=== PATIENT | female | born 1990 | race Hispanic/Latino ===

== ENCOUNTER 2018-09-06 15:43 | Emergency (ER) | payer OTHER ==
--- OUTSIDE RECORDS SUMMARY | 2018-09-06 15:48 | XMS REPORT | Continuity of Care Document ---
:1990 Author Organization Interface Problems Problem Status Onset Classification Date Comments Source Date Reported INCREASED BP Active 05/09/[address] Center Vaginal 02/27/20 03/01/2018 [facility] discharge during 18 Medical Center R10.11 - RIGHT Active 02/13/20 OPID UPPER QUADRANT 18 [facility] PAIN LOF Active 01/28/[address] Center Other specified 01/16/20 04/16/2018 [facility] Medical related Center conditions, second trimester Abdominal pain, 01/09/20 04/16/[address] 19WK AB PAIN Active 01/09/[address] False labor 12/19/19 03/20/2018 [facility] before 37 18 Medical completed weeks Center of gestation, second trimester Vaginal bleeding 12/12/19 03/20/[address] ABDOMINAL Active 12/12/19 [facility] PAIN/[address] [place] [address] Center Active 12/12/19 Problem 03/15/2018 OPID 18 [facility],[id number] 15WKS W PELVIC Active 12/11/19 [facility] PAIN AND LIGHT [address] [place] [address] VAG BLEEDI [place] VAGINAL DEL Active 11/20/[address] BACK PAIN Active 11/20/[address] Center Discharge 06/14/20 06/17/2017 [facility] Diagnosis: 17 Medical Abdominal pain Center in female History of Resolved 10/26/19 Problem 04/16/2018 [facility] delivery [address] [place] [address] OPID [facility],[id number] Preeclampsia Resolved 10/26/19 Problem 04/16/[address], OPID [facility],[id number] Resolved 10/01/20 Problem 04/16/2018 [facility]ID [facility] Lower abdominal 03/19/2018 [facility] pain, Medical unspecified Center Dorsalgia, 03/19/2018 [facility] Medical [place] 15 weeks 03/19/2018 [facility] gestation of Medical [place] Abdominal pain Active Problem 04/16/2018 [facility] in female Medical Center,[facility],[id number] Hypothyroid Resolved Problem 04/16/2018 [facility],[id number] Seizure Resolved Problem 04/16/2018 [facility],[id number] Vaginal bleeding Active Problem 04/16/2018 [facility],[id number] Right lower 04/16/2018 [facility] quadrant pain Medical Center Unspecified 04/16/2018 [facility] infection of Medical urinary tract in Center , second trimester Vomiting of 04/16/2018 [facility] , Medical unspecified Center Diseases of the 04/16/2018 [facility] nervous system Medical complicating Center , second trimester Epilepsy, 04/16/2018 [facility], not Medical intractable, Center without status epilepticus Endocrine, 04/16/2018 [facility] nutritional and Medical metabolic Center diseases complicating , second trimester Hypothyroidism, 04/16/2018 [facility] Hypokalemia 04/16/2018 [facility] 19 weeks 04/16/2018 [facility] gestation of Medical [facility] Group B Active Problem 04/16/2018 [facility] Pre-eclampsia Active Problem 04/16/2018 [facility] Premature labor Active Problem 04/16/2018 [facility] 20 weeks 03/20/2018 [facility] gestation of Medical Center Active [facility] RELATED Medical CONDITIONS, Center UNSP, UNSP Medications Medication Details Route Status Patient Ordering Order Source Instructions Provider Date cephalexin 500 500 mg=1 cap, Active [place] mg oral capsule PO, [id number], # 2018 Medical 28 cap, 0 Center Refill(s), Pharmacy: [facility] [id number] Pyridium 200 mg, 2 tab, Inactive [place] Route: PO, Drug 2018 Medical form: TAB, ONCE, Center Dosing Weight 68.182, kg, Priority: STAT, Start date: 03/24/18 20:01:00 CDT, Stop date: 03/24/18 20:01:00 CDTNotes: Give with meals. (Same as: Pyridium) Keflex 500 mg, 1 cap, No Longer [facility] Route: PO, Drug Active 2017 Medical form: CAP, Center [id number], Dosing Weight 68.182, kg, Start date: 03/24/18 14:00:00 CDT, Duration: 30 day, Stop date: 04/23/18 2:00:00 CDTNotes: Take on empty stomach. (Same As: Keflex) Topamax 250 mg, 5 tab, No Longer [facility] Route: PO, Drug Active 2017 Medical form: TAB, BID, Center Dosing Weight 68.182, kg, Start date: 03/24/18 13:00:00 CDT, Duration: 30 day, Stop date: 04/23/18 10:00:00 CDTNotes: (Same As: Topamax) "Do Not Crush" Tylenol 650 mg, 2 tab, No Longer [facility] Route: PO, Drug Active 2017 Medical form: TAB, Q6H, Center Dosing Weight 68.182, kg, PRN Pain Score 1-3, Start date: 03/24/18 9:51:00 CDT, Duration: 30 day, Stop date: 04/23/18 9:50:00 CDTNotes: Do not exceed 4 gm/day. (Same as: Tylenol) multivitamin, 1 tab, Route: No Longer [facility] PO, Drug Form: Active 2018 Medical TAB, Dosing Center Weight 68.182, kg, Daily, Start date: 03/24/18 9:00:00 CDT, Duration: 30 day, Stop date: 04/22/18 9:00:00 CDT Topamax 250 mg, Route: Inactive [place] PO, Daily, 2018 Medical Dosing Weight Center 68.182, kg, Start date: 03/24/18 9:00:00 CDT, Duration: 30 day, Stop date: 04/22/18 9:00:00 CDT Thyroxine 125 microgram, 1 No Longer [facility] tab, Route: PO, Active 2018 Medical Drug form: TAB, Center Daily, Dosing Weight 68.182, kg, Start date: 03/24/18 9:00:00 CDT, Duration: 30 day, Stop date: 04/22/18 9:00:00 CDTNotes: Take 1 hour before or 2 hours after meal; Enteral feeds may interefere with the absorption of this medication. (Same as:Levothroid) Folic Acid 4 mg, 4 tab, No Longer [place] Route: PO, Drug Active 2018 Medical form: TAB, Center Daily, Dosing Weight 68.182, kg, Start date: 03/24/18 9:00:00 CDT, Stop date: 04/22/18 9:00:00 CDTNotes: (Same as: Folvite) Rocephin 1 gm, Route: No Longer [place] IVPB, Drug form: Active 2017 Medical PDR/INJ, Center [id number], Dosing Weight 68.182, kg, Start date: 03/23/18 23:00:00 CDT, Duration: 10 day, Stop date: 04/01/18 23:00:00 CDT, ABX Indication: Urinary Tract InfectionNotes: (Same As: Rocephin). Use with 100 mL NS and infuse over 30 min MEDICATION WASTE Product Size: 1000 mg Product Wasted: ___ mg Ondansetron 4 MG 4 mg=1 tab, PO, No Longer [place] Disintegrating BID, PRN Nausea Active 2017 Medical Tablet [Zofran] and Vomiting, Center Dissolve tab under tongue, # 10 tab, 0 Refill(s) Tylenol 325 mg, 1 tab, Inactive [place] Route: PO, Drug 2017 Medical form: TAB, ONCE, Center Dosing Weight 64.091, kg, Start date: 01/08/18 20:36:00 CDT, Stop date: 01/08/18 20:36:00 CDTNotes: Do not exceed 4 gm/day. (Same as: Tylenol) Zofran 4 mg, 2 mL, Inactive [place] Route: IVP, Drug 2017 Medical form: INJ, ONCE, Center Dosing Weight 64.091, kg, Priority: STAT, Start date: 01/08/18 20:36:00 CDT, Stop date: 01/08/18 20:36:00 CDTNotes: (Same as: Zofran) MEDICATION WASTE Product Size: 4 mg Product Wasted: 0 mg Zofran ODT 4 mg, 1 tab, Inactive [facility] Route: PO, Drug 2017 Medical form: TABDIS, Center ONCE, Dosing Weight 64.091, kg, Priority: STAT, Start date: 01/08/18 20:18:00 CDT, Stop date: 01/08/18 20:18:00 CDTNotes: (Same as: Zofran ODT) Tylenol 650 mg, 2 tab, Inactive [facility] Route: PO, Drug 2017 Medical form: TAB, ONCE, Center Dosing Weight 64.091, kg, Priority: STAT, Start date: 01/08/18 18:58:00 CDT, Stop date: 01/08/18 18:58:00 CDTNotes: Do not exceed 4 gm/day. (Same as: Tylenol) Rocephin 1 gm, Route: Inactive [facility] IVPB, ONCE, 2018 Medical Dosing Weight Center 64.091, kg, Priority: STAT, Start date: 01/08/18 17:51:00 CDT, Stop date: 01/08/18 17:51:00 CDT, ABX Indication: Urinary Tract InfectionNotes: (Same As: Rocephin). Use with 100 mL NS and infuse over 30 min MEDICATION WASTE Product Size: 1000 mg Product Wasted: 0 mg Vitamin D2 PO, 0 Refill(s) Active [address] 1 oral 0 Refill(s) Active [facility] capsule 2017 [facility] Folic Acid Daily, 0 Active [facility] Refill(s) [address] [place] [address] Thyroxine Daily, 0 Active [facility] Refill(s) [address] [place] [address] Topamax PO, BID, 0 Active [facility] Refill(s) [address] [place] [address] Ketorolac 15 mg, 0.5 mL, Inactive [facility] Route: IVP, Drug 2016 Medical form: INJ, ONCE, Center Dosing Weight 56.818, kg, Priority: STAT, Start date: 06/14/17 17:40:00 CDT, Stop date: 06/14/17 17:40:00 CDTNotes: (Same as:Toradol) IV bolus must be given >15 seconds. Give IM administration slowly and deeply into the muscle. Not for use > 4 days MEDICATION WASTE Product Size: 30 mg Product Wasted: 15 mg Zofran 4 mg, 2 mL, Inactive 06/14[facility] Route: IVP, Drug 2016 Medical form: INJ, ONCE, Center Dosing Weight 56.818, kg, Priority: STAT, Start date: 06/14/17 16:04:00 CDT, Stop date: 06/14/17 16:04:00 CDTNotes: (Same as: Zofran) MEDICATION WASTE Product Size: 4 mg Product Wasted: ___ mg Sodium Chloride 1,000 mL, 1000 Inactive 06/14[facility] 0.9% (Bolus) IV ml/hr, Infuse 2016 Medical Over: 1 hr, Center Route: IV, 1,000, Drug form: INJ, ONCE, Priority: STAT, Dosing Weight 56.818 kg, Start date: 06/14/17 16:04:00 CDT, Duration: 1 doses or times, Stop date: 06/14/17 16:04:00 CDT Allergies, Adverse Reactions, Alerts Substance Category Reaction Severity Reaction Status Date Comments Source type Reported sulfa drugs Assertion Drug Active [facility] ciprofloxacin Assertion Drug Active [facility] gentamicin Assertion Drug Active [facility] amoxicillin Assertion Drug Active [facility] penicillin Assertion Drug Active [facility] Levaquin Assertion Drug Active [facility] Bactrim Assertion Drug Active [facility] Immunizations Immunization Date Given Site Status Last Updated Comments Source Results Order Name Results Value Reference Date Interpretation Comments Source Range IMMUNOLOGY Rubella IgG 138.5 >=10.0 03/24 [facility] [iU]/mL IU/mL /2017 [facility] BLOOD BANK Antibody Positive 1 03/24 Result Comment: 03/24/2018 01:10 THELMA [facility] RESULTS Scrn /2018 "Significant Findings of positive screen called to Chiara Dumont at 03/24/2018 01:06 by TUTU. Read Back OK" Medical (5/29/18 11:28 PM) Center BLOOD BANK ABO/Rh A NEG 03/24 [place] RESULTS /2017 [facility] BLOOD BANK Path AB Blood Bank 03/24 [facility] RESULTS [facility] 31 yo Female at 30 weeks gestation who presented recently for complicate d UTI. Per EMR, she recieved rhogam last at 03/12/18.Im munohemato logic testing demonstrat es the presence of an anti-D in this patients serum. This antibody is directed against the D antigen of the "Rh" blood group system and is typically IgG in nature. Although usually considered clinically significan t, the presence of this antibody most likely represents passive immunizati on due to Rh Immune Globulin administra tion (by history given on 03/12/18).S hould RBC transfusio n be required, Rh-negativ e crossmatch -compatibl e units will be issued. No difficulty in obtaining compatible blood is expected.T he patients electronic medical record has been reviewed for relevant informatio n.I have reviewed the test results and concur with the resident's , Dr. Chavez&ap os;, interpreta tion.CPT: [id number] BLOOD BANK AB Int Rhig 03/24 [facility] RESULTS Anti-D /2017 [facility] HEMATOLOGY Hct 34.5 % 36.0 - 03/24 [place] 48.0 [facility] HEMATOLOGY MCV 90.9 fL 80.0 - 03/24 [place] 98.0 [facility] HEMATOLOGY WBC 10.6 K/CMM 3.7 - 10.4 03/24 [facility] HEMATOLOGY RBC 3.80 M/CMM 4.20 - 03/24 [place] 5.40 /2017 [facility] HEMATOLOGY Hgb 11.6 g/dL 12.0 - 03/24 [place] 16.0 [facility] HEMATOLOGY MCH 30.4 pg 27.0 - 03/24 [place] 31.0 [facility] HEMATOLOGY MCHC 33.5 g/dL 32.0 - 03/24 [place] 36.0 [facility] HEMATOLOGY RDW 14.6 % 11.5 - 03/24 [place] 14.5 [facility] HEMATOLOGY Platelet 183 K/CMM 133 - 450 03/24 [place] /2017 [facility] HEMATOLOGY MPV 10.6 fL 7.4 - 10.4 03/24 [facility]2017 [facility] HEMATOLOGY Eosinophils 2.9 % 0.0 - 4.0 03/[address] HEMATOLOGY Monocytes 9.2 % 2.0 - 12.0 03/[address] HEMATOLOGY Segs-Bands # 6.7 K/CMM 1.5 - 8.1 03/24 [facility]2017 [facility] HEMATOLOGY Basophils 0.2 % 0.0 - 1.0 03/24 [facility]2017 [facility] HEMATOLOGY Eosinophils 0.3 K/CMM 0.0 - 0.5 03/24 [facility]2017 [facility] HEMATOLOGY Monocytes # 1.0 K/CMM 0.0 - 0.8 03/[address] HEMATOLOGY Lymphocytes 2.5 K/CMM 1.0 - 5.5 03/[address] HEMATOLOGY Lymphocytes 24.0 % 20.0 - 03/24 [facility] 40.0 [facility] HEMATOLOGY Segs 63.7 % 45.0 - 03/24 [facility] 75.0 [facility] IMMUNOLOGY Hep Bs Ag Negative Negative 03/24 [facility] (03/23/18 11:28 PM) IMMUNOLOGY HIV. Negative Negative 03/24 [facility]* [place] (03/23/18 11:28 PM) IMMUNOLOGY Treponemal Non-Reactive Non 03/24 [facility]* [place] (03/23/18 11:28 PM) Retroperit Retroperiton Clinical Indication: - HYDRONEPHROSIS; 03/12 - [facility] Complete - [place] Complete US Comparison: Right upper quadrant ultrasound 02/12/2018 US Read by: Hiren Peña MD Dictated Date/time: 03/13/18 05:43 TECHNIQUE: Electronically Signed by: Hiren Peña MD 03/13/18 05:44 FINAL REPORT Multiple longitudinal and transverse real time sonographic images of the kidneys and urinary bladder are obtained. FINDINGS: KIDNEY: The right kidney measures 10.0 cm. The left kidney measures 10.6 cm. Both kidneys demonstrate normal echotexture. No solid renal masses. No echogenic intrarenal foci to suggest calculi. Mild hydronephrosis of the right kidney. No perinephric fluid collections. BLADDER: Scanning through the pelvis reveals the bladder to be partially distended with anechoic urine. Bilateral ureteral jets are noted. OTHER: The visualized aorta is normal in caliber. The visualized IVC is patent. Common iliac arteries are not well-seen secondary to bowel gas. IMPRESSION: Mild right hydronephrosis. Bilateral ureteral jets are visualized. SL: [id number] Abdomen Abdomen RUQ Patient Name: SHIVAM OBRIEN 02/12 - OPID RUQ US US /2017 - [facility] : 1990; Age: 27 years y/o Female MR: [id number] Read by: Earl Perry MD Dictated Date/time: 02/12/18 13:53 Electronically Signed by: Earl Prery MD 02/12/18 13:54 FINAL REPORT Study: Abdomen RUQ US 02/12/2018 11:10 AM CDT Ordering Physician: Danette Meehan Clinical Indication: - R10.11 Right upper quadrant pain. Comparison: None TECHNIQUE: Grayscale and limited color sonographic evaluation of the right upper quadrant abdomen was performed with standard technique. FINDINGS: LIVER: The visualized liver shows normal contour, size, and morphology with normal parenchymal echo texture. BILE DUCTS: The common bile duct measures about 2.1 mm. GALLBLADDER: Nonvisualization of the gallbladder likely post cholecystectomy. PANCREAS: The visualized pancreas appears unremarkable. KIDNEY: The right kidney measures 9.5 cm x 4.2 cm x 4.5 cm. Known gravid uterus with reported gestation at 24 weeks. Mild right hydronephrosis is present. IMPRESSION: 1. Postoperative cholecystectomy. SL: [id number] CHEM PANEL Bili Direct 0.1 mg/dL 0.0 - 0.3 01/[address] CHEM PANEL ALT 10 unit/L 0 - 65 01/[address] CHEM PANEL AST 14 unit/L 0 - 37 01/[address] CHEM PANEL A/G Ratio 0.7 0.7 - 1.6 01/[address] CHEM PANEL Globulin 3.4 g/dL 2.7 - 4.2 01/[address] CHEM PANEL Alk Phos 54 unit/L 39 - 136 01/[address] CHEM PANEL Bili Total 0.1 mg/dL 0.2 - 1.3 01/09 [facility]2018 [facility] CHEM PANEL Total 5.9 g/dL 6.4 - 8.4 01/09 [facility] Protein [facility] CHEM PANEL Albumin Lvl 2.5 g/dL 3.5 - 5.0 01/09 [facility]2017 [facility] CHEM PANEL Bili 0.0 mg/dL 0.0 - 1.0 01/09 [facility] CHEM PANEL Lipase Lvl 160 unit/L 73 - 393 01/09 [facility]2017 [facility] CHEM PANEL Amylase Lvl 50 unit/L 25 - 115 01/[address] IMMUNOLOGY [facility] HIV 4th Negative Negative 01/08 [facility] *NA* Center (01/08/18 4:52 PM) ELECTROLYT AGAP 12.2 meq/L 10.0 - 01/08 [facility] 20.0 [facility] ELECTROLYT eGFR 133 01/08 Result Comment: The eGFR is calculated using the CKD-EPI formula. In most young, healthy individuals the eGFR will be >90 mL/ min/1.73m2. The eGFR declines with age. An eGFR of 60-89 may be normal in [facility] mL/min/1.7 some populations, particularly the elderly, for whom the CKD-EPI formula has not been extensively validated. Use of the eGFR is not recommended in the following populations: [address] Individuals with unstable creatinine concentrations, including patients and those with serious co-morbid conditions. Patients with extremes in muscle mass or diet. The data above are obtained from the National Kidney Disease Education Program (NKDEP) which additionally recommends that when the eGFR is used in patients with extremes of body mass index for purposes of drug dosing, the eGFR should be multiplied by the estimated BMI. ELECTROLYT Calcium Lvl 8.5 mg/dL 8.5 - 10.5 01/08 [facility] ELECTROLYT BUN 11 mg/dL 7 - 22 01/08 [facility] ELECTROLYT Glucose Lvl 75 mg/dL 70 - 99 01/08 [facility]2017 [facility] ELECTROLYT CO2 19 meq/L 24 - 32 01/[address] ELECTROLYT Potassium 3.2 meq/L 3.5 - 5.1 01/08 [facility] Lvl [facility] ELECTROLYT Chloride Lvl 112 meq/L 95 - 109 01/08 [facility] ES [facility] ELECTROLYT Creatinine 0.52 mg/dL 0.50 - 01/08 [facility] ES Lvl 1.40 [facility] ELECTROLYT Sodium Lvl 140 meq/L 135 - 145 01/08 [facility] ES [facility] [place] [id number] 01/08 [facility] OGY mIU/mL /2017 [facility] HEMATOLOGY Lymphocytes 2.4 K/CMM 1.0 - 5.5 01/08 [facility] # /2017 [facility] HEMATOLOGY Segs-Bands # 6.0 K/CMM 1.5 - 8.1 01/08 [facility] HEMATOLOGY Monocytes # 0.7 K/CMM 0.0 - 0.8 01/08 [facility] HEMATOLOGY Eosinophils 0.3 K/CMM 0.0 - 0.5 01/08 [facility] /2017 [facility] HEMATOLOGY Eosinophils 2.8 % 0.0 - 4.0 01/08 [facility] HEMATOLOGY Monocytes 7.6 % 2.0 - 12.0 01/08 [facility] HEMATOLOGY Lymphocytes 25.5 % 20.0 - 01/08 [place] 40.0 [facility] HEMATOLOGY Basophils 0.3 % 0.0 - 1.0 01/08 [facility] HEMATOLOGY Segs 63.8 % 45.0 - 01/08 [place] 75.0 [facility] HEMATOLOGY MCH 29.3 pg 27.0 - 01/08 [place] 31.0 [facility] HEMATOLOGY MCHC 33.3 g/dL 32.0 - 01/08 [place] 36.0 [facility] HEMATOLOGY MCV 87.9 fL 80.0 - 01/08 [place] 98.0 [facility] HEMATOLOGY RBC 3.65 M/CMM 4.20 - 16 [place] 5.40 2018 [facility] HEMATOLOGY Hct 32.0 % 36.0 - 01/08 [place] 48.0 2018 [facility] HEMATOLOGY Hgb 10.7 g/dL 12.0 - 01/08 [place] 16.0 2018 [facility] HEMATOLOGY WBC 9.5 K/CMM 3.7 - 10.4 01/08 [facility] /2017 [facility] HEMATOLOGY MPV 9.6 fL 7.4 - 10.4 01/08 [facility] HEMATOLOGY Platelet 217 K/CMM 133 - 450 01/08 [facility] HEMATOLOGY RDW 15.1 % 11.5 - 01/08 [facility] 14.5 [facility] URINE AND UA RBC 0-2 /HPF 0 - 2 01/08 [facility]2017 [facility] URINE AND UA WBC 3-5 /HPF None Seen 01/08 [facility] [place] /HPF [facility] URINE AND UA Bacteria Moderate None Seen 01/08 [facility] [place] /HPF /HPF /2017 [facility] URINE AND UA Sq Epi Occasional Few /LPF 01/08 [facility] STOOL /LPF /2017 [facility] URINE AND UA Nitrite Negative Negative 01/08 [facility] [place] [facility] (01/08/18 4:26 PM) [place] URINE AND UA Blood Negative Negative 01/08 [facility] [place] [facility] (01/08/18 4:26 PM) [place] URINE AND UA 0.2 EU/dL 0.1 - 1.0 01/08 [facility] [place] Urobilinogen /2017 [facility] URINE AND UA Leuk Est Small Negative 01/08 [facility] [place] [facility] *ABN* [place] (01/08/18 4:26 PM) URINE AND UA Ketones Negative Negative 01/08 [facility] [place] [facility] *NA* [place] (01/08/18 4:26 PM) URINE AND UA Glucose Negative Negative 01/08 [facility] [place] [facility] (01/08/18 4:26 PM) [place] URINE AND UA Bili Negative Negative 01/08 [facility] [place] [facility] *NA* [place] (01/08/18 4:26 PM) URINE AND UA Spec Grav 1.010 <=1.030 01/[address] URINE AND UA Turbidity Slight Cloudy Clear 01/08 [facility] [place] [facility] (01/08/18 4:26 PM) [place] URINE AND UA Protein Negative Negative 01/08 [facility] [place] [facility] (01/08/18 4:26 PM) [place] URINE AND UA pH 7.5 5.0 - 8.0 01/[address] URINE AND UA Color Yellow Yellow 01/08 [facility] [place] [facility] *NA* [place] (01/08/18 4:26 PM) URINE AND UA Sq Epi Few /LPF Few /LPF 12/12 [facility] [place] [address] [place] [address] URINE AND Micro? Performed 12/12 [facility] [place] [facility] (12/11/17 7:10 PM) [place] URINE AND UA Mucus Moderate None Seen 12/12 [facility] [place] /LPF /LPF [facility] URINE AND UA Bacteria Moderate None Seen 12/12 [facility] [place] /HPF /HPF [facility] URINE AND UA RBC 3-5 /HPF 0 - 2 12/12 [facility] [place] [facility] URINE AND UA WBC 6-10 /HPF None Seen 12/12 [facility] [place] /HPF /2017 [facility] URINE AND UA pH 6.0 5.0 - 8.0 12/12 [facility] [place] [facility] URINE AND UA Spec Grav 1.015 <=1.030 12/12 [facility] [place] [facility] URINE AND UA Turbidity Clear Clear 12/12 [facility] [place] [facility] (12/11/17 7:10 PM) [place] URINE AND UA Protein Negative Negative 12/12 [facility] (12/11/17 7:10 PM) [place] URINE AND UA Glucose Negative Negative 12/12 [facility] (12/11/17 7:10 PM) [place] URINE AND UA Bili Negative Negative 12/12 [facility] *NA* Center (12/11/17 7:10 PM) URINE AND UA Ketones Negative Negative 12/12 [facility] *NA* [place] (12/11/17 7:10 PM) URINE AND UA Blood Trace Negative 12/12 [facility] *ABN* [place] (12/11/17 7:10 PM) URINE AND UA Nitrite Negative Negative 12/12 [facility] (12/11/17 7:10 PM) [place] URINE AND UA 0.2 EU/dL 0.1 - 1.0 12/12 [facility] [place] Urobilinogen /2017 [facility] URINE AND UA Leuk Est Trace Negative 12/12 [facility] *ABN* [place] (12/11/17 7:10 PM) URINE AND UA Color Yellow Yellow 12/12 [facility] *NA* Center (12/11/17 7:10 PM) URINE CHEM U Preg Positive Negative 12/12 [facility] *ABN* Center (12/11/17 7:10 PM) ELECTROLYT AGAP 14.2 meq/L 10.0 - 06/14 [facility] ES 20. [facility] ELECTROLYT eGFR 81 06/14 Result Comment: The eGFR is calculated using the CKD-EPI formula. In most young, healthy individuals the eGFR will be >90 mL/ min/1.73m2. The eGFR declines with age. An eGFR of 60-89 may be normal in [facility] mL/min/1. some populations, particularly the elderly, for whom the CKD-EPI formula has not been extensively validated. Use of the eGFR is not recommended in the following populations: Medical [address] [place] [address] Individuals with unstable creatinine concentrations, including patients and those with serious co-morbid conditions. Patients with extremes in muscle mass or diet. The data above are obtained from the National Kidney Disease Education Program (NKDEP) which additionally recommends that when the eGFR is used in patients with extremes of body mass index for purposes of drug dosing, the eGFR should be multiplied by the estimated BMI. ELECTROLYT Glucose Lvl 76 mg/dL 70 - 99 06/14 [facility] ELECTROLYT BUN 12 mg/dL 7 - 22 06/14 [facility] ELECTROLYT CO2 21 meq/L 24 - 32 06/14 [facility] ELECTROLYT Chloride Lvl 110 meq/L 95 - 109 06/[address] ELECTROLYT Creatinine 0.98 mg/dL 0.50 - 06/14 [facility] Lvl 1.40 [facility] ELECTROLYT Potassium 3.2 meq/L 3.5 - 5.1 06/14 [facility] ELECTROLYT Sodium Lvl 142 meq/L 135 - 145 06/[address] ELECTROLYT Calcium Lvl 8.8 mg/dL 8.5 - 10.5 06/14 [facility] HEMATOLOGY Basophils # 0.1 K/CMM 0.0 - 0.2 06/[address] HEMATOLOGY Eosinophils 0.3 K/CMM 0.0 - 0.5 06/14 [facility] HEMATOLOGY Monocytes # 0.7 K/CMM 0.0 - 0.8 06/[address] HEMATOLOGY Lymphocytes 2.1 K/CMM 1.0 - 5.5 06/14 [facility]2016 [facility] HEMATOLOGY Segs-Bands # 4.2 K/CMM 1.5 - 8.1 06/[address] HEMATOLOGY Basophils 0.7 % 0.0 - 1.0 06/14 [facility] HEMATOLOGY Eosinophils 4.3 % 0.0 - 4.0 06/14 [facility] HEMATOLOGY Monocytes 9.4 % 2.0 - 12.0 06/14 [facility] HEMATOLOGY Lymphocytes 28.6 % 20.0 - 06/14 [place] 40.0 [facility] HEMATOLOGY Segs 57.0 % 45.0 - 06/14 [place] 75.0 [facility] HEMATOLOGY MPV 9.7 fL 7.4 - 10.4 06/14 [facility] HEMATOLOGY Platelet 194 K/CMM 133 - 450 06/14 [facility] HEMATOLOGY RDW 16.0 % 11.5 - 06/14 [place] 14.5 [facility] HEMATOLOGY MCHC 32.6 g/dL 32.0 - 06/14 [place] 36.0 [facility] HEMATOLOGY MCH 28.3 pg 27.0 - 06/14 [place] 31.0 [facility] HEMATOLOGY MCV 86.9 fL 80.0 - 06/14 [place] 98.0 [facility] HEMATOLOGY Hct 38.8 % 36.0 - 06/14 [place] 48.0 [facility] HEMATOLOGY Hgb 12.6 g/dL 12.0 - 06/14 [place] 16.0 [facility] HEMATOLOGY RBC 4.46 M/CMM 4.20 - 06/14 [place] 5.40 /2016 [facility] HEMATOLOGY WBC 7.4 K/CMM 3.7 - 10.4 06/[address] [place] [address] URINE AND Micro? Performed 06/14 [facility] (06/14/17 3:55 PM) [place] URINE AND UA Sq Epi Occasional Few /LPF 06/14 [facility] STOOL /LPF [facility] URINE AND UA Mucus Few /LPF None Seen 06/14 [facility] STOOL /LPF [facility] URINE AND UA RBC None Seen 0 - 2 06/14 [facility] (06/14/17 3:55 PM) [place] URINE AND UA Bacteria Occasional None Seen 06/14 [facility] STOOL /HPF /HPF [facility] URINE AND UA WBC 3-5 /HPF None Seen 06/14 [facility] STOOL /HPF [facility] URINE AND UA Nitrite Negative Negative 06/14 [facility] (06/14/17 3:55 PM) [place] URINE AND UA Blood Negative Negative 06/14 [facility] (06/14/17 3:55 PM) Center URINE AND UA 0.2 EU/dL 0.1 - 1.0 06/14 [facility] [place] Urobilinogen /2016 [facility] URINE AND UA Leuk Est Small Negative 06/14 [facility] Medical *ABN* Center (06/14/17 3:55 PM) URINE AND UA Ketones Negative Negative 06/14 [facility] Medical *NA* Center (06/14/17 3:55 PM) URINE AND UA Bili Negative Negative 06/14 [facility] *NA* Center (06/14/17 3:55 PM) URINE AND UA pH 6.5 5.0 - 8.0 06/14 [facility] URINE AND UA Protein Negative Negative 06/14 [facility] (06/14/17 3:55 PM) [place] URINE AND UA Spec Grav 1.020 <=1.030 06/14 [facility] URINE AND UA Glucose Negative Negative 06/14 [facility] (06/14/17 3:55 PM) [place] URINE AND UA Color Yellow Yellow 06/14 [facility] *NA* [place] (06/14/17 3:55 PM) URINE AND UA Turbidity Slight Cloudy Clear 06/14 [facility] (06/14/17 3:55 PM) [place] URINE CHEM U Preg Negative Negative 06/14 [facility] (06/14/17 3:55 PM) Center Vital Signs Vital Sign Value Date Comments Source Respitory Rate 18 03/25/2018 [facility] Heart Rate 93 03/25/2018 [facility] Systolic (mm Hg) 102 03/25/2018 [facility] Diastolic (mm Hg) 67 03/25/2018 [facility] Temperature Oral (F) 97.3 F 03/25/2018 [facility] Temperature Oral (F) 97.6 F 03/25/2018 [facility] Systolic (mm Hg) 103 03/25/2018 [facility] Diastolic (mm Hg) 66 03/25/2018 [facility] Respitory Rate 18 03/25/2018 [facility] Heart Rate 92 03/25/2018 [facility] Systolic (mm Hg) 112 03/25/2018 [facility] Diastolic (mm Hg) 75 03/25/2018 [facility] Respitory Rate 18 03/25/2018 [facility] Heart Rate 73 03/25/2018 [facility] Temperature Oral (F) 98.3 F 03/25/2018 [facility] Height 160.02 cm 03/24/2018 [facility] Weight 68.182 03/24/2018 [facility] BMI Calculated 26.63 03/24/2018 [facility] Temperature Oral (F) 98.2 F 02/26/2018 [facility] Respitory Rate 17 02/26/2018 [facility] Heart Rate 67 02/26/2018 [facility] Systolic (mm Hg) 107 02/26/2018 [facility] Diastolic (mm Hg) 65 02/26/2018 [facility] BMI Calculated 26.09 02/26/2018 [facility] Weight 66.818 02/26/2018 [facility] Height 160.02 cm 02/26/2018 [facility] Temperature Oral (F) 98.2 F 01/09/2018 [facility] Systolic (mm Hg) 105 01/09/2018 [facility] Diastolic (mm Hg) 71 01/09/2018 [facility] Respitory Rate 17 01/09/2018 [facility] Heart Rate 68 01/09/2018 [facility] Respitory Rate 18 01/09/2018 [facility] Temperature Oral (F) 98.3 F 01/09/2018 [facility] Heart Rate 68 01/09/2018 [facility] Systolic (mm Hg) 96 01/09/2018 [facility] Diastolic (mm Hg) 59 01/09/2018 [facility] Systolic (mm Hg) 108 01/08/2018 [facility] Diastolic (mm Hg) 71 01/08/2018 [facility] Respitory Rate 16 01/08/2018 [facility] Heart Rate 80 01/08/2018 [facility] Temperature Oral (F) 98.2 F 01/08/2018 [facility] Weight 64.091 01/08/2018 [facility] BMI Calculated 25.03 01/08/2018 [facility] Height 160.02 cm 01/08/2018 [facility] Weight 61.364 12/12/2017 [facility] BMI Calculated 23.96 12/12/2017 [facility] Height 160.02 cm 12/12/2017 [facility] Temperature Oral (F) 98.9 F 12/12/2017 [facility] Respitory Rate 16 12/12/2017 [facility] Heart Rate 70 12/12/2017 [facility] Systolic (mm Hg) 115 12/12/2017 [facility] Diastolic (mm Hg) 76 12/12/2017 [facility] Weight 61.364 12/12/2017 [facility] BMI Calculated 23.96 12/12/2017 [facility] Temperature Oral (F) 99.1 F 12/12/2017 [facility] Height 160.02 cm 12/12/2017 [facility] Heart Rate 78 12/12/2017 [facility] Systolic (mm Hg) 106 12/12/2017 [facility] Diastolic (mm Hg) 72 12/12/2017 [facility] Respitory Rate 18 12/12/2017 [facility] Weight 61.364 12/12/2017 [facility] Height 160.02 cm 12/12/2017 [facility] BMI Calculated 23.96 12/12/2017 [facility] Heart Rate 80 12/12/2017 [facility] Respitory Rate 18 12/12/2017 [facility] Systolic (mm Hg) 112 12/12/2017 [facility] Diastolic (mm Hg) 76 12/12/2017 [facility] Temperature Oral (F) 99.1 F 12/12/2017 [facility] Respitory Rate 18 06/15/2017 [facility] Heart Rate 63 06/15/2017 [facility] Temperature Oral (F) 98.8 F 06/15/2017 [facility] Systolic (mm Hg) 107 06/15/2017 [facility] Diastolic (mm Hg) 72 06/15/2017 [facility] Height 160.02 cm 06/14/2017 [facility] Temperature Oral (F) 98.3 F 06/14/2017 [facility] Respitory Rate 18 06/14/2017 [facility] Heart Rate 94 06/14/2017 [facility] Systolic (mm Hg) 100 06/14/2017 [facility] Diastolic (mm Hg) 72 06/14/2017 [facility] BMI Calculated 22.19 06/14/2017 [facility] Weight 56.818 06/14/2017 [facility] Encounters Location Location Encounter Encounter Reason Attending ADM DC Status Source Details Type Number For Provider Date Date [facility] [id number] Darin 06/14 06/15 Veronica Zazueta 0 [place] [facility] [id number] Lyndon 12/12 12/12 [facility] [place] 1 [place] /2017 [facility] Emergency [id number] Daisy 12/12 12/12 [facility] [place] 2 [place] [facility] [id number] Ira 01/08 01/09 [facility] [place] [address] [facility] Outpt Diag [id number] Danette 02/12 02/13 [facility] [id number] Katelynn 02/26 02/26 [facility] [address] [place] [facility] Outpt Diag [id number] Kleber 03/12 03/13 [id number] Outpatient Services 3 Audie .[id number] Imaging [id number]. Greater 127 [facility] Observation [id number] Tim 03/24 03/24 [facility] [place] 6 [facility] Procedures Procedure Code Date Perfomer Comments Source section [id number] 10/26/2015 [facility] section [id number] 10/26/2015 [facility] section [id number] 10/26/2015 [id number] Cholecystectomy [id number] 10/26/2013 [facility] Cholecystectomy [id number] 10/26/2013 [facility] Cholecystectomy [id number] 10/26/2013 [id number] Appendectomy [id number] 10/26/2007 [facility] Appendectomy [id number] 10/26/2007 [facility] Appendectomy [id number] 10/26/2007 [id number]
--- OUTSIDE RECORDS SUMMARY | 2018-09-06 15:49 | XMS REPORT | Summary of Care ---
:[address] [facility] Address [address] [place] [address]- Encounter HQ Milo(FIN) [id number] Date(s): 12/12/17 - 12/12/[address] Professional Services provided by [facility] [place] [address]- Encounter Diagnosis Vaginal bleeding (Discharge Diagnosis) - 12/12/17 False labor before 37 completed weeks of gestation, second trimester (Final) - Endocrine, nutritional and metabolic diseases complicating , second trimester (Final) - Hypothyroidism, unspecified (Final) - Diseases of the nervous system complicating , second trimester (Final) - Epilepsy, unspecified, not intractable, without status epilepticus (Final) - 20 weeks gestation of (Final) - Discharge Disposition: Home or Self Care Attending Physician: Daisy White MD Vital Signs Most recent to oldest [Reference Range]: 1 2 Height 160.02 cm 160.02 cm (12/12/17 10:38 AM) (12/12/17 9:41 AM) Temperature Oral [96.4-99.1 DegF] 98.9 DegF 99.1 DegF (12/12/17 10:38 AM) (12/12/17 9:41 AM) Blood Pressure [90-140/60-90 mmHg] 115/76 mmHg 106/72 mmHg (12/12/17 10:38 AM) (12/12/17 9:41 AM) Respiratory Rate [14-20 BRMIN] 16 BRMIN 18 BRMIN (12/12/17 10:38 AM) (12/12/17 9:41 AM) Peripheral Pulse Rate [60-100 bpm] 70 bpm 78 bpm (12/12/17 10:38 AM) (12/12/17 9:41 AM) Weight 61.364 kg 61.364 kg (12/12/17 10:38 AM) (12/12/17 9:41 AM) Body Mass Index 23.96 m2 23.96 m2 (12/12/17 10:38 AM) (12/12/17 9:41 AM) Problem List Condition Effective Dates Status Health Status Informant Abdominal pain in female(Confirmed) Active History of 2016 Resolved delivery(Confirmed) Hypothyroid(Confirmed) Resolved Preeclampsia(Confirmed) 2016 Resolved (Confirmed) 12/12/17 Active Seizure(Confirmed) Resolved Vaginal bleeding(Confirmed) Active Allergies, Adverse Reactions, Alerts Substance Reaction Severity Status sulfa drugs Active ciprofloxacin Active gentamicin Active amoxicillin Active penicillin Active Levaquin Active Bactrim Active Medications folic acid Daily, 0 Refill(s) Start Date: 12/12/17 Status: Orderedlevothyroxine Daily, 0 Refill(s) Start Date: 12/12/17 Status: OrderedPrenatal 1 oral capsule 0 Refill(s) Start Date: 12/12/17 Status: OrderedTopamax PO, BID, 0 Refill(s) Start Date: 12/12/17 Status: OrderedVitamin D2 PO, 0 Refill(s) Start Date: 12/12/17 Status: Ordered Results No data available for this section Immunizations No data available for this section Procedures Procedure Date Related Diagnosis Body Site Status section 2015 Completed Cholecystectomy 2013 Completed Appendectomy 2007 Completed Social History Social History Type Response Smoking Status Former smoker; Exposure to Tobacco Smoke None; Cigarette Smoking Last 365 Days No; Reg Smoking Cessation Counseling No entered on: 02/26/18 Assessment and Plan No data available for this section
--- OUTSIDE RECORDS SUMMARY | 2018-09-06 15:49 | XMS REPORT | Summary of Care ---
:1990 Author Organization [facility] Address [address] [place] [address]- Encounter HQ Milo(FIN) [id number] Date(s): 12/11/17 - 12/11/[address] Professional Services provided by [facility] [place] [address]- Encounter Diagnosis Other specified related conditions, second trimester (Final) - 12/18/17 Lower abdominal pain, unspecified (Final) - Dorsalgia, unspecified (Final) - 15 weeks gestation of (Final) - Discharge Disposition: Left Without Being Seen Attending Physician: Lyndon Zaragoza MD Vital Signs Most recent to oldest [Reference Range]: 1 Height 160.02 cm (12/11/17 6:53 PM) Temperature Oral [96.4-99.1 DegF] 99.1 DegF (12/11/17 6:53 PM) Blood Pressure [90-140/60-90 mmHg] 112/76 mmHg (12/11/17 6:53 PM) Respiratory Rate [14-20 BRMIN] 18 BRMIN (12/11/17 6:53 PM) Peripheral Pulse Rate [60-100 bpm] 80 bpm (12/11/17 6:53 PM) Weight 61.364 kg (12/11/17 6:53 PM) Body Mass Index 23.96 m2 (12/11/17 6:53 PM) Problem List Condition Effective Dates Status Health Status Informant Abdominal pain in female(Confirmed) Active History of 2016 Resolved delivery(Confirmed) Hypothyroid(Confirmed) Resolved Preeclampsia(Confirmed) 2015 Resolved (Confirmed) 12/12/17 Active Seizure(Confirmed) Resolved Vaginal bleeding(Confirmed) Active Allergies, Adverse Reactions, Alerts Substance Reaction Severity Status sulfa drugs Active ciprofloxacin Active gentamicin Active amoxicillin Active penicillin Active Levaquin Active Bactrim Active Medications No data available for this section Results URINE CHEM Most recent to oldest [Reference Range]: 1 U Preg [Negative] Positive *ABN* (12/11/17 7:10 PM) URINE AND STOOL Most recent to oldest [Reference Range]: 1 UA Turbidity [Clear] Clear (12/11/17 7:10 PM) UA Color [Yellow] Yellow *NA* (12/11/17 7:10 PM) UA pH [5.0-8.0] 6.0 (12/11/17 7:10 PM) UA Spec Grav [<=1.030] 1.015 (12/11/17 7:10 PM) UA Glucose [Negative] Negative (12/11/17 7:10 PM) UA Blood [Negative] Trace *ABN* (12/11/17 7:10 PM) UA Ketones [Negative] Negative *NA* (12/11/17 7:10 PM) UA Protein [Negative] Negative (12/11/17 7:10 PM) UA Urobilinogen [0.1-1.0 EU/dL] 0.2 EU/dL (12/11/17 7:10 PM) UA Bili [Negative] Negative *NA* (12/11/17 7:10 PM) UA Leuk Est [Negative] Trace *ABN* (12/11/17 7:10 PM) UA Nitrite [Negative] Negative (12/11/17 7:10 PM) UA WBC [None Seen /HPF] 6-10 /HPF *ABN* (12/11/17 7:10 PM) UA RBC [0-2 /HPF] 3-5 /HPF *ABN* (12/11/17 7:10 PM) UA Bacteria [None Seen /HPF] Moderate /HPF (12/11/17 7:10 PM) UA Sq Epi [Few /LPF] Few /LPF (12/11/17 7:10 PM) UA Mucus [None Seen /LPF] Moderate /LPF *ABN* (12/11/17 7:10 PM) Micro? Performed (12/11/17 7:10 PM) Immunizations No data available for this section [...]
--- OUTSIDE RECORDS SUMMARY | 2018-09-06 15:49 | XMS REPORT | Summary of Care ---
:1990 Author Organization [facility] Address [address] [place] [address]- Encounter HQ Betsy_johanne(FIN) [id number] Date(s): 06/14/17 - 06/14/[address] Professional Services provided by The [facility] [place] [address]- Discharge Diagnosis: Abdominal pain in female Discharge Disposition: Home or Self Care Attending Physician: Darin Aaron MD Vital Signs Most recent to oldest [Reference Range]: 1 2 Height 160.02 cm (06/14/17 3:03 PM) Temperature Oral [96.4-99.1 DegF] 98.8 DegF 98.3 DegF (06/14/17 7:47 PM) (06/14/17 3:03 PM) Blood Pressure [90-140/60-90 mmHg] 107/72 mmHg 100/72 mmHg (06/14/17 7:47 PM) (06/14/17 3:03 PM) Respiratory Rate [14-20 BRMIN] 18 BRMIN 18 BRMIN (06/14/17 7:47 PM) (06/14/17 3:03 PM) Peripheral Pulse Rate [60-100 bpm] 63 bpm 94 bpm (06/14/17 7:47 PM) (06/14/17 3:03 PM) Weight 56.818 kg (06/14/17 3:03 PM) Body Mass Index 22.19 m2 (06/14/17 3:03 PM) Problem List Condition Effective Dates Status Health Status Informant Abdominal pain in female(Confirmed) Active Hypothyroid(Confirmed) Resolved Seizure(Confirmed) Resolved Allergies, Adverse Reactions, Alerts Substance Reaction Severity Status Bactrim Active ciprofloxacin Active gentamicin Active Levaquin Active penicillin Active sulfa drugs Active Medications ketOROLAC 15 mg, 0.5 mL, Route: IVP, Drug form: INJ, ONCE, Dosing Weight 56.818, kg, Priority: STAT, Start date: 06/14/17 17:40:00 CDT, Stop date: 06/14/17 17:40:00 CDT Notes: (Same as:Toradol) IV bolus must be given >15 seconds. Give IM administration slowly and deeply into the muscle.Not for use > 4 days MEDICATION WASTE Product Size: 30 mgProduct Wasted: 15 mg Start Date: 06/14/17 Stop Date: 06/14/17 Status: CompletedSodium Chloride 0.9% (Bolus) IV 1,000 mL, 1000 ml/hr, Infuse Over: 1 hr, Route: IV, 1,000, Drug form: INJ, ONCE , Priority: STAT, Dosing Weight 56.818 kg, Start date: 06/14/17 16:04:00 CDT, Duration: 1 doses or times, Stop date: 06/14/17 16:04:00 CDT Start Date: 06/14/17 Stop Date: 06/14/17 Status: CompletedZofran 4 mg, 2 mL, Route: IVP, Drug form: INJ, ONCE, Dosing Weight 56.818, kg, Priority : STAT, Start date: 06/14/17 16:04:00 CDT, Stop date: 06/14/17 16:04:00 CDT Notes: (Same as: Zofran) MEDICATION WASTE Product Size: 4 mgProduct Wasted: ___ mg Start Date: 06/14/17 Stop Date: 06/14/17 Status: Completed Results ELECTROLYTES Most recent to oldest [Reference Range]: 1 Sodium Lvl [135-145 mEq/L] 142 mEq/L (06/14/17 4:32 PM) Potassium Lvl [3.5-5.1 mEq/L] 3.2 mEq/L *LOW* (06/14/17 4:32 PM) Chloride Lvl [95-109 mEq/L] 110 mEq/L *HI* (06/14/17 4:32 PM) CO2 [24-32 mEq/L] 21 mEq/L *LOW* (06/14/17 4:32 PM) AGAP [10.0-20.0 mEq/L] 14.2 mEq/L (06/14/17 4:32 PM) CHEM PANEL Most recent to oldest [Reference Range]: 1 Creatinine Lvl [0.50-1.40 mg/dL] 0.98 mg/dL (06/14/17 4:32 PM) eGFR 81 mL/min/1.73m2 1 *NA* (06/14/17 4:32 PM) BUN [7-22 mg/dL] 12 mg/dL (06/14/17 4:32 PM) Glucose Lvl [70-99 mg/dL] 76 mg/dL (06/14/17 4:32 PM) Calcium Lvl [8.5-10.5 mg/dL] 8.8 mg/dL (06/14/17 4:32 PM) 1Result Comment: The eGFR is calculated using the CKD-EPI formula. In most young , healthy individualsthe eGFR will be >90 mL/min/1.73m2. The eGFR declines with age. An eGFR of 60-89 may be normal in some populations, particularly the elderly, for whom the CKD-EPI formula has not been extensively validated. Use of the eGFR is not recommended in the following populations: Individuals with unstable creatinine concentrations, including patients and those with serious co-morbid conditions. Patients with extremes in muscle mass or diet. The data above are obtained from the National Kidney Disease Education Program ( NKDEP) which additionally recommends that when the eGFR is used in patients with extremes of body mass index for purposesof drug dosing, the eGFR should be multiplied by the estimated BMI.URINE CHEM Most recent to oldest [Reference Range]: 1 U Preg [Negative] Negative (06/14/17 3:55 PM) URINE AND STOOL Most recent to oldest [Reference Range]: 1 UA Turbidity [Clear] Slight Cloudy (06/14/17 3:55 PM) UA Color [Yellow] Yellow *NA* (06/14/17 3:55 PM) UA pH [5.0-8.0] 6.5 (06/14/17 3:55 PM) UA Spec Grav [<=1.030] 1.020 (06/14/17 3:55 PM) UA Glucose [Negative] Negative (06/14/17 3:55 PM) UA Blood [Negative] Negative (06/14/17 3:55 PM) UA Ketones [Negative] Negative *NA* (06/14/17 3:55 PM) UA Protein [Negative] Negative (06/14/17 3:55 PM) UA Urobilinogen [0.1-1.0 EU/dL] 0.2 EU/dL (06/14/17 3:55 PM) UA Bili [Negative] Negative *NA* (06/14/17 3:55 PM) UA Leuk Est [Negative] Small *ABN* (06/14/17 3:55 PM) UA Nitrite [Negative] Negative (06/14/17 3:55 PM) UA WBC [None Seen /HPF] 3-5 /HPF (06/14/17 3:55 PM) UA RBC [0-2] None Seen (06/14/17 3:55 PM) UA Bacteria [None Seen /HPF] Occasional /HPF (06/14/17 3:55 PM) UA Sq Epi [Few /LPF] Occasional /LPF (06/14/17 3:55 PM) UA Mucus [None Seen /LPF] Few /LPF (06/14/17 3:55 PM) Micro? Performed (06/14/17 3:55 PM) HEMATOLOGY Most recent to oldest [Reference Range]: 1 WBC [3.7-10.4 K/CMM] 7.4 K/CMM (06/14/17 4:32 PM) RBC [4.20-5.40 M/CMM] 4.46 M/CMM (06/14/17 4:32 PM) Hgb [12.0-16.0 g/dL] 12.6 g/dL (06/14/17 4:32 PM) Hct [36.0-48.0 %] 38.8 % (06/14/17 4:32 PM) MCV [80.0-98.0 fL] 86.9 fL (06/14/17 4:32 PM) MCH [27.0-31.0 pg] 28.3 pg (06/14/17 4:32 PM) MCHC [32.0-36.0 g/dL] 32.6 g/dL (06/14/17 4:32 PM) RDW [11.5-14.5 %] 16.0 % *HI* (06/14/17 4:32 PM) Platelet [133-450 K/CMM] 194 K/CMM (06/14/17 4:32 PM) MPV [7.4-10.4 fL] 9.7 fL (06/14/17 4:32 PM) Segs [45.0-75.0 %] 57.0 % (06/14/17 4:32 PM) Lymphocytes [20.0-40.0 %] 28.6 % (06/14/17 4:32 PM) Monocytes [2.0-12.0 %] 9.4 % (06/14/17 4:32 PM) Eosinophils [0.0-4.0 %] 4.3 % *HI* (06/14/17 4:32 PM) Basophils [0.0-1.0 %] 0.7 % (06/14/17 4:32 PM) Segs-Bands # [1.5-8.1 K/CMM] 4.2 K/CMM (06/14/17 4:32 PM) Lymphocytes # [1.0-5.5 K/CMM] 2.1 K/CMM (06/14/17 4:32 PM) Monocytes # [0.0-0.8 K/CMM] 0.7 K/CMM (06/14/17 4:32 PM) Eosinophils # [0.0-0.5 K/CMM] 0.3 K/CMM (06/14/17 4:32 PM) Basophils # [0.0-0.2 K/CMM] 0.1 K/CMM (06/14/17 4:32 PM) Immunizations No data available for this section Procedures No data available for this section Social History Social History Type Response Smoking Status Former smoker; Type: Cigarettes; Exposure to Tobacco Smoke None ; Cigarette Smoking Last 365 Days No; Reg Smoking Cessation Counseling No Assessment and Plan No data available for this section
--- OUTSIDE RECORDS SUMMARY | 2018-09-06 15:49 | XMS REPORT | Summary of Care ---
:1990 Author Organization [facility] Outpatient Imaging [address] [address]- Encounter HQ Milo(DANICA) [id number] Date(s): 03/12/18 - 03/12/18 [facility] [address] [address]- [place] Discharge Disposition: Home or Self Care Attending Physician: Kleber Bronson MD Vital Signs No data available for this section Problem List Condition Effective Dates Status Health Status Informant Abdominal pain in female(Confirmed) Active History of 2016 Resolved delivery(Confirmed) Hypothyroid(Confirmed) Resolved Preeclampsia(Confirmed) 2016 Resolved (Confirmed) 12/12/17 Active Seizure(Confirmed) Resolved Vaginal bleeding(Confirmed) Active Allergies, Adverse Reactions, Alerts Substance Reaction Severity Status sulfa drugs Active ciprofloxacin Active gentamicin Active amoxicillin Active penicillin Active Levaquin Active Bactrim Active Medications No data available for this section Results No data available for this section [...]
--- OUTSIDE RECORDS SUMMARY | 2018-09-06 15:49 | XMS REPORT | Summary of Care ---
:1990 Author Organization [facility] Address [address] [place] [address]- Encounter HQ Betsy_johanne(DANICA) [id number] Date(s): 03/23/18 - 03/24/[address] Professional Services provided by The [facility] [place] [address]- Discharge Disposition: Home or Self Care Attending Physician: Tim Gonzales MD Admitting Physician: Tim Gonzales MD Vital Signs Most recent to oldest 1 2 3 [Reference Range]: Height 160.02 cm (03/23/18 10:45 PM) Temperature Oral [96.4-99.1 97.3 DegF 97.6 DegF 98.3 DegF DegF] (03/25/18 6:00 AM) (03/25/18 1:20 AM) (03/24/18 9:43 PM) Blood Pressure [90-140/60-90 102/67 mmHg 103/66 mmHg 112/75 mmHg mmHg] (03/25/18 6:00 AM) (03/25/18 1:20 AM) (03/24/18 9:43 PM) Respiratory Rate [14-20 BRMIN] 18 BRMIN 18 BRMIN 18 BRMIN (03/25/18 6:00 AM) (03/25/18 1:20 AM) (03/24/18 9:43 PM) Peripheral Pulse Rate [60-100 93 bpm 92 bpm 73 bpm bpm] (03/25/18 6:00 AM) (03/25/18 1:20 AM) (03/24/18 9:43 PM) Weight 68.182 kg (03/23/18 10:45 PM) Body Mass Index 26.63 m2 (03/23/18 10:45 PM) Problem List Condition Effective Dates Status Health Status Informant Abdominal pain in Active female(Confirmed) Group B streptococcus(Confirmed) Active History of 2016 Resolved delivery(Confirmed) Hypothyroid(Confirmed) Resolved Pre-eclampsia(Confirmed) Active Preeclampsia(Confirmed) 2016 Resolved (Confirmed) 10/01/15 - 04/14/16 Resolved (Confirmed) 12/12/17 Active Premature labor(Confirmed) Active Seizure(Confirmed) Resolved Vaginal bleeding(Confirmed) Active Allergies, Adverse Reactions, Alerts Substance Reaction Severity Status sulfa drugs Active ciprofloxacin Active gentamicin Active amoxicillin Active penicillin Active Levaquin Active Bactrim Active Medications cephalexin 500 mg oral capsule 500 mg=1 cap, PO, [id number], # 28 cap, 0 Refill(s), Pharmacy: [facility] [id number] Start Date: 03/25/18 Stop Date: 04/01/18 Status: Orderedfolic acid 4 mg, 4 tab, Route: PO, Drug form: TAB, Daily, Dosing Weight 68.182, kg, Start date: 03/24/18 9:00:00 CDT, Stop date: 04/22/18 9:00:00 CDT Notes: (Same as: Folvite) Start Date: 03/24/18 Stop Date: 03/25/18 Status: DiscontinuedKeflex 500 mg, 1 cap, Route: PO, Drug form: CAP, [id number], Dosing Weight 68.182, kg, Start date: 03/24/18 14:00:00 CDT, Duration: 30 day, Stop date: 04/23/18 2:00: 00 CDT Notes: Take on empty stomach. (Same As: Keflex) Start Date: 03/24/18 Stop Date: 03/25/18 Status: Discontinuedlevothyroxine 125 microgram, 1 tab, Route: PO, Drug form: TAB, Daily, Dosing Weight 68.182, kg , Start date: 03/24/18 9:00:00 CDT, Duration: 30 day, Stop date: 04/22/18 9:00: 00 CDT Notes: Take 1 hour before or 2 hours after meal; Enteral feeds may interefere with the absorption ofthis medication. (Same as:Levothroid) Start Date: 03/24/18 Stop Date: 03/25/18 Status: Discontinuedmultivitamin, 1 tab, Route: PO, Drug Form: TAB, Dosing Weight 68.182, kg, Daily, Start date: 03/24/18 9:00:00 CDT,Duration: 30 day, Stop date: 04/22/18 9:00:00 CDT Start Date: 03/24/18 Stop Date: 03/25/18 Status: DiscontinuedPyridium 200 mg, 2 tab, Route: PO, Drug form: TAB, ONCE, Dosing Weight 68.182, kg, Priority: STAT, Start date: 03/24/18 20:01:00 CDT, Stop date: 03/24/18 20:01:00 CDT Notes: Give with meals.(Same as: Pyridium) Start Date: 03/24/18 Stop Date: 03/24/18 Status: CompletedRocephin 1 gm, Route: IVPB, Drug form: PDR/INJ, [id number], Dosing Weight 68.182, kg, Start date: 03/23/18 23:00:00 CDT, Duration: 10 day, Stop date: 04/01/18 23:00:00 CDT , ABX Indication: Urinary Tract Infection Notes: (Same As: Rocephin).Use with 100 mL NS and infuse over 30 min MEDICATION WASTE Product Size: 1000 mgProduct Wasted: ___ mg Start Date: 03/23/18 Stop Date: 03/24/18 Status: DiscontinuedTopamax 250 mg, 5 tab, Route: PO, Drug form: TAB, BID, Dosing Weight 68.182, kg, Start date: 03/24/18 13:00:00 CDT, Duration: 30 day, Stop date: 04/23/18 10:00:00 CDT Notes: (Same As: Topamax)"Do Not Crush" Start Date: 03/24/18 Stop Date: 03/25/18 Status: DiscontinuedTopamax 250 mg, Route: PO, Daily, Dosing Weight 68.182, kg, Start date: 03/24/18 9:00: 00 CDT, Duration: 30 day, Stop date: 04/22/18 9:00:00 CDT Start Date: 03/24/18 Stop Date: 03/24/18 Status: DiscontinuedTylenol 650 mg, 2 tab, Route: PO, Drug form: TAB, Q6H, Dosing Weight 68.182, kg, PRN Pain Score 1-3, Start date: 03/24/18 9:51:00 CDT, Duration: 30 day, Stop date: 04/23/18 9:50:00 CDT Notes: Do not exceed 4 gm/day. (Same as: Tylenol) Start Date: 03/24/18 Stop Date: 03/25/18 Status: Discontinued Results BLOOD BANK RESULTS Most recent to oldest [Reference 1 Range]: ABO/Rh A NEG *Unknown* (03/23/18 11:28 PM) Antibody Scrn Positive 1 (03/23/18 11:28 PM) AB Int Rhig Anti-D *Unknown* (03/23/18 11:28 PM) Path AB Blood Bank Physician Service This patient is a 31 yo Female at 30 weeks gestation who presented recently for complicated UTI. Per EMR, she recieved rhogam last at 03/12/18. Immunohematologic testing demonstrates the presence of an anti-D in this patient s serum. This antibody is directed against the D antigen of the "Rh" blood group system and is typically IgG in nature. Although usually considered clinically significant, the presence of this antibody most likely represents passive immunization due to Rh Immune Globulin administration (by history given on 03/12/18). Should RBC transfusion be required, Rh-negative crossmatch-compatible units will be issued. No difficulty in obtaining compatible blood is expected. The patient s electronic medical record has been reviewed for relevant information. I have reviewed the test results and concur with the resident's, Dr. Chavez' , interpretation. CPT: 31514-OX *NA* (03/23/18 11:28 PM) 1Result Comment: 03/24/2018 01:10 THELMA "Significant Findings of positive screen called to Chiara Dumont at 03/24/2018 01: 06 by TUTU. Read Back OK"IMMUNOLOGY Most recent to oldest [Reference Range]: 1 Treponemal Ab [Non-Reactive] Non-Reactive *NA* (03/23/18 11:28 PM) HIV. [Negative] Negative *NA* (03/23/18 11:28 PM) Rubella IgG [>=10.0 IU/mL] 138.5 IU/mL (03/23/18 11:48 PM) Hep Bs Ag [Negative] Negative *NA* (03/23/18 11:28 PM) HEMATOLOGY Most recent to oldest [Reference Range]: 1 WBC [3.7-10.4 K/CMM] 10.6 K/CMM *HI* (03/23/18 11:28 PM) RBC [4.20-5.40 M/CMM] 3.80 M/CMM *LOW* (03/23/18 11:28 PM) Hgb [12.0-16.0 g/dL] 11.6 g/dL *LOW* (03/23/18 11:28 PM) Hct [36.0-48.0 %] 34.5 % *LOW* (03/23/18 11:28 PM) MCV [80.0-98.0 fL] 90.9 fL (03/23/18 11:28 PM) MCH [27.0-31.0 pg] 30.4 pg (03/23/18 11:28 PM) MCHC [32.0-36.0 g/dL] 33.5 g/dL (03/23/18 11:28 PM) RDW [11.5-14.5 %] 14.6 % *HI* (03/23/18 11:28 PM) MPV [7.4-10.4 fL] 10.6 fL *HI* (03/23/18 11:28 PM) Platelet [133-450 K/CMM] 183 K/CMM (03/23/18 11:28 PM) Segs [45.0-75.0 %] 63.7 % (03/23/18 11:28 PM) Lymphocytes [20.0-40.0 %] 24.0 % (03/23/18 11:28 PM) Monocytes [2.0-12.0 %] 9.2 % (03/23/18 11:28 PM) Eosinophils [0.0-4.0 %] 2.9 % (03/23/18 11:28 PM) Basophils [0.0-1.0 %] 0.2 % (03/23/18 11:28 PM) Segs-Bands # [1.5-8.1 K/CMM] 6.7 K/CMM (03/23/18 11:28 PM) Lymphocytes # [1.0-5.5 K/CMM] 2.5 K/CMM (03/23/18 11:28 PM) Monocytes # [0.0-0.8 K/CMM] 1.0 K/CMM *HI* (03/23/18 11:28 PM) Eosinophils # [0.0-0.5 K/CMM] 0.3 K/CMM (03/23/18 11:28 PM) Immunizations No data available for this section Procedures Procedure Date Related Diagnosis Body Site Status section 2015 Completed Cholecystectomy 2013 Completed Appendectomy 2007 Completed Social History Social History Type Response Smoking Status Never smoker; Type: Cigarettes; Exposure to Tobacco Smoke None ; Cigarette Smoking Last 365 Days No; Reg Smoking Cessation Counseling No entered on: 03/23/18 Assessment and Plan Extracted from: Title: Clinical Document Author: Carole Miner MD Date: 03/24/18 R3 Strip Review Note RN called for strip review. Reviewed 2112h: FHT: 125s bpm, +accelerations, - decelerations, mod variability, reactive strip [place]: quiet. Ok to come off monitor. RN notified. Carole Miner MD PGY3 Extracted from: Title: Clinical Document Author: Ashtyn Sibley MD Date: 03/23/18 [facility]etric[facility] Gyne[facility] Department of Obstetrics History and Physical LMP: 07/25/17 EDC: 06/02/18 EGA: 29w6d CC: sent from clinic for UTI HPI: 27yo at 29w6d redated by 12wk CAMDEN villanueva, with h/o CS x1, who presents as direct admission for finding of GBS in her UCX and now reporting dysuria and lower back pain. Patient reports + FM. Patient denies painful contractions, LOF, VB, discharge, pruritus. PNC: Dr. Gonzales since 6 wks, last appointment on 03/23, next appointment on . 1. Dated as above. 2. Hospitalizations: none 3. PNL: A-/Ab (neg), RI, HBsAG neg, RPRNR, 1THIV neg, GC/CT neg, 1h GTT 100 , H /H 11.8/35.7, plt 195, GBS UCX+10-50K GBS, AFP neg, FTS neg 4. US: 10/12/17 MFM sono - CRL 5.6mm, 11w2d<1%ile 03/12/18 MFM sono - 28w2d, Breech, anterior right placenta, 3VC, MVP 6.7cm, 1121g, 21%, anatomy wnl 5. Female infant 6. Bottle feeding / desires epidural / accepts blood transfusion / BCM: unsure 7. Overweight affecting , with BMI of 26 8. H/o PreE: Baseline labs: 02/24/18: ALT 15 / AST 13; UPCR 11/23/17 0.18 OBHx: 2016: Classical C/S 11/27 Pre-E at 28wks, F, 2lbs, TWC GynHx: 12/ Regular ; Denies h/o of stds ; Denies h/o of abnormal paps, last pap smear wnl PMHx: Seizures, Hypothyroidism Meds: Levo 125mcg,Topiramate 250qd, FA 4mg qd, PNV Allergies: Amoxicillin, PCN, Cipro, Bactrim, Levaquin PSHx: Cholestectomy, appendectomy, section Social Hx: Denies tococcao, alcohol, or illicit drug use. Lives with parents, denies domestic abuse, feels safe at home. FOB involved. Family Hx: Ovarian ca/Breast ca on maternal and paternal sides Physical Exam Vitals Tmp(F) Pulse BP RR SpO2 FIO2 03/23 22:52 98 77 103/66 18 --- --- 24 Hr Tmax: 98F (36.67c) at 03/23 22:52 Vital Signs are the last 5 in the past 48 hours. Gen:NAD, A&Ox3 Back: no spinal TTP, no paraspinal muscle TTP, no CVAT. 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 Negative A/P: 27yo at 29w6d redated by 12wk CRL rich, with h/o CS x1, who presents as direct admission for complicated UTI. 1. Complicated UTI - GBS - patient allergic to PCN with rash but not urticaria in childhood. decision to give rocephin 1g q24h as clinda sensitive but erythromycin resistant. No CVAT. AFVSS. WBC 10.6 - Plan for Vanc in labor. 2. Hypothyroidsim - continue levothyroxine 125mcg qd in house; TSH 6.66, fT4 1.04. Endo managing 3. Prior Classical CS (28wk for PreE) - for RCS. to schedule on 05/27/18at 37wk 4. sIUP: reactive Strip -- US: cephalic, post placenta, 1588g by Ruma. 5. Female 6. Bottle feeding / desires epidural / accepts blood transfusion / BCM: unsure 7. Overweight affecting , with BMI of 26 8. H/o PreE w/ SF: Baseline labs: 02/24/18: ALT 15 / AST 13; UPCR 11/23/17 0.18; continue ASA 81mg qd 9. RH neg s/p rhogam at 28wk, 12/11, 03/12 10. Seizure disorder ([place]) - continue topiramate 250mg qd, folic acid 4mg qd, followed by Dr. Dominguez. Last sz age 19y 11. Migraines - headaches 3-5x/wk, previously controlled on topiramate, s/p neuro consult (Dr. Nevin Aguilar) 12. Depression - started on Zoloft 50mg po qd, but patient not taking. Denies SI/HI. Patient discussed with Dr. Mcclain. Carole Miner M.D. | #[id number] Resident Physician | PGY3 Department of Obstetrics, Gynecology & Reproductive Sciences [facility] Attending Addendum I discussed the patient with the resident and reviewed the patient's chart. I agree with the plan of care as stated by the resident above. Ashtyn Sibley MD #[id number] [facility] DIVERSIONAL THERAPIST Pager: [phone]
--- OUTSIDE RECORDS SUMMARY | 2018-09-06 15:49 | XMS REPORT | Summary of Care ---
:[address] [facility] Address [address] [place] [address]- Encounter HQ Milo(FIN) [phone] Date(s): 01/08/18 - 01/08/[address] Professional Services provided by [facility] [place] [address]- Encounter Diagnosis Abdominal pain, lower (Discharge Diagnosis) - 01/08/18 Other specified related conditions, second trimester (Final) - 01/14/18 Right lower quadrant pain (Final) - Unspecified infection of urinary tract in , second trimester (Final) - Vomiting of , unspecified (Final) - Diseases of the nervous system complicating , second trimester (Final) - Epilepsy, unspecified, not intractable, without status epilepticus (Final) - Endocrine, nutritional and metabolic diseases complicating , second trimester (Final) - Hypothyroidism, unspecified (Final) - Hypokalemia (Final) - 19 weeks gestation of (Final) - Discharge Disposition: Home or Self Care Attending Physician: Ira Mallory MD Vital Signs Most recent to oldest 1 2 3 [Reference Range]: Height 160.02 cm (01/08/18 3:04 PM) Temperature Oral [96.4-99.1 98.2 DegF 98.3 DegF 98.2 DegF DegF] (01/08/18 11:30 PM) (01/08/18 8:52 PM) (01/08/18 5:19 PM) Blood Pressure [90-140/60-90 105/71 mmHg 96/59 mmHg 108/71 mmHg mmHg] (01/08/18 11:30 PM) (01/08/18 8:52 PM) (01/08/18 5:19 PM) Respiratory Rate [14-20 BRMIN] 17 BRMIN 18 BRMIN 16 BRMIN (01/08/18 11:30 PM) (01/08/18 8:52 PM) (01/08/18 5:19 PM) Peripheral Pulse Rate [60-100 68 bpm 68 bpm 80 bpm bpm] (01/08/18 11:30 PM) (01/08/18 8:52 PM) (01/08/18 5:19 PM) Weight 64.091 kg (01/08/18 3:04 PM) Body Mass Index 25.03 m2 (01/08/18 3:04 PM) Problem List Condition Effective Dates Status Health Status Informant Abdominal pain in Active female(Confirmed) Group B streptococcus(Confirmed) Active History of 2015 Resolved delivery(Confirmed) Hypothyroid(Confirmed) Resolved Pre-eclampsia(Confirmed) Active Preeclampsia(Confirmed) 2015 Resolved (Confirmed) 10/01/15 - 04/14/16 Resolved (Confirmed) 12/12/17 Active Premature labor(Confirmed) Active Seizure(Confirmed) Resolved Vaginal bleeding(Confirmed) Active Allergies, Adverse Reactions, Alerts Substance Reaction Severity Status sulfa drugs Active ciprofloxacin Active gentamicin Active amoxicillin Active penicillin Active Levaquin Active Bactrim Active Medications Rocephin 1 gm, Route: IVPB, ONCE, Dosing Weight 64.091, kg, Priority: STAT, Start date: 01/08/18 17:51:00 CDT, Stop date: 01/08/18 17:51:00 CDT, ABX Indication: Urinary Tract Infection Notes: (Same As: Rocephin).Use with 100 mL NS and infuse over 30 min MEDICATION WASTE Product Size: 1000 mgProduct Wasted: 0 mg Start Date: 01/08/18 Stop Date: 01/08/18 Status: CompletedTylenol 650 mg, 2 tab, Route: PO, Drug form: TAB, ONCE, Dosing Weight 64.091, kg, Priority: STAT, Start date: 01/08/18 18:58:00 CDT, Stop date: 01/08/18 18:58:00 CDT Notes: Do not exceed 4 gm/day. (Same as: Tylenol) Start Date: 01/08/18 Stop Date: 01/08/18 Status: CompletedTylenol 325 mg, 1 tab, Route: PO, Drug form: TAB, ONCE, Dosing Weight 64.091, kg, Start date: 01/08/18 20:36:00 CDT, Stop date: 01/08/18 20:36:00 CDT Notes: Do not exceed 4 gm/day. (Same as: Tylenol) Start Date: 01/08/18 Stop Date: 01/08/18 Status: CompletedZofran 4 mg, 2 mL, Route: IVP, Drug form: INJ, ONCE, Dosing Weight 64.091, kg, Priority : STAT, Start date: 01/08/18 20:36:00 CDT, Stop date: 01/08/18 20:36:00 CDT Notes: (Same as: Zofran) MEDICATION WASTE Product Size: 4 mgProduct Wasted: 0 mg Start Date: 01/08/18 Stop Date: 01/08/18 Status: CompletedZofran ODT 4 mg, 1 tab, Route: PO, Drug form: TABDIS, ONCE, Dosing Weight 64.091, kg, Priority: STAT, Start date: 01/08/18 20:18:00 CDT, Stop date: 01/08/18 20:18:00 CDT Notes: (Same as: Zofran ODT) Start Date: 01/08/18 Stop Date: 01/08/18 Status: DiscontinuedZofran ODT 4 mg oral tablet, disintegrating 4 mg=1 tab, PO, BID, PRN Nausea and Vomiting, Dissolve tab under tongue, # 10 tab, 0 Refill(s) Start Date: 01/08/18 Stop Date: 03/25/18 Status: Discontinued Results ELECTROLYTES Most recent to oldest [Reference Range]: 1 Sodium Lvl [135-145 mEq/L] 140 mEq/L (01/08/18 4:51 PM) Potassium Lvl [3.5-5.1 mEq/L] 3.2 mEq/L *LOW* (01/08/18 4:51 PM) Chloride Lvl [95-109 mEq/L] 112 mEq/L *HI* (01/08/18 4:51 PM) CO2 [24-32 mEq/L] 19 mEq/L *LOW* (01/08/18 4:51 PM) AGAP [10.0-20.0 mEq/L] 12.2 mEq/L (01/08/18 4:51 PM) CHEM PANEL Most recent to oldest [Reference Range]: 1 Creatinine Lvl [0.50-1.40 mg/dL] 0.52 mg/dL (01/08/18 4:51 PM) eGFR 133 mL/min/1.73m2 1 *NA* (01/08/18 4:51 PM) BUN [7-22 mg/dL] 11 mg/dL (01/08/18 4:51 PM) Glucose Lvl [70-99 mg/dL] 75 mg/dL (01/08/18 4:51 PM) Total Protein [6.4-8.4 g/dL] 5.9 g/dL *LOW* (01/08/18 8:01 PM) Albumin Lvl [3.5-5.0 g/dL] 2.5 g/dL *LOW* (01/08/18 8:01 PM) Globulin [2.7-4.2 g/dL] 3.4 g/dL (01/08/18 8:01 PM) A/G Ratio [0.7-1.6] 0.7 (01/08/18 8:01 PM) Calcium Lvl [8.5-10.5 mg/dL] 8.5 mg/dL (01/08/18 4:51 PM) ALT [0-65 unit/L] 10 unit/L (01/08/18 8:01 PM) AST [0-37 unit/L] 14 unit/L (01/08/18 8:01 PM) Alk Phos [39-136 unit/L] 54 unit/L (01/08/18 8:01 PM) Bili Total [0.2-1.3 mg/dL] 0.1 mg/dL *LOW* (01/08/18 8:01 PM) Bili Direct [0.0-0.3 mg/dL] 0.1 mg/dL (01/08/18 8:01 PM) Bili Indirect [0.0-1.0 mg/dL] 0.0 mg/dL (01/08/18 8:01 PM) Amylase Lvl [25-115 unit/L] 50 unit/L (01/08/18 8:01 PM) Lipase Lvl [73-393 unit/L] 160 unit/L (01/08/18 8:01 PM) 1Result Comment: The eGFR is calculated using the CKD-EPI formula. In most young , healthy individualsthe eGFR will be >90 mL/min/1.73m2. The eGFR declines with age. An eGFR of 60-89 may be normal insome populations, particularly the elderly, for whom the [...] eGFR should be multiplied by the estimated BMI.ENDOCRINOLOGY Most recent to oldest [Reference Range]: 1 [place] [address] mIU/mL *NA* (01/08/18 4:51 PM) URINE AND STOOL Most recent to oldest [Reference Range]: 1 UA Turbidity [Clear] Slight Cloudy (01/08/18 4:26 PM) UA Color [Yellow] Yellow *NA* (01/08/18 4:26 PM) UA pH [5.0-8.0] 7.5 (01/08/18 4:26 PM) UA Spec Grav [<=1.030] 1.010 (01/08/18 4:26 PM) UA Glucose [Negative] Negative (01/08/18 4:26 PM) UA Blood [Negative] Negative (01/08/18 4:26 PM) UA Ketones [Negative] Negative *NA* (01/08/18 4:26 PM) UA Protein [Negative] Negative (01/08/18 4:26 PM) UA Urobilinogen [0.1-1.0 EU/dL] 0.2 EU/dL (01/08/18 4:26 PM) UA Bili [Negative] Negative *NA* (01/08/18 4:26 PM) UA Leuk Est [Negative] Small *ABN* (01/08/18 4:26 PM) UA Nitrite [Negative] Negative (01/08/18 4:26 PM) UA WBC [None Seen /HPF] 3-5 /HPF (01/08/18 4:26 PM) UA RBC [0-2 /HPF] 0-2 /HPF (01/08/18 4:26 PM) UA Bacteria [None Seen /HPF] Moderate /HPF (01/08/18 4:26 PM) UA Sq Epi [Few /LPF] Occasional /LPF (01/08/18 4:26 PM) IMMUNOLOGY Most recent to oldest [Reference Range]: 1 CDC HIV 4th GEN [Negative] Negative *NA* (01/08/18 4:52 PM) HEMATOLOGY Most recent to oldest [Reference Range]: 1 WBC [3.7-10.4 K/CMM] 9.5 K/CMM (01/08/18 4:51 PM) RBC [4.20-5.40 M/CMM] 3.65 M/CMM *LOW* (01/08/18 4:51 PM) Hgb [12.0-16.0 g/dL] 10.7 g/dL *LOW* (01/08/18 4:51 PM) Hct [36.0-48.0 %] 32.0 % *LOW* (01/08/18 4:51 PM) MCV [80.0-98.0 fL] 87.9 fL (01/08/18 4:51 PM) MCH [27.0-31.0 pg] 29.3 pg (01/08/18 4:51 PM) MCHC [32.0-36.0 g/dL] 33.3 g/dL (01/08/18 4:51 PM) RDW [11.5-14.5 %] 15.1 % *HI* (01/08/18 4:51 PM) MPV [7.4-10.4 fL] 9.6 fL (01/08/18 4:51 PM) Platelet [133-450 K/CMM] 217 K/CMM (01/08/18 4:51 PM) Segs [45.0-75.0 %] 63.8 % (01/08/18 4:51 PM) Lymphocytes [20.0-40.0 %] 25.5 % (01/08/18 4:51 PM) Monocytes [2.0-12.0 %] 7.6 % (01/08/18 4:51 PM) Eosinophils [0.0-4.0 %] 2.8 % (01/08/18 4:51 PM) Basophils [0.0-1.0 %] 0.3 % (01/08/18 4:51 PM) Segs-Bands # [1.5-8.1 K/CMM] 6.0 K/CMM (01/08/18 4:51 PM) Lymphocytes # [1.0-5.5 K/CMM] 2.4 K/CMM (01/08/18 4:51 PM) Monocytes # [0.0-0.8 K/CMM] 0.7 K/CMM (01/08/18 4:51 PM) Eosinophils # [0.0-0.5 K/CMM] 0.3 K/CMM (01/08/18 4:51 PM) Immunizations No data available for this [...] Plan Extracted from: Title: Clinical Document Author: Giovanni Myers MD Date: 01/08/18 Gynecology Consult H&P Consult: N/V, RLQ pain CC: RLQ pain HPI: 27yo w/ prior C/S x 1, hypokalemia, hypothyroidism, seziure do, h/ o Pre-E and UTI this who presented to the ED w/ RLQ pain and N/V for the last 4 days. The pt was having a MFM son o today and threw up x 1 and having significant pain with placement of the probe. She was sent in by Dr. Gonzales for evaluation of her abdominal pain. Pt w / a history of choleystectomy and appendectomy. The pt reports that for the last 4 days she has had constant RLQ pain, 10/10, burning, tingling radiating from hip bone to groin. She has tylenol for the pain but it does not work. Nothing makes it bet ter. In addition she has been having occassional N/V. Mostly after meals throwing up the contents of her food. She last vomited >5hrs ago and has vomited 4 times today. She denies any fever, chills, h/o kidney stones, sick contacts, vaginal discharge, dysuria or increased frequency. Review of Systems: Constitutional Symptoms: No fever, weight loss, weight gain, fatigue, malaise Eyes: No diplopia, blurred vision, redness, discharge, loss of vision Ears, Nose, Mouth, Throat: No dysphagia, odynophagia, otalgia, deafness, rhinorrhea Cardiovascular: No chest pain, SOB, AMOR, orthopnea, PND, poor exercise tolerance, palpitations Respiratory: No cough, hemoptysis Gastrointestinal: N/V, BPR, dark stool, constipation, + abdominal pain Genitourinary: No dysuria, frequency, urgency, nocturia, incontinence Musculoskeletal: No arthralgia, myalgia, stiffness Integumentary (skin and/or breast): No rash, hives, breast pain, mass, nipple dc Neurological: No weakness, headache, seizure, dizziness, tingling, numbness Psychiatric: No anxiety, depression, insomnia Endocrine: No polyuria, polydipsia, fatigue, weight loss, weight gain, cold or heat intolerance, palpitations Hematologic/Lymphatic: No bleeding, bruising, edema, lumps (axilla groin neck) Allergic/Immunologic: No rash, allergies, fever, chills OBHx: 2016: Classical C/S 2/2 Pre-E at 28wks, F, 2lbs, TWC GynHx: 12/ Regular No h/o of stds No h/o of abnormal paps, last pap smear wnl PMHx: Seizures, Hypothyroidism, Hypokalemia Meds: Levo 125mcg,Topiramate 250qd, FA 4mg qd Allergies: Amoxicillin, PCN, Cipro, Bactrim, Levaquin PSHx: Cholestectomy, appendectomy, section Social Hx: Denies tococcao, alcohol, or illicit drug use. Family Hx: Ovarian ca/Breast ca Vitals: Vitals and Temp: Vitals Tmp(F) Pulse BP RR SpO2 FIO2 01/08 20:52 98.3 68 96/59 18 99 --- 01/08 17:19 98.2 80 108/71 16 100 --- 01/08 15:04 99.2 81 110/75 18 100 --- 24 Hr Tmax: 99.2F (37.33c) at 01/08 15:04 Vital Signs are the last 5 in the past 48 hours. Physical Exam: - General: NAD - Heart: RRR - Lungs: CTAB - Abdomen: Normoactive bowel sounds, minimal tenderness to palpation in RLQ, no rebound or guarding. - Pelvic: NEFG, no lesions on vagina, cervix. Normal physiologic discharge. SVE c/th/hi - Extremities: No cyanosis, clubbing, edema. Labs: AGAP: 12.2 mEq/L (01/08/18 17:56:56) Chloride Lvl: 112 mEq/L High (01/08/18 17:56:56) CO2: 19 mEq/L Low (01/08/18 17:56:56) Potassium Lvl: 3.2 mEq/L Low (01/08/18 17:56:56) Sodium Lvl: 140 mEq/L (01/08/18 17:56:56) A/G Ratio: 0.7 (01/08/18 20:22:54) Albumin Lvl: 2.5 g/dL Low (01/08/18 20:22:54) Alk Phos: 54 unit/L (01/08/18 20:22:54) ALT: 10 unit/L (01/08/18 20:22:54) AST: 14 unit/L (01/08/18 20:22:54) Bili Total: 0.1 mg/dL Low (01/08/18 20:22:54) BUN: 11 mg/dL (01/08/18 17:56:56) Calcium Lvl: 8.5 mg/dL (01/08/18 17:56:56) Creatinine Lvl: 0.52 mg/dL (01/08/18 17:56:56) eGFR: 133 mL/min/1.73m2 (01/08/18 17:56:58) Globulin: 3.4 g/dL (01/08/18 20:22:54) Glucose Lvl: 75 mg/dL (01/08/18 17:56:56) Total Protein: 5.9 g/dL Low (01/08/18 20:22:54)Hct: 32 % Low (01/08/18:: ) Hgb: 10.7 g/dL Low (01/08/18::) MCH: 29.3 pg (01/08/18::) MCHC: 33.3 g/dL (01/08/18::) MCV: 87.9 fL (01/08/18::) MPV: 9.6 fL (01/08/18::) Platelet: 217 K/CMM (01/08/18::) RBC: 3.65 M/CMM Low (01/08/18::) RDW: 15.1 % High (01/08/18::) WBC: 9.5 K/CMM (01/08/18::)Amylase Lvl: 50 unit/L (01/08/18 20:22:53) Assessment/Plan: 27yo w/ prior C/S x 1, hypokalemia, hypothyroidism, seziure do, h/o Pre-E and UTI this who presented to the ED w/ RLQ pain /N/V with suspected abdominal pain and N/V of . 1. Abdominal pain of / Round ligament pain - AFVSS - Minimal tenderness on exam, spec exam negative. SVE c/th/hi - s/p negative GC/CT cultures in . - Documented sono in clinic today revealing normal right ovary - CBC, CMP, amylase, lipase wnl. UA with no blood - Pain improved w/ po tylenol in ED - Do not suspect pyleonephritis, UTI, Nephrolithiasis, ovarian torsion, pancreatitis, gastiris. Suspect normal pain in 2. N/V of - Passed PO challenge, s/p zofran 4mg x 1 3. H/o UTI this : - urine culture pending from clinic - UA in ED + mod bacteria, small leuks. s/p Rocephin x 1 in ED - asymptomatic 4. IUP - +FHTs on BSUS Recommendations: 1. Discharge home. Pt to f/u with OB next week on 01/15 2. Pt can take Tylenol 1000mg qhrs for pain at home. Heating pads, increase water intake 3. Please send home for script for Zofra 4mg OTD tablets #30, no refills 4. Pt with chronic hypokalemia, rec increasing K+ in diet vs OTC supplements 5. Please return to ER if temp >100.4, severe abdominal pain or N/V, or bleeding > 2pads per hour. Thank you for allowing [facility] to participate in the care of this patient. If any questions please page gynecology at [phone]. Patient seen and discussed with Dr. Mcclain, R4 Jazzmine Stout MD. PGY2 Attending Addendum I have read entire DANIEL consultation. I have discussed case with resident team. Agree with assessment and plan as described.
--- OUTSIDE RECORDS SUMMARY | 2018-09-06 15:49 | XMS REPORT | Summary of Care ---
:1990 Author Organization [facility] [address] [address]- Encounter HQ Grantntr_johanne(FIN) [id number] Date(s): 02/12/18 - 02/12/18 [facility] [address] [phone] Discharge Disposition: Home or Self Care Attending Physician: Danette Meehan DENTAL SPECIALIST Vital Signs No data available for this section Problem List Condition Effective Dates Status Health Status Informant Abdominal pain in female(Confirmed) Active History of 2015 Resolved delivery(Confirmed) Hypothyroid(Confirmed) Resolved Preeclampsia(Confirmed) 2016 Resolved [...] Reg Smoking Cessation Counseling No entered on: 01/08/18 Assessment and Plan No data available for this section
--- OUTSIDE RECORDS SUMMARY | 2018-09-06 15:49 | XMS REPORT | Summary of Care ---
:[address] [facility] Address [address] [place] [address]- Encounter HQ Milo(FIN) [id number] Date(s): 02/26/18 - 02/26/[address] Professional Services provided by [facility] [place] [address]- Encounter Diagnosis Vaginal discharge during (Discharge Diagnosis) - 02/26/18 Discharge Disposition: Home or Self Care Attending Physician: Katelynn Maurer MD Vital Signs Most recent to oldest [Reference Range]: 1 Height 160.02 cm (02/26/18 9:05 AM) Temperature Oral [96.4-99.1 DegF] 98.2 DegF (02/26/18 9:05 AM) Blood Pressure [90-140/60-90 mmHg] 107/65 mmHg (02/26/18 9:05 AM) Respiratory Rate [14-20 BRMIN] 17 BRMIN (02/26/18 9:05 AM) Peripheral Pulse Rate [60-100 bpm] 67 bpm (02/26/18 9:05 AM) Weight 66.818 kg (02/26/18 9:05 AM) Body Mass Index 26.09 m2 (02/26/18 9:05 AM) Problem List Condition Effective Dates Status [...]
[2018-09-06 16:40] LABS: Absolute Lymphocytes (CBC) 2.3 K/uL (0.7-4.9); Absolute Monocytes 0.5 K/uL (0.1-1.3); Absolute Neutrophil 4.1 K/uL (1.8-8.0); Basophils % 0.5 % (0-1.3); Eosinophils % 11.7 % (0-4.4); Hematocrit 38.7 % (36.0-45.0); Lymphocytes % 29.5 % (15.3-44.8); MCH 28.4 pg (27.0-35.0); MCV 85.6 fL (80-100); MPV 9.9 fL (7.6-11.3); Monocytes % 6.2 % (3.3-12.3); RBC Red Blood Cell Count 4.52 M/uL (3.86-4.86)
[2018-09-06 16:51] LABS: Urine Blood NEGATIVE (NEG); Urine Glucose NEGATIVE (NEG); Urine Protein NEGATIVE (NEG); Urine Specific Gravity 1.015 (1.005-1.030); Urine pH 6.5 (5.0-7.0)
[2018-09-06 16:52] LABS: Potassium 3.4 mmol/L (3.5-5.1)
[2018-09-06 16:59] LABS: Urine RBC NONE SEEN /HPF (NONE SEEN)
[2018-09-06 17:00] LABS: Urine Bacteria <20 /HPF (<20); Urine Culture Reflex Order NOT NEEDED
--- NOTE | 2018-09-06 17:24 | EDPHYS ---
Physician Documentation [facility] Name: Elizabeth Pascal Age: 27 yrs Sex: Female : 1990 Arrival Date: 09/06/2018 Time: 15:45 Bed 24 Private MD: None, None ED Physician Fadi Pride HPI: 09/06 17:03 This 27 yrs old Female presents to ER via Ambulatory with complaints of kb Abdominal Pain, Weakness, Nausea/Vomiting. 17:03 The patient has not experienced similar symptoms in the past. The patient has been kb recently seen by a physician: the patient's primary care provider, Dr. Fan 4 day(s) ago, with similar presenting complaints, and apparently given a diagnosis of UTI, was given a prescription for antibiotics. 17:03 The patient presents with flank pain, bilaterally, urinary symptoms, dysuria. Onset: kb The symptoms/episode began/occurred 2 month(s) ago. Modifying factors: The symptoms are alleviated by nothing, the symptoms are aggravated by urinating. Associated signs and symptoms: Pertinent positives: dysuria, lower abd pain, flank pain, fatigue. Severity of symptoms: At their worst the symptoms were moderate, in the emergency department the symptoms are unchanged. PHOTOGRAPHER MOTION PICTURE: 16:06 LMP 08/20/2018 aj1 Historical: - Allergies: 16:06 Amoxicillin; aj1 16:06 Bactrim; aj1 16:06 Cipro; aj1 16:06 Gentamicin; aj1 16:06 Levofloxacin; aj1 16:06 PENICILLINS; aj1 16:06 Sulfa (Sulfonamide Antibiotics); aj1 - Home Meds: 16:06 levothyroxine 88 mcg tab [Active]; Topamax 250 MG Oral tab 1 cap 2 times per day aj1 [Active]; - PMHx: 16:06 Hypothyroidism; Seizures; urethral stricture; aj1 - PSHx: 16:06 ; Cholecystectomy; Appendectomy; aj1 - Immunization history:: Flu vaccine is up to date. - Social history:: Smoking status: Patient/guardian denies using tobacco. - Ebola Screening: : Patient denies travel to an Ebola-affected area in the 21 days before illness onset. ROS: 17:00 ENT: Negative for injury, pain, and discharge, Neck: Negative for injury, pain, and kb swelling, Cardiovascular: Negative for chest pain, palpitations, and edema, Respiratory: Negative for shortness of breath, cough, wheezing, and pleuritic chest pain, MS/Extremity: Negative for injury and deformity, Skin: Negative for injury, rash, and discoloration, Neuro: Negative for headache, weakness, numbness, tingling, and seizure. 17:00 Constitutional: Positive for body aches, fatigue, malaise, Negative for chills, fever, poor PO intake, weight loss. 17:00 Abdomen/GI: Positive for abdominal pain, Negative for nausea, vomiting, and diarrhea, constipation, abdominal cramps, abdominal distension, anorexia. 17:00 : Positive for burning with urination. Exam: 17:00 Constitutional: This is a well developed, well nourished patient who is awake, alert, kb and in no acute distress. Head/Face: Normocephalic, atraumatic. ENT: Nares patent. No nasal discharge, no septal abnormalities noted. Tympanic membranes are normal and external auditory canals are clear. Oropharynx with no redness, swelling, or masses, exudates, or evidence of obstruction, uvula midline. Mucous membranes moist. Neck: Trachea midline, no thyromegaly or masses palpated, and no cervical lymphadenopathy. Supple, full range of motion without nuchal rigidity, or vertebral point tenderness. No Meningismus. Chest/axilla: Normal chest wall appearance and motion. Nontender with no deformity. No lesions are appreciated. Cardiovascular: Regular rate and rhythm with a normal S1 and S2. No gallops, murmurs, or rubs. Normal PMI, no JVD. No pulse deficits. Respiratory: Lungs have equal breath sounds bilaterally, clear to auscultation and percussion. No rales, rhonchi or wheezes noted. No increased work of breathing, no retractions or nasal flaring. Skin: Warm, dry with normal turgor. Normal color with no rashes, no lesions, and no evidence of cellulitis. MS/ Extremity: Pulses equal, no cyanosis. Neurovascular intact. Full, normal range of motion. Neuro: Awake and alert, GCS 15, oriented to person, place, time, and situation. Cranial nerves II-XII grossly intact. Motor strength 5/5 in all extremities. Sensory grossly intact. Cerebellar exam normal. Normal gait. 17:00 Abdomen/GI: Inspection: abdomen appears normal, Bowel sounds: normal, in all quadrants, Palpation: soft, in all quadrants, mild abdominal tenderness, in the suprapubic area. 17:00 Back: CVA tenderness, that is mild, is noted bilaterally. Vital Signs: 16:06 BP 106 / 85; Pulse 65; Resp 16; Temp 98.7; Pulse Ox 100% on R/A; Weight 58.97 kg (R); aj1 Height 5 ft. 3 in. (160.02 cm) (R); Pain 9/10; 17:24 BP 97 / 58; Pulse 68; Resp 16; Pulse Ox 100% on R/A; aj1 17:47 BP 109 / 73; Pulse 62; Resp 18; Pulse Ox 99% on R/A; aj1 16:06 Body Mass Index 23.03 (58.97 kg, 160.02 cm) aj1 MDM: 16:02 Patient medically screened. kb 17:02 Data reviewed: vital signs, nurses notes. Data interpreted: Pulse oximetry: on room air kb is 100 %. Interpretation: normal. Counseling: I had a detailed discussion with the patient and/or guardian regarding: the historical points, exam findings, and any diagnostic results supporting the discharge/admit diagnosis, lab results, the need for outpatient follow up, a family practitioner, to return to the emergency department if symptoms worsen or persist or if there are any questions or concerns that arise at home. 11 16:09 Order name: Basic Metabolic Panel; Complete Time: 16:55 kb 09/06 16:09 Order name: CBC with Diff; Complete Time: 16:47 kb 09/06 16:15 Order name: [place] Screen Profile; Complete Time: 16:55 kb 09/06 16:38 Order name: Urine Microscopic Only; Complete Time: 17:05 kb 09/06 16:39 Order name: Urine Dipstick--Ancillary (enter results); Complete Time: 16:55 bd 09/06 16:39 Order name: Urine --Ancillary (enter results); Complete Time: 16:55 bd 09/06 16:09 Order name: IV Saline Lock; Complete Time: 16:33 kb 09/06 16:09 Order name: Labs collected and sent; Complete Time: 16:33 kb 09/06 16:09 Order name: Urine Dipstick-Ancillary (obtain specimen); Complete Time: 16:41 kb Administered Medications: No medications were administered Disposition: 18:56 Co-signature as Attending Physician, Fadi Pride MD available for consultation at ps1 all times. . Disposition: 09/06/18 17:23 Discharged to Home. Impression: Infectious mononucleosis. - Condition is Stable. - Discharge Instructions: Infectious Mononucleosis, [id number]. - Medication Reconciliation Form, Thank You Letter, Antibiotic Education, Prescription Opioid Use form. - Follow up: Emergency Department; When: As needed; Reason: Worsening of condition. Follow up: Private Physician; When: 2 - 3 days; Reason: Recheck today's complaints, Continuance of care, Re-evaluation by your physician. Signatures: Dispatcher [employer] EDElizabeth Sánchez, ELENA-C MUTUEL DEPARTMENT MANAGER-Nikole Santana RN RN aj1 Fadi Pride MD MD ps1 Corrections: (The following items were deleted from the chart) 17:48 17:23 09/06/2018 17:23 Discharged to Home. Impression: Infectious mononucleosis. aj1 Condition is Stable. Discharge Instructions: Infectious Mononucleosis, [id number]. Forms are Medication Reconciliation Form, Thank You Letter, Antibiotic Education, Prescription Opioid Use. Follow up: Emergency Department; When: As needed; Reason: Worsening of condition. Follow up: Private Physician; When: 2 - 3 days; Reason: Recheck today's complaints, Continuance of care, Re-evaluation by your physician. kb
--- NOTE | 2018-09-06 17:24 | ER ---
Nurse's Notes [facility] Name: Elizabeth Pascal Age: 27 yrs Sex: Female : 1990 Arrival Date: 09/06/2018 Time: 15:45 Bed 24 Private MD: None, None Diagnosis: Infectious mononucleosis Presentation: 09/06 16:01 Presenting complaint: Patient states: She has had a UTI for the past 2 months. She was aj1 seen at 2 urgent care clinics and prescribed antibiotics (Macrobid both times) with no relief. She saw Dr. Fan on Thursday and prescribed cefuroxime. States she has had no relief. Reports lower abdominal pain, back pain, vomiting, and fever with TMax of 101. Reports dysuria and urinary frequency. Transition of care: patient was not received from another setting of care. Onset of symptoms was June 2018. Risk Assessment: Do you want to hurt yourself or someone else? Patient reports no desire to harm self or others. Initial Sepsis Screen: Does the patient meet any 2 criteria? No. Patient's initial sepsis screen is negative. Does the patient have a suspected source of infection? Yes: Dysuria/Frequency/Urgency/UTI. Care prior to arrival: None. 16:01 Method Of Arrival: Ambulatory aj1 16:01 Acuity: DEBRA 3 aj1 Triage Assessment: 16:06 General: Appears in no apparent distress. uncomfortable, Behavior is calm, cooperative, aj1 appropriate for age. Pain: Complains of pain in low back area, right lower quadrant and left lower quadrant Pain does not radiate. Pain currently is 9 out of 10 on a pain scale. Quality of pain is described as stabbing, Pain began 2 months ago. GI: Reports lower abdominal pain. 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 - Social history:: Smoking status: Patient/guardian denies using tobacco. - Ebola Screening: : Patient denies travel to an Ebola-affected area in the 21 days before illness onset. Screenin:10 Abuse screen: Denies threats or abuse. Denies injuries from another. aj1 16:10 Nutritional screening: No deficits noted. Tuberculosis screening: No symptoms or risk aj1 factors identified. 17:48 Fall Risk None identified. aj1 Assessment: 16:10 General: Appears in no apparent distress. uncomfortable, Behavior is calm, cooperative, aj1 appropriate for age, Reports fever for > 3 days. Pain: Complains of pain in left lower quadrant and right lower quadrant and low back area Pain does not radiate. Pain currently is 9 out of 10 on a pain scale. Quality of pain is described as stabbing, Pain began 2 months ago Is continuous, Alleviated by nothing. Aggravated by nothing. Neuro: Level of Consciousness is awake, alert, obeys commands. Cardiovascular: Patient's skin is warm and dry. Respiratory: Airway is patent Respiratory effort is even, unlabored, Respiratory pattern is regular, symmetrical. GI: Abdomen is non-distended, Bowel sounds present X 4 quads. Abd is soft X 4 quads Reports lower abdominal pain, nausea, vomiting. : Reports burning with urination, urinary frequency. EENT: No signs and/or symptoms were reported regarding the EENT system. Derm: No signs and/or symptoms reported regarding the dermatologic system. Skin is pink, warm \T\ dry. normal. Musculoskeletal: No signs and/or symptoms reported regarding the musculoskeletal system. Circulation, motion, and sensation intact. 17:23 Reassessment: Patient appears in no apparent distress at this time. No changes from aj1 previously documented assessment. Patient and/or family updated on plan of care and expected duration. Pain level reassessed. Patient is alert, oriented x 3, equal unlabored respirations, skin warm/dry/pink. Chiara Ta NP at bedside explaining discharge diagnosis and instructions. Vital Signs: 16:06 BP 106 / 85; Pulse 65; Resp 16; Temp 98.7; Pulse Ox 100% on R/A; Weight 58.97 kg (R); aj1 Height 5 ft. 3 in. (160.02 cm) (R); Pain 9/10; 17:24 BP 97 / 58; Pulse 68; Resp 16; Pulse Ox 100% on R/A; aj1 17:47 BP 109 / 73; Pulse 62; Resp 18; Pulse Ox 99% on R/A; aj1 16:06 Body Mass Index 23.03 (58.97 kg, 160.02 cm) aj1 ED Course: 15:45 Patient arrived in ED. sb2 15:46 None, None is Private Physician. sb2 16:00 Nikole Bravo, RN is Primary Nurse. aj1 16:02 Elizabeth Ta F[facility]-C [facility]. kb 16:02 Fadi Pride MD is Attending Physician. kb 16:04 Triage completed. aj1 16:06 Arm band placed on Patient placed in an exam room. aj1 16:10 Patient has correct armband on for positive identification. Bed in low position. Call aj1 light in reach. Side rails up X 1. 16:10 No provider procedures requiring assistance completed. aj1 16:33 Inserted saline lock: 20 gauge in right antecubital area, using aseptic technique. aj1 Blood collected. 16:35 Initial lab(s) drawn, by ED staff, sent to lab. Urine collected: clean catch specimen, jp3 clear, katie colored, Amount Voided: 60mL. 16:41 Urine Microscopic Only Sent. jp3 16:41 [place] Screen Profile Sent. jp3 16:41 Urine Dipstick--Ancillary (enter results) Sent. jp3 16:41 Urine --Ancillary (enter results) Sent. jp3 16:42 Basic Metabolic Panel Sent. jp3 16:42 CBC with Diff Sent. jp3 17:47 IV discontinued, intact, bleeding controlled, No redness/swelling at site. Pressure aj1 dressing applied. Administered Medications: No medications were administered Outcome: 17:23 Discharge ordered by . kb 17:48 Discharged to home ambulatory. aj1 17:48 Condition: good 17:48 Discharge instructions given to patient, Instructed on discharge instructions, follow up and referral plans. Demonstrated understanding of instructions, follow-up care. 17:48 Patient left the ED. aj1 Signatures: Elizabeth Ta FNP-C FNP-Nikole Santana, RN RN aj1 Jenni Coleman sb2 Eran Mead jp3 Corrections: (The following items were deleted from the chart) 16:13 16:10 : No signs and/or symptoms were reported regarding the genitourinary system. [id number]
[2018-09-06 17:56] VITALS: TEMP 98.7
[2018-09-06 17:58] VITALS: BP 109/73; O2SAT 99
== END 2018-09-06 17:48 | disposition home or self-care (01) ==
LOC: ER 15:43
DX: B27.90 Infectious mononucleosis, unspecified without complication (principal); E03.9 Hypothyroidism, unspecified; Z79.899 Other long term (current) drug therapy
CPT/HCPCS: 36415; 80048; 81003; 81015; 81025; 85025; 86308; 99283

== ENCOUNTER 2018-09-21 13:11 | Observation (INO) | payer OTHER ==
--- OUTSIDE RECORDS SUMMARY | 2018-09-21 14:33 | XMS REPORT | Clinical Summary ---
:1990 Author Organization [facility] Address [address] [place] [address] Care Team Providers Name Role Phone Primitivo Fan MD Primary Care Provider Allergies Active Allergy Reactions Severity Noted Date Comments Amoxicillin Hives 07/29/2016 Ciprofloxacin Hives 09/03/2016 Levofloxacin Hives 09/03/2016 Penicillin G Hives 09/03/2016 Sulfa (Sulfonamide Antibiotics) 07/29/2016 Medications Medication Sig Dispensed Refills Start Date End Date Status folic acid Take 2 tablets 180 tablet 3 11/05/2017 Active (FOLVITE) 1 MG (2 mg total) by 9 tabletIndications: mouth daily. Epilepsy with altered consciousness without intractable epilepsy (HCC) levothyroxine TK 1 T PO QAM 3 10/25/2017 Active (SYNTHROID, ON AN EMPTY LEVOXYL) 125 mcg STOMACH tablet cholecalciferol, Take 1,000 0 Active vitamin D3, Units by mouth (VITAMIN D3) 1,000 daily. unit tablet PNV NO.95/FERROUS Take 1 tablet 0 Active FUM/FOLIC AC by mouth daily. ( ORAL) topiramate Take 1 tablet 60 tablet 3 07/23/2018 Active (TOPAMAX) 50 MG (50 mg total) tablet by mouth 2 (two) times a day. For additional refills, please call office for an appointment. topiramate TAKE 1 TABLET 180 tablet 1 07/30/2018 Active (TOPAMAX) 200 MG BY MOUTH TWICE tablet DAILY folic acid Take 2 tablets 60 tablet 11 09/30/2016 (FOLVITE) 1 MG (2 mg total) by 7 tablet mouth daily. topiramate Take 1 tablet 180 tablet 3 04/14/2017 Discontinued (TOPAMAX) 50 MG (50 mg total) 8 tablet by mouth 2 (two) times a day. topiramate Take 1 tablet 180 tablet 3 04/14/2017 Discontinued (TOPAMAX) 200 MG (200 mg total) 8 tablet by mouth 2 (two) times a day. levothyroxine Take 88 mcg by 0 Discontinued (SYNTHROID, mouth every 8 LEVOXYL) 88 mcg morning. tablet multivitamin Take 1 tablet 0 Discontinued (THERAGRAN) tablet by mouth daily. 8 vortioxetine 10 mg Take 10 mg by 0 Discontinued tablet mouth daily. 8 acetaminophen-codei Take 1 tablet 60 tablet 1 12/10/2017 ne (TYLENOL WITH by mouth every 8 CODEINE #3) 300-30 6 (six) hours mg per tablet as needed for moderate pain for up to 3 days. topiramate Take 1 tablet 180 tablet 0 03/30/2018 Discontinued (TOPAMAX) 50 MG (50 mg total) 8 tablet by mouth 2 (two) times a day. For additional refills, please call office for an appointment. topiramate TAKE 1 TABLET 180 tablet 0 04/23/2018 Discontinued (TOPAMAX) 200 MG BY MOUTH TWICE 8 tablet DAILY topiramate Take 1 tablet 180 tablet 0 04/23/2018 Discontinued (TOPAMAX) 200 MG (200 mg total) 8 tablet by mouth 2 (two) times a day. topiramate Take 1 tablet 60 tablet 3 07/23/2018 Discontinued (TOPAMAX) 200 MG (200 mg total) 8 tablet by mouth 2 (two) times a day. 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 07/29/2016 Encounters Date Type Specialty Care Team Description 07/29/2018 Refill Neurology Hiren Dominguez MD 07/23/2018 Refill Neurology Asiya Sandhu RN 04/23/2018 Refill Neurology Asiya Sandhu RN 04/23/2018 Documentation Neurology Asiya Sandhu RN 04/07/2018 Refill Neurology Hiren Dominguez MD 04/02/2018 Hospital Encounter Radiology Nevin Aguilar MD Intractable migraine without aura and with status migrainosus 03/30/2018 Refill Neurology Hiren Dominguez MD 02/10/2018 Telephone Neurology Ashley Beckwith RN 12/10/2017 Office Visit Neurology Nevin Aguilar MD Intractable migraine without aura and with status migrainosus (Primary Dx) 11/20/2017 Office Visit Neurology Hiren Dominguez MD Convulsions, unspecified convulsion type (Primary Dx) 11/05/2017 Telephone Neurology Maritza Holley RN Epilepsy with altered consciousness without intractable epilepsy (Primary Dx) after 09/20/2017 Family History Medical History Relation Name Comments Hypertension Father Seizures Father No Known Problems Mother Relation Name Status Comments Father Alive Mother Alive Social History Tobacco Use Types Packs/Day Years Used Date Never Smoker Smokeless Tobacco: Never Used Alcohol Use Drinks/Week oz/Week Comments Yes occasional Sex Assigned at Date Recorded Not on file Job Start Date Occupation Industry Not on file Not on file Not on file Travel History Travel Start Travel End No recent travel history available. Last Filed Vital Signs Vital Sign Reading Time Taken Blood Pressure 116/75 12/10/2017 12:58 PM HYPNOTHERAPIST Pulse 87 12/10/2017 12:58 PM HYPNOTHERAPIST Temperature - - Respiratory Rate - - Oxygen Saturation - - Inhaled Oxygen Concentration - - Weight 61.4 kg (135 lb 4.8 oz) 12/10/2017 12:58 PM HYPNOTHERAPIST Height 160 cm (5' 3") 12/10/2017 12:58 PM HYPNOTHERAPIST Body Mass Index 23.97 12/10/2017 12:58 PM HYPNOTHERAPIST Plan of Treatment Date Type Specialty Care Team Description 09/29/2018 Office Visit Neurology Hiren Dominguez MD [id number] [place] [address] Health Maintenance Due Date Last Done Comments MMR VACCINES (1 of 1 - Standard 1993 series) VARICELLA VACCINES (1 of 2 - 2-dose 2005 adolescent series) CERVICAL CANCER SCREENING 2013 INFLUENZA VACCINE 05/26/2018 HEPATITIS B VACCINES Aged Out No longer eligible based on patient's age to complete this topic IPV VACCINES Aged Out No longer eligible based on patient's age to complete this topic MENINGOCOCCAL VACCINE Aged Out No longer eligible based on patient's age to complete this topic Procedures Procedure Name Priority Date/Time Associated Diagnosis Comments MRI BRAIN WO Routine 04/02/2018 9:59 Intractable migraine Results for this CONTRAST AM CDT without aura and with procedure are in status migrainosus the results section. TOPIRAMATE LEVEL Routine 12/04/2017 1:00 Convulsions, Results for this PM HYPNOTHERAPIST unspecified convulsion procedure are in type the results section. TOPIRAMATE LEVEL Routine 11/06/2017 9:09 Epilepsy with altered Results for this AM HYPNOTHERAPIST consciousness without procedure are in intractable epilepsy the results section. after 09/20/2017 Results MRI Brain Wo Contrast (04/02/2018 9:59 AM CDT) Narrative Performed At EXAMINATION: MRI BRAIN WO CONTRAST [facility] CLINICAL HISTORY: G43.011 Migraine without auraintractablewith status migrainosus, 14wks with daily headache COMPARISON:MRI brain from April 22, 2012. TECHNIQUE: Multiplanar and multisequence MRI imaging of the brain was obtained without contrast. FINDINGS: There is no evidence of acute infarct, intracranial hemorrhage or mass, hydrocephalus or midline shift. There is no evidence of dural venous sinus thrombosis. The sella is slightly enlarged and partially empty. There is a stable. The cerebellar tonsils extend down to the level of the foramen magnum. The orbits, sinuses and mastoid air cells do not show significant abnormality. IMPRESSION: No acute findings in the brain. Slightly enlarged partially empty sella which is stable. [id number] Procedure Note Hm Interface, Radiology Results Incoming - 04/02/2018 10:04 AM CDT EXAMINATION: MRI BRAIN WO CONTRAST CLINICAL HISTORY: G43.011 Migraine without aura intractable with status migrainosus, 14wks with daily headache COMPARISON: MRI brain from April 22, 2012. TECHNIQUE: Multiplanar and multisequence MRI imaging of the brain was obtained without contrast. FINDINGS: There is no evidence of acute infarct, intracranial hemorrhage or mass, hydrocephalus or midline shift. There is no evidence of dural venous sinus thrombosis. The sella is slightly enlarged and partially empty. There is a stable. The cerebellar tonsils extend down to the level of the foramen magnum. The orbits, sinuses and mastoid air cells do not show significant abnormality. IMPRESSION: No acute findings in the brain. Slightly enlarged partially empty sella which is stable. [id number] Performing Organization Address City/State/Zipcode Phone Number [place] [address] [place] [address] Topiramate level (12/04/2017 1:00 PM HYPNOTHERAPIST)Only the most recent of2 resultswithin the time period is included. Topiramate 10.1Comment: 2.0 - 25.0 ug/mL [facility] Detection Limit=1.0 Specimen Blood Narrative Performed At Performed at: - [facility] [address], [id number] Environmental Services Supervisor: Giorgio May MD, Phone:[phone] Performing Organization Address City/State/Zipcode Phone Number [facility] after 09/20/2017 Insurance Payer Benefit Plan / Group Subscriber ID Type Phone Address CIGNA CIGNA OPEN ACCESS/NETWORK xxxxxxxxxxx HMO MEDICAID MEDICAID xxxxxxxxx Medicaid ([place]) [place] [address] Advance Directives Patient has advance care planning documents on file. For more information, please contact:[place] [address]
--- OUTSIDE RECORDS SUMMARY | 2018-09-21 14:34 | XMS REPORT | Continuity of Care Document ---
:1990 Author Organization Interface Problems Problem Status Onset Classification Date Comments Source Date Reported INCREASED BP Active 05/09/[address] Center Vaginal 02/27/20 03/01/2018 [facility] discharge during 18 Medical Center R10.11 - RIGHT Active 02/13/20 OPID UPPER QUADRANT 18 [facility] PAIN LOF Active 01/28/[address] Center Other specified 01/16/20 04/16/2018 [facility] Medical related Center conditions, second trimester Abdominal pain, 01/09/20 04/16/[address] 19WK AB PAIN Active 01/09/[address] False labor 12/19/19 03/20/2018 [facility] before 37 18 Medical completed weeks Center of gestation, second trimester Vaginal bleeding 12/12/19 03/20/[address] ABDOMINAL Active 12/12/19 [facility] PAIN/[address] [place] [address] Center Active 12/12/19 Problem 03/15/2018 OPID 18 [facility],[id number] 15WKS W PELVIC Active 12/11/19 [facility] PAIN AND LIGHT [address] [place] [address] VAG BLEEDI [place] VAGINAL DEL Active 11/20/[address] BACK PAIN Active 11/20/[address] Center Discharge 06/14/20 06/17/2017 [facility] Diagnosis: 17 Medical Abdominal pain Center in female History of Resolved 10/26/19 Problem 04/16/2018 [facility] delivery [address] [place] [address] OPID [facility],[id number] Preeclampsia Resolved 10/26/19 Problem 04/16/[address], OPID [facility],[id number] Resolved 10/01/20 Problem 04/16/2018 [facility] Lower abdominal 03/19/2018 [facility] pain, Medical unspecified Center Dorsalgia, 03/19/2018 [facility] unspecified Medical Center 15 weeks 03/19/2018 [facility] gestation of Medical [place] Abdominal pain Active Problem 04/16/2018 [facility] in female Medical Center,[facility],[id number] Hypothyroid Resolved Problem 04/16/2018 [facility],[id number] Seizure Resolved Problem 04/16/2018 [facility],[id number] Vaginal bleeding Active Problem 04/16/2018 [facility],[id number] Endocrine, 04/16/2018 [facility] nutritional and Medical metabolic Center diseases complicating , second trimester Hypothyroidism, 04/16/2018 [facility] [place] Diseases of the 04/16/2018 [facility] nervous system Medical complicating Center , second trimester Epilepsy, 04/16/2018 [facility], not Medical intractable, Center without status epilepticus 20 weeks 03/20/2018 [facility] gestation of Medical [place] Group B Active Problem 04/16/2018 [facility] streptococcus [facility] Pre-eclampsia Active Problem 04/16/2018 [facility] Premature labor Active Problem 04/16/2018 [facility] Right lower 04/16/2018 [facility] quadrant pain Medical Center Unspecified 04/16/2018 [facility] infection of Medical urinary tract in Center , second trimester Vomiting of 04/16/2018 [facility] , Medical unspecified [place] Hypokalemia 04/16/2018 [facility] 19 weeks 04/16/2018 [facility] gestation of Medical Center Active [facility] RELATED Medical CONDITIONS, [place] UNSP, UNSP Medications Medication Details Route Status Patient Ordering Order Source Instructions Provider Date cephalexin 500 500 mg=1 cap, Active [place] mg oral capsule PO, [id number], # 2018 Medical 28 cap, 0 Center Refill(s), Pharmacy: [facility] [id number] Pyridium 200 mg, 2 tab, Inactive [place] Route: PO, Drug 2018 Medical form: TAB, ONCE, Center Dosing Weight 68.182, kg, Priority: STAT, Start date: 03/24/18 20:01:00 CDT, Stop date: 03/24/18 20:01:00 CDTNotes: Give with meals. (Same as: Pyridium) Keflex 500 mg, 1 cap, No Longer [facility] Route: PO, Drug Active 2017 Medical form: CAP, Center [id number], Dosing Weight 68.182, kg, Start date: 03/24/18 14:00:00 CDT, Duration: 30 day, Stop date: 04/23/18 2:00:00 CDTNotes: Take on empty stomach. (Same As: Keflex) Topamax 250 mg, 5 tab, No Longer [facility] Route: PO, Drug Active 2017 Medical form: TAB, BID, Center Dosing Weight 68.182, kg, Start date: 03/24/18 13:00:00 CDT, Duration: 30 day, Stop date: 04/23/18 10:00:00 CDTNotes: (Same As: Topamax) "Do Not Crush" Tylenol 650 mg, 2 tab, No Longer [facility] Route: PO, Drug Active 2017 Medical form: TAB, Q6H, Center Dosing Weight 68.182, kg, PRN Pain Score 1-3, Start date: 03/24/18 9:51:00 CDT, Duration: 30 day, Stop date: 04/23/18 9:50:00 CDTNotes: Do not exceed 4 gm/day. (Same as: Tylenol) multivitamin, 1 tab, Route: No Longer [facility] PO, Drug Form: Active 2018 Medical TAB, Dosing Center Weight 68.182, kg, Daily, Start date: 03/24/18 9:00:00 CDT, Duration: 30 day, Stop date: 04/22/18 9:00:00 CDT Topamax 250 mg, Route: Inactive [place] PO, Daily, 2018 Medical Dosing Weight Center 68.182, kg, Start date: 03/24/18 9:00:00 CDT, Duration: 30 day, Stop date: 04/22/18 9:00:00 CDT Thyroxine 125 microgram, 1 No Longer [facility] tab, Route: PO, Active 2018 Medical Drug form: TAB, Center Daily, Dosing Weight 68.182, kg, Start date: 03/24/18 9:00:00 CDT, Duration: 30 day, Stop date: 04/22/18 9:00:00 CDTNotes: Take 1 hour before or 2 hours after meal; Enteral feeds may interefere with the absorption of this medication. (Same as:Levothroid) Folic Acid 4 mg, 4 tab, No Longer [place] Route: PO, Drug Active 2018 Medical form: TAB, Center Daily, Dosing Weight 68.182, kg, Start date: 03/24/18 9:00:00 CDT, Stop date: 04/22/18 9:00:00 CDTNotes: (Same as: Folvite) Rocephin 1 gm, Route: No Longer [place] IVPB, Drug form: Active 2017 Medical PDR/INJ, Center [id number], Dosing Weight 68.182, kg, Start date: 03/23/18 23:00:00 CDT, Duration: 10 day, Stop date: 04/01/18 23:00:00 CDT, ABX Indication: Urinary Tract InfectionNotes: (Same As: Rocephin). Use with 100 mL NS and infuse over 30 min MEDICATION WASTE Product Size: 1000 mg Product Wasted: ___ mg Ondansetron 4 MG 4 mg=1 tab, PO, No Longer [place] Disintegrating BID, PRN Nausea Active 2017 Medical Tablet [Zofran] and Vomiting, Center Dissolve tab under tongue, # 10 tab, 0 Refill(s) Tylenol 325 mg, 1 tab, Inactive [place] Route: PO, Drug 2017 Medical form: TAB, ONCE, Center Dosing Weight 64.091, kg, Start date: 01/08/18 20:36:00 CDT, Stop date: 01/08/18 20:36:00 CDTNotes: Do not exceed 4 gm/day. (Same as: Tylenol) Zofran 4 mg, 2 mL, Inactive [place] Route: IVP, Drug 2017 Medical form: INJ, ONCE, Center Dosing Weight 64.091, kg, Priority: STAT, Start date: 01/08/18 20:36:00 CDT, Stop date: 01/08/18 20:36:00 CDTNotes: (Same as: Zofran) MEDICATION WASTE Product Size: 4 mg Product Wasted: 0 mg Zofran ODT 4 mg, 1 tab, Inactive [facility] Route: PO, Drug 2017 Medical form: TABDIS, Center ONCE, Dosing Weight 64.091, kg, Priority: STAT, Start date: 01/08/18 20:18:00 CDT, Stop date: 01/08/18 20:18:00 CDTNotes: (Same as: Zofran ODT) Tylenol 650 mg, 2 tab, Inactive [facility] Route: PO, Drug 2017 Medical form: TAB, ONCE, Center Dosing Weight 64.091, kg, Priority: STAT, Start date: 01/08/18 18:58:00 CDT, Stop date: 01/08/18 18:58:00 CDTNotes: Do not exceed 4 gm/day. (Same as: Tylenol) Rocephin 1 gm, Route: Inactive [facility] IVPB, ONCE, 2018 Medical Dosing Weight Center 64.091, kg, Priority: STAT, Start date: 01/08/18 17:51:00 CDT, Stop date: 01/08/18 17:51:00 CDT, ABX Indication: Urinary Tract InfectionNotes: (Same As: Rocephin). Use with 100 mL NS and infuse over 30 min MEDICATION WASTE Product Size: 1000 mg Product Wasted: 0 mg Vitamin D2 PO, 0 Refill(s) Active [address] 1 oral 0 Refill(s) Active [facility] capsule 2017 [facility] Folic Acid Daily, 0 Active [facility] Refill(s) [address] [place] [address] Thyroxine Daily, 0 Active [facility] Refill(s) [address] [place] [address] Topamax PO, BID, 0 Active [facility] Refill(s) [address] [place] [address] Ketorolac 15 mg, 0.5 mL, Inactive [facility] Route: IVP, Drug 2016 Medical form: INJ, [...] mg Zofran 4 mg, 2 mL, Inactive 06/14[facility] Route: IVP, Drug 2016 Medical form: INJ, ONCE, Center Dosing Weight 56.818, kg, Priority: STAT, Start date: 06/14/17 16:04:00 CDT, Stop date: 06/14/17 16:04:00 CDTNotes: (Same as: Zofran) MEDICATION WASTE Product Size: 4 mg Product Wasted: ___ mg Sodium Chloride 1,000 mL, 1000 Inactive 06/14[facility] 0.9% (Bolus) IV ml/hr, Infuse 2016 Medical Over: 1 hr, Center Route: IV, 1,000, Drug form: INJ, ONCE, Priority: STAT, Dosing Weight 56.818 kg, Start date: 06/14/17 16:04:00 CDT, Duration: 1 doses or times, Stop date: 06/14/17 16:04:00 CDT Allergies, Adverse Reactions, Alerts Substance Category Reaction Severity Reaction Status Date Comments Source type Reported sulfa drugs Assertion Drug Active [facility] ciprofloxacin Assertion Drug Active [facility] gentamicin Assertion Drug Active [facility] amoxicillin Assertion Drug Active [facility] penicillin Assertion Drug Active [facility] Levaquin Assertion Drug Active [facility] Bactrim Assertion Drug Active [facility] Immunizations Immunization Date Given Site Status Last Updated Comments Source Results Order Name Results Value Reference Date Interpretation Comments Source Range IMMUNOLOGY Rubella IgG 138.5 >=10.0 03/24 [facility] [iU]/mL IU/mL /2017 [facility] BLOOD BANK Antibody Positive 1 03/24 Result Comment: 03/24/2018 01:10 THELMA [facility] RESULTS Scrn /2018 "Significant Findings of positive screen called to Chiara Dumont at 03/24/2018 01:06 by TUTU. Read Back OK" Medical (5/29/18 11:28 PM) Center BLOOD BANK ABO/Rh A NEG 03/24 [place] RESULTS /2017 [facility] BLOOD BANK Path AB Blood Bank 03/24 [facility] RESULTS [facility] s [facility] is a 31 yo [...] resident's , Dr. Chavez&ap os;, interpreta tion.CPT: [id number] BLOOD BANK AB Int Rhig 03/24 [facility] RESULTS Anti-D /2017 [facility] HEMATOLOGY Hct 34.5 % 36.0 - 03/24 [place] 48.0 [facility] HEMATOLOGY MCV 90.9 fL 80.0 - 03/24 [place] 98.0 [facility] HEMATOLOGY WBC 10.6 K/CMM 3.7 - 10.4 03/24 [facility] HEMATOLOGY RBC 3.80 M/CMM 4.20 - 03/24 [place] 5.40 /2017 [facility] HEMATOLOGY Hgb 11.6 g/dL 12.0 - 03/24 [place] 16.0 [facility] HEMATOLOGY MCH 30.4 pg 27.0 - 03/24 [place] 31.0 [facility] HEMATOLOGY MCHC 33.5 g/dL 32.0 - 03/24 [place] 36.0 [facility] HEMATOLOGY RDW 14.6 % 11.5 - 03/24 [place] 14.5 [facility] HEMATOLOGY Platelet 183 K/CMM 133 - 450 03/24 [place] /2017 [facility] HEMATOLOGY MPV 10.6 fL 7.4 - 10.4 03/24 [facility]2017 [facility] HEMATOLOGY Eosinophils 2.9 % 0.0 - 4.0 03/[address] HEMATOLOGY Monocytes 9.2 % 2.0 - 12.0 03/[address] HEMATOLOGY Segs-Bands # 6.7 K/CMM 1.5 - 8.1 03/24 [facility]2017 [facility] HEMATOLOGY Basophils 0.2 % 0.0 - 1.0 03/24 [facility]2017 [facility] HEMATOLOGY Eosinophils 0.3 K/CMM 0.0 - 0.5 03/24 [facility]2017 [facility] HEMATOLOGY Monocytes # 1.0 K/CMM 0.0 - 0.8 03/[address] HEMATOLOGY Lymphocytes 2.5 K/CMM 1.0 - 5.5 03/[address] HEMATOLOGY Lymphocytes 24.0 % 20.0 - 03/24 [facility] 40.0 [facility] HEMATOLOGY Segs 63.7 % 45.0 - 03/24 [facility] 75.0 [facility] IMMUNOLOGY Hep Bs Ag Negative Negative 03/24 [facility] [place] (03/23/18 11:28 PM) IMMUNOLOGY HIV. Negative Negative 03/24 [facility]* [place] (03/23/18 11:28 PM) IMMUNOLOGY Treponemal Non-Reactive Non 03/24 [facility]* [place] (03/23/18 11:28 PM) Retroperit Retroperiton Clinical Indication: - HYDRONEPHROSIS; 03/12 - [facility] Complete - [place] Complete US Comparison: Right upper quadrant ultrasound [...] hydronephrosis. Bilateral ureteral jets are visualized. SL: [id number] Abdomen Abdomen RUQ Patient Name: SHIVAM OBRIEN 02/12 - OPID RUQ US US /2017 - [facility] : 1990; Age: 27 years y/o Female MR: [id number] Read by: Earl Perry MD Dictated Date/time: 02/12/18 13:53 Electronically Signed by: Ealr Perry MD 02/12/18 13:54 FINAL REPORT Study: Abdomen [...] is present. IMPRESSION: 1. Postoperative cholecystectomy. SL: [id number] CHEM PANEL Bili Direct 0.1 mg/dL 0.0 - 0.3 01/[address] CHEM PANEL ALT 10 unit/L 0 - 65 01/[address] CHEM PANEL AST 14 unit/L 0 - 37 01/[address] CHEM PANEL A/G Ratio 0.7 0.7 - 1.6 01/[address] CHEM PANEL Globulin 3.4 g/dL 2.7 - 4.2 01/[address] CHEM PANEL Alk Phos 54 unit/L 39 - 136 01/[address] CHEM PANEL Bili Total 0.1 mg/dL 0.2 - 1.3 01/09 [facility]2018 [facility] CHEM PANEL Total 5.9 g/dL 6.4 - 8.4 01/09 [facility] Protein [facility] CHEM PANEL Albumin Lvl 2.5 g/dL 3.5 - 5.0 01/09 [facility]2017 [facility] CHEM PANEL Bili 0.0 mg/dL 0.0 - 1.0 01/09 [facility] CHEM PANEL Lipase Lvl 160 unit/L 73 - 393 01/09 [facility]2017 [facility] CHEM PANEL Amylase Lvl 50 unit/L 25 - 115 01/[address] IMMUNOLOGY [facility] HIV 4th Negative Negative 01/08 [facility] *NA* Center (01/08/18 4:52 PM) ELECTROLYT AGAP 12.2 meq/L 10.0 - 01/08 [facility] 20.0 [facility] ELECTROLYT eGFR 133 01/08 Result Comment: The eGFR is calculated using the CKD-EPI formula. In most young, healthy individuals the eGFR will be >90 mL/ min/1.73m2. The eGFR declines with age. An eGFR of 60-89 may be normal in [facility] mL/min/1.7 some populations, particularly the elderly, for whom the CKD-EPI formula has not been extensively validated. Use of the eGFR is not recommended in the following populations: [address] Individuals with unstable creatinine concentrations, including [...] Lvl 8.5 mg/dL 8.5 - 10.5 01/08 [facility] ELECTROLYT BUN 11 mg/dL 7 - 22 01/08 [facility] ELECTROLYT Glucose Lvl 75 mg/dL 70 - 99 01/08 [facility]2017 [facility] ELECTROLYT CO2 19 meq/L 24 - 32 01/[address] ELECTROLYT Potassium 3.2 meq/L 3.5 - 5.1 01/08 [facility] Lvl [facility] ELECTROLYT Chloride Lvl 112 meq/L 95 - 109 01/08 [facility] ES [facility] ELECTROLYT Creatinine 0.52 mg/dL 0.50 - 01/08 [facility] ES Lvl 1.40 [facility] ELECTROLYT Sodium Lvl 140 meq/L 135 - 145 01/08 [facility] ES [facility] [place] [id number] 01/08 [facility] OGY mIU/mL /2017 [facility] HEMATOLOGY Lymphocytes 2.4 K/CMM 1.0 - 5.5 01/08 [facility] # /2017 [facility] HEMATOLOGY Segs-Bands # 6.0 K/CMM 1.5 - 8.1 01/08 [facility] HEMATOLOGY Monocytes # 0.7 K/CMM 0.0 - 0.8 01/08 [facility] HEMATOLOGY Eosinophils 0.3 K/CMM 0.0 - 0.5 01/08 [facility] /2017 [facility] HEMATOLOGY Eosinophils 2.8 % 0.0 - 4.0 01/08 [facility] HEMATOLOGY Monocytes 7.6 % 2.0 - 12.0 01/08 [facility] HEMATOLOGY Lymphocytes 25.5 % 20.0 - 01/08 [place] 40.0 [facility] HEMATOLOGY Basophils 0.3 % 0.0 - 1.0 01/08 [facility] HEMATOLOGY Segs 63.8 % 45.0 - 01/08 [place] 75.0 [facility] HEMATOLOGY MCH 29.3 pg 27.0 - 01/08 [place] 31.0 [facility] HEMATOLOGY MCHC 33.3 g/dL 32.0 - 01/08 [place] 36.0 [facility] HEMATOLOGY MCV 87.9 fL 80.0 - 01/08 [place] 98.0 [facility] HEMATOLOGY RBC 3.65 M/CMM 4.20 - 16 [place] 5.40 2018 [facility] HEMATOLOGY Hct 32.0 % 36.0 - 01/08 [place] 48.0 2018 [facility] HEMATOLOGY Hgb 10.7 g/dL 12.0 - 01/08 [place] 16.0 2018 [facility] HEMATOLOGY WBC 9.5 K/CMM 3.7 - 10.4 01/08 [facility] /2017 [facility] HEMATOLOGY MPV 9.6 fL 7.4 - 10.4 01/08 [facility] HEMATOLOGY Platelet 217 K/CMM 133 - 450 01/08 [facility] HEMATOLOGY RDW 15.1 % 11.5 - 01/08 [facility] 14.5 [facility] URINE AND UA RBC 0-2 /HPF 0 - 2 01/08 [facility]2017 [facility] URINE AND UA WBC 3-5 /HPF None Seen 01/08 [facility] /HPF [facility] URINE AND UA Bacteria Moderate None Seen 01/08 [facility] /HPF /HPF /2017 [facility] URINE AND UA Sq Epi Occasional Few /LPF 01/08 [facility] STOOL /LPF /2017 [facility] URINE AND UA Nitrite Negative Negative 01/08 [facility] (01/08/18 4:26 PM) [place] URINE AND UA Blood Negative Negative 01/08 [facility] (01/08/18 4:26 PM) [place] URINE AND UA 0.2 EU/dL 0.1 - 1.0 01/08 [facility] Urobilinogen /2017 [facility] URINE AND UA Leuk Est Small Negative 01/08 [facility] *ABN* [place] (01/08/18 4:26 PM) URINE AND UA Ketones Negative Negative 01/08 [facility] Medical *NA* [place] (01/08/18 4:26 PM) URINE AND UA Glucose Negative Negative 01/08 [facility] (01/08/18 4:26 PM) [place] URINE AND UA Bili Negative Negative 01/08 [facility] *NA* [place] (01/08/18 4:26 PM) URINE AND UA Spec Grav 1.010 <=1.030 01/[address] URINE AND UA Turbidity Slight Cloudy Clear 01/08 [facility] (01/08/18 4:26 PM) [place] URINE AND UA Protein Negative Negative 01/08 [facility] (01/08/18 4:26 PM) [place] URINE AND UA pH 7.5 5.0 - 8.0 01/[address] URINE AND UA Color Yellow Yellow 01/08 [facility] Medical *NA* [place] (01/08/18 4:26 PM) URINE AND UA Sq Epi Few /LPF Few /LPF 12/12 [facility] [address] [place] [address] URINE AND Micro? Performed 12/12 [facility] (12/11/17 7:10 PM) [place] URINE AND UA Mucus Moderate None Seen 12/12 [facility] /LPF /LPF [facility] URINE AND UA Bacteria Moderate None Seen 12/12 [facility] /HPF /HPF [facility] URINE AND UA RBC 3-5 /HPF 0 - 2 12/12 [facility] URINE AND UA WBC 6-10 /HPF None Seen 12/12 [facility] /HPF /2017 [facility] URINE AND UA pH 6.0 5.0 - 8.0 12/12 [facility] URINE AND UA Spec Grav 1.015 <=1.030 12/12 [facility] URINE AND UA Turbidity Clear Clear 12/12 [facility] (12/11/17 7:10 PM) [place] URINE AND UA Protein Negative Negative 12/12 [facility] (12/11/17 7:10 PM) [place] URINE AND UA Glucose Negative Negative 12/12 [facility] (12/11/17 7:10 PM) [place] URINE AND UA Bili Negative Negative 12/12 [facility] *NA* Center (12/11/17 7:10 PM) URINE AND UA Ketones Negative Negative 12/12 [facility] *NA* [place] (12/11/17 7:10 PM) URINE AND UA Blood Trace Negative 12/12 [facility] *ABN* [place] (12/11/17 7:10 PM) URINE AND UA Nitrite Negative Negative 12/12 [facility] (12/11/17 7:10 PM) [place] URINE AND UA 0.2 EU/dL 0.1 - 1.0 12/12 [facility] Urobilinogen /2017 [facility] URINE AND UA Leuk Est Trace Negative 12/12 [facility] *ABN* [place] (12/11/17 7:10 PM) URINE AND UA Color Yellow Yellow 12/12 [facility] *NA* Center (12/11/17 7:10 PM) URINE CHEM U Preg Positive Negative 12/12 [facility] *ABN* Center (12/11/17 7:10 PM) ELECTROLYT AGAP 14.2 meq/L 10.0 - 06/14 [facility] ES 20. [facility] ELECTROLYT eGFR 81 06/14 Result Comment: The eGFR is calculated using the CKD-EPI formula. In most young, healthy individuals the eGFR will be >90 mL/ min/1.73m2. The eGFR declines with age. An eGFR of 60-89 may be normal in [facility] mL/min/1. some populations, particularly the elderly, for whom the CKD-EPI formula has not been extensively validated. Use of the eGFR is not recommended in the following populations: Medical [address] [place] [address] Individuals with unstable creatinine concentrations, including patients [...] Lvl 76 mg/dL 70 - 99 06/14 [facility] ELECTROLYT BUN 12 mg/dL 7 - 22 06/14 [facility]2016 [facility] ELECTROLYT CO2 21 meq/L 24 - 32 06/14 [facility] ELECTROLYT Chloride Lvl 110 meq/L 95 - 109 06/[address] ELECTROLYT Creatinine 0.98 mg/dL 0.50 - 06/14 [facility] Lvl 1.40 [facility] ELECTROLYT Potassium 3.2 meq/L 3.5 - 5.1 06/14 [facility] ELECTROLYT Sodium Lvl 142 meq/L 135 - 145 06/[address] ELECTROLYT Calcium Lvl 8.8 mg/dL 8.5 - 10.5 06/14 [facility]2016 [facility] HEMATOLOGY Basophils # 0.1 K/CMM 0.0 - 0.2 06/[address] HEMATOLOGY Eosinophils 0.3 K/CMM 0.0 - 0.5 06/14 [facility] HEMATOLOGY Monocytes # 0.7 K/CMM 0.0 - 0.8 06/[address] HEMATOLOGY Lymphocytes 2.1 K/CMM 1.0 - 5.5 06/14 [facility]2016 [facility] HEMATOLOGY Segs-Bands # 4.2 K/CMM 1.5 - 8.1 06/[address] HEMATOLOGY Basophils 0.7 % 0.0 - 1.0 06/14 [facility] HEMATOLOGY Eosinophils 4.3 % 0.0 - 4.0 06/14 [facility] HEMATOLOGY Monocytes 9.4 % 2.0 - 12.0 06/14 [facility] HEMATOLOGY Lymphocytes 28.6 % 20.0 - 06/14 [place] 40.0 [facility] HEMATOLOGY Segs 57.0 % 45.0 - 06/14 [place] 75.0 [facility] HEMATOLOGY MPV 9.7 fL 7.4 - 10.4 06/14 [facility] HEMATOLOGY Platelet 194 K/CMM 133 - 450 06/14 [facility] HEMATOLOGY RDW 16.0 % 11.5 - 06/14 [place] 14.5 [facility] HEMATOLOGY MCHC 32.6 g/dL 32.0 - 06/14 [place] 36.0 [facility] HEMATOLOGY MCH 28.3 pg 27.0 - 06/14 [place] 31.0 [facility] HEMATOLOGY MCV 86.9 fL 80.0 - 06/14 [place] 98.0 [facility] HEMATOLOGY Hct 38.8 % 36.0 - 06/14 [place] 48.0 [facility] HEMATOLOGY Hgb 12.6 g/dL 12.0 - 06/14 [place] 16.0 [facility] HEMATOLOGY RBC 4.46 M/CMM 4.20 - 06/14 [place] 5.40 /2016 [facility] HEMATOLOGY WBC 7.4 K/CMM 3.7 - 10.4 06/[address] [place] [address] URINE AND Micro? Performed 06/14 [facility] (06/14/17 3:55 PM) [place] URINE AND UA Sq Epi Occasional Few /LPF 06/14 [facility] STOOL /LPF [facility] URINE AND UA Mucus Few /LPF None Seen 06/14 [facility] STOOL /LPF [facility] URINE AND UA RBC None Seen 0 - 2 06/14 [facility] (06/14/17 3:55 PM) [place] URINE AND UA Bacteria Occasional None Seen 06/14 [facility] STOOL /HPF /HPF [facility] URINE AND UA WBC 3-5 /HPF None Seen 06/14 [facility] STOOL /HPF [facility] URINE AND UA Nitrite Negative Negative 06/14 [facility] (06/14/17 3:55 PM) [place] URINE AND UA Blood Negative Negative 06/14 [facility] (06/14/17 3:55 PM) Center URINE AND UA 0.2 EU/dL 0.1 - 1.0 06/14 [facility] Urobilinogen /2016 [facility] URINE AND UA Leuk Est Small Negative 06/14 [facility] *ABN* [facility] (06/14/17 3:55 PM) URINE AND UA Ketones Negative Negative 06/14 [facility] *NA* [facility] (06/14/17 3:55 PM) URINE AND UA Bili Negative Negative 06/14 [facility] *NA* Center (06/14/17 3:55 PM) URINE AND UA pH 6.5 5.0 - 8.0 06/14 [facility] URINE AND UA Protein Negative Negative 06/14 [facility] (06/14/17 3:55 PM) [place] URINE AND UA Spec Grav 1.020 <=1.030 06/14 [facility] URINE AND UA Glucose Negative Negative 06/14 [facility] (06/14/17 3:55 PM) [place] URINE AND UA Color Yellow Yellow 06/14 [facility] *NA* [place] (06/14/17 3:55 PM) URINE AND UA Turbidity Slight Cloudy Clear 06/14 [facility] (06/14/17 3:55 PM) [place] URINE CHEM U Preg Negative Negative 06/14 [facility] (06/14/17 3:55 PM) Center Vital Signs Vital Sign Value Date Comments Source Respitory Rate 18 03/25/2018 [facility] Heart Rate 93 03/25/2018 [facility] Systolic (mm Hg) 102 03/25/2018 [facility] Diastolic (mm Hg) 67 03/25/2018 [facility] Temperature Oral (F) 97.3 F 03/25/2018 [facility] Temperature Oral (F) 97.6 F 03/25/2018 [facility] Systolic (mm Hg) 103 03/25/2018 [facility] Diastolic (mm Hg) 66 03/25/2018 [facility] Respitory Rate 18 03/25/2018 [facility] Heart Rate 92 03/25/2018 [facility] [place] [facility] Systolic (mm Hg) 112 03/25/2018 [facility] Diastolic (mm Hg) 75 03/25/2018 [facility] Respitory Rate 18 03/25/2018 [facility] Heart Rate 73 03/25/2018 [facility] Temperature Oral (F) 98.3 F 03/25/2018 [facility] Height 160.02 cm 03/24/2018 [facility] Weight 68.182 03/24/2018 [facility] BMI Calculated 26.63 03/24/2018 [facility] Temperature Oral (F) 98.2 F 02/26/2018 [facility] Respitory Rate 17 02/26/2018 [facility] Heart Rate 67 02/26/2018 [facility] Systolic (mm Hg) 107 02/26/2018 [facility] Diastolic (mm Hg) 65 02/26/2018 [facility] BMI Calculated 26.09 02/26/2018 [facility] Weight 66.818 02/26/2018 [facility] Height 160.02 cm 02/26/2018 [facility] Temperature Oral (F) 98.2 F 01/09/2018 [facility] Systolic (mm Hg) 105 01/09/2018 [facility] Diastolic (mm Hg) 71 01/09/2018 [facility] Respitory Rate 17 01/09/2018 [facility] Heart Rate 68 01/09/2018 [facility] Respitory Rate 18 01/09/2018 [facility] Temperature Oral (F) 98.3 F 01/09/2018 [facility] Heart Rate 68 01/09/2018 [facility] Systolic (mm Hg) 96 01/09/2018 [facility] Diastolic (mm Hg) 59 01/09/2018 [facility] Systolic (mm Hg) 108 01/08/2018 [facility] Diastolic (mm Hg) 71 01/08/2018 [facility] Respitory Rate 16 01/08/2018 [facility] Heart Rate 80 01/08/2018 [facility] Temperature Oral (F) 98.2 F 01/08/2018 [facility] Weight 64.091 01/08/2018 [facility] BMI Calculated 25.03 01/08/2018 [facility] Height 160.02 cm 01/08/2018 [facility] Weight 61.364 12/12/2017 [facility] BMI Calculated 23.96 12/12/2017 [facility] Height 160.02 cm 12/12/2017 [facility] Temperature Oral (F) 98.9 F 12/12/2017 [facility] Respitory Rate 16 12/12/2017 [facility] Heart Rate 70 12/12/2017 [facility] Systolic (mm Hg) 115 12/12/2017 [facility] Diastolic (mm Hg) 76 12/12/2017 [facility] Weight 61.364 12/12/2017 [facility] BMI Calculated 23.96 12/12/2017 [facility] Temperature Oral (F) 99.1 F 12/12/2017 [facility] Height 160.02 cm 12/12/2017 [facility] Heart Rate 78 12/12/2017 [facility] Systolic (mm Hg) 106 12/12/2017 [facility] Diastolic (mm Hg) 72 12/12/2017 [facility] Respitory Rate 18 12/12/2017 [facility] Weight 61.364 12/12/2017 [facility] Height 160.02 cm 12/12/2017 [facility] BMI Calculated 23.96 12/12/2017 [facility] Heart Rate 80 12/12/2017 [facility] Respitory Rate 18 12/12/2017 [facility] Systolic (mm Hg) 112 12/12/2017 [facility] Diastolic (mm Hg) 76 12/12/2017 [facility] Temperature Oral (F) 99.1 F 12/12/2017 [facility] Respitory Rate 18 06/15/2017 [facility] Heart Rate 63 06/15/2017 [facility] Temperature Oral (F) 98.8 F 06/15/2017 [facility] Systolic (mm Hg) 107 06/15/2017 [facility] Diastolic (mm Hg) 72 06/15/2017 [facility] Height 160.02 cm 06/14/2017 [facility] Temperature Oral (F) 98.3 F 06/14/2017 [facility] Respitory Rate 18 06/14/2017 [facility] Heart Rate 94 06/14/2017 [facility] Systolic (mm Hg) 100 06/14/2017 [facility] Diastolic (mm Hg) 72 06/14/2017 [facility] BMI Calculated 22.19 06/14/2017 [facility] Weight 56.818 06/14/2017 [facility] Encounters Location Location Encounter Encounter Reason Attending ADM DC Status Source Details Type Number For Provider Date Date Visit [facility] [id number] Darin 06/14 06/15 Veronica Zazueta 0 [facility] [id number] Lyndon 12/12 12/12 [facility] [place] 1 [place] /2017 [facility] Emergency [id number] Daiys 12/12 12/12 [facility] [place] 2 [facility] [id number] Ira 01/08 01/09 [facility] [place] 3 [facility] Outpt Diag [id number] Danette 02/12 02/13 [facility] [id number] Katelynn 02/26 02/26 [facility] [place] 4 [place] [facility] Outpt Diag [id number] Kleber 03/12 03/13 [id number] Outpatient Services 3 Audie .[id number] Imaging [id number]. Greater 127 [facility] Observation [id number] Tim 03/24 03/24 [facility] [place] 6 [facility] Procedures Procedure Code Date Perfomer Comments Source section [id number] 10/26/2015 [facility] section [id number] 10[facility]26/[facility] section [id number] 10/26/2015 [id number] Cholecystectomy [id number] 10/26/2013 [facility] Cholecystectomy [id number] 10/26/2013 [facility] Cholecystectomy [id number] 10/26/2013 [id number] Appendectomy [id number] 10/26/2007 [facility] Appendectomy [id number] 10/26/2007 [facility] Appendectomy [id number] 10/26/2007 [id number]
--- OUTSIDE RECORDS SUMMARY | 2018-09-21 14:35 | XMS REPORT | Summary of Care ---
:1990 Author Name Nicole Anguiano [place]oid[place] Address [place] [facility] Unavailable , Care Team Providers Name Role Phone KEATON N.P., DORIS Unavailable Unavailable GARETT N.P., NANI Unavailable Unavailable CRYSTAL Persaud, MOON Unavailable Unavailable MICHEL PAVON, ARELIS Guadarrama Unavailable Unavailable MICHEL Persaud, ARELIS Unavailable Unavailable CRYSTAL PAVON [place], [place] [facility] Unavailable Unavailable Unavailable Unavailable Unavailable Functional Status Name Dates Details Functional status health issues are not documented Status: Name Dates Details Cognitive status health issues are not documented Status: Problems Name Dates Details Urethritis (597.80, N34.2) Status: Active Fatigue (780.79, R53.83) Status: Active Dysuria (788.1, R30.0) Status: Active Urinary tract infection (599.0, N39.0) Status: Active Menorrhagia (626.2, N92.0) Status: Active Vaginitis (616.10, N76.0) Status: Active Pelvic pain in female (625.9, R10.2) Status: Active Screening for STD (sexually transmitted disease) (V74.5, Z11.3) Status: Active Onychomycosis of toenail (110.1, B35.1) Status: Active Acute URI (465.9, J06.9) Status: Active Acute UTI (599.0, N39.0) Status: Active Need for HPV vaccination (V04.89, Z23) Status: Active Lower abdominal pain (789.09, R10.30) Status: Active Lower back pain (724.2, M54.5) Status: Active Encounter for routine gynecological examination with Papanicolaou smear of cervix (V72.31, Z01.419) Status: Active Constipation (564.00, K59.00) Status: Active Supervision of normal (V22.1, Z34.90) Status: Active Uterine scar from previous delivery, antepartum (654.23, O34.219) Status: Active Antepartum hemorrhage of early (640.93, O20.9) Status: Active Chronic RUQ pain (789.01, R10.11) Status: Active Female incontinence (625.6, R32) Status: Active Urinary symptom or sign (788.99, R39.9) Status: Active Urinary incontinence (788.30, R32) Status: Active Blood type, Rh negative (V49.89, Z67.91) Status: Active Hydronephrosis, right (591, N13.30) Status: Active Seizure disorder in (649.40, O99.350) Status: Active High-risk (V23.9, O09.90) Status: Active History of severe pre-eclampsia (V13.29, Z87.59) Status: Active History of classical section (V45.89, Z98.891) Status: Active Headache (784.0, R51) Status: Active Seizures (780.39, R56.9) Status: Active S/P section (V45.89, Z98.891) Status: Active Hypothyroidism (244.9, E03.9) Status: Active Encounter for assessment (V24.2, Z39.2) Status: Active Medications Name Dates Details Topamax 200 MG Oral Tablet TAKE 1 TABLET TWICE DAILY. Refills: 0 GARETT N.P., NANI Start : 20-Aug-2016 Active 60 Tablet Bottle Topamax 50 MG Oral Tablet TAKE 1 TABLET BY MOUTH TWICE DAILY Refills: 0 GARETT N.P., NANI Start : 20-Aug-2016 Active Levoxyl 125 MCG Oral Tablet Refills: 0 MOON ROJAS M.D. Start : 01-Jul-2017 Active Folic Acid 1 MG Oral Tablet TAKE 3 TABLETS DAILY Quantity: 270 Refills: 3 MOON ROJAS M.D. Start : 12-Oct-2017 Active 28-0.8 MG Oral Tablet Refills: 0 Start : 20-Nov-2017 Active Sertraline HCl - 50 MG Oral Tablet TAKE 1 TABLET DAILY Quantity: 30 Refills: 2 SHARP N.P., DORIS Start : 12-Mar-2018 Active Keflex 500 MG Oral Capsule Refills: 0 Start : 26-Mar-2018 Active Macrobid 100 MG Oral Capsule Refills: 0 Start : 07-May-2018 Active Mchtcvlemw-EYGS-Akwnndql 50-300-40 MG Oral Capsule TAKE 1 CAPSULE Every 8 hours PRN headache Quantity: 21 Refills: 0 SHARP N.P., DORIS Start : 31-May-2018 Active Cefpodoxime Proxetil 200 MG Oral Tablet TAKE 1 TABLET TWICE DAILY Quantity: 10 Refills: 0 SHARP N.P., DORIS Start : 10-Jun-2018 Active Allergies and Adverse Reactions Name Dates Details Amoxicillin TABS (Allergy) Status: Active Bactrim TABS (Allergy) Status: Active Cipro (Allergy) Status: Active Levaquin (Allergy) Status: Active Penicillins (Allergy) Status: Active Sulfa Drugs (Allergy) Status: Active Past Medical History Name Dates Details History of Epilepsy (345.90, G40.909) Status: Resolved History of hypothyroidism (V12.29, Z86.39) Status: Resolved History of Lower abdominal pain (789.09, R10.30) Status: Resolved Procedures Procedure Dates Details History of Appendectomy Completed History of section Completed History of Cholecystectomy Completed Immunization Name Dates Details HPV (Gardasil) on: 20-Aug-2016 Lot #: [id number] Tdap (Adacel) #1 on: 12-Mar-2018 Lot #: [id number] Family History Name Dates Details Family history of hypertension (V17.49, Z82.49) Comments: Family History Status: Active Family history of diabetes mellitus (V18.0, Z83.3) Comments: Family History Status: Active FHx: ovarian cancer (V16.41, Z80.41) Comments: Family History Status: Active Family history of thyroid disease (V18.19, Z83.49) Comments: Family History Status: Active Family history of malignant neoplasm of breast (V16.3, Z80.3) Comments: Family History Status: Active Family history of malignant neoplasm of ovary (V16.41, Z80.41) Comments: Family History Status: Active Name Dates Details Family history of seizure disorder (V17.2, Z82.0) Status: Active Social History Name Dates Details - Status: Name Dates Details Never smoker Vital Signs Date Test Result Details [id number] BP Systolic 100 mm[Hg] Status: BP Diastolic 69 mm[Hg] Status: Height 64 in Status: Weight 143 lb Status: Body Mass Index Calculated 24.55 kg/m2 Status: Body Surface Area Calculated 1.7 m2 Status: Temperature 98.4 f Status: Heart Rate 60 /min Status: O2 SAT 99 % Status: Results Date Description Value Details [id number] [[facility]] URINALYSIS, COMPLETE UA Turbidity Marked (Abnormal) Range: Clear UA Spec Grav 1.024 Range: <=1.030 UA pH 5.0 Range: 5.0-8.0 UA Protein Negative mg/dl Range: Negative UA Glucose Negative mg/dl Range: Negative UA Ketones Negative mg/dl Range: Negative UA Bili Negative Range: Negative UA Blood Small (Abnormal) Range: Negative UA Nitrite Negative Range: Negative UA Leuk Est Large (Abnormal) Range: Negative UA RBC 3 {/HPF} (Above high threshold) Range: 0-2 UA WBC 35 {/HPF} (Above high threshold) Range: 0-5 UA Bacteria Occasional {/HPF} Range: None Seen UA Mucus Many {/LPF} (Abnormal) Range: None Seen UA Sq Epi Many {/LPF} (Abnormal) Range: Few Urine Calcium Oxalate Crystal Occasional {/HPF} Range: None Seen UA Color Yellow UROBILINOGEN <=1.0 mg/dl Range: 0.1-1.0 [id number] [[facility]] CULTURE, URINE, ROUTINE Comments: Source: Urine, Clean CatchBody Site: FINAL REPORT <10,000 CFU/mL Enterococcus Species Plan of Care Name Dates Details Planned Observations Planned Goals not documented Planned Encounters Appointment; DORIS PUGH NP On: 30-Jul-2018 14:30 Instructions Name Dates Details Instructions not documented Encounters Appointment; NANI BAJWA NP On: 20-Aug-2016 11:20 Encounter Diagnosis: Problem not documented Appointment; MOON ROJAS M.D. On: 26-Jun-2017 8:30 Encounter Diagnosis: Problem not documented Appointment; CANCER, UTPB On: 10-Aug-2017 9:00 Encounter Diagnosis: Problem not documented Appointment; RYAN DOLL On: 12-Oct-2017 14:15 Encounter Diagnosis: Problem not documented Appointment; MOON ROJAS M.D. On: 12-Oct-2017 14:45 Encounter Diagnosis: Problem not documented Appointment; RYAN DOLL On: 23-Oct-2017 11:15 Encounter Diagnosis: Problem not documented Appointment; MOON ROJAS M.D. On: 23-Oct-2017 11:30 Encounter Diagnosis: Problem not documented Appointment; JAYLYN DOLL On: 20-Nov-2017 9:00 Encounter Diagnosis: Problem not documented Appointment; АЛЕКСАНДР DOLL2 On: 20-Nov-2017 9:30 Encounter Diagnosis: Problem not documented Appointment; GRACIE JAY M.D. On: 20-Nov-2017 10:00 Encounter Diagnosis: Problem not documented Appointment; DORIS PUGH NP On: 18-Dec-2017 8:30 Encounter Diagnosis: Problem not documented Appointment; АЛЕКСАНДР DOLL2 On: 18-Dec-2017 9:45 Encounter Diagnosis: Problem not documented Appointment; АЛЕКАСНДР DOLL1 On: 08-Jan-2018 9:00 Encounter Diagnosis: Problem not documented Appointment; GRACIE JAY M.D. On: 08-Jan-2018 11:00 Encounter Diagnosis: Problem not documented Appointment; АЛЕКСАНДР DOLL2 On: 15-Jan-2018 9:45 Encounter Diagnosis: Problem not documented Appointment; DORIS PUGH NP On: 15-Jan-2018 10:30 Encounter Diagnosis: Problem not documented Appointment; DORIS PUGH NP On: 12-Feb-2018 8:30 Encounter Diagnosis: Problem not documented Appointment; АЛЕКСАНДР DOLL2 On: 12-Mar-2018 10:00 Encounter Diagnosis: Problem not documented Appointment; DORIS PUGH NP On: 12-Mar-2018 10:30 Encounter Diagnosis: Problem not documented Appointment; GRACIE JAY M.D. On: 12-Mar-2018 10:30 Encounter Diagnosis: Problem not documented Appointment; DORIS PUGH NP On: 19-Mar-2018 9:00 Encounter Diagnosis: Problem not documented Appointment; RAZIA CASTILLO M.D. On: 26-Mar-2018 8:00 Encounter Diagnosis: Problem not documented Appointment; TAYLOR DOLL On: 26-Mar-2018 10:00 Encounter Diagnosis: Problem not documented Appointment; АЛЕКСАНДР DOLL1 On: 09-Apr-2018 8:00 Encounter Diagnosis: Problem not documented Appointment; GRACIE JAY M.D. On: 09-Apr-2018 8:30 Encounter Diagnosis: Problem not documented Appointment; LYNSEY DOLL On: 15-Apr-2018 8:30 Encounter Diagnosis: Problem not documented Appointment; АЛЕКСАНДР DOLL1 On: 16-Apr-2018 8:30 Encounter Diagnosis: Problem not documented Appointment; АЛЕКСАНДР DOLL1 On: 23-Apr-2018 10:30 Encounter Diagnosis: Problem not documented Appointment; GRACIE JAY M.D. On: 23-Apr-2018 11:00 Encounter Diagnosis: Problem not documented Appointment; MALUPrema ABBEYGrazyna On: 30-Apr-2018 8:30 Encounter Diagnosis: Problem not documented Appointment; STELLAPremaUSABBEYGrazyna On: 07-May-2018 8:00 Encounter Diagnosis: Problem not documented Appointment; GRACIE JAY M.D. On: 07-May-2018 8:30 Encounter Diagnosis: Problem not documented Appointment; DORIS PUGH NP On: 25-May-2018 9:00 Encounter Diagnosis: Problem not documented Appointment; DORIS PUGH NP On: 31-May-2018 14:00 Encounter Diagnosis: Problem not documented Appointment; DORIS PUGH NP On: 29-Jun-2018 13:00 Encounter Diagnosis: Problem not documented Appointment; DORIS PUGH NP On: 09-Jul-2018 11:30 Encounter Diagnosis: Problem not documented Appointment; MOON ROJAS M.D. On: 09-Jul-2018 13:15 Encounter Diagnosis: Problem not documented
[2018-09-21 15:00] VITALS: BMI 24.4
[2018-09-21] MEDS ORDERED: ONDANSETRON 4 MG (ODT) TAB PO PRN (16:00)
[2018-09-21] MEDS ORDERED: POLYETHYL GLY 3350 17 GM/DOSE PO PRN (16:00)
[2018-09-21] MEDS ORDERED: INFLUENZA VACCINE (for 3y+) 0.5 ML DOSE IMVAC ONE (16:00)
[2018-09-21] MEDS ORDERED: LOPERAMIDE HCL 2 MG CAPSULE PO PRN (16:00)
[2018-09-21] MEDS ORDERED: ONDANSETRON 4 MG/2 ML VIAL IV PRN (16:00)
[2018-09-21] MEDS ORDERED: ACETAMINOPHEN 325 MG TABLET PO PRN (16:00)
[2018-09-21] MEDS ORDERED: NACHLORIDE 0.45% 1,000 ML IV SCH (16:00)
[2018-09-21] MEDS ORDERED: DIPHENHYDRAMINE 25 MG TAB/CAP PO PRN (16:00)
[2018-09-21] MEDS: PNEUMOCOCCAL VACCINE 0.5 ML IMVAC ONE ×2 (16:00→20:59)
[2018-09-21] MEDS: HYDROMORPHONE HCL 1 MG/ML INJ IV PRN ×2 (16:17→20:51)
[2018-09-21] MEDS: ENOXAPARIN 40 MG/0.4 ML SQ SCH (16:18)
[2018-09-21 17:03] LABS: Absolute Lymphocytes (CBC) 2.2 K/uL (0.7-4.9); Absolute Monocytes 0.4 K/uL (0.1-1.3); Absolute Neutrophil 4.2 K/uL (1.8-8.0); Basophils % 0.4 % (0-1.3); Eosinophils % 11.1 % (0-4.4); Hematocrit 40.4 % (36.0-45.0); Lymphocytes % 29.2 % (15.3-44.8); MCH 28.3 pg (27.0-35.0); MCV 86.2 fL (80-100); MPV 9.7 fL (7.6-11.3); Monocytes % 4.9 % (3.3-12.3); RBC Red Blood Cell Count 4.69 M/uL (3.86-4.86)
[2018-09-21 17:08] LABS: Urine Appearance CLEAR; Urine Bilirubin NEGATIVE (NEG); Urine Blood NEGATIVE (NEG); Urine Color YELLOW; Urine Glucose NEGATIVE (NEG); Urine Protein NEGATIVE (NEG); Urine Urobilinogen 0.2 mg/dL (0.2-1.0)
[2018-09-21 17:11] LABS: Protime INR 1.03
[2018-09-21 17:33] LABS: Urine Microscopic Reflex NO UMIC
[2018-09-21 17:41] LABS: ALT/SGPT 36 U/L (12-78); AST/SGOT 23 U/L (15-37); Albumin 3.8 g/dL (3.4-5.0); Alkaline Phosphatase 80 U/L (45-117); BUN Blood Urea Nitrogen 14 mg/dL (7-18); Bicarbonate 19 mmol/L (21-32); Bilirubin Direct 0.1 mg/dL (0-0.2); Bilirubin Total 0.3 mg/dL (0.2-1.0); Glucose Level 83 mg/dL (74-106); Magnesium 2.4 mg/dL (1.8-2.4); Phosphorus 3.3 mg/dL (2.5-4.9); Potassium 3.6 mmol/L (3.5-5.1); Protein, Total 7.2 g/dL (6.4-8.2); Sodium Level 143 mmol/L (136-145)
[2018-09-21] MEDS: CEFTRIAXONE/SWI 1gm 1 GM/10 ML SYR IVP SCH (20:51)
[2018-09-22 06:11] LABS: Absolute Lymphocytes (CBC) 2.5 K/uL (0.7-4.9); Absolute Monocytes 0.6 K/uL (0.1-1.3); Basophils % 0.5 % (0-1.3); Eosinophils % 14.4 % (0-4.4); Hematocrit 36.7 % (36.0-45.0); Lymphocytes % 34.7 % (15.3-44.8); MCH 28.7 pg (27.0-35.0); MCV 85.8 fL (80-100); MPV 10.3 fL (7.6-11.3); Monocytes % 7.9 % (3.3-12.3); RBC Red Blood Cell Count 4.28 M/uL (3.86-4.86)
[2018-09-22 06:24] LABS: Magnesium 2.1 mg/dL (1.8-2.4); Potassium 3.5 mmol/L (3.5-5.1)
[2018-09-22] MEDS ORDERED: POTASSIUM 25 MEQ EFFERV TAB PO ONE (07:00)
--- NOTE | 2018-09-22 07:16 | EKG ---
Test Date: 2018-09-21 Test Time: 17:44:35 [place] Seater: CASSANDRA MEASUREMENT RESULTS: Intervals: Rate: 53 IN: 112 QRSD: 78 QT: 448 QTc: 420 [place]: P: 17 IN: 112 QRS: 63 T: 76 INTERPRETIVE STATEMENTS: Sinus bradycardia RSR' or QR pattern in V1 suggests right ventricular conduction delay Nonspecific ST and T wave abnormality Abnormal ECG Compared to ECG 03/10/2016 19:03:50 Sinus rhythm no longer present Short IN interval no longer present Electronically Signed On 09-22-18 07:15:35 [employer]PERVIS[employer] by Janak Collier
[2018-09-22] MEDS: CEFTRIAXONE/SWI 1gm 1 GM/10 ML SYR IVP SCH (09:16)
[2018-09-22] MEDS: ENOXAPARIN 40 MG/0.4 ML SQ SCH (09:16)
--- NOTE | 2018-09-22 09:42 | RAD REPORT ---
EXAM DESCRIPTION: RAD - Chest Pa And Lat (2 Views) - 09/21/2018 9:40 pm CLINICAL HISTORY: Shortness of breath, pyelonephritis COMPARISON: February 2016 TECHNIQUE: PA and lateral views of the chest were obtained. FINDINGS: The lungs are clear. Heart size is normal and central vasculature is within normal limit s. No pleural effusion or pneumothorax seen. No acute bone finding. Scoliotic curvature is present that may be positional. No scoliosis seen on the comparison. No aortic abnormality. IMPRESSION: No acute cardiopulmonary process.
--- NOTE | 2018-09-22 09:50 | RAD REPORT ---
EXAM DESCRIPTION: CT - Abdomen Pelvis W/Wo Contrast - 09/21/2018 9:41 pm CLINICAL HISTORY: Chronic abdominal pain, recurrent infections No written report could be provided at the time of the study. Final report was delayed due to technic al malfunction of the network. Limited history was available at the time of the final report. COMPARISON: CT imaging October 2016 TECHNIQUE: Biphasic, helical CT imaging of the abdomen and pelvis was performed following 100 ml non -ionic IV contrast. No oral contrast administered. Precontrast imaging was performed. All CT scans are performed using dose optimization technique as appropriate and may include automated exposure control or mA/KV adjustment according to patient size. FINDINGS: No suspicious findings in the lung bases. The liver, spleen, and pancreas show no suspicious findings. No biliary tree dilatation. Gallbladder is not well visualized and may be absent or contracted and obscured by stool filled colon at the gall bladder fossa. Precontrast imaging shows no obstructing or nonobstructing renal calculi. There is no hydronephrosis. Enhancement pattern of each kidney is normal and symmetric. No pyelonephritis or focal renal parench ymal finding. No perinephric stranding. Urinary bladder was fully contracted limiting assessment. No bladder calculi seen. No suspicious uterine or ovarian finding. No dilated bowel loops or bowel wall thickening. Moderate stool volume is present throughout the colo n. No acute colon process seen. Appendectomy clips are seen. No free air, free fluid or inflammatory stranding. Stranding in the subcu fat of the lower pelvis is probably from prior . No mass or bulky lymphadenopathy. Patient has a wide neck umbilical hernia. This has increased in size from 2 017 but no acute component seen. No adrenal abnormality. No suspicious bony findings. IMPRESSION: No pyelonephritis or other acute finding. Patient has a wide neck umbilical hernia with no acute component. This has enlarged from 2017. As detailed above, no acute or active abnormalities seen.
[2018-09-22 10:08] VITALS: O2SAT 98
[2018-09-22 11:14] VITALS: BP 101/56; TEMP 97.3
--- NOTE | 2018-09-22 21:24 | P.DS ---
Admission Date: 09/21/18 Discharge Date: 09/22/18 Disposition: ROUTINE DISCHARGE Discharge Condition: [facility] Hospital Course: SHIVAM HAS THIS CHRONIC COMPLAINT OF HAVING UTI SYMPTOMS, R FLANK PAIN AND R LOWER ABDOMEN PAIN. SHE HAS TYPICAL UTI SYMPTOMS BUT UA IS NEGATIVE AND ALSO CT SCAN OF ABDOMEN, STONE PROTOCOL AND WITH CONRTRAST ALL ARE NEGATIVE. I AM NOT SURE IF SHE IS SEVERELY DEPRRESSED AND HAS SOMATIC SYMPTOMS. I HAVE ASKER HER TO SEE HER BODY JOINER TO RULE OUT ENDOMETRIOSIS. LAST THING TO CHECK IS MRI OF SPINE. SHE WILL COME TO OFFICE IN A WEEK OR SO. Vital Signs/Physical Exam: Temp Pulse Resp BP Pulse Ox 97.3 F 65 16 101/56 L 98 09/22/18 08:00 09/22/18 08:00 09/22/18 08:00 09/22/18 08:00 09/22/18 08:00 Laboratory Data at Discharge: WBC 7.1 K/uL (4.3-10.9) 09/22/18 05:19 Hgb 12.3 g/dL (12.0-15.0) 09/22/18 05:19 Hct 36.7 % (36.0-45.0) 09/22/18 05:19 Plt Count 250 K/uL (152-406) 09/22/18 05:19 PT 12.1 SECONDS (9.5-12.5) 09/21/18 16:40 INR 1.03 09/21/18 16:40 APTT 38.1 SECONDS (24.3-36.9) H 09/21/18 16:40 Sodium 140 mmol/L (136-145) 09/22/18 05:19 Potassium 3.5 mmol/L (3.5-5.1) 09/22/18 05:19 BUN 17 mg/dL (7-18) 09/22/18 05:19 Creatinine 0.80 mg/dL (0.55-1.3) 09/22/18 05:19 Glucose 72 mg/dL (74-106) L 09/22/18 05:19 Phosphorus 3.3 mg/dL (2.5-4.9) 09/21/18 16:40 Magnesium 2.1 mg/dL (1.8-2.4) 09/22/18 05:19 Total Bilirubin 0.3 mg/dL (0.2-1.0) 09/21/18 16:40 AST 23 U/L (15-37) 09/21/18 16:40 ALT 36 U/L (12-78) 09/21/18 16:40 Alkaline Phosphatase 80 U/L (45-117) 09/21/18 16:40 Home Medications: Buspirone HCl [Buspar] 10 mg PO BID PRN 09/21/18 Levothyroxine [Synthroid*] 1 tab PO BID 6AM 6PM 09/21/18 Topiramate [Topamax] 200 mg PO BID 09/21/18 Followup: Primitivo Fan MD [Primary Care Provider] - 10/04/18 (Call for appointment.)
== END 2018-09-22 10:03 | disposition home or self-care (01) ==
LOC: 2ND 13:59
PROVIDERS: ADMIT Internal Medicine; ATTEND Internal Medicine
DX: R10.31 Right lower quadrant pain (principal); R30.0 Dysuria; E03.9 Hypothyroidism, unspecified; Z23 Encounter for immunization; Z88.0 Allergy status to penicillin; Z88.2 Allergy status to sulfonamides
CPT/HCPCS: 36415; 71046; 74178; 80048; 80076; 81003; 82306; 82607; 83735; 84100; 84443; 84703; 85025; 85610; 85730; 87040; 90670; 93005; G0009; G0378; J0696; J1170; J1650; J2405

== ENCOUNTER 2020-04-09 16:37 | Observation (INO) | payer OTHER, SELFPAY ==
--- NOTE | 2020-04-09 18:04 | EDPHYS ---
Physician Documentation [facility] Name: Elizabeth Pascal Age: 29 yrs Sex: Female : 1990 Arrival Date: 04/09/2020 Time: 16:48 Bed 14 Private MD: ED Physician Idris Avelar HPI: 04/09 17:57 This 29 yrs old Female presents to ER via Ambulatory with complaints of rn overdose, vision problem, chest pain. 17:57 The patient presents to the emergency department after a known overdose. Associated rn signs and symptoms: Pertinent positives: visual disturbance, chest pain, abd pain, Pertinent negatives:. Severity of symptoms: At their worst the symptoms were mild in the emergency department the symptoms are unchanged. The patient has not experienced similar symptoms in the past. The patient has not recently seen a physician. Reports took an entire syringe of ivermectin, PO, at 0200 today, has felt malaise, chest pain, abd pain, black spots in vision, not improving, took to self-treat intestinal parasites that she has been dealing with for months. . Historical: - Allergies: 17:14 Amoxicillin; ph 17:14 Bactrim; ph 17:14 Cipro; ph 17:14 Gentamicin; ph 17:14 Levofloxacin; ph 17:14 PENICILLINS; ph 17:14 Sulfa (Sulfonamide Antibiotics); ph - Home Meds: 17:14 levothyroxine 88 mcg tab [Active]; Topamax 250 MG Oral tab 1 cap 2 times per day ph [Active]; - PMHx: 17:14 Hypothyroidism; Seizures; urethral stricture; ph - PSHx: 17:14 ; Cholecystectomy; Appendectomy; ph - Immunization history:: Adult Immunizations unknown. - Social history:: Smoking status: Patient reports the use of cigarette tobacco products, smokes one-half pack cigarettes per day. - Family history:: not pertinent. - Hospitalizations: : No recent hospitalization is reported. ROS: 17:57 Constitutional: Negative for fever, chills, and weight loss, Eyes: Negative for injury, rn pain, redness, and discharge, Cardiovascular: Negative for edema Respiratory: Negative for shortness of breath, cough, wheezing, and pleuritic chest pain, Abdomen/GI: Negative for vomiting, diarrhea, and constipation, MS/Extremity: Negative for injury and deformity, Skin: Negative for injury, rash, and discoloration, Neuro: Negative for headache, numbness, tingling, and seizure. Exam: 17:57 Constitutional: This is a well developed, well nourished patient who is awake, alert, rn and in no acute distress. Calm, legs crossed, flat affect. Head/Face: Normocephalic, atraumatic. Eyes: Pupils equal round and reactive to light, extra-ocular motions intact. Lids and lashes normal. Conjunctiva and sclera are non-icteric and not injected. Cornea within normal limits. Periorbital areas with no swelling, redness, or edema. Cardiovascular: Regular rate and rhythm. No pulse deficits. Respiratory: No increased work of breathing, no retractions or nasal flaring. Abdomen/GI: soft, non-tender Skin: Warm, dry MS/ Extremity: Pulses equal, no cyanosis. Neurovascular intact. Full, normal range of motion. Equal circumference. Neuro: Awake and alert, GCS 15, oriented to person, place, time, and situation. Cranial nerves II-XII grossly intact. Motor strength 5/5 in all extremities. Sensory grossly intact. Cerebellar exam normal. 18:37 ECG was reviewed by the Attending Physician. rn Vital Signs: 17:02 BP 125 / 86; Pulse 103; Resp 18; Temp 98.1; Pulse Ox 100% on R/A; Weight 60.78 kg; ph Height 5 ft. 2 in. (157.48 cm); 17:45 BP 119 / 87; Pulse 73; Resp 18; Pulse Ox 100% ; ah 18:30 BP 110 / 59; Pulse 72; Resp 15; Pulse Ox 100% ; ah 19:16 BP 113 / 73; Pulse 75; Resp 18; Pulse Ox 94% ; ah 19:30 BP 109 / 76; Pulse 66; Resp 20; Pulse Ox 94% ; ah 17:02 Body Mass Index 24.51 (60.78 kg, 157.48 cm) ph MDM: 16:55 Patient medically screened. rn 17:57 Differential diagnosis: toxicity of ivermectin. Data reviewed: vital signs, nurses rn notes, and as a result, I will admit patient. Counseling: I had a detailed discussion with the patient and/or guardian regarding: the historical points, exam findings, and any diagnostic results supporting the discharge/admit diagnosis, the need for further work-up and treatment in the hospital. Response to treatment: There is no appreciated change of the patient's symptoms at this time, and as a result, I will admit patient. Admission orders: after a detailed discussion of the patient's condition and case, the admit orders are written by me. 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 . 04/09 17:42 Order name: CBC with Diff; Complete Time: 18:49 rn 04/09 17:42 Order name: Basic Metabolic Panel; Complete Time: 18:49 rn 04/09 17:42 Order name: CK; Complete Time: 18:49 rn 04/09 17:42 Order name: Magnesium; Complete Time: 18:49 rn 04/09 17:21 Order name: EKG; Complete Time: 17:22 rn 04/09 17:21 Order name: EKG - Nurse/Tech; Complete Time: 18:17 rn 04/09 17:42 Order name: IV Start; Complete Time: 18:28 rn EC:37 Rate is 73 beats/min. Rhythm is regular. QRS [place] is Normal. LA interval is normal. QRS rn interval is normal. QT interval is normal. No Q waves. T waves are Normal. No ST changes noted. Clinical impression: NSR w/ Non-specific ST/T Changes. Interpreted by me. Reviewed by me. Administered Medications: 18:30 Drug: Motrin 800 mg Route: PO; 19:54 Follow up: Response: No adverse reaction 18:31 Drug: NS 0.9% 1000 ml Route: IV; Rate: 1000 ml; Site: right antecubital; 19:54 Follow up: Response: No adverse reaction; IV Status: Completed infusion Disposition: 04/09/20 18:04 Hospitalization ordered by Chava Chandra for Observation. Preliminary diagnosis is Ivermectin toxicity. - Bed requested for Telemetry/MedSurg (observation). - Status is Observation. ah - Condition is Stable. - Problem is new. - Symptoms are unchanged. Signatures: Dispatcher [employer] EDIdris Jefferson MD MD rn Hall, Patricia, RN RN Ashtyn Lawson Amy RN NO Corrections: (The following items were deleted from the chart) 18:51 18:04 Hospitalization Ordered by Chava Chandra MD for Observation. Preliminary diagnosis eb is Ivermectin toxicity. Bed requested for Telemetry/MedSurg (observation). Status is Observation. Condition is Stable. Problem is new. Symptoms are unchanged. rn 20:20 18:51 04/09/2020 18:04 Hospitalization Ordered by Chava Chandra MD for Observation. ah Preliminary diagnosis is Ivermectin toxicity. Bed requested for Telemetry/MedSurg (observation). Status is Observation. Condition is Stable. Problem is new. Symptoms are unchanged. eb
--- NOTE | 2020-04-09 18:04 | ER ---
Nurse's Notes [facility] Name: Elizabeth Pascal Age: 29 yrs Sex: Female : 1990 Arrival Date: 04/09/2020 Time: 16:48 Bed 14 Private MD: Diagnosis: Ivermectin toxicity Presentation: 04/09 17:02 Chief complaint: Patient states: " I took Ivermectin for parasites that I have been ph dealing with for a year, it is meant for horses and I took a full dose at 0230 this morning before I went to sleep, when I woke up everything was black, now I have black spots in my vision and everything outside looks brown." Pt also reports having 1 episode of chest pain and 1 episode of abdominal pain prior to arrival, denies N/V. Coronavirus screen: Patient denies a cough. Patient denies shortness of breath or difficulty breathing. Patient denies measured and/or subjective temperature greater than 100.4F prior to today's visit. Patient denies travel on a cruise ship or to a country the [facility] currently lists as an affected area. Patient denies contact with known and/or suspected case of COVID-19. Ebola Screen: No symptoms or risks identified at this time. Initial Sepsis Screen: Does the patient meet any 2 criteria? No. Patient's initial sepsis screen is negative. Does the patient have a suspected source of infection? No. Patient's initial sepsis screen is negative. Risk Assessment: Do you want to hurt yourself or someone else? Patient reports no desire to harm self or others. Onset of symptoms was April 09, 2020. 17:02 Method Of Arrival: Ambulatory ph 17:02 Acuity: Unassigned ph 17:02 Acuity: DEBRA 3 ph Historical: - Allergies: 17:14 Amoxicillin; ph 17:14 Bactrim; ph 17:14 Cipro; ph 17:14 Gentamicin; ph 17:14 Levofloxacin; ph 17:14 PENICILLINS; ph 17:14 Sulfa (Sulfonamide Antibiotics); ph - Home Meds: 17:14 levothyroxine 88 mcg tab [Active]; Topamax 250 MG Oral tab 1 cap 2 times per day ph [Active]; - PMHx: 17:14 Hypothyroidism; Seizures; urethral stricture; ph - PSHx: 17:14 ; Cholecystectomy; Appendectomy; ph - Immunization history:: Adult Immunizations unknown. - Social history:: Smoking status: Patient reports the use of cigarette tobacco products, smokes one-half pack cigarettes per day. - Family history:: not pertinent. - Hospitalizations: : No recent hospitalization is reported. Screenin:14 Abuse screen: Denies threats or abuse. Nutritional screening: No deficits noted. ah Tuberculosis screening: No symptoms or risk factors identified. Fall Risk None identified. Assessment: 17:45 General: Appears in no apparent distress. Behavior is cooperative, appropriate for age. ah Pain: Complains of pain in headache behind left eye. Pain: Pain currently is 5 out of 10 on a pain scale. Neuro: Level of Consciousness is awake, alert, Oriented to person, place, time, situation. Cardiovascular: Heart tones S1 S2 present Capillary refill < 3 seconds Patient's skin is warm and dry. Rhythm is sinus rhythm. Respiratory: Airway is patent Respiratory effort is even, unlabored, Respiratory pattern is regular, symmetrical. GI: No signs and/or symptoms were reported involving the gastrointestinal system. EENT: Eyes pt states that every thing has a brown tint to it and there are black dots in her field of vision. Derm: Skin is intact, is healthy with good turgor. 18:45 Reassessment: Patient and/or family updated on plan of care and expected duration. Pain ah level reassessed. Patient is alert, oriented x 3, equal unlabored respirations, skin warm/dry/pink. mom at bedside, awaiting results. Vital Signs: 17:02 BP 125 / 86; Pulse 103; Resp 18; Temp 98.1; Pulse Ox 100% on R/A; Weight 60.78 kg; ph Height 5 ft. 2 in. (157.48 cm); 17:45 BP 119 / 87; Pulse 73; Resp 18; Pulse Ox 100% ; ah 18:30 BP 110 / 59; Pulse 72; Resp 15; Pulse Ox 100% ; ah 19:16 BP 113 / 73; Pulse 75; Resp 18; Pulse Ox 94% ; ah 19:30 BP 109 / 76; Pulse 66; Resp 20; Pulse Ox 94% ; ah 17:02 Body Mass Index 24.51 (60.78 kg, 157.48 cm) ED Course: 16:48 Patient arrived in ED. bp1 16:55 Idris Avelar MD is Attending Physician. rn 17:06 Triage completed. ph 17:13 Kari Collier, RN is Primary Nurse. 17:14 Patient has correct armband on for positive identification. Bed in low position. Call light in reach. 18:03 Chava Chandra MD is Hospitalizing Provider. rn 18:10 EKG done, by ED staff, reviewed by Idris Avelar MD. jp3 18:25 Initial lab(s) drawn, by nc, sent to lab. Inserted saline lock: 20 gauge in right 3 antecubital area, using aseptic technique. Blood collected. Patient maintains SpO2 saturation greater than 95% on room air. 18:27 Warm blanket given. Verbal reassurance given. telemetry monitor on. Pulse ox on. NIBP on. jp3 19:53 Patient notified of wait time. 19:53 No provider procedures requiring assistance completed. Patient admitted, IV remains in place. Administered Medications: 18:30 Drug: Motrin 800 mg Route: PO; 19:54 Follow up: Response: No adverse reaction 18:31 Drug: NS 0.9% 1000 ml Route: IV; Rate: 1000 ml; Site: right antecubital; 19:54 Follow up: Response: No adverse reaction; IV Status: Completed infusion Outcome: 18:04 Decision to Hospitalize by Provider. rn 19:52 Admitted to [facility], via wheelchair, room 214, with chart, Report called to NO Carvalho 19:52 Condition: stable 19:52 Instructed on the need for admit. 20:20 Patient left the ED. Signatures: Idris Avelar MD MD rn Hall, Patricia, RN RN Eran Mead 3 Kari Collier, RN RN [facility]
[2020-04-09] MEDS ORDERED: NA CHLORIDE 0.9% 1,000 ML ONE (18:22)
[2020-04-09 18:32] LABS: Absolute Lymphocytes (CBC) 2.9 K/uL (0.7-4.9); Basophils % 0.6 % (0-1.3); Hematocrit 42.8 % (36.0-45.0); Lymphocytes % 38.9 % (15.3-44.8); MPV 10.3 fL (7.6-11.3); RBC Red Blood Cell Count 4.85 M/uL (3.86-4.86)
[2020-04-09 18:48] LABS: Magnesium 2.3 mg/dL (1.8-2.4); Potassium 3.8 mmol/L (3.5-5.1)
[2020-04-09] MEDS ORDERED: IBUPROFEN 400 MG TAB ONE (18:58)
--- OUTSIDE RECORDS SUMMARY | 2020-04-09 19:52 | XMS REPORT | Continuity of Care Document ---
:1990 Author Organization [employer] Care Team Providers Name Role Phone [employer] [facility] Unavailable Un available Problems Problem Status Onset Classification Date Comments Sourc e Date Reported Urinary tract Active 10/02/20 12/13/2019 [facility] infection, site 16 [facility] of not specified Medici ne Postprocedural Active 10/02/20 12/13/2019 [facility] or female urethral 16 [facility] of stricture Medicine History of Active 10/02/20 12/13/2019 [facility] recurrent UTIs 16 [facility] Gastroenteritis Active 12/13/2019 [facility] Chronic UTI Active 12/13/2019 [facility] Drug allergy Active 12/13/2019 [facility] Medications Medication Details Route Status Patient Ordering Order Source Instructions Provider Date lamotrigine 25 mg = 1 tab, Active 12/02/ [facility] (LAMICTAL) 25 MG PO, BID, # 60 2019 [facility] tablet tab, 3 of Refill(s), Medicine Pharmacy: [id number] Topiramate ER 200 200 mg, PO, BID, No 12/02 / [facility] MG CS24 0 Refill(s) Longer 2019 [place] Active of Medicine topiramate 200 mg. No 12/02/ [facility] (TOPAMAX) 50 MG Longer 2019 [place] tablet Active of Medicine sodium Take 650 mg by ORAL Active 11/17/ [facility] bicarbonate 650 mouth. 2019 [place] MG tablet of Medicine Tsolspajsv-YISI-A butalbital-aceta Active 05/31 / [facility] affeine 50-300-40 minophen-caffein 2017 [facility] MG CAPS e 50 mg-300 of mg-40 mg capsule Medicin e folic acid TAKE 2 TABLETS(2 Active 10/12/ [facility] or (FOLVITE) 1 MG MG) BY MOUTH 2016 [facility] tablet DAILY of Medicine topiramate Take 50 mg by ORAL Active 12/18/ [facility] (TOPAMAX) 50 MG mouth. Once in 2011 [facility] tablet am and one in of the pm Medicine topiramate Take 200 mg by ORAL Active [place] (TOPAMAX) 200 MG mouth two times College tablet daily. of Medicine Cholecalciferol Take by mouth. ORAL Active [place] (VITAMIN D3) 50 [facility] MCG (1999 [place]) of CAPS Medicine levothyroxine Take 112 mcg by ORAL Active [facility] (SYNTHROID) 100 mouth once. 1 Co l[facility] MCG tablet tab once in the of morning Medicine acetaminophen Take 650 mg by ORAL Active [place] [facility] (TYLENOL) 325 mg mouth every 4 [facility] tablet hours as needed of for Pain. Medicine ondansetron ondansetron 4 mg Active [place] [facility] (ZOFRAN-ODT) 4 mg disintegrating [place] disintegrating tablet of tablet Medicine Allergies, Adverse Reactions, Alerts Substance Category Reaction Severity Reaction Status Date Comments S ource type Reported Levofloxacin Hallucinati High, Propensity Active [facility] ons, Hives, High, to adverse 6 [facility] Rash, Other High, reactions of (See High to drug Medicine Comments) Amoxicillin Hives Propensity Active [facility] to adverse 6 [facility] reactions of to drug Medicine Levaquin Hives Propensity Active [facility] to adverse 6 [facility] reactions of to drug Medicine Sulfasalazin Hives Propensity Active [facility] e to adverse 6 [facility] reactions of to drug Medicine Sulfamethoxa Anaphylaxis High, Propensity Active [facility] zole-Trimeth , Other High to adverse 7 College oprim (See reactions of Comments) to drug Medici ne Sulfamethoxa Anaphylaxis High Propensity Active [facility] zole to adverse 7 [facility] W/Trimethopr reactions o f im to drug Medicine Trimethoprim Propensity Active [facility] to adverse 8 [facility] reactions of to drug Medicine Immunizations Immunization Date Given Site Status Last Comments Source Updated Influenza Quad-PF 05/26/2019 completed [facility] Tdap 03/12/2018 completed [facility] Influenza Quad-PF 06/09/2017 completed [facility] HPV 08/20/2016 completed [facility] Results No Data Provided for This Section Pathology Reports No Data Provided for This Section Diagnostic Reports No Data Provided for This Section Consultation Notes No Data Provided for This Section Discharge Summaries No Data Provided for This Section History and Physicals No Data Provided for This Section Vital Signs Vital Sign Value Date Comments Source Systolic (mm Hg) 128 12/13/2019 [facility] of [facility] Diastolic (mm Hg) 88 12/13/2019 [facility] Col lege [facility] Heart Rate 61 12/13/2019 [facility] Respitory Rate 16 12/13/2019 [facility] 160 cm 12/13/2019 [facility] Weight 60.782 12/13/2019 [facility] Encounters Location Location Encounter Encounter Reason Attending ADM CO Stat us Source Details Type Number For Provider Date Date Visit [facility] Office [id number] Pankaj Nicole MD 12/13 12/13 [facility] of Visit /2019 [facility] of Allergy Medicine Procedures No Data Provided for This Section Assessment and Plan No Data Provided for This Section Plan of Care Plan of Care Date Source TETANUS SHOT (ADULT) 03/12/2028 [facility] Upcoming EncountersDateTypeSpecialtyCare TeamDescription [facility] 02/10/2020 Medicine Office Visit Allergy Pankaj Nicole MD[address] [phone] (Fax) Health MaintenanceDue DateLast DoneComments HIV SCREENING 2010 CERVICAL CANCER SCREENING 3 YEAR FOLLOW UP 2013 TETANUS SHOT (ADULT) 03/12/2028 03/12/2018 FLU VACCINE > 6 MONTHS Completed 05/26/2019, 06/09/2017 documented as of this encounter CERVICAL CANCER SCREENING 3 YEAR FOLLOW UP 2013 [facility] HIV SCREENING 2010 [facility] Social History Social History Date Source Tobacco UseTypesPacks/DayYears UsedDate 11/11/2019 [facility] Every Day Smoker Medicine Cigarettes Started: 11/11/2011 Smokeless Tobacco: Never Used Comments: half a pack a day Alcohol UseDrinks/Weekoz/WeekComments No Sex Assigned at BirthDate Recorded Not on file Job Start DateOccupationIndustry Not on file Not on file Not on file Travel HistoryTravel StartTravel End No recent travel history available. documented as of this encounter Family History No Data Provided for This Section Advance Directives No Data Provided for This Section Functional Status No Data Provided for This Section
[2020-04-09] MEDS ORDERED: ACETAMINOPHEN 500 MG TAB PO PRN (20:03)
[2020-04-09] MEDS ORDERED: ONDANSETRON 4 MG/2 ML VIAL IV PRN (20:03)
[2020-04-09 21:03] VITALS: BMI 24.5
[2020-04-09] MEDS: NA CHLORIDE 0.9% 1,000 ML IV SCH (21:09)
--- NOTE | 2020-04-10 02:32 | HP ---
Date of Admission: 04/09/2020 Chief Complaint: Visual disturbance. History Of Present Illness: Patient is a 29-year-old female with past medical history of hypothyroidism, seizures, urethral stricture, comes into the hospital after known overdose of ivermectin. Patient apparently took an equine ivermectin dose at around 2:30 this morning, which was meant for a 1200 pounds horse, apparently taken 10 times the dose for her weight, and due to the tape worm, she has been experiencing malaise, scotoma in her vision. 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 She said that her family members have also picked up these parasites from her and they have taken herbal treatments including wormwood and other herbal medications. Her daughters have taken medications given by the casino duty manager and have improved, but she has not. She also reports 10-pound weight loss. The patient's symptoms are constant, moderate, progressively worsening. She also reported some GI upset and therefore decided to come into the ER. She does report some confusion such as leaving the car running and getting out. In the ER, patient's workup is still pending. Vital signs were stable. EKG did show some intraventricular conduction delay. The patient was then referred for admission. Poison Control was contacted. They recommended following for at least 8 hours to watch for hypotension, arrhythmias. When the patient was seen in the ER, she was awake, alert, oriented x3, not in any acute distress, complaining of some visual disturbances. Past Medical History: Hypothyroidism, seizures, urethral strictures. Surgical History: , cholecystectomy, appendectomy. Allergies: TO AMOXICILLIN, BACTRIM, CIPRO, GENTAMICIN, LEVAQUIN, PENICILLIN, SULFA. Medications: Levothyroxine, Topamax. Social History: Patient does smoke half pack of cigarettes per day. Denies any illicit drug use or alcohol use. Has 2 daughters. Review of Systems: 11-point system reviewed, negative except as per HPI. Family History: Denies any premature coronary artery disease in the family. Physical Examination: Vital Signs: Blood pressure 125/86, pulse 103, respirations 18, temperature 98.1, O2 100% on room air. General: Awake, alert, oriented x3. No acute distress. CV: S1, S2. Regular rate and rhythm. Peripheral pulses present. Respiratory: Moving air well bilaterally. No wheezing or stridor. No use of accessory muscles. HEENT: Normocephalic, atraumatic. PERRLA. EOMI. Conjunctivae are anicteric. Neck: Supple. No JVD. Trachea midline. Gastrointestinal: Abdomen is soft, nontender, nondistended. Positive bowel sounds. Extremities: No clubbing, cyanosis, or edema. No calf tenderness. Neuro: Cranial nerves 3 through 12 are intact grossly. No focal neurological deficits. Speech is normal. Strength is symmetric, bilateral upper and lower extremities. Visual cottrell, the patient does report some scotomas and has difficulty differentiating number of fingers held up at a 6 feet distance in both eyes. Laboratory Data: Pending. Assessment And Plan: A 29-year-old female with: 1. Adverse drug reaction to ivermectin, this is equine dosage and formula taken for apparent intestinal parasites. The patient experiencing visual disturbances. Does have abnormal EKG. Poison Control was contacted by the ED. Recommended to be observed for 8 hours for cardiac arrhythmia, hypotension. No known antidote medication is lipophilic. 2. Visual disturbance. Patient reports scotoma likely related to above. Consider MRI if not improving. 3. Abnormal EKG. Consult Cardiology. monitor for arrythmia. 4. Hypothyroidism. Continue Synthroid. 5. Apparent intestinal parasites. Recommended to follow up with Infectious Disease. will check stool studies including ova and parasites. 6. History of seizure disorder. Continue Topamax. We will place on seizure precautions. Plan: Admit patient to Med-Surg, placed as observation. ADDENDUM: labs reviewed and preg test is neg SA/MODL Voice ID: [id number] MTDD
[2020-04-10 04:13] LABS: Absolute Lymphocytes (CBC) 3.3 K/uL (0.7-4.9); Basophils % 0.8 % (0-1.3); Hematocrit 36.8 % (36.0-45.0); Lymphocytes % 43.3 % (15.3-44.8); MPV 10.6 fL (7.6-11.3); RBC Red Blood Cell Count 4.15 M/uL (3.86-4.86)
[2020-04-10 04:31] LABS: ALT/SGPT 14 U/L (12-78); AST/SGOT 12 U/L (15-37); Alkaline Phosphatase 37 U/L (45-117); BUN Blood Urea Nitrogen 13 mg/dL (7-18); Bicarbonate 18 mmol/L (21-32); Bilirubin Total 0.3 mg/dL (0.2-1.0); Glucose Level 86 mg/dL (74-106); Potassium 3.5 mmol/L (3.5-5.1); Protein, Total 5.2 g/dL (6.4-8.2); Sodium Level 145 mmol/L (136-145)
[2020-04-10] MEDS: NA CHLORIDE 0.9% 1,000 ML IV SCH (04:41)
[2020-04-10 04:48] LABS: CKMB Creatine Kinase MB < 1.0 ng/mL (0.3-3.6); Creatine Phosphokinase 50 U/L (26-192); Troponin I < 0.02 ng/mL (0.0-0.045)
[2020-04-10] MEDS: D5 0.45 NS 1,000 ML IV SCH ×2 (05:53→16:00)
[2020-04-10] MEDS ORDERED: LEVOTHYROXINE SOD 0.088 MG TAB PO SCH (08:00)
[2020-04-10 09:00] LABS: Thyroid Stimulating Hormone 4.56 uIU/mL (0.360-3.740)
[2020-04-10] MEDS ORDERED: TOPIRAMATE 100 MG TAB PO SCH (09:00)
[2020-04-10] MEDS ORDERED: ENOXAPARIN 40 MG/0.4 ML SQ SCH (09:00)
--- NOTE | 2020-04-10 09:48 | P.DS ---
Admission Date: 04/09/20 Discharge Date: 04/10/20 Primary Care Provider: none; Seen by Endocrinology/Neurology Disposition: ROUTINE DISCHARGE Discharge Condition: GOOD Reason for Admission: visual disturbance Consultations: Poison Control Center Procedures: Medical problem list: Adverse drug reaction to ivermectin, accidental over use, with related visual disturbance Abnormal EKG secondary to above Hypothyroidism History of pinworms History of seizure disorder Brief History of Present Illness: 29-year-old female with history of hypothyroidism, seizures. She apparently came to the hospital due to visual disturbance. She apparently took equine doses of either make them around 230 in the morning. Dosage was taken for a 1200 lb. horse. This was 10 times the normal dosage for pinworms. Patient reported experiencing malaise and scotoma this with her vision. Her symptoms did not improve. She came to the ER for further evaluation. Hospital Course: Patient presented with visual disturbance-scotomas and malaise. This was after the patient took ivermectin for pinworms. She apparently took 10 times the normal dosage. The patient was admitted for further evaluation. Poison control was contacted. The patient was to be monitored for hypotension and arrhythmias. During the course of her stay patient did well. Poison control was recontacted. CBC, BMP unremarkable. No further workup or intervention required. Patient reports mild improvement in her vision. Poison control suspects her vision will return to normal over the next 24 to 48 hr. At discharge will recommend to continue heart healthy diet. Recommend follow up with PCP to establish care and follow up this hospitalization. Will provide information on poison control center in the event this is further required at home. Patient was counseled on overuse of medication. Patient understands t his. Recommendations for the patient follow up with GI or PCP to further address her pinworms. Patient with hypothyroidism. At discharge she will continue with her current medication. Recommend follow up with Endocrinology to further address. Patient with history of seizure disorder. At discharge she will continue with her current medication. Recommend follow up with neurology to further address. Vital Signs/Physical Exam: Temp Pulse Resp BP Pulse Ox 96.9 F 63 16 99/61 99 04/10/20 08:00 04/10/20 08:00 04/10/20 08:00 04/10/20 08:00 04/10/20 08:00 General: Alert, In no apparent distress, Oriented x3, Cooperative HEENT: Atraumatic Neck: Supple Respiratory: Clear to auscultation bilaterally, Normal air movement Cardiovascular: Normal pulses, Regular rate/rhythm Gastrointestinal: Normal bowel sounds, Soft and benign, Non-distended Neurological: Normal speech, Normal strength at 5/5 x4 extr, Normal tone, Normal affect Laboratory Data at Discharge: WBC 7.6 K/uL (4.3-10.9) 04/10/20 03:30 Hgb 11.9 g/dL (12.0-15.0) L 04/10/20 03:30 Hct 36.8 % (36.0-45.0) 04/10/20 03:30 Plt Count 180 K/uL (152-406) D 04/10/20 03:30 Sodium 145 mmol/L (136-145) 04/10/20 03:30 Potassium 3.5 mmol/L (3.5-5.1) 04/10/20 03:30 BUN 13 mg/dL (7-18) 04/10/20 03:30 Creatinine 0.68 mg/dL (0.55-1.3) 04/10/20 03:30 Glucose 86 mg/dL (74-106) 04/10/20 03:30 Magnesium 2.3 mg/dL (1.8-2.4) 04/09/20 18:20 Total Bilirubin 0.3 mg/dL (0.2-1.0) 04/10/20 03:30 AST 12 U/L (15-37) L 04/10/20 03:30 ALT 14 U/L (12-78) 04/10/20 03:30 Alkaline Phosphatase 37 U/L (45-117) L 04/10/20 03:30 Troponin I < 0.02 ng/mL (0.0-0.045) 04/10/20 03:30 Home Medications: Levothyroxine [Synthroid*] 112 mcg PO BID 6AM 6PM 09/21/18 Topiramate [Topamax*] 250 mg PO BID 09/21/18 Patient Discharge Instructions: 1. Recommend follow up with PCP in 1 week to follow up this hospitalization. 2. Patient presented with visual disturbance- scotomas and malaise. This was after the patient took ivermectin for pinworms. She apparently took 10 times the normal dosage. The patient was admitted for further evaluation. Poison control was contacted. The patient was to be monitored for hypotension and arrhythmias. During the course of her stay patient did well. Poison control was recontacted. CBC, BMP unremarkable. No further workup or intervention required. Patient reports mild improvement in her vision. Poison control suspects her vision will return to normal over the next 24 to 48 hr. At discharge will recommend to continue heart healthy diet. Recommend follow up with PCP to establish care and follow up this hospitalization. Will provide information on poison control center in the event this is further required at home. Patient was counseled on overuse of medic ation. Patient understands this. Recommendations for the patient follow up with GI or PCP to further address her pinworms. 3. Patient with hypothyroidism. At discharge she will continue with her current medication. Recommend follow up with Endocrinology to further address. 4. Patient with history of seizure disorder. At discharge she will continue with her current medication. Recommend follow up with neurology to further address. Diet: AHA Activity: Ad angus Time spent managing pt's care (in minutes): 55
[2020-04-10 12:37] VITALS: O2SAT 97
--- NOTE | 2020-04-10 15:34 | RAD REPORT ---
EXAM DESCRIPTION: US - UPPER EXTREMITY VENOUS UNILATE - 04/10/2020 3:28 pm CLINICAL HISTORY: pain Arm pain and swelling. COMPARISON: No comparisons FINDINGS: Right upper extremity venous system was interrogated with Doppler technique. Normal flow, compressibility and augmentation was noted. There is no DVT present. IMPRESSION: No evidence of right upper extremity deep venous thrombosis.
[2020-04-10 17:14] VITALS: BP 108/52; TEMP 97.1
--- NOTE | 2020-04-10 17:23 | CON ---
Date of Consultation: 04/10/2020 The patient admitted to Dr. Chandra. Reason For Consultation: Abnormal EKG. History Of Present Illness: Ms. Pascal is a 29-year-old woman with what sounded like eclampsia and cardiomyopathy during the . She does have a history of seizure disorders, hypoth yroidism. She came in with what sounds like a drug reaction, possible overdose; abnormal EKG, prolon ged QT, nonspecific changes; chest pain; right arm swelling. Denied PND, orthopnea, pedal edema, pal pitation, or syncope. Allergies: INCLUDE AMOXICILLIN, BACTRIM, CIPRO, GENTAMICIN, AND LEVAQUIN. Review of Systems: Negative. Social History: Negative. Family History: Negative. Medications: At home include Synthroid and Topamax. Physical Examination: Vital Signs: Stable, afebrile. HEENT: Negative. Neck: Supple with no bruit. Chest: Clear. Cardiac: Revealed a regular rhythm and rate. No murmurs, gallops, or rubs. Abdomen: Benign. Extremities: Revealed no clubbing, cyanosis, or edema in the lower extremity. Her right arm was swo llen all the way from her hand to her right shoulder. She had an IV in that arm. It was not red, it was not hot. Diagnostic Data: As stated earlier. Impression And Plan: Atypical chest pain in a patient with history of eclampsia, cardiomyopathy, pos sible congestive heart failure, has right upper extremity swelling. I think she needs to have an ech ocardiogram and a right upper extremity venous Doppler. We will see what those show prior to making final decisions. CLAUDIA/MISSY Voice ID: [id number] Report ID: [id number]
--- NOTE | 2020-04-11 06:29 | EKG ---
Test Date: 2020-04-09 Test Time: 18:13:56 Outside Plant Technician: JEAN MEASUREMENT RESULTS: Intervals: Rate: 73 PA: 114 QRSD: 76 QT: 416 QTc: 458 Dupo: P: 48 PA: 114 QRS: 82 T: 74 INTERPRETIVE STATEMENTS: Normal sinus rhythm RSR' or QR pattern in V1 suggests right ventricular conduction delay Borderline ECG Compared to ECG 09/21/2018 17:44:35 Sinus bradycardia no longer present ST (T wave) deviation no longer present Electronically Signed On 04-11-20 06:24:49 CDT by Didier Jimenez
[2020-04-11] MEDS ORDERED: LEVOTHYROXINE SOD 0.112 MG TAB PO SCH (06:30)
--- NOTE | 2020-04-11 08:10 | ECHO ---
HEIGHT: 5 ft 2 in WEIGHT: 133 lb 14.4 oz DATE OF STUDY: 04/10/[address]: Alexandra Oliva MD 2-DIMENSIONAL: YES M.MODE: YES DOPPLER: YES COLOR FLOW: YES TDS: NO PORTABLE: NO DEFINITY: NO BUBBLE STUDY: NO DIAGNOSIS: CHEST PAIN CARDIAC HISTORY: CATHERIZATION: NO SURGERY: NO PROSTHETIC VALVE: NO PACEMAKER: NO MEASUREMENTS (cm) DIASTOLIC (NORMALS) SYSTOLIC (NORMALS) IVSd 0.7 (0.6-1.2) LA Diam 2.5 (1.9-4.0) LVEF 58% LVIDd 4.0 (3.5-5.7) LVIDs 2.8 (2.0-3.5) %FS 30% LVPWd 0.7 (0.6-1.2) Ao Diam 2.4 (2.0-3.7) 2 DIMENSIONAL ASSESSMENT: RIGHT ATRIUM: NORMAL LEFT ATRIUM: NORMAL RIGHT VENTRICLE: NORMAL LEFT VENTRICLE: NORMAL TRICUSPID VALVE: NORMAL MITRAL VALVE: NORMAL PULMONIC VALVE: NORMAL AORTIC VALVE: NORMAL PERICARDIAL EFFUSION: NONE AORTIC ROOT: NORMAL LEFT VENTRICULAR WALL MOTION: NORMAL DOPPLER/COLOR FLOW: NORMAL COMMENTS: NORMAL 2D ECHOCARDIOGRAM WITH DOPPLER. NO WALL MOTION ABNORMALITY. NO EFFUSION. TECHNOLOGIST: Amita GONZALEZ
== END 2020-04-10 17:29 | disposition home or self-care (01) ==
LOC: ER 16:37 → UNDOADMOB 17:57 → ERHOLD 17:57 → 2ND 20:00
PROVIDERS: ADMIT Family Medicine; ATTEND Family Medicine
DX: H53.453 Other localized visual field defect, bilateral (principal); T37.4X5A Adverse effect of anthelminthics, initial encounter; R94.31 Abnormal electrocardiogram [ECG] [EKG]; X58.XXXA Exposure to other specified factors, initial encounter; R07.89 Other chest pain; B80 Enterobiasis; E03.9 Hypothyroidism, unspecified; G40.909 Epilepsy, unspecified, not intractable, without status epilepticus; F17.210 Nicotine dependence, cigarettes, uncomplicated; Z79.899 Other long term (current) drug therapy; Z11.59 Encounter for screening for other viral diseases
CPT/HCPCS: 36415; 80048; 80053; 82550; 82553; 83735; 84439; 84443; 84484; 84703; 85025; 93005; 93306; 93971; 94760; 96360; 99285; G0378; J1650; J7030; J7799; U0002

== ENCOUNTER 2020-09-25 23:15 | Emergency (ER) | payer SELFPAY ==
--- OUTSIDE RECORDS SUMMARY | 2020-09-25 23:19 | XMS REPORT | Continuity of Care Document ---
:1990 Author Organization [employer] Care Team Providers Name Role Phone [employer] Unavailable Un available Problems Problem Status Onset Classification Date Comments Sourc e Date Reported Fatigue Active 12/30/2013 [facility] Pain During Active 12/30/2013 [facility] (Dysuria) Urethritis Active 12/30/2013 [facility] Urinary Tract Active 12/30/2013 [facility] Hypothyroidism Active 12/30/2013 [facility] Medications Medication Details Route Status Patient Ordering Order Source Instructions Provider Date Levothyroxine ; Start Active [facility] Sodium 88 MCG Date: [facility] Oral Tablet 12/07/2012 ; End Date: (Active) Uribel 118 MG ; Start Active [facility] Oral Capsule Date: [facility] 12/18/2011 ; End Date: (Active) Topamax 50 MG ; Start Active [facility] Oral Tablet Date: [facility] 12/18/2011 (Active) Levothyroxine ; Start Active [facility] Sodium 75 MCG Date: [facility] Oral Tablet 12/18/2011 (Active) Allergies, Adverse Reactions, Alerts Substance Category Reaction Severity Reaction Status Date Comments S ource type Reported Sulfa Drugs drug drug Active [facility] allergy allergy [facility] Amoxicillin drug drug Active [facility] TABS allergy allergy [facility] Immunizations No Data Provided for This Section Results No Data Provided for This Section Pathology Reports No Data Provided for This Section Diagnostic Reports No Data Provided for This Section Consultation Notes No Data Provided for This Section Discharge Summaries No Data Provided for This Section History and Physicals No Data Provided for This Section Vital Signs No Data Provided for This Section Encounters Location Location Encounter Encounter Reason Attending ADM [place] Stat Source Details Type Number For Provider Date Date Visit AUDIT [id number] 12/01 [facility] AUDIT [id number] 12/07 [facility]ician [facility] AUDIT [id number] 12/11 Physician [facility] AUDIT [id number] 12[place]30 [place] [facility], [id number] 01/10 12/30 [place] Provider: /2013 GAURAV Katz , Status: Pen, Time: 3:15 PM Outpatient [id number] [facility] 12/02 Active [facility] [place] [facility] [id number] Maximiliano 12/23 Active [facility] [place] [facility] [id number] Maximiliano 12/26 Active [facility] [id number] Maximiliano 02/27 Active [facility]2020 [place] Procedures No Data Provided for This Section Assessment and Plan No Data Provided for This Section Plan of Care Plan of Care Date Source Blood Pressure 12/18/2011 12/30/2013 [facility] Routine Blood Pressure 12/18/2011 12/11/2012 [facility] Routine Blood Pressure 12/18/2011 12/08/2012 [facility] Routine Blood Pressure 12/18/2011 12/01/2012 [facility] Routine Social History Social History Date Source Never A Smoker 12/30/2013 [facility] (Active) Family History No Data Provided for This Section Advance Directives Order Name Results Value Date Source Advance Directives Advance Directives No Advance 12/30/2013 [facility] Directives available. Advance Directives Advance Directives No Advance 12/11/2012 [facility] Directives available. Advance Directives Advance Directives No Advance 12/08/2012 [facility] Directives available. Advance Directives Advance Directives No Advance 12/01/2012 [facility] Directives available. Functional Status No Data Provided for This Section
--- OUTSIDE RECORDS SUMMARY | 2020-09-25 23:19 | XMS REPORT | Clinical Summary ---
:[address] [facility] Address [address] [place] [address] Care Team Providers Name Role Phone Unavailable Primary Care Provider Unavailable Allergies Active Allergy Reactions Severity Noted Date Comments Amoxicillin Hives 2019 Sulfamethoxazole-Trimethoprim Anaphylaxis High 2019 Gentamicin Anaphylaxis High 2019 Levofloxacin Hives High 2019 Sulfa (Sulfonamide Antibiotics) Anaphylaxis High 0 Medications Medication Sig Dispensed Refills Start Date End Date Status folic acid (FOLVITE) Take 1 mg by 0 Active 1 MG tablet mouth daily. topiramate (TOPAMAX) Take 250 mg by 0 Active 200 MG tablet mouth 2 (two) times daily. levothyroxine Take 112 mcg by 0 Active (SYNTHROID, mouth Every LEVOTHROID) 112 MCG morning on an tablet empty stomach. cefpodoxime (VANTIN) Take 200 mg by 0 Active 200 MG tablet mouth 2 (two) times daily. cholestyramine Take 1 packet by 60 each 0 11/14/2019 021 Active (QUESTRAN) 4 gram mouth 2 (two) PwPk packet times daily with breakfast and dinner. ondansetron Take 1 tablet (4 20 tablet 0 11/14/2019 11/21/2019 (ZOFRAN-ODT) 4 MG mg total) by disintegrating tablet mouth every 8 (eight) hours as needed for Nausea for up to 7 days. Active Problems Problem Noted Date Adrenal insufficiency 12/27/2019 Encounters Date Type Specialty Care Team Description 12/28/2019 Infusion Oncology Shona Hogue Adrenal in sufficiency MD Cristin ([facility]) (Primary Dx) 2019 - Emergency Emergency Medicine Christiano Quintero Acute rig ht flank pain (Primary Dx); 11/14/2019 MD Jermain Acute diarrhea; Low bicarbonate ; High serum chlo ride 2019 Travel after 09/25/2019 Social History Tobacco Use Types Packs/Day Years Used Date Current Every Day Smoker Alcohol Use Drinks/Week oz/Week Comments No Alcohol Habits Answer Date Recorded How often do you have a drink containing alcohol? Never 2019 How many drinks containing alcohol do you have on a typical Not asked day when you are drinking? How often do you have six or more drinks on one occasion? No t asked Sex Assigned at Date Recorded Not on file Last Filed Vital Signs Vital Sign Reading Time Taken Comments Blood Pressure 99/58 12/28/2019 8:48 AM [facility] Pulse 63 12/28/2019 8:48 AM [facility] Temperature 35.8 C (96.5 F) 12/28/2019 8:48 AM [facility] Respiratory Rate 19 12/28/2019 8:48 AM [facility] Oxygen Saturation 100% 12/28/2019 8:48 AM [facility] Inhaled Oxygen Concentration - - Weight 59.2 kg (130 lb 9.6 oz) 12/28/2019 8:48 AM [facility] Height 160 cm (5' 3") 2019 7:46 PM [facility] Body Mass Index 23.13 2019 7:46 PM [facility] Plan of Treatment Health Maintenance Due Date Last Done Comments PNEUMOCOCCAL VACCINE 0-64 YRS (1 of 1 - PPSV23) 1998 LIPID PANEL 2012 CERVICAL CANCER SCREENING PAP ONLY (Age 21-65) 2013 INFLUENZA VACCINE (#1) 2020 Procedures Procedure Name Priority Date/Time Associated Diagnosis Comme nts CORTISOL Routine 12/28/2019 10:47 Adrenal insufficiency Re sults for this AM [facility] (HCC) procedure are i n the results section. CORTISOL Routine 12/28/2019 10:15 Adrenal insufficiency Re sults for this AM [facility] (HCC) procedure are i n the results section. CORTISOL Routine 12/28/2019 9:43 Adrenal insufficiency Re sults for this AM [facility] (HCC) procedure are i n the results section. ACTH Routine 12/28/2019 9:43 Adrenal insufficiency Re sults for this AM [facility] (HCC) procedure are i n the results section. BLOOD GAS, ARTERIAL STAT 11/14/2019 1:00 Resu lts for this AM [facility] procedure are i n the results section. CT ABDOMEN/PELVIS STAT 2019 11:54 Result s for this WITH & WITHOUT IV PM [facility] procedure are in CONTRAST the results section. BASIC METABOLIC PANEL STAT 2019 11:27 Re sults for this (7) PM [facility] procedure are i n the results section. D-DIMER STAT 2019 9:33 Results for this PM [facility] procedure are i n the results section. CBC W/PLT COUNT & STAT 2019 8:17 Result s for this AUTO DIFFERENTIAL PM [facility] procedure are in the results section. MAGNESIUM STAT 2019 8:17 Results for this PM [facility] procedure are i n the results section. PHOSPHORUS STAT 2019 8:17 Results for this PM [facility] procedure are i n the results section. LIPASE STAT 2019 8:17 Results for this PM [facility] procedure are i n the results section. COMPREHENSIVE STAT 2019 8:17 Results fo r this METABOLIC PANEL PM [facility] procedure ar e in the results section. CBC W/PLT COUNT & STAT 2019 8:17 Result s for this AUTO DIFFERENTIAL PM [facility] procedure are in the results section. SCREEN, STAT 2019 8:09 Result s for this URINE PM [facility] procedure are i n the results section. URINALYSIS W/ REFLEX STAT 2019 8:09 Res ults for this URINE CULTURE PM [facility] procedure are in the results section. after 09/25/2019 Results Cortisol (12/28/2019 10:47 AM [facility])Only the most recent of3 resultswithin the time period is included. Pathologist Sig nature Cortisol, Total 22.6 (H) 3.7 - 19.4 ug/dL [facility] Specimen Blood Narrative Performed At Slasher ID - NTP [facility] Performing Organization Address City/State/Zipcode Phone Number [facility] MEDICAL [address] [place] [address] CENTER ACTH (12/28/2019 9:43 AM [facility]) Pathologist Sig nature ACTH 8 6 - 50 pg/mL [facility] Comment: INCORPORATED Reference range applies only to the specimens collecte d between 7am-10am. Specimen Blood Narrative Performed At Performing Lab [facility] [place] [address] [place] [address] Andrea Young MD, PhD, ESTEFANÍA Performing Organization Address City/State/Zipcode Phone Number [facility] [place] [address] [address] [facility] Blood gas, arterial (11/14/2019 1:00 AM [facility]) Pathologist Sig nature pH, Arterial 7.43 7.35 - 7.45 [facility] pCO2, Arterial 25 (L) 35 - 45 mmHg [facility] pO2, Arterial 107 (H) 80 - 90 mmHg [facility] O2 Sat, Arterial 98.1 (H) 96.0 - 97.0 % [facility] HCO3, Arterial 16 (L) 21 - 29 mmol/L [facility] Base Excess, Arterial -6.7 (L) -2.0 - 3.0 [facility] mmol/L [facility] Patient Temperature 37.0 C [facility] FIO2 21.0 % [facility] Specimen Blood, Arterial Performing Organization Address City/State/Zipcode Phone Number [facility] [address] [place] [address] [place] [address] abdomen/pelvis with/without IV contrast (renal stone protocol) (2019 11:54 PM [facility]) Specimen Narrative Performed At FINAL REPORT [employer] [facility] CT, ABDOMEN \\T\\ PELVIS, WITHOUT \\T\\ WITH IV CONTRAST INDICATION: ABDOMINAL PAIN right flank pain COMPARISON: None TECHNIQUE: Abdomen and pelvis CT With and without IV contrast Coronal and sagittal reformatted images obtained. DOSE REDUCTION: Dose modulation, iterati ve reconstruction, and/or weight-based adjustment of the mA/kV was utilized to reduce the radiation dose to as low as reasonably a chievable. FINDINGS: Lower thorax: Visible airspaces clear. N o pleural effusion. Heart is normal in size. No pericardial effusion. Liver: No acute hepatic abnormality. Gallbladder and biliary tree: Postsurgic al changes of a cholecystectomy. No intra or extrahepati c ductal dilatation. Pancreas: No acute findings. Spleen: No acute findings Adrenal Glands: No acute findings. Kidneys and ureters: No hydronephrosis o r nephrolithiasis. No hydroureter. No contour deforming renal lesions. Bladder and reproductive organs: Bladder is unremarkable. The uterus is age-appropriate. No suspicious adnexa l masses. Stomach and Duodenum: No significant fin dings. Small and large intestine: Normal calibe rs. Appendix: Surgically absent. Major vascular structures: Normal aortic caliber. Peritoneum and retroperitoneum: No free air, fluid or adenopathy. Skeleton: No acute bony abnormality. Additional findings: Fat-containing umbi lical hernia. IMPRESSION: No acute abnormality in the abdomen or p miguel a. Signed: Hosea Perez MD Report Verified Date/Time: 11/14/2019 00:31:04 Procedure Note Interface, External Ris In - 11/14/2019 12:33 AM [facility] FINAL REPORT CT, ABDOMEN \\T\\ PELVIS, WITHOUT \\T\\ WITH IV CONTRAST INDICATION: ABDOMINAL PAIN right flank pain COMPARISON: None TECHNIQUE: Abdomen and pelvis CT With and without IV contrast Coronal and sagittal reformatted images obtained. DOSE REDUCTION: Dose modulation, iterati ve reconstruction, and/or weight-based adjustment of the mA/kV was utilized to reduce the radiation dose to as low as reasonably a chievable. FINDINGS: Lower thorax: Visible airspaces clear. N o pleural effusion. Heart is normal in size. No pericardial effusion. Liver: No acute hepatic abnormality. Gallbladder and biliary tree: Postsurgic al changes of a cholecystectomy. No intra or extrahepati c ductal dilatation. Pancreas: No acute findings. Spleen: No acute findings Adrenal Glands: No acute findings. Kidneys and ureters: No hydronephrosis o r nephrolithiasis. No hydroureter. No contour deforming renal lesions. Bladder and reproductive organs: Bladder is unremarkable. The uterus is age-appropriate. No suspicious adnexa l masses. Stomach and Duodenum: No significant fin dings. Small and large intestine: Normal calibe rs. Appendix: Surgically absent. Major vascular structures: Normal aortic caliber. Peritoneum and retroperitoneum: No free air, fluid or adenopathy. Skeleton: No acute bony abnormality. Additional findings: Fat-containing umbi lical hernia. IMPRESSION: No acute abnormality in the abdomen or p miguel a. Signed: Hosea Perez MD Report Verified Date/Time: 11/14/2019 0 0:31:04 Performing Organization Address City/[facility]/Zipcode Phone Number [facility] Basic metabolic panel (Na, K+, Cl, CO2, Glu, Ca, BUN, Cr) (2019 11:27 PM [facility]) Sodium 137 136 - 145 [facility] meq/L [facility] Potassium 3.6 3.5 - 5.1 [facility] meq/L [facility] Chloride 115 (H) 98 - 107 meq/L [facility] CO2 16 (L) 22 - 29 meq/L [facility] BUN 11 7 - 21 mg/dL [facility] Creatinine 0.80 0.57 - 1.25 [facility] mg/dL [facility] Glucose 75 70 - 105 mg/dL [facility] Calcium 8.3 (L) 8.4 - 10.2 [facility] mg/dL [facility] EGFR Comment: INSUFFICIENT [facility] CLINICAL DATA TO [facility] CALCULATE ESTIMATED CENTER GFR. Specimen Blood Narrative Performed At Slasher ID - PIAYA L [facility] Performing Organization Address [facility]/[place] [address] CENTER D-dimer, quantitative (2019 9:33 PM [facility]) Pathologist Sig nature D-Dimer, Quant 0.38 <0.50 MG/L FEU [facility] Specimen Blood Narrative Performed At Intended Use: The D-Dimer Assay can be used [facility] to aid in the diagnosis of Deep Vein Thrombosis (DVT) and Pulmonary Embolism Disease (PED). In patients with low pre-test probability, various studies concerning STA Liatest D-dimer test have reported that with a cutoff value of 0.50 MG/L FEU, the Negative Predictive Value (NPV) regarding the exclusion of thrombosis is within 95-100% range. Performing Organization Address City/State/Zipcode Phone Number [facility] [address] [place] [address] CENTER CBC with platelet count + automated diff (2019 8:17 PM [facility]) Pathologist Sig nature WBC 8.5 3.5 - 10.5 [facility] K/L [facility] RBC 4.66 3.93 - 5.22 [facility] M/L [facility] Hemoglobin 13.7 11.2 - 15.7 [facility]/DL [facility] Hematocrit 43.4 34.1 - 44.9 % [facility] MCV 93.1 79.4 - 94.8 fL [facility] MCH 29.4 25.6 - 32.2 pg [facility] MCHC 31.6 (L) 32.2 - 35.5 [facility] RDW 14.5 (H) 11.7 - 14.4 % [facility] Platelets 261 150 - 450 K/CU [facility] MPV 11.1 9.4 - 12.3 fL [facility] nRBC 0 0 - 0 /100 WBC [facility] % Neutros 49 % [facility] % Lymphs 38 % [facility] % Monos 6 % [facility] % Eos 7 % [facility] % Baso 1 % [facility] # Neutros 4.11 1.56 - 6.13 [facility] # Lymphs 3.21 1.18 - 3.74 [facility] # Monos 0.49 (H) 0.24 - 0.36 [facility] K/L [facility] # Eos 0.55 (H) 0.04 - 0.36 [facility]/L [facility] # Baso 0.07 0.01 - 0.08 [facility] K/L [facility] Immature 0 0 - 1 % [facility] Granulocytes-Relative [facility] Specimen Blood Performing Organization Address City/[facility] Hospital[facility] Phone Number [address] [address] CENTER Phosphorus (2019 8:17 PM [facility]) Pathologist Sig nature Phosphorus 3.8Comment: 2.3 - 4.7 mg/dL [facility] Specimen slightly [facility] hemolyzed [place] Specimen Blood Narrative Performed At Slasher ID - [facility] Performing Organization Address [facility] Hospital[facility] Phone Number [address] [address] CENTER Magnesium (2019 8:17 PM [facility]) Pathologist Sig nature Magnesium 2.1Comment: Specimen 1.6 - 2.6 mg/dL [facility] slightly hemolyzed [facility] Specimen Blood Narrative Performed At Slasher ID - [facility] Performing Organization Address City/[facility] Phone Number [address] [address] CENTER Lipase (2019 8:17 PM [facility]) Pathologist Sig nature Lipase 41 8 - 78 U/L [facility] Specimen Blood Narrative Performed At Slasher ID - [facility] Performing Organization Address [facility] Phone Number [address] [address] CENTER Comprehensive metabolic panel (2019 8:17 PM [facility]) Protein, Total 7.5Comment: Specimen 6.0 - 8.3 [facility] slightly hemolyzed gm/dL [facility] Albumin 4.6Comment: Specimen 3.5 - 5.0 [facility] slightly hemolyzed g/dL [facility] Alkaline 56 40 - 150 U/L [facility] Phosphatase [facility] Total Bilirubin 0.2Comment: Specimen 0.2 - 1.2 [facility] slightly hemolyzed mg/dL [facility] Sodium 137 136 - 145 [facility] meq/L [facility] Potassium 3.5Comment: Specimen 3.5 - 5.1 [facility] slightly hemolyzed meq/L [facility] Chloride 112 (H) 98 - 107 [facility] meq/L [facility] CO2 17 (L) 22 - 29 [facility] meq/L [facility] BUN 12 7 - 21 mg/dL [facility] Creatinine 0.88Comment: 0.57 - 1.25 [facility] Specimen slightly mg/dL [facility] Glucose 90 70 - 105 [facility] mg/dL [facility] Calcium 8.9 8.4 - 10.2 [facility] mg/dL [facility] AST 17Comment: Specimen 5 - 34 U/L [facility] slightly hemolyzed [facility] ALT 12Comment: Specimen 6 - 55 U/L [facility] slightly hemolyzed [facility] EGFR Comment: [facility] INSUFFICIENT [facility] CLINICAL DATA TO MEDICAL CENTER CALCULATE ESTIMATED GFR. Specimen Blood Narrative Performed At Slasher ID - NANCY [facility] Performing Organization Address City/State/Zipcode Phone Number [facility] [address] [place] [address] CENTER Urinalysis w/Microscopic + Reflex to Culture (2019 8:09 PM [facility]) Color, UA Light Yellow [facility] Clarity, UA Clear [facility] Specific [place], 1.004 1.001 - 1.035 [facility] pH, UA 6.5 5.0 - 8.0 [facility] Protein, UA Negative Negative [facility] Glucose, UA Negative Negative [facility] Ketones, UA Negative Negative [facility] Bilirubin, UA Negative Negative [facility] Blood, UA Negative Negative [facility] Nitrite, UA Negative Negative [facility] Leukocytes, UA Negative Negative [facility] Urobilinogen, UA 0.2 0.2 - 1.0 mg/dL [facility] RBC, UA 0 /HPF [facility] WBC, UA 1 /HPF [facility] Squam Epithel, UA 2 /HPF [facility] Specimen Source [facility] Specimen Urine - Urine (substance) Narrative Performed At Slasher ID - [auto] [facility] Slasher ID - tech Performing Organization Address City/[facility]/Zipcode Phone Number [facility] [address] [place] [address] [place] Screen, urine (2019 8:09 PM [facility]) Pathologist Sig nature Preg Test, Ur Negative [facility] Specimen Urine Performing Organization Address City/[facility]/Zipcode Phone Number [place] [phone] [place] [address] [place] after 09/25/2019 Insurance Payer Benefit Plan / Subscriber ID Effective Dates Phone Addre ss Type Group [employer] - MGD [employer]ET[employer] HMO POS [id number] 2019-Present HMO/POS CARE QPOS
--- OUTSIDE RECORDS SUMMARY | 2020-09-25 23:19 | XMS REPORT | Clinical Summary ---
:1990 Author Organization [facility] Address [address] [place] [address] Care Team Providers Name Role Phone Primitivo Fan MD Primary Care Provider Allergies Active Allergy Reactions Severity Noted Date Comments Amoxicillin Hives 07/29/2016 Ciprofloxacin Hives, Rash Low 09/03/2016 Gentamicin Anaphylaxis High 06/04/2017 Levofloxacin Hives 09/03/2016 Penicillin G Hives 09/03/2016 Penicillins Hives, Rash Low 10/02/2016 Sulfa (Sulfonamide Antibiotics) Hives, Rash Medium 2 Sulfamethoxazole-Trimethoprim Anaphylaxis High 06/04/2017 Sulfasalazine Hives 10/02/2016 Trimethoprim 12/11/2017 Medications Medication Sig Dispensed Refills Start Date End Date Status levothyroxine TK 1 T PO 3 10/25/2017 Activ e (SYNTHROID, QAM ON AN LEVOXYL) 88 mcg EMPTY tablet STOMACH folic acid TAKE 2 60 tablet 0 05/09/2019 Active (FOLVITE) 1 MG TABLETS BY tablet MOUTH EVERY DAY topiramate TAKE 1 60 tablet 0 05/09/2019 Active (TOPAMAX) 50 MG TABLET BY tablet MOUTH TWICE DAILY topiramate Take 1 226 tablet 0 10/03/2019 Active (TOPAMAX) 200 MG tablet (200 tablet mg total) by mouth 2 (two) times a day. Take with 50 mg tablet topiramate Take 1 226 tablet 0 10/03/2019 Active (TOPAMAX) 50 MG tablet (50 tablet mg total) by mouth 2 (two) times a day. Take with 200 mg tablet folic acid TAKE 2 60 tablet 0 12/06/2019 Active (FOLVITE) 1 MG TABLETS(2 tablet MG) BY MOUTH DAILY topiramate 1 tab PO BID 180 tablet 1 03/10/2019 Disc ontinued (TOPAMAX) 200 MG 9 (Re order) tablet topiramate 1 tab PO qAM 90 tablet 3 03/10/2019 Disco ntinued (TOPAMAX) 50 MG and 2 tabs 9 (Re order) tablet qHS folic acid TAKE 2 60 tablet 0 11/03/2019 Disconti nued (FOLVITE) 1 MG TABLETS(2 0 tablet MG) BY MOUTH DAILY perampanel Take 1 tab 180 tablet 5 11/30/2019 d (FYCOMPA) 2 mg at night for 0 tablet tablet 2 weeks, then 2 tabs at night for 2 weeks, then 3 tabs at night for rest of therapy. 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 07/29/2016 Encounters Date Type Specialty Care Team Description 04/19/2020 Travel 04/18/2020 Telephone Urology Selena Poe MD 01/25/2020 Telephone Urology Ceci Nieto LVN 12/19/2019 Office Visit Urology Selena Poe MD COLIN (stres s urinary incontinence, female) (Primary Dx); Urinary frequen cy; Urge urinary in continence; Flank pain 12/04/2019 Refill Neurology Kiel Herrera MD 11/30/2019 Orders Only Neurology Sylvia Vallejo RN 11/22/2019 Orders Only Neurology Sylvia Vallejo RN Genera lized-onset seizures (HCC) (Primary Dx) 11/14/2019 Orders Only Urology Bela Ozuna MD 10/03/2019 Refill Neurology Sylvia Vallejo RN after 09/25/2019 Surgical History Surgery Date Site/Laterality Comments SECTION APPENDECTOMY Medical History Medical History Date Comments Endocrine disorder Seizures (HCC) Migraine Preeclampsia Family History Medical History Relation Name Comments Hypertension Father Seizures Father No Known Problems Mother Relation Name Status Comments Father Alive Mother Alive Social History Tobacco Use Types Packs/Day Years Used Date Never Smoker Smokeless Tobacco: Never Used Alcohol Use Drinks/Week oz/Week Comments Yes occasional Sex Assigned at Date Recorded Not on file Last Filed Vital Signs Not on file Plan of Treatment Health Maintenance Due Date Last Done Comments CERVICAL CANCER SCREENING 2013 INFLUENZA VACCINE 05/26/2020 Procedures Procedure Name Priority Date/Time Associated Comments Diagnosis MICROSCOPIC Routine 12/19/2019 2:47 Results for this EXAMINATION PM [employer] procedure are i n the results section. URINALYSIS, AUTOMATED Routine 12/19/2019 2:47 COLIN (stress uri nary Results for this WITH MICROSCOPY PM [employer] incontinence, procedure a re in female) the results section. URINE CULTURE Routine 12/19/2019 2:47 COLIN (stress urinary Res ults for this PM [employer] incontinence, procedure are in female) the results section. POC URINALYSIS Routine 12/19/2019 2:45 COLIN (stress urinary Re sults for this DIPSTICK PM [employer] incontinence, procedure are in female) the results section. COMPREHENSIVE Routine 11/22/2019 4:43 Generalized-onset Resul ts for this METABOLIC PANEL PM [employer] seizures (HCC) procedure are in the results section. TOPIRAMATE LEVEL Routine 11/22/2019 4:43 Generalized-onset Re sults for this PM [employer] seizures (HCC) procedure are in the results section. OBTAIN MEDICAL RECORDS Routine 11/14/2019 after 09/25/2019 Results Microscopic Examination (12/19/2019 2:47 PM [employer]) Pathologist Sig nature WBC, UA 0-5 0 - 5 /hpf [facility] RBC, UA None seen 0 - 2 /hpf [facility] Epithelial cells (non 0-10 0 - 10 /hpf [facility] renal) Bacteria, UA None seen None seen/Few [facility] Specimen Narrative Performed At Performed at: 01 - [facility] [address] [place] [id number] Office Director: Shashi Palumbo MD, Phone: [phone] Performing Organization Address City/State/ZIP Code Phon e Number [facility] Urinalysis, automated with microscopy (12/19/2019 2:47 PM [employer]) Specific gravity, 1.007 1.005 - 1.030 [facility] urine pH, urine 8.0 (H) 5.0 - 7.5 [facility] Color, UA Yellow Yellow [facility] Appearance Clear Clear [facility] WBC esterase, urine 1+ (A) Negative [facility] Protein, UA Negative Negative/Trace [facility] Glucose, urine Negative Negative [facility] Ketones, UA Negative Negative [facility] Occult blood, urine Negative Negative [facility] Bilirubin, UA Negative Negative [facility] Urobilinogen, UA 0.2 0.2 - 1.0 mg/dL [facility] Nitrite, UA Negative Negative [facility] Microscopic See below:Comment: [facility] examination Microscopic was indicated and was performed. Specimen Urine Narrative Performed At Performed at: [facility] [id number] Office Director: Shashi Palumbo MD, Phone: [phone] Performing Organization Address [facility] e Number [facility] Urine culture (12/19/2019 2:47 PM [employer]) Pathologist Sig nature Urine culture Mixed urogenital misael [facility] 10,000-25,000 colony forming units per mL Specimen Urine - Urine, clean catch Narrative Performed At Performed at: [facility] [id number] Office Director: Shashi Palumbo MD, Phone: [phone] Performing Organization Address [facility] e Number [facility] POC urinalysis dipstick (12/19/2019 2:45 PM [employer]) Pathologist Sig nature Color urine, POC Yellow Clarity urine, POC Clear Glucose urine, POC Negative Negative Bilirubin urine, POC Negative Negative Ketones urine, POC Negative Negative Specific gravity urine, 1.020 1.005 - 1.030 [facility] Blood urine, POC Negative Negative pH urine, POC 8.0 5.0, 5.5, 6.0, 6.5, 7.0, 7.5, 8.0, 8.5 Protein urine, POC Negative Negative Urobilinogen urine, POC <2.0 <2.0 Nitrite urine, POC Negative Negative Leukocyte esterase Trace (A) Negative urine, POC Specimen Urine Topiramate level (11/22/2019 4:43 PM [employer]) Topiramate 9.7 mcg/mL [facility] Comment: BETTINA PARKER Therapeutic Range Dose(mg) Peak(mcg/mL) Trough(mcg/mL) 100 6.5-9.2 4.5-6.6 200 12.0-16.0 8.0-12.0 400 20.0-30.0 14.0-20.0 This test was developed and its analytical performance characteristics have been determined by [facility]. It has not been cleared or approved by [facility] FDA. This assay has been validated pursuant to the CLI A regulations and is used for clinical purposes. Specimen Blood Narrative Performed At FASTING:NO [facility] FASTING: NO Resulting Agency Comment Performing Organization Information: Site ID: [facility] Name: [facility] Address: [address] [place] [address] Director: Alex Smith M.D., Ph. D Performing Organization Address City/State/ZIP Code Phon e Number [facility] [id number] [place] [id number] [place] Comprehensive metabolic panel (11/22/2019 4:43 PM [employer]) [facility] Glucose 86 65 - 139 [facility] Comment: mg/dL [place] Non-fasting reference interval BUN 18 7 - 25 mg/dL [facility] [place] Creatinine 1.15 (H) 0.50 - 1.10 [facility] mg/dL [place] EGFR Non-Afr. 65 > OR = 60 [facility] [place] mL/min/1.73m2 [place] EGFR 76 > OR = 60 [facility] [place] mL/min/1.73m2 [place] BUN/creatinine 16 6 - 22 (calc) [facility] ratio [place] Sodium 140 135 - 146 [facility] mmol/L [place] Potassium 3.8 3.5 - 5.3 [facility] mmol/L [place] Chloride 111 (H) 98 - 110 [facility] mmol/L [place] CO2 23 20 - 32 [facility] mmol/L [place] Calcium 8.9 8.6 - 10.2 [facility] mg/dL [place] Protein 6.6 6.1 - 8.1 [facility] g/dL [place] Albumin, S 4.4 3.6 - 5.1 [facility] g/dL [place] Globulin, total 2.2 1.9 - 3.7 [facility] g/dL (calc) [place] Albumin/globulin 2.0 1.0 - 2.5 [facility] ratio (calc) [place] Total bilirubin 0.2 0.2 - 1.2 [facility] mg/dL [place] Alkaline 47 33 - 115 U/L [facility] phosphatase [place] AST 14 10 - 30 U/L [facility] [place] ALT 9 6 - 29 U/L [facility] [place] Specimen Blood Narrative Performed At FASTING:NO [facility] FASTING: NO Resulting Agency Comment Performing Organization Information: Site ID: [id number] Name: [facility] Address: [address] [place] [address] Director: Ruddy Jolly Performing Organization Address City/State/ZIP Code Phon e Number [facility] JOSE LUIS [place] [address] [place] [address] Obtain medical records (11/14/2019) Narrative Performed At This result has an attachment that is no t available. 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
--- OUTSIDE RECORDS SUMMARY | 2020-09-25 23:23 | XMS REPORT | Continuity of Care Document ---
:1990 Author Organization [facility] t Address [address] [place] [address] Care Team Providers Name Role Phone Mita PAVON Primary Care Physician Deepika PAVON Attending Clinician Gerson BOURGEOIS Attending Clinician Unavailable Cristin Hogue MD Attending Clinician CRISTIN HOGUE Attending Clinician Unavailable Bonnie PAVON Attending Clinician Gorge Herrera MD Attending Clinician Yoni SRAABIA, A Attending Clinician Unavailable Ash Quintero MD Attending Clinician Laith PAVON Attending Clinician ASH QUINTERO Attending Clinician Unavailable CRYSTAL Attending Clinician Unavailable SHARP Attending Clinician Unavailable MISTY Attending Clinician Unavailable MATERNAL Attending Clinician Unavailable BELLAIRE Attending Clinician Unavailable BELLAIRE Attending Clinician Unavailable CASTILLO Attending Clinician Unavailable BELLAIRE Attending Clinician Unavailable BELLAIRE Attending Clinician Unavailable CANCER Attending Clinician Unavailable GARETT Attending Clinician Unavailable BELLAIRE Attending Clinician Unavailable Payers Payer Name Policy Type Policy Effective Date Expiration Date Sour ce Number AETNAAETNA PPO [id number] 2019 [place] OPEN 00:00:00 Taoism [id number] 2019-Presen tPPO AETNA - MGD [id number] [address] [facility] - CAREAETNA HMO 00:00:[address] POS [id number] /1/2019-PresentH MO/POS Problems Condition Condition Condition Status Onset Resolution Last Treating Co mments Source Name Details Category Date Date Treatment Clinician Date Adrenal Adrenal Disease Active [facility] insufficie 3-03 [facility] kes - ncy ncy 00:00: Medical 00 Center 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 without without status status epilepticu epilepticu s s Seizure Seizure Disease Active 2015-10 Elise disorder disorder 0-04 Method i 00:00: st 00 Seizure Seizure Disease Active 2015-10 [place] 0-04 Methodi 00:00: st 00 Epilepsy Epilepsy Disease Active 2015-10 [place] Characteri Characteri 0-04 Me thodi zed by zed by 00:00: st 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 History of History of Problem Resolve Univers Epilepsy Epilepsy HL7.CCDAR2 d [facility] y [facility] [place] [facility] History of History of Problem Resolve Univers hypothyroi hypothyroi HL7.CCDAR2 d ity of dism dism [place] [facility] Lower Lower Problem Active Univers abdominal abdominal HL7.CCDAR2 ity of pain pain [place] [facility] Urethritis Urethritis Problem Active U nivers HL7.CCDAR2 [facility] [place] [facility] Fatigue Fatigue Problem Active Univers HL7.CCDAR2 [facility] [place] [facility] Dysuria Dysuria Problem Active Univers HL7.CCDAR2 [facility] [place] [facility] Urinary Urinary Problem Active Univers tract tract HL7.CCDAR2 [place] [facility] Menorrhagi Menorrhagi Problem Active U nivers a a HL7.CCDAR2 [facility] of [place] [facility] [place] Vaginitis Vaginitis Problem Active Uni vers HL7.CCDAR2 [facility] [place] [facility] Pelvic Pelvic Problem Active Univers pain in pain in HL7.CCDAR2 ity of female female [place] [facility] 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 toenail [place] [facility] Acute URI Acute URI Problem Active Uni vers HL7.CCDAR2 [facility] [place] [facility] Headache Headache Problem Active Unive rs HL7.CCDAR2 [facility] [place] [facility] Acute UTI Acute UTI Problem Active Uni vers HL7.CCDAR2 [facility] [place] [facility] Need for Need for Problem Active Unive rs HPV HPV HL7.CCDAR2 it[place] Lower back Lower back Problem Active U nivers pain pain HL7.CCDAR2 ity of [place] [facility] Encounter Encounter Problem Active Uni vers for for HL7.CCDAR2 ity of routine routine [place] [facility] gynecolog[facility] Ph y[facility] [place] ans examinatio examinatio n with n with Papanicola Papanicola ou smear ou smear of cervix of cervix Constipati Constipati Problem Active U nivers on on HL7.CCDAR2 ity of [place] [facility] Hypothyroi Hypothyroi Problem Active U nivers dism dism HL7.CCDAR2 [facility] of [place] [facility] Supervisio Supervisio Problem Active U nivers n of n of HL7.CCDAR2 ity of normal normal [place] [facility] ans Uterine Uterine Problem Active Univers scar from scar from HL7.CCDAR2 ity of previous previous [place] [facility] delivery, delivery, ans antepartum antepartum Blood Blood Problem Active Univers type, Rh type, Rh HL7.CCDAR2 it y of negative negative [place] [facility] History of History of Problem Active U nivers severe severe HL7.CCDAR2 ity of pre-eclamp pre-eclamp [place] [facility] Antepartum Antepartum Problem Active U nivers hemorrhage hemorrhage HL7.CCDAR2 ity of of early of early [place] [facility] ici ans High-risk High-risk Problem Active Uni vers HL7.CCDAR2 [facility] [place] [facility] S/P S/P Problem Active Univers HL7.CCDAR2 it y of section section [place] [facility] Urinary Urinary Problem Active Univers incontinen incontinen HL7.CCDAR2 ity of ce ce [place] [facility] Chronic Chronic Problem Active Univers RUQ pain RUQ pain HL7.CCDAR2 it [facility] [place] [facility] Female Female Problem Active Univers incontinen incontinen HL7.CCDAR2 ity of ce ce [place] [facility] Urinary Urinary Problem Active Univers symptom or symptom or HL7.CCDAR2 ity of sign sign [place] [facility] Hydronephr Hydronephr Problem Active U nivers osis, osis, HL7.CCDAR2 ity of right right [place] [facility] Encounter Encounter Problem Active Uni vers for for HL7.CCDAR2 [place] assessment assessment Ph ysici ans Fatigue Problem Active 2013-12-30 Bent[place] shyanne 15:01:23 l Fatigue [place] Active 4 [facility] Pain Problem Active 2013-12-30 Memor ia During 15:01:23 l Urination Pain [place] (Dysuria) During Urination (Dysuria) Active 4 [facility] Urethritis Problem Active 2013-12-30 M emoria 15:01:23 l [place] Urethritis Active 12/30/2013 [facility] Urinary Problem Active 2013-12-30 Bentley shyanne Tract 15:01:23 l Infection Urinary Herm chi[place] Infection Active 4 [facility] Hypothyroi Problem Active 2013-12-30 M emoria dism 15:01:23 l [place] Hypothyroi dism Active 4 [facility] Allergies, Adverse Reactions, Alerts Allergy Allergy Status Severity Reaction(s) Onset Inactive Treating Comm ents Source Name Type Date Date Clinician Amoxicil Drug Active Hives 2019-[address] [facility] [address] [facility] Allergy 11[facility]13 [facility] Center Sulfamet Drug Active Anaphylaxis 2019-[address] hoxazole Allergy 11-13 [facility] - -Trimeth 00:00: Medical oprim 00 Center Gentamic Drug Active Anaphylaxis 2019-[address] in Allergy 11-13 [facility] - [facility] Medical 00 Center Levoflox Drug Active Hives 2019-[address] [facility] acin Allergy 11-13 [facility] - 00:[facility]: Medical 00 Center Sulfa Drug Active Anaphylaxis 2019-0 [facility] t (Sulfona Allergy 11-13 [facility] - mide 00:00: Medical Antibiot 00 Center ics) Penicill DA Active MO 2018-0 [facility] ins 2-16 Clear 00:00: Drew 00 [facility] Sulfa DA Active MO 2018-0 [facility] (Sulfona 2-16 Clear mide 00:00: Drew Antibiot 00 [facility] sulfamet DA Active SV 0 [facility] hoxazole 2-16 Clear 00:00: Drew 00 [facility] trimetho DA Active SV 0 [facility] prim 2-16 Clear 00:00: Drew 00 [facility] amoxicil DA Active MO 2018-0 [facility] cally 2-16 Clear 00:00: Drew 00 [facility] gentamic DA Active SV 2017-0 [facility] in 2-16 Clear 00:00: Drew 00 [facility] levoflox DA Active [place] 0 [facility] acin 2-16 Clear 00:00: Drew 00 [facility] ciproflo DA Active MO 2017-0 [facility] xacin 2-16 [facility] 00:[facility]: Hospita 00 [facility] Trimetho Propensi Active [place] prim ty to 2-16 Methodi adverse 00:00: st reaction 00 s to drug Gentamic Propensi Active Anaphylaxis 2017-0 [place] in ty to 8-10 Methodi adverse 00:00: st reaction 00 s to drug Sulfamet Propensi Active Anaphylaxis 2017-0 [place] hoxazole ty to 8-10 Methodi -Trimeth adverse 00:00: st oprim reaction 00 s to drug Penicill Propensi Active Hives, Rash 2015-10 [place] ins ty to 08 Methodi adverse 00:00: st reaction 00 s to drug Sulfasal Propensi Active Hives 2015-10 [place] azine ty to 08 Methodi adverse 00:00: st reaction 00 s to drug Ciproflo Propensi Active Hives, Rash 2015-10 [place] xacin ty to 11-03 Methodi adverse 00:00: st reaction 00 s to drug Levoflox Propensi Active Hives 2015-10 [place] acin ty to 11-03 Methodi adverse 00:00: st reaction 00 s to drug Penicill Propensi Active Hives 2015-10 [place] in G ty to 11-03 Methodi adverse 00:00: st reaction 00 s to drug Amoxicil Propensi Active Hives 2015-10 [place] cally ty to 0-04 Methodi adverse 00:00: st reaction 00 s to drug Sulfa Propensi Active Hives, Rash 2011- Marcus montano (Sulfona ty to 1 Methodi mide adverse 00:00: st Antibiot reaction 00 ics) s to drug Cipro drug Active Univers allergy [facility]y of [place] [facility] Levaquin drug Active Univers allergy [facility]y of [place] [facility] Penicill drug Active Univers ins allergy ity of [place] [facility] Sulfa drug Active Univers Drugs allergy ity of [place] [facility] Sulfa Sulfa Active [facility]oria Drugs Drugs l [place] Amoxicil Amoxicil Active Memori a cally TABS cally TABS l [place] Family History Family Member Diagnosis Comments Start Date Stop Date Source Unknown Family Family history of Family History [facility] of Member hypertension [place] [facility] Unknown Family Family history of Family History [facility] of Member diabetes mellitus [place] [facility] Unknown Family Family history of Family History [facility] of Member malignant neoplasm [place] [facility] ovary Unknown Family Family history of Family History [facility] of Member thyroid disease [place] [facility] Unknown Family Family history of Family History University of Member malignant neoplasm [place] [facility] of breast Father Family history of Univers ity of seizure disorder [place] [facility] Natural father Hypertension [place] Taoism Natural father Seizures [place] Taoism Natural mother No Known Problems Marcus montano Taoism Social History Social Habit Start Date Stop Date Quantity Comments Source History [facility] St[facility] Medical Cent[facility] r Drinks History [facility] - Alcohol Binge Medical Netta ter Sex Assigned At [facility] Tobacco use and 2019-12-19 2019-12-19 Never used [place] exposure 00:00:00 00:00:00 Taoism Alcohol intake 2019 2019 Current [facility] Charlette es - 00:00:00 00:00:00 non-drinker of Medical Ce nter alcohol (finding) History SDOH [address] [facility] - Alcohol Frequency 00:00:00 00:00:00 [facility] Alcohol Comment 2016-07-29 2016-07-29 occasional [place] 00:00:00 00:00:00 Taoism Social History 2013-12-30 2013-12-30 [facility] 15:01:23 15:01:23 Smoking Status Start Date Stop Date Source Never smoker Arik cohen Current every day smoker 2019 00:00:00 [facility] Medications Ordered Filled Start Stop Current Ordering Indication Dosage Frequency Signature Comments Components Source Medication Medication Date Date Medication? Clinician (SIG) Name Name folic acid Yes TAKE 2 [place] (FOLVITE) 1 2-11 TABLETS(2 Met hodi MG tablet 00:00: MG) BY st 00 MOUTH DAILY perampanel 2019- No Take 1 tab Arik (FYCOMPA) 2 2-05 08-05 at night Met hodi mg tablet 00:00: 23:[address] tablet 00 :00 weeks, then 2 tabs at night for 2 weeks, then 3 tabs at night for rest of therapy. cholestyram No 1{packe Take [address] [facility] ine 11-14 t} packet by [facility] - (QUESTRAN) 00:00: 23:59 mouth 2 Med ical 4 gram PwPk 00 :00 (two) Center packet times daily with breakfast and dinner. ondansetron 2019- No 4mg Take [address] (ZOFRAN-ODT 11-14 tablet (4 [facility] kes - ) 4 MG 00:00: 23:59 mg total) Medic al disintegrat 00 :00 by mouth Cent er ing tablet every 8 (eight) hours as needed for Nausea for up to 7 days. folic acid Yes 1mg QD Take [address] (FOLVITE) 1 1-19 by mouth Luke s - MG tablet 19:56: daily. Medica l 02 Center topiramate 2019-0 Yes 250mg Q.5D Take [address] (TOPAMAX) 1-19 mg by [facility] - 200 MG 19:56: mouth 2 Medical tablet 02 (two) Center times daily. levothyroxi 2019-0 Yes 112ug Take [address] ne 1-[address] [facility] - (SYNTHROID, 19:56: mouth Medic al LEVOTHROID) 02 Every Center 112 MCG morning on tablet an empty stomach. cefpodoxime 2019-0 Yes 200mg Q.5D Take [address] (VANTIN) 1-19 mg by [facility] - 200 MG 19:56: mouth 2 Medical tablet 02 (two) Center times daily. folic acid 0 2020- No TAKE 2 [place] (FOLVITE) 1 1-09 02-11 TABLETS(2 Me thodi MG tablet 00:00: 00:00 MG) BY st 00 :00 MOUTH DAILY topiramate 2018-10 Yes 200mg Q.5D Take 1 [place] (TOPAMAX) 2-09 tablet Methodi 200 MG 00:00: ([address] tablet 00 total) by mouth 2 (two) times a day. Take with 50 mg tablet topiramate 2018-10 Yes 50mg Q.5D Take 1 [place] (TOPAMAX) 2-09 tablet (50 Meth esme 50 MG 00:00: mg total) st tablet 00 by mouth 2 (two) times a day. Take with 200 mg tablet folic acid Yes TAKE 2 [place] (FOLVITE) 1 7-15 TABLETS BY Me thodi MG tablet 00:00: MOUTH st 00 EVERY DAY topiramate Yes TAKE 1 [place] (TOPAMAX) 7-15 TABLET BY Metho di 50 MG 00:00: MOUTH st tablet 00 TWICE DAILY topiramate 20190 2019- No 1 tab PO [place] (TOPAMAX) 03-10 12 BID Methodi 200 MG 00:00: 00:00 st tablet 00 :00 topiramate 0 2019- No 1 tab PO [place] (TOPAMAX) 03-10 12 qAM and 2 Meth esme 50 MG 00:00: 00:[address] tablet 00 :00 Cefpodoxime Cefpodoxime Yes DORIS 1 Q0.5D TAKE 1 Univers Proxetil Proxetil 16 [place] N.P. TABLET ity of 200 MG Oral 200 MG Oral 00:00: TWICE [place] Tablet Tablet 00 DAILY Physici ans Butalbital- Butalbital- Yes DORIS 1 Q8H TAKE 1 Univers APAP-Caffei APAP-Caffei 806 [facility] N.P. CAPSULE ity of ne ne 00:00: Every 8 [place] 50-300-40 50-300-40 00 hours PRN Physici MG Oral MG Oral headache ans Capsule Capsule Macrobid Macrobid Yes Unive rs 100 MG Oral 100 MG Oral 7-13 i ty of Capsule Capsule 00:00: [place] 00 Physici ans Keflex 500 Keflex 500 Yes U nivers MG Oral MG Oral 6-01 ity of Capsule Capsule 00:00: [place] [facility] Sertraline Sertraline Yes DORIS 1 QD TAKE 1 Univers HCl - 50 MG HCl - 50 MG 5-18 SHARP N.P. TABLET ity of Oral Tablet Oral Tablet 00:00: DAILY Physici ans Yes Unive rs 28-0.8 MG 28-0.8 MG 1-26 ity o f Oral Tablet Oral Tablet 00:00: [place] 00 Physici ans levothyroxi 2016-10 Yes TK 1 T PO [place] ne 2-31 QAM ON AN Methodi (SYNTHROID, 00:00: EMPTY st LEVOXYL) 88 00 STOMACH mcg tablet Folic Acid Folic Acid 2016-10 Yes MOON QD TAKE 3 Univers 1 MG Oral 1 MG Oral 2-18 CRYSTAL TABLETS ity of Tablet Tablet 00:00: M.D. DAILY Physici ans Levoxyl 125 Levoxyl 125 Yes MOON Univers MCG Oral MCG Oral 9-06 CRYSTAL ity o f Tablet Tablet 00:00: M.D. [place] [facility] Topamax 200 Topamax 200 2015-10 Yes NANI Q0.5D TAKE 1 Univers MG Oral MG Oral 0-26 GARETT N.P. TABLET i ty of Tablet Tablet 00:00: TWICE [place] 00 DAILY. Physici ans Topamax 50 Topamax 50 2015-10 Yes NANI TAKE 1 Univers MG Oral MG Oral 0-26 GARETT N.P. TABLET BY ity of Tablet Tablet 00:00: MOUTH [place] 00 TWICE Physici DAILY ans Levothyroxi Yes ; Start Mem oria ne Sodium 2-12 Date: l 88 MCG Oral 06:00: 12/07/2012 [place] Tablet 00 ; End Date: (Active) Uribel 118 Yes ; Start Bentley shyanne MG Oral 2- Date: l Capsule 06:00: 12/18/2011 Herm chioma 00 ; End Date: (Active) Topamax 50 2011- Yes ; Start Bentley shyanne MG Oral 2- Date: l Tablet 06:00: 12/18/2011 M[place] nn 00 (Active) Levothyroxi Yes ; Start Mem oria ne Sodium 12-18 Date: l 75 MCG Oral 06:00: 12/18/2011 [place] Tablet 00 (Active) Immunizations Ordered Filled Immunization Date Status Comments Sourc e Immunization Name Name Tdap (Adacel) 2018-03-12 Completed University 00:00:00 [place] [facility] HPV (Gardasil) 2016-08-20 Completed University 15:00:00 [place] [facility] Vital Signs Vital Name Observation Time Observation Value Comments Source Systolic blood 2019-12-28 99 mm[Hg] [facility] - pressure 08[facility]48[facility]00 [facility] Center Diastolic blood 2019-12-28 58 mm[Hg] [facility] - pressure 08:48:00 [facility] Center Heart rate 2019-12-28 63 /min [facility] - 08[facility]48:00 [facility] Body temperature 2019-12-[address] [facility] - 08:48:00 [facility] Center Respiratory rate 2019-12-28 19 /min [facility] - 08:48:00 [facility] Center Body weight 2019-12-[address] [facility] - 08:48:00 [facility] Center BMI 2019-12-28 23.13 kg/m2 [facility] - 08:48:00 [facility] Center Oxygen saturation 2019-12-28 100 /min [facility] - in Arterial blood 08:48:00 Medical nter by Pulse oximetry Body height [address] [facility] - 19:46:00 [facility] Center BP Systolic 2018-06-29 100 mm[Hg] [facility] 13:14:00 [place] [facility] BP Diastolic 2018-06-29 69 mm[Hg] [facility] 13:14:00 [place] [facility] Height 2018-06-29 64 [in_us] University 13:14:00 [place] [facility] Weight 2018-06-29 143 [lb_av] University of 13:14:00 [place] [facility] Body Mass Index 2018-06-29 24.55 kg/m2 University o f Calculated 13:14:00 [place] [facility] Temperature 2018-06-29 98.4 [degF] [facility] 13:14:00 [place] [facility] Heart Rate 2018-06-29 60 /min [facility] 13:14:00 [place] [facility] O2 SAT 2018-06-29 99 % [facility] 13:14:00 [place] [facility] BP Systolic 2018-05-31 104 mm[Hg] University of 14:43:00 [place] [facility] BP Diastolic 2018-05-31 74 mm[Hg] University of 14:43:00 [place] [facility] Height 2018-05-31 64 [in_us] University of 14:43:00 [place] [facility] Weight 2018-05-31 146 [lb_av] University of 14:43:00 [place] [facility] Body Mass Index 2018-05-31 25.06 kg/m2 University o f Calculated 14:43:00 [place] [facility] s Temperature 2018-05-31 100.1 [degF] University of 14:43:00 [place] [facility] Heart Rate 2018-05-31 66 /min University of 14:43:00 [place] [facility] O2 SAT 2018-05-31 98 % University of 14:43:00 [place] [facility] BP Systolic 2018-05-25 101 mm[Hg] University of 09:37:00 [place] [facility] BP Diastolic 2018-05-25 76 mm[Hg] University of 09:37:00 [place] [facility] Height 2018-05-25 64 [in_us] University of 09:37:00 [place] [facility] Weight 2018-05-25 146 [lb_av] University of 09:37:00 [place] [facility] Body Mass Index 2018-05-25 25.06 kg/m2 University o f Calculated 09:37:00 [place] [facility] Temperature 2018-05-25 98 [degF] University of 09:37:00 [place] [facility] Heart Rate 2018-05-25 69 /min University of 09:37:00 [place] [facility] O2 SAT 2018-05-25 98 % University of 09:37:00 [place] [facility] BP Systolic 2018-05-07 125 mm[Hg] University of 08:30:00 [place] [facility] BP Diastolic 2018-05-07 84 mm[Hg] University of 08:30:00 [place] [facility] BP Systolic 2018-05-07 139 mm[Hg] University of 08:18:00 [place] [facility] BP Diastolic 2018-05-07 95 mm[Hg] University of 08:18:00 [place] [facility] Height 2018-05-07 64 [in_us] University of 08:18:00 [place] [facility] Weight 2018-05-07 173 [lb_av] University of 08:18:00 [place] [facility] Body Mass Index 2018-05-07 29.7 kg/m2 University o f Calculated 08:18:00 [place] [facility] Temperature 2018-05-07 98.8 [degF] University of 08:18:00 [place] [facility] Heart Rate 2018-05-07 71 /min University of 08:18:00 [place] [facility] O2 SAT 2018-05-07 97 % University of 08:18:00 [place] [facility] BP Systolic 2018-04-23 118 mm[Hg] University of 10:30:00 [place] [facility] BP Diastolic 2018-04-23 83 mm[Hg] University of 10:30:00 [place] [facility] Height 2018-04-23 64 [in_us] University of 10:30:00 [place] [facility] Weight 2018-04-23 166 [lb_av] University of 10:30:00 [place] [facility] Body Mass Index 2018-04-23 28.49 kg/m2 University o f Calculated 10:30:00 [place] [facility] s Temperature 2018-04-23 97.1 [degF] University of 10:30:00 [place] [facility] Heart Rate 2018-04-23 76 /min [facility] of 10:30:00 [place] [facility] O2 SAT 2018-04-23 98 % University of 10:30:00 [place] [facility] BP Systolic 2018-04-09 110 mm[Hg] University of 08:30:00 [place] [facility] BP Diastolic 2018-04-09 75 mm[Hg] University of 08:30:00 [place] [facility] Height 2018-04-09 64 [in_us] University of 08:30:00 [place] [facility] Weight 2018-04-09 159 [lb_av] University of 08:30:00 [place] [facility] Body Mass Index 2018-04-09 27.29 kg/m2 University o f Calculated 08:30:00 [place] [facility] Temperature 2018-04-09 98.2 [degF] University of 08:30:00 [place] [facility] Heart Rate 2018-04-09 76 /min University of 08:30:00 [place] [facility] O2 SAT 2018-04-09 98 % University of 08:30:00 [place] [facility] BP Systolic 2018-03-26 103 mm[Hg] Location: [facility] of 08:30:00 Position: [place] [facility] Sitting BP Diastolic 2018-03-26 73 mm[Hg] Location: [facility] of 08:30:00 Position: [place] [facility] Sitting Height 2018-03-26 64 [in_us] University of 08:30:00 [place] [facility] Weight 2018-03-26 152.25 [lb_av] University of 08:30:00 [place] [facility] Body Mass Index 2018-03-26 26.13 kg/m2 University o f Calculated 08:30:00 [place] [facility] Temperature 2018-03-26 97.9 [degF] Method: Oral University of 08:30:00 [place] [facility] Heart Rate 2018-03-26 67 /min University of 08:30:00 [place] [facility] BP Systolic 2018-03-19 107 mm[Hg] University of 09:06:00 [place] [facility] BP Diastolic 2018-03-19 75 mm[Hg] University 09:06:00 [place] [facility] Height 2018-03-19 64 [in_us] University of 09:06:00 [place] [facility] Weight 2018-03-19 150 [lb_av] University of 09:06:00 [place] [facility] Body Mass Index 2018-03-19 25.75 kg/m2 University o f Calculated 09:06:00 [place] [facility] Temperature 2018-03-19 98.6 [degF] [facility] 09:06:00 [place] [facility] Heart Rate 2018-03-19 80 /min [facility] 09:06:00 [place] [facility] O2 SAT 2018-03-19 98 % University of 09:06:00 [place] [facility] BP Systolic 2018-03-12 104 mm[Hg] University of 09:35:00 [place] [facility] BP Diastolic 2018-03-12 70 mm[Hg] University of 09:35:00 [place] [facility] Height 2018-03-12 64 [in_us] University of 09:35:00 [place] [facility] Weight 2018-03-12 149 [lb_av] University of 09:35:00 [place] [facility] Body Mass Index 2018-03-12 25.58 kg/m2 University o f Calculated 09:35:00 [place] [facility] Temperature 2018-03-12 98.4 [degF] University :35:00 [place] [facility] Heart Rate 2018-03-12 84 /min [facility] 09:35:00 [place] [facility] O2 SAT 2018-03-12 98 % University of 09:35:00 [place] [facility] BP Systolic 2018-02-12 114 mm[Hg] [facility] 08:50:00 [place] [facility] BP Diastolic 2018-02-12 80 mm[Hg] [facility] 08:50:00 [place] [facility] Height 2018-02-12 64 [in_us] University of 08:50:00 [place] [facility] Weight 2018-02-12 146 [lb_av] University of 08:50:00 [place] [facility] Body Mass Index 2018-02-12 25.06 kg/m2 University o f Calculated 08:50:00 [place] [facility] Temperature 2018-02-12 98.1 [degF] University of 08:50:00 [place] [facility] Heart Rate 2018-02-12 74 /min University of 08:50:00 [place] [facility] BP Systolic 2018-01-15 114 mm[Hg] University of 10:14:00 [place] [facility] BP Diastolic 2018-01-15 74 mm[Hg] University of 10:14:00 [place] [facility] Height 2018-01-15 64 [in_us] University of 10:14:00 [place] [facility] Weight 2018-01-15 140.375 [lb_av] University o 10:14:00 [place] [facility] Body Mass Index 2018-01-15 24.1 kg/m2 University o f Calculated 10:14:00 [place] [facility] Temperature 2018-01-15 98.4 [degF] University of 10:14:00 [place] [facility] Heart Rate 2018-01-15 87 /min University of 10:14:00 [place] [facility] O2 SAT 2018-01-15 98 % University of 10:14:00 [place] [facility] Height 2018-01-08 64 [in_us] University of 10:13:00 [place] [facility] Weight 2018-01-08 141 [lb_av] University of 10:13:00 [place] [facility] Body Mass Index 2018-01-08 24.2 kg/m2 University o f Calculated 10:13:00 [place] [facility] Temperature 2018-01-08 98.8 [degF] University of 10:13:00 [place] [facility] Heart Rate 2018-01-08 96 /min University of 10:13:00 [place] [facility] O2 SAT 2018-01-08 98 % University of 10:13:00 [place] [facility] BP Systolic 2017-12-18 118 mm[Hg] [facility] 08:28:00 [place] [facility] BP Diastolic 2017-12-18 76 mm[Hg] [facility] 08:28:00 [place] [facility] Height 2017-12-18 64 [in_us] [facility] 08:28:00 [place] [facility] Weight 2017-12-18 137 [lb_av] [facility] 08:28:00 [place] [facility] Body Mass Index 2017-12-18 23.52 kg/m2 University o f Calculated 08:28:00 [place] [facility] Temperature 2017-12-18 98.8 [degF] [facility] 08:28:00 [place] [facility] Heart Rate 2017-12-18 82 /min [facility] 08:28:00 [place] [facility] O2 SAT 2017-12-18 98 % [facility] 08:28:00 [place] [facility] BP Systolic 2017-11-20 110 mm[Hg] [facility] 08:53:00 [place] [facility] BP Diastolic 2017-11-20 76 mm[Hg] [facility] 08:53:00 [place] [facility] Height 2017-11-20 64 [in_us] [facility] 08:53:00 [place] [facility] Weight 2017-11-20 132 [lb_av] [facility] of 08:53:00 [place] [facility] Body Mass Index 2017-11-20 22.66 kg/m2 University o f Calculated 08:53:00 [place] [facility] Temperature 2017-11-20 99.1 [degF] [facility] of 08:53:00 [place] [facility] Heart Rate 2017-11-20 75 /min University of 08:53:00 [place] [facility] O2 SAT 2017-11-20 99 % [facility] 08:53:00 [place] [facility] BP Systolic 2017-10-23 118 mm[Hg] [facility] of 12:53:00 [place] [facility] BP Diastolic 2017-10-23 77 mm[Hg] [facility] 12:53:00 [place] [facility] Weight 2017-10-23 128 [lb_av] [facility] 12:53:00 [place] [facility] BP Systolic 2017-10-12 115 mm[Hg] [facility] 14:17:00 [place] [facility] BP Diastolic 2017-10-12 81 mm[Hg] [facility] 14:17:00 [place] [facility] Weight 2017-10-12 129 [lb_av] [facility] 14:17:00 [place] [facility] Height 2017-10-12 64 [in_us] [facility] of 14:17:00 [place] [facility] Body Mass Index 2017-10-12 22.14 kg/m2 University o f Calculated 14:17:00 [place] [facility] Temperature 2017-10-12 98.9 [degF] [facility] 14:17:00 [place] [facility] Heart Rate 2017-10-12 66 /min [facility] 14:17:00 [place] [facility] Procedures Procedure Date / Time Performing Clinician Source Performed CORTISOL 2019-12-28 10:47:00 [facility] CORTISOL 2019-12-28 10:15[facility]-12[facility]28 09:[facility]-12[facility]28 [facility] 2019-12-19 14:47:00 Shannan Poe odmoira URINALYSIS, AUTOMATED WITH 2019-12-19 14:47:00 Shannan Poe MICROSCOPY MICROSCOPIC EXAMINATION 2019-12-19 14:47:00 Shannan Poe POC URINALYSIS DIPSTICK 2019-12-19 14:45:00 Shannan Poe TOPIRAMATE LEVEL 2019-11-22 16:43:00 Hiren Dominguez hodist COMPREHENSIVE METABOLIC 2019-11-22 16:43:00 Hiren Dominguez PANEL BLOOD GAS, ARTERIAL 2019-11-14 01:00:00 Christiano Quintero [facility] OBTAIN MEDICAL RECORDS 2019-11-14 00:00:[address] ABDOMEN/PELVIS WITH & 2019 23:54:[address] [facility] WITHOUT IV CONTRAST Medical Cent er BASIC METABOLIC PANEL (7) 2019 23:27:00 Christiano Quintero [facility] D-DIMER 2019 21:33:00 Christiano Quintero [facility] COMPREHENSIVE METABOLIC 2019 20:17:[address] [facility] LIPASE 2019 20:17:00 Christiano Quintero [facility] PHOSPHORUS 2019 20:17:00 Christiano Quintero [facility] MAGNESIUM 2019 20:17:00 Christiano Quintero [facility] CBC W/PLT COUNT & AUTO 2019 20:17:00 Christiano Quintero [facility] URINALYSIS W/ REFLEX URINE 2019 20:09:00 Christiano Quintero [facility] SCREEN, URINE 2019 20:09:00 Christiano Quintero [facility] [QLH] CULTURE, URINE, 2018-06-29 00:00:00 [facility] [QLH] URINALYSIS, COMPLETE 2018-06-29 00:00[facility] [QL] CULTURE, URINE, 2018-05-31 00:00:00 [facility] [QL] URINALYSIS, COMPLETE 2018-05-31 00:00:00 U [facility] Physicians [Q] PROTEIN, TOTAL 2018-05-07 00:00:00 [facility] ty [facility] W/CREAT, RANDOM URINE Physicians [QL] CBC (INCLUDES 2018-05-07 00:00:00 [facility] DIFF/PLT) Physicians [QLH] CMP W/EGFR 2018-05-07 00:00:00 [facility] Physicians [QH] HIV AB, HIV 1/2, EIA, 2018-04-23 00:00:00 U [facility] WITH REFLEXES Physicians [QL] CULTURE, URINE, 2018-04-09 [facility]] URINALYSIS, COMPLETE 2018-04-09 00:00:00 U [facility] Physicians EKG w/Rhythm Strip 2018-03-19 00:00:00 [facility] Physicians [QL] CULTURE, URINE, 2018-03-19 00:00:00 Univ sity [facility] ROUTINE Physicians [QL] URINALYSIS, COMPLETE 2018-03-19 00:00[facility]00 [facility]] AMYLASE 2018-03-19 00:00:00 [facility] [place] [facility] [QLH] LIPASE 2018-03-19 00:00:00 [facility] [place] [facility] [QLH] ALT 2018-03-19 00:00:00 [facility] [place] [facility] [QLH] AST 2018-03-19 00:00:00 [facility] [place] [facility] [QLH] CBC (INCLUDES 2018-03-12 00:00:00 [facility] DIFF/PLT) Physicians [QLH] GLUCOSE, GESTATIONAL 2018-03-12 00:00:00 [facility] S[facility]EN ([id number] CUTOFF Physicia ns [QLH] URINALYSIS, COMPLETE 2018-03-12 00:00:00 [facility] [QL] CULTURE, URINE, 2018-03-12 00:00:00 Univer sity [facility] ROUTINE Physicians [QLH] CULTURE, URINE, 2018-02-12 00:00:00 Univer sity [facility] ROUTINE Physicians [QLH] URINALYSIS, COMPLETE 2018-02-12 00:00:00 [facility] [QLH] LIPASE 2018-02-12 00:00:00 [facility] Physicians [QLH] AMYLASE 2018-02-12 00:00:00 [facility] Physicians [QLH] CMP W/EGFR 2018-02-12 00:00:00 [facility] Physicians [QL] CBC (INCLUDES 2018-02-12 00:00:00 [facility] DIFF[facility]PLT) Physicians US Abdomen RUQ [id number] 2018-02-12 00:00:00 [facility] [QL] CULTURE, URINE, 2018-01-15 00:00:00 Univer sity [facility] ROUTINE Physicians [QLH] URINALYSIS, COMPLETE 2018-01-15 00:00:00 [facility] [QL] CULTURE, URINE, 2018-01-08 00:00:00 Univer sity [facility] ROUTINE Physicians [QLH] URINALYSIS, COMPLETE 2018-01-08 00:00:00 [facility] [QL] CULTURE, URINE, 2017-12-18 00:00:00 Univer sity [facility] ROUTINE Physicians [QL] URINALYSIS, COMPLETE 2017-12-18 00:00:00 [facility] [QL] CBC (INCLUDES 2017-12-18 00:00:00 [facility] DIFF/PLT) Physicians [Q] MATERNAL SERUM AFP 2017-12-18 00:00[facility] CMP W/EGFR 2017-11-20 00:00:00 University [facility] Physicians [LH] GC/CT by Amp Det 2017-11-20 00:00:00 [facility] (APTIMA) Physicians [QH] PROTEIN, TOTAL 2017-11-20 00:00:00 [facility] W/CREAT, RANDOM URINE Physicians [QLH] CULTURE, URINE, 2017-10-23 00:00:00 [facility] ROUTINE Physicians [QLH] URINALYSIS, COMPLETE 2017-10-23 00:00:00 U [facility] Physicians [H] Obstetrics Panel 2017-10-12 00:00:00 [facility] (includes CBCw/Diff,RPR, Physici ans HbsAg,RubIgG,Type and Screen) [H] Hemoglobin 2017-10-12 00:00:00 [facility] Electrophoresis and Physicians Interpretation [LH] TSH+Free T4 2017-10-12 00:00:00 [facility] Physicians [QLH] CMP W/EGFR 2017-10-12 00:00:00 [facility] Physicians [Q] SMA CARRIER SCREEN 2017-10-12 00:00:00 [facility] Physicians [QLH] CYSTIC FIBROSIS 2017-10-12 00:00:00 [facility] SCREEN Physicians [QLH] CULTURE, URINE, 2017-10-12 00:00:00 [facility] ROUTINE Physicians [QLH] URINALYSIS, COMPLETE 2017-10-12 00:00:00 U [facility] Physicians [Q] HIV AB, HIV 1/2, EIA, 2017-10-12 00:00:00 Un [facility] WITH REFLEXES Physicians [L] Creatine, Serum 2017-10-12 00:00:00 [facility] Physicians [QLH] LD 2017-10-12 00:00:00 [facility] Physicians [QLH] URIC ACID 2017-10-12 00:00:00 [facility] Physicians [QLH] CBC (INCLUDES 2017-10-12 00:00:00 [facility] DIFF/PLT) Physicians [L] Hepatic Function Panel 2017-10-12 00:00:00 U [facility] (6) Physicians [QH] PROTEIN, TOTAL 2017-10-12 00:00:00 [facility] W/CREAT, RANDOM URINE Physicians [QLH] VITAMIN B12 2017-10-12 00:00:00 [facility] Physicians [L] Vitamin D, 25-Hydroxy, 2017-10-12 00:00:00 U [facility] Total - [employer] Physicians [QH] HIV AB, HIV 1/2, EIA, 2017-10-12 00:00:00 U [facility] WITH REFLEXES Physicians History of Appendectomy [facility] Physicians History of [facility] [place] [facility] Physicians History of Cholecystectomy [facility] Physicians Plan of Care Planned Activity Planned Date Details Comments Source Future Scheduled 2020-06-26 INFLUENZA VACCINE (#1) [facility] Test 00:00:00 [code = INFLUENZA Medical Ce nter VACCINE (#1)] Future Scheduled 2020-05-26 INFLUENZA VACCINE [place] [facility] Test 00:00:00 [code = INFLUENZA VACCINE] Future Scheduled 2013-12-30 Plan of Care [code = Mem orial [place] Test 15:01:23 82642-6] Future Scheduled 2013 Screening for [facility] Test 00:00:00 malignant neoplasm of cervix (procedure) [code = 262213235] Future Scheduled 2013 Screening for [facility] - Test 00:00:00 malignant neoplasm of Medica l Center cervix (procedure) [code = 408555520] Future Scheduled 2012-12-11 Plan of Care [code = Mem orial [place] Test 19:00:39 87471-1] Future Scheduled 2012-12-08 Plan of Care [code = Mem orial [place] Test 00:02:23 63638-9] Future Scheduled 2012-12-01 Plan of Care [code = Mem orial [place] Test 18:33:27 41991-9] Future Scheduled [address] [facility] - Test 00:00:00 (procedure) [code = Medical Center 48594933] Future Scheduled [address] [facility] - Test 00:00:00 0-64 YRS (1 of 1 - Medical C enter PPSV23) [code = PNEUMOCOCCAL VACCINE 0-64 YRS (1 of 1 - PPSV23)] Encounters Start End Encounter Admission Attending Care Care Encounter Source Date/Time Date/Time Type Type Clinicians Facility Department ID 2019-12-19 2019-12-19 Outpatient [facility] [id number] 00:00:00 00:00:00 [address] 2019-12-13 2019-12-13 Office Pankaj Nicole [id number] 12:33:03 13:31:03 Visit AMBULATOR [id number] Y [id number] 2018-07-09 2018-07-09 Appointmen ANUJA ROJASaire [id number] Univers 13:15:00 13:15:00 t; MOON ROJAS Women's ity Hung MUSTAFA Hanna Veronica Persaud Physici ans 2018-07-09 2018-07-09 Appointmen ANUJA PUGH [id number] Univers 11:30:00 11:30:00 t; DORIS PUGH, i ty of [facility] Physici ans 2018-06-29 2018-06-29 Appointmen ANUJA PUGH [place] [id number] Univers 13:00:00 13:00:00 t; DORIS PUGH [facility] Physici ans 2018-06-22 2018-06-22 Appointmen ANUJA JAY [place] [id number] Univers 14:00:00 14:00:00 t; Hung BOWMAN Women's ity of [facility] Hung BOWMAN Physi ci ans 2018-05-31 2018-05-31 Appointmen ANUJA PUGH [place] [id number] Univers 14:00:00 14:00:00 t; DORIS PUGH [facility] Physici ans 2018-05-25 2018-05-25 Appointmen ANUJA PUGH [place] [id number] Univers 09:30:00 09:30:00 t; DORIS PUGH [facility] Physici ans 2018-05-25 2018-05-25 Appointmen ANUJA PUGH [place] [id number] Univers 09:00:00 09:00:00 t; DORIS PUGH [facility] Physici ans 2018-05-21 2018-05-21 Appointmen ANUJA PUGH [facility] [id number] Univers 09:00:00 09:00:00 t; DORIS PUGH i ty of [place] 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 Physici ans 2018-05-21 2018-05-21 Appointmen ANUJA JAY [id number] Univers 09:00:00 09:00:00 t; Hung BOWMAN Women's ity of [facility] Hung BOWMAN Physi ci ans 2018-05-14 2018-05-14 Appointmen MATERNAL, [facility] [id number] Univers 07:15:00 07:15:00 t; PHYSICIAN ity [place], [place] PHYSICIAN Physic i ans 2018-05-07 2018-05-07 Appointmen MISTY [facility] [id number] Univers 08:30:00 08:30:00 t; Hung BOWMAN Women's ity of [facility] Hung BOWMAN Physi ci ans 2018-05-07 2018-05-07 Appointmen SHARMILA [facility] [id number] Univers 08:00:00 08:00:00 t; USROOM1 ity of [place] [address] Physici ans 2018-04-30 2018-04-30 Appointmen SHARMILA [facility] [id number] Univers 08:30:00 08:30:00 t; USROOM1 Women's ity [place] [address] Physici ans 2018-04-23 2018-04-23 Appointmen MISTY [facility] Piano Regulator Inspector [id number] Univers 11:00:00 11:00:00 t; Hung BOWMAN ity of [place], [place] Hung BOWMAN Physi ci ans 2018-04-23 2018-04-23 Appointmen SHARMILA [facility] [id number] Univers 10:30:00 10:30:00 t; USROOM1 ity of [place] [address] Physici ans 2018-04-23 2018-04-23 Appointmen MISTY [facility] [place] [id number] Univers 08:30:00 08:30:00 t; Hung BOWMAN Women's ity of [facility] Hung BOWMAN Physi ci ans 2018-04-16 2018-04-16 ANUJA Bagley UTP [id number] Univers 08:30:00 08:30:00 t; USROOM1 ity of [place], [place] USROOM1 Physici ans 2018-04-15 2018-04-15 AppointANUJA Peterson UTP [id number] Univers 08:30:00 08:30:00 t; USROOM1 ity of [place], [place] USROOM1 Physici ans 2018-04-09 2018-04-09 AppointANUJA Maynard [id number] Univers 08:30:00 08:30:00 t; Hung BOWMAN Women's ity of [facility] Hung BOWMAN Physi ci ans 2018-04-09 2018-04-09 AppointANUJA Peterson UTP [id number] Univers 08:00:00 08:00:00 t; USROOM1 ity of [facility] Physici ans 2018-03-30 2018-03-30 AppointANUJA Zelaya [id number] Univers 09:30:00 09:30:00 t; DORIS PUGH Women's i ty of [facility] 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 Physici ans 2018-03-26 2018-03-26 AppointANUJA Peterson [facility] [id number] Univers 10:00:00 10:00:00 t; EKG ity of [place], [place] EKG Physici ans 2018-03-26 2018-03-26 AppointANUJA Bello [id number] Univers 08:00:00 08:00:00 t; RAZIA Women's ity of Hung CAST[facility]O [facility] RANDLE M.D. ans 2018-03-19 2018-03-19 AppointANUJA Zelaya [id number] Univers 09:00:00 09:00:00 t; DORIS PUGH Women's i ty of [facility] 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 Physici ans 2018-03-12 2018-03-12 AppointANUJA Maynard [id number] Univers 10:30:00 10:30:00 t; Hung BOWMAN Women's ity [facility] Hung BOWMAN Physi ci ans 2018-03-12 2018-03-12 Appointmen ANUJA PUGH [id number] Univers 10:30:00 10:30:00 t; DORIS PUGH, [facility] ans 2018-03-12 2018-03-12 AppointANUJA Peterson [id number] Univers 10:00:00 10:00:00 t; [facility]OM2 [facility] Physici ans 2018-02-26 2018-02-26 Appointmen CASTILLOANUJA Mendez [id number] Univers 08:00:00 08:00:00 t; RAZIA Women's ity of Hung [facility] RANDLE M.D. ans 2018-02-12 2018-02-12 AppointANUJA Zelaya [id number] Univers 08:30:00 08:30:00 t; DORIS PUGH Women's i ty of DORIS, [facility] Physici ans 2018-01-15 2018-01-15 Appointmen ANUJA PUGH [id number] Univers 10:30:00 10:30:00 t; DORIS PUGH Women's i ty of DORIS, [facility] 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 Physici ans 2018-01-15 2018-01-15 AppointANUJA Peterson [id number] Univers 09:45:00 09:45:00 t; USROOM2 Women's ity of [facility] USROOM2 Physici ans 2018-01-08 2018-01-08 Appointmen MISTY [facility] Piano Regulator Inspector [id number] Univers 11:00:00 11:00:00 t; Hung BOWMAN ity of MISTY Veronica BOWMAN M.D. Physi ci ans 2018-01-08 2018-01-08 AppointANUJA Peterson [id number] Univers 09:00:00 09:00:00 t; USROOM1 ity of [place], [place] USROOM1 Physici ans 2017-12-18 2017-12-18 AppointANUJA Peterson [id number] Univers 09:45:00 09:45:00 t; USROOM2 ity of [place], [place] USROOM2 Physici ans 2017-12-18 2017-12-18 Appointmen ANUJA PUGHaire [id number] Univers 08:30:00 08:30:00 t; DORIS PUGH, Women's i ty 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 Physici ans 2017-11-20 2017-11-20 Appointmen ANUJA JAY [id number] Univers 10:00:00 10:00:00 t; Hung BOWMAN Women's ity of [facility] Hung BOWMAN Physi ci ans 2017-11-20 2017-11-20 Appointmen SHARMILA, [facility] [id number] Univers 09:30:00 09:30:00 t; USROOM2 ity of [place], [place] USROOM2 Physici ans 2017-11-20 2017-11-20 Appointmen SHARMILA, [facility] [id number] Univers 09:00:00 09:00:00 t; GENETIC ity of [place], [place] GENETIC Physici ans 2017-10-23 2017-10-23 Appointmen ANUJA ROJAS [place] [id number] Univers 11:30:00 11:30:00 t; MOON ROJAS, Women's ity of Hung MUST[facility]FA [facility] Hung Physici ans 2017-10-23 2017-10-23 Appointmen SHARMILA [facility] [id number] Univers 11:15:00 11:15:00 t; USROOM2 [facility]y [facility] [place] [place] [facility] 2017-10-12 2017-10-12 Appointmen ANUJA ROJAS [place] [id number] Univers 14:45:00 14:45:00 t; MOON ROJAS, Women's ity of Hung MUSTAFA [facility] Hung Physici ans 2017-10-12 2017-10-12 Appointmen SHARMILA, [facility] [id number] Univers 14:15:00 14:15:00 t; USROOM2 ity of [place], [place] USROOM2 Physici ans 2017-08-10 2017-08-10 Appointmen CANCER, [facility] [id number] Univers 09:00:00 09:00:00 t; [facility] Physici ans 2017-06-26 2017-06-26 Appointenzo ROJAS, UTP UTP [id number] Univers 08:30:00 08:30:00 t; MOON ROJAS, ity of Hung MUSTAFA [place] Hung Physici ans 2016-08-20 2016-08-20 Appointenzo BAJWA, UTP UTP [id number] Univers 11:20:00 11:20:00 t; NANI BAJWA, NOMAN i ty of NOMAN CARDOZA [place] Physici ans 2016-05-09 2016-05-09 Appointenzo DOLL, UTP UTP [id number] Univers 08:30:00 08:30:00 t; USROOM2 ity of [place], [place] USROOM2 Physici ans 2016-05-05 2016-05-05 Appointenzo DOLL, UTP UTP [id number] Univers 08:30:00 08:30:00 t; USROOM2 ity of [place], [place] USROOM2 Physici ans 2016-05-02 2016-05-02 Appointenzo DOLL, UTP UTP [id number] Univers 08:30:00 08:30:00 t; USROOM2 ity of [place], [place] USROOM2 Physici ans 2016-04-29 2016-04-29 Appointenzo DOLL, UTP UTP [id number] Univers 10:00:00 10:00:00 t; USROOM2 ity of [place], [place] USROOM2 Physici ans 2016-04-25 2016-04-25 Appointenzo DOLL, UTP UTP [id number] Univers 10:00:00 10:00:00 t; USROOM3 ity of [place], [place] USROOM3 Physici ans 2016-04-21 2016-04-21 Appointenzo DOLL, UTP UTP [id number] Univers 09:00:00 09:00:00 t; USROOM3 ity of [place], [place] USROOM3 Physici ans 2016-04-16 2016-04-16 Appointenzo DOLL, UTP UTP [id number] Univers 15:30:00 15:30:00 t; USROOM3 ity of [place], [place] USROOM3 Physici ans 2016-04-14 2016-04-14 Appointenzo MALUESTELLA, UTP UTP [id number] Univers 15:30:00 15:30:00 t; USROOM3 ity of [place], [place] USROOM3 Physici ans 2016-04-10 2016-04-10 Appointenzo DOLL [facility] UTP [id number] Univers 11:00:00 11:00:00 t; GENETIC ity of [place], [place] GENETIC Physici ans 2016-04-10 2016-04-10 Appointenzo DOLL [facility] UTP [id number] Univers 10:30:00 10:30:00 t; USROOM2 ity of [place], [place] USROOM2 Physici ans 2016-03-20 2016-03-20 Appointenzo DOLL, [facility] UTP [id number] Univers 09:15:00 09:15:00 t; USROOM2 ity of [place], [place] USROOM2 Physici ans 2016-03-06 2016-03-06 Appointenzo BAJWA [facility] UTP [id number] Univers 16:40:00 16:40:00 t; NANI BAJWA NP i ty of NOMAN CARDOZA [place] Physici ans 2016-02-25 2016-02-25 Appointenzo DOLL, [facility] UTP [id number] Univers 14:45:00 14:45:00 t; USROOM2 ity of [place], [place] USROOM2 Physici ans 2013-12-30 2013-12-30 Outpatient MHIE MHIE [id number] 09:01:23 09:01:23 2012-12-11 2012-12-11 Outpatient MHIE MHIE [id number] 13:00:55 13:00:39 2012-12-07 2012-12-07 Outpatient MHIE MHIE [id number] 18:02:40 18:02:23 2012-12-01 2012-12-01 Outpatient MHIE MHIE [id number] 12:33:44 12:33:27 Results Test Description Test Time Test Comments Results Result [facility] e Comments - CT ABD PELVIS 2020-05-07 Patient Name: W/CONT 05:45:00 SHIVAM PASCAL Unit No: [id number] EXAMS: CPT CODE: [id number] CT ABD PELVIS W/CONT 83548 STUDY: - CT ABD PELVIS W/CONT 05/07/2020 3:20 AM Ordering Physician: Dallas Elliott MD Patient Name: SHIVAM LUNAOZA MR: [id number] : 1990; Age: 29 years y/o Female Clinical Indication: Generalized abdominal pain status post hernia mesh placement on 04/25/2020. Comparison: None TECHNIQUE: Multiple contiguous postcontrast transaxial CT images were obtained from the diaphragm through the symphysis pubis. Sagittal and coronal reformatted images were prepared. CT imaging performed at this location utilizes radiation dose optimization techniques which include one or more of the following: -Automated exposure control -Adjustment of the mA and/or kV according to patient size -Use of iterative reconstruction technique IV CONTRAST: [id number] Radiation Dose DLP: 346.39 mGy-cm CT ABDOMEN AND PELVIS WITH CONTRAST: VISUALIZED LUNG BASES: No significant abnormality. BOWEL GAS: Mild to moderate constipation greatest in the right hemicolon. The bowel gas pattern is otherwise nonspecific. APPENDIX: Status post appendectomy. STOMACH: Normal for degree of distention. PERITONEUM AND MESENTERY: Free Air: No evidence of pneumoperitoneum. Free Fluid: Small low-attenuation free pelvic fluid. Mesenteric and peritoneal fat: Minimal hazy induration of the central mesenteric fat. LYMPH NODES: Scattered subsegmental or central mesenteric and retroperitoneal lymph nodes without lymphadenopathy or mass. [facility] NAME: SHIVAM PASCAL Radiology Department PHYS: Dallas Wang [address] : 1990 AGE: 29 SEX: F [place], [place] [address] LOC: [place] PHONE #: [phone] EXAM DATE: 05/07/2020 STATUS: REG ER FAX #: [phone] RAD NO: Page 1 Signed Report 1 Patient Name: SHIVAM PASCAL Unit No: [id number] EXAMS: CPT CODE: [id number] CT ABD PELVIS W/CONT 20161 <Continued> VASCULAR: Abdominal Aorta: Normal caliber abdominal aorta without aneurysm or dissection. IVC: Normal. ABDOMINAL ORGANS: Liver: Normal size and morphology without discrete lesion. Gallbladder: Postoperative change of cholecystectomy. Biliary Tree: Normal without dilatation. Kidneys: Normal size and morphology without discrete lesion or hydronephrosis. Adrenal Glands: Normal size and morphology without discrete lesion. Pancreas: Normal size and morphology without discrete lesion. Spleen: Normal size and morphology without discrete lesion. PELVIC ORGANS: Urinary bladder: Normal nonenhanced appropriate for degree of distention. Reproductive organs: Normal uterus. Small bilateral ovarian follicles and cysts, greater on the left. SOFT TISSUES: Mild scarring in the anterior pelvic wall. No fluid collection is seen to suggest an abscess. No hematoma. OSSEOUS STRUCTURES: No fracture, dislocation, or suspicious focal osseous lesion. IMPRESSION: [facility] NAME: SHIVAM PASCAL Radiology Department PHYS: Dallas Wang [address] : 1990 AGE: 29 SEX: F [place] [address] LOC: HaydeeERS PHONE #: [phone] EXAM DATE: 05/07/2020 STATUS: REG ER FAX #: [phone] RAD NO: Page 2 Signed Report 1 Patient Name: SHIVAM PASCAL Unit No: [id number] EXAMS: CPT CODE: [id number] CT ABD PELVIS W/CONT 14549 <Continued> Mild to moderate constipation. Small low-attenuation free pelvic fluid likely related to cyst rupture given scattered small follicles and cysts in both ovaries, greater on the left. Status post cholecystectomy and appendectomy. SL: TPAINTER-H at 0545 Reported and signed by: Bhupendra Gilliam MD CC: Technologist: FOSTER SIMMONS, RT CTDI: 7.11 DLP: 346.39 Trnscrbd D/ (0545) [id number] [facility] NAME: SHIVAM PASCAL Radiology Department PHYS: Dallas Wang [address] : 1990 AGE: 29 SEX: F [place], [place] [address] LOC: [facility].ERS PHONE #: [phone] EXAM DATE: 05/07/2020 STATUS: REG ER FAX #: [phone] RAD NO: Page 3 Signed Report 1 Patient Name: SHIVAM PASCAL Unit No: [id number] EXAMS: CPT CODE: [id number] CT ABD PELVIS W/CONT 78935 <Continued> Orig Print D/T: S: 05/07/2020 (0549) [facility] [facility] NAME: SHIVAM PASCAL Radiology Department PHYS: SOPHYMarkStephanie Miguel Dallas Elliott [address] : 1990 AGE: 29 SEX: F [place], [place] [address] LOC: [facility] PHONE #: [phone] EXAM DATE: 05/07/2020 STATUS: REG ER FAX #: [phone] RAD NO: Page 4 Signed Report 1 - US TRANSVAGINAL 2020-05-07 Patient Name: W/PELVIS 04:42:00 SHIVAM PASCAL Unit No: [id number] EXAMS: CPT CODE: [id number] US TRANSVAGINAL W/PELVIS 00112 STUDY: - US TRANSVAGINAL W/PELVIS, - US PELVIS COMPLETE, - DUP AB/PEL/SC/LTD 05/07/2020 3:49 AM Ordering Physician: Dallas Elliott MD Patient Name: SHIVAM PASCAL MR: [id number] : 1990; Age: 29 years y/o Female Clinical Indication: FELL, HIT ABD/PELVIS. PELVIC PAIN, RIGHT SIDE. Status post hernia mesh placement on 04/25/2020 Comparison: None TRANSABDOMINAL AND TRANSVAGINAL PELVIC ULTRASOUND: Technique: Grayscale, color, and Doppler transabdominal and transvaginal imaging of the pelvis was performed with standard technique. TRANSABDOMINAL PELVIC ULTRASOUND: UTERUS: Normal size uterus measuring 7.9 x 3.5 x 5.3 cm without focal myometrial lesion. Normal thickness endometrial stripe measuring 4 mm. RIGHT OVARY AND ADNEXA: General: Normal size right ovary measuring 3.0 x 1.9 x 1.6 cm with suspected small follicular cysts. Doppler: Normal low resistance arterial and venous blood flow is demonstrated. LEFT OVARY AND ADNEXA: General: Normal size left ovary measuring 2.8 x 2.4 x 3.2 cm containing a mildly complex cyst measuring 2.8 cm containing low-level internal echoes. Doppler: Normal low resistance arterial and venous blood flow is demonstrated. URINARY BLADDER: Normal for degree of distention present containing anechoic urine. FLUID: None. OTHER FINDINGS: None. TRANSVAGINAL PELVIC ULTRASOUND: Endovaginal ultrasound was performed to better visualize the endometrial stripe and the adnexal regions. UTERUS: Normal size uterus measuring 8.9 x 3.6 x 5.2 cm. No focal myometrial lesion is appreciated. The neutral stripe measuring 4 mm. [facility] NAME: SHIVAM PASCAL Radiology Department PHYS: COSMOAshlieDallas Wood [address] : 1990 AGE: 29 SEX: F [place], [place] [address] LOC: DashaERS PHONE #: [phone] EXAM DATE: 05/07/2020 STATUS: REG ER FAX #: [phone] RAD NO: Page 1 Signed Report (CONTINUED) Patient Name: SHIVAM PASCAL Unit No: [id number] EXAMS: CPT CODE: [id number] US TRANSVAGINAL W/PELVIS 64322 <Continued> RIGHT OVARY AND ADNEXA: General: Normal size right ovary measuring 3.3 x 2.1 x 2.1 cm containing scattered small follicles. Doppler: Normal low resistance arterial and venous blood flow is demonstrated. LEFT OVARY AND ADNEXA: General: Limited visualization of the left ovary measuring 3.2 x 2.3 x 2.9 cm containing my complex cyst measuring 1.5 x 1.7 x 1.1 cm containing mild wall thickening and thin septation. Doppler: Normal low resistance arterial and venous blood flow is demonstrated. URINARY BLADDER: Decompressed.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 None TECHNIQUE:Abdomen and pelvis CT With and without IVcontrast Coronal and sagittal reformatted images obtained. DOSE REDUCTION: Dose modulation, iterati ve reconstruction, and/or weight-based adjustment of the mA/kV was utilized to reduce the radiation dose to as low as reasonably achievable. FINDINGS: Lower thorax: Visible airspaces clear. No pleural effusion. Heart is normal in size. No pericardial effusion. Liver: No acute hepatic abnormality. Gallbladder and biliary tree: Postsurgical changes of a cholecystectomy. No intra or extrahepatic ductal dilatation.Pancreas: No acute findings.Spleen: No acute findingsAdrenal Glands: No acute findings.Kidneys and ureters: No hydronephrosis or nephrolithiasis. No hydroureter. No contour deforming renal lesions.Bladder and reproductive organs: Bladder is unremarkable. The uterus is age-appropriate. No suspicious adnexal masses. Stomach and Duodenum: No significant findings.Small and large intestine: Normal calibers.Appendix: Surgically absent. Major vascular structures: Normal aortic caliber.Peritoneum and retroperitoneum: No free air, fluid or adenopathy. Skeleton: No acute bony abnormality.Additional findings: Fat-containing umbilical hernia. IMPRESSION: No acute abnormality in the abdomen or pelvis. Signed: Minerva Perez MDReport Verified Date/Time: 11/14/2019 00:31:04 Electronicallysigned by: MINERVA PEREZ MD on 11/14/2019 12:31 [facility]/pelvis with/without IV contrast (renal stone protocol)2019-11-14 00:31:00Interface, External Ris In - 11/14/2019 12:[address], ABDOMEN \\T\\ PELVIS, WITHOUT \\T\\ WITH IV CONTRAST INDICATION: ABDOMINAL PAINright flank pain COMPARISON: None TECHNIQUE:Abdomen and pelvis CT With and without IV contrast Coronal and sagittal reformatted images obtained. DOSE REDUCTION: Dose modulation, iterative reconstruction, and/or weight-based adjustment of the mA/kV was utilized to reduce the radiation dose to as low as reasonably achievable. FINDINGS: Lower thorax: Visible airspaces clear. No pleural effusion. Heart is normal in size. No pericardialeffusion. Liver: No acute hepatic abnormality. Gallbladder and biliary tree: Postsurgical changes ofa cholecystectomy. No intra or extrahepatic ductal dilatation.Pancreas: No acute findings.Spleen: Noacute findingsAdrenal Glands: No acute findings.Kidneys and ureters: No hydronephrosis or nephrolithiasis. No hydroureter. No contour deforming renal lesions.Bladder and reproductive organs: Bladder isunremarkable. The uterus is age-appropriate. No suspicious adnexal masses. Stomach and Duodenum: No significant findings.Small and large intestine: Normal calibers.Appendix: Surgically absent. Major vascular structures: Normal aortic caliber.Peritoneum and retroperitoneum: No free air, fluid or adenopathy. Skeleton: No acute bony abnormality.Additional findings: Fat-containing umbilical hernia. IMPRESSION: No acute abnormality in the abdomen or pelvis. Signed: Minerva Perez MDReport Verified Date/Time: 11/14/2019 00:31:04 [facility] metabolic panel (Na, K+, Cl, CO2, Glu, Ca, BUN, Cr)2019-11-14 00:05:00 Test Item Value Reference Range Interpretation Comments Sodium (test code = 137 meq/L 203-071 2694-2) Potassium (test code 3.6 meq/L 3.5-5.1 = 2823-3) Chloride (test code = 115 meq/L 98-107 H 2075-0) CO2 (test code = 16 meq/L 22-29 L 2028-9) BUN (test code = 11 mg/dL 7-21 3094-0) Creatinine (test code 0.80 mg/dL 0.57-1.25 = 2160-0) Glucose (test code = 75 mg/dL 70-105 2345-7) Calcium (test code = 8.3 mg/dL 8.4-10.2 L 50260-1) EGFR (test code = [place] [address]-4) CLINICAL DATA T O CALCULATE ESTIMATED GFR. NALDO (test code = NALDO) Profile Grinder ID - PIAYA L Lab Interpretation Abnormal (test code = 52268-1) [facility] METABOLIC [id number] 00:05:00 Test Item Value Reference Range Interpretation Comments SODIUM (BEAKER) (test 137 meq/L 136-145 code = 381) POTASSIUM (BEAKER) 3.6 meq/L 3.5-5.1 (test code = 379) CHLORIDE (BEAKER) 115 meq/L 98-107 H (test code = 382) CO2 (BEAKER) (test 16 meq/L 22-29 L code = 355) BLOOD UREA NITROGEN 11 mg/dL 7-21 (BEAKER) (test code = 354) CREATININE (BEAKER) 0.80 mg/dL 0.57-1.25 (test code = 358) GLUCOSE RANDOM 75 mg/dL 70-105 (BEAKER) (test code = 652) CALCIUM (BEAKER) 8.3 mg/dL 8.4-10.2 L (test code = 697) EGFR (BEAKER) (test INSUFFIC IENT CLINICAL code = 1092) DATA TO CALCULA TE ESTIMATED GFR. Profile Grinder ID - PIAYA LD-dimer, [id number] 22:05:00 Test Item Value Reference Range Interpretation Comments D-Dimer, Quant (test code 0.38 <0.50 MG/L FEU = 71162-0) NALDO (test code = NALDO) Intended Use: The D-Dimer Assay can be used to aid in the diagnosis of Deep Vein Thrombosis (DVT) and Pulmonary Embolism Disease (PED).In patients with low pre-test probability, various studies concerning STA Liatest D-dimer test have reported that with a cutoff value of 0.50 MG/L FEU, the Negative Predictive Value (NPV) regarding the exclusion of thrombosis is within 95-100% range. Lab Interpretation (test Normal code = 13695-0) [facility] HospitalD-[id number] 22:05:00 Test Item Value Reference Range Interpretation Comments D-DIMER QUANTITATIVE (BEAKER) 0.38 MG/L FEU <0.50 (test code = 671) Intended Use: The D-Dimer Assay can be used to aid in the diagnosis of Deep Vein Thrombosis (DVT) and Pulmonary Embolism Disease (PED).In patients with low pre- test probability, various studies concerning STA Liatest D-dimer test have reported that with a cutoff value of 0.50 MG/L FEU, the Negative Predictive Value (NPV) regarding the exclusion of thrombosis is within 95-100% range. Comprehensive metabolic [id number] 21:01:00 Test Item Value Reference Range Interpretation Comments Protein, Total (test 7.5 6.0- 8.3 gm/dL Speci men slightly code = 2885-2) hemolyzed Albumin (test code = 4.6 g/dL 3.5-5 Specime n slightly 68923-2) hemolyzed Alkaline Phosphatase 56 U/L 40-150 (test code = 6768-6) Total Bilirubin (test 0.2 mg/dL 0.2-1.2 Specim en slightly code = 1975-2) hemolyzed Sodium (test code = 137 meq/L 824-493 5428-2) Potassium (test code 3.5 meq/L 3.5-5.1 Specime n slightly = 2823-3) hemolyzed Chloride (test code = 112 meq/L 98-107 H 2074-0) CO2 (test code = 17 meq/L 22-29 L 8-9) BUN (test code = 12 mg/dL 7-21 3094-0) Creatinine (test code 0.88 mg/dL 0.57-1.25 Specim en slightly = 2160-0) hemolyzed Glucose (test code = 90 mg/dL 70-105 2345-7) Calcium (test code = 8.9 mg/dL 8.4-10.2 23898-1) AST (test code = 17 U/L 5-34 Specimen sl ightly 1920-8) hemolyzed ALT (test code = 12 U/L 6-55 Specimen sl ightly 1742-6) hemolyzed EGFR (test code = [place] [address]-6) CLINICAL DATA T O CALCULATE ESTIMATED GFR. NALDO (test code = NALDO) Profile Grinder ID - NANCY Lab Interpretation Abnormal (test code = 47123-9) [facility] METABOLIC [id number] 21:01:00 Test Item Value Reference Range Interpretation Comments TOTAL PROTEIN 7.5 gm/dL 6.0-8.3 Specimen sligh tly (BEAKER) (test code = hemoly zed 770) ALBUMIN (BEAKER) 4.6 g/dL 3.5-5.0 Specimen sl ightly (test code = 1145) hemolyzed ALKALINE PHOSPHATASE 56 U/L 40-150 (BEAKER) (test code = 346) BILIRUBIN TOTAL 0.2 mg/dL 0.2-1.2 Specimen sli ghtly (BEAKER) (test code = hemoly zed 377) SODIUM (BEAKER) (test 137 meq/L 136-145 code = 381) POTASSIUM (BEAKER) 3.5 meq/L 3.5-5.1 Specimen slightly (test code = 379) hemolyzed CHLORIDE (BEAKER) 112 meq/L 98-107 H (test code = 382) CO2 (BEAKER) (test 17 meq/L 22-29 L code = 355) BLOOD UREA NITROGEN 12 mg/dL 7-21 (BEAKER) (test code = 354) CREATININE (BEAKER) 0.88 mg/dL 0.57-1.25 Specimen slightly (test code = 358) hemolyzed GLUCOSE RANDOM 90 mg/dL 70-105 (BEAKER) (test code = 652) CALCIUM (BEAKER) 8.9 mg/dL 8.4-10.2 (test code = 697) AST (SGOT) (BEAKER) 17 U/L 5-34 Specimen slightly (test code = 353) hemolyzed ALT (SGPT) (BEAKER) 12 U/L 6-55 Specimen slightly (test code = 347) hemolyzed EGFR (BEAKER) (test INSUFFIC IENT CLINICAL code = 1092) DATA TO CALCULA TE ESTIMATED GFR. Profile Grinder ID - KENNUrinalysis w/Microscopic + Reflex to [id number] 21:00:00 Test Item Value Reference Range Interpretation Comments Color, UA (test code = Light Yellow 5778-6) Clarity, UA (test code Clear = 5767-9) Specific [place], UA 1.004 1.001-1.035 (test code = 5811-5) pH, UA (test code = 6.5 5.0-8.0 5803-2) Protein, UA (test code Negative Negative = 17342-3) Glucose, UA (test code Negative Negative = 365) Ketones, UA (test code Negative Negative = 2514-8) Bilirubin, UA (test Negative Negative code = 90682-4) Blood, UA (test code = Negative Negative 68877-8) Nitrite, UA (test code Negative Negative = 5802-4) Leukocytes, UA (test Negative Negative code = 5799-2) Urobilinogen, UA (test 0.2 mg/dL 0.2-1 code = 31972-2) RBC, UA (test code = 0 /HPF 31539-9) WBC, UA (test code = 1 /HPF 5821-4) Squam Epithel, UA (test 2 /HPF code = 53920-1) Specimen Source (test code = 2795) NALDO (test code = NALDO) Profile Grinder ID - [auto]Profile Grinder ID - tech [facility]/ REFLEX URINE [id number] 21:00:00 Test Item Value Reference Range Interpretation Comments COLOR (BEAKER) (test code = 470) Light Yellow CLARITY (BEAKER) (test code = Clear 469) SPECIFIC GRAVITY UA (BEAKER) 1.004 1.001-1.035 (test code = 468) PH UA (BEAKER) (test code = 467) 6.5 5.0-8.0 PROTEIN UA (BEAKER) (test code = Negative Negative 464) GLUCOSE UA (BEAKER) (test code = Negative Negative 365) KETONES UA (BEAKER) (test code = Negative Negative 371) BILIRUBIN UA (BEAKER) (test code Negative Negative = 462) BLOOD UA (BEAKER) (test code = Negative Negative 461) NITRITE UA (BEAKER) (test code = Negative Negative 465) LEUKOCYTE ESTERASE UA (BEAKER) Negative Negative (test code = 466) UROBILINOGEN UA (BEAKER) (test 0.2 mg/dL 0.2-1.0 code = 463) RBC UA (BEAKER) (test code = 0 /HPF 519) WBC UA (BEAKER) (test code = 1 /HPF 520) SQUAMOUS EPITHELIAL (BEAKER) 2 /HPF (test code = 516) SOURCE(BEAKER) (test code = 2795) Profile Grinder ID - [auto]Profile Grinder ID - [id number] 20:49:00 Test Item Value Reference Range Interpretation Comments Lipase (test code = 41 U/L 8-78 3040-3) NALDO (test code = NALDO) Profile Grinder ID - NANCY Lab Interpretation (test Normal code = 10004-6) [facility] HospitalMagnesium2020-01-19 20:49:00 Test Item Value Reference Range Interpretation Comments Magnesium (test code = 2.1 mg/dL 1.6-2.6 Speci men 93492-7) slightly hemolyzed NALDO (test code = NALDO) Profile Grinder ID - NANCY Lab Interpretation Normal (test code = 24630-2) [facility] HospitalPhosphorus2020-01-19 20:49:00 Test Item Value Reference Range Interpretation Comments Phosphorus (test code 3.8 mg/dL 2.3-4.7 Specim en = 2777-1) slightly hemolyzed NALDO (test code = NALDO) Profile Grinder ID - NANCY Lab Interpretation Normal (test code = 65128-7) [facility] HospitalMAGNESIUM2020-01-19 20:49:00 Test Item Value Reference Range Interpretation Comments MAGNESIUM (BEAKER) 2.1 mg/dL 1.6-2.6 Specimen slightly (test code = 627) hemolyzed Profile Grinder ID - [id number] 20:49:00 Test Item Value Reference Range Interpretation Comments PHOSPHORUS (BEAKER) 3.8 mg/dL 2.3-4.7 Specimen slightly (test code = 604) hemolyzed Profile Grinder ID - [id number] 20:49:00 Test Item Value Reference Range Interpretation Comments LIPASE (BEAKER) (test code = 749) 41 U/L 8-78 Profile Grinder ID - CARLOS ENRIQUENPregnancy Screen, [id number] 20:34:00 Test Item Value Reference Range Interpretation Comments Preg Test, Ur (test code = 2112-1) Negative [facility] HospitalPREGNANCY SCREEN, [id number] 20:34:00 Test Item Value Reference Range Interpretation Comments TEST URINE (BEAKER) (test Negative code = 583) CBC with platelet count + automated [id number] 20:29:00 Test Item Value Reference Range Interpretation Comments WBC (test code = 6690-2) 8.5 3.5- 10.5 K/L RBC (test code = 789-8) 4.66 3.93- 5.22 M/L MCHC (test code = 786-4) 31.6 32.2- 35.5 GM/DL L Hematocrit (test code = 4544-3) 43.4 % 34.1-44.9 MCV (test code = 787-2) 93.1 fL 79.4-94.8 MCH (test code = 785-6) 29.4 pg 25.6-32.2 RDW (test code = 788-0) 14.5 % 11.7-14.4 H Platelets (test code = 777-3) 261 150- 450 K/CU MM MPV (test code = 62463-3) 11.1 fL 9.4-12.3 nRBC (test code = 413) 0 0- 0 /100 WBC % Neutros (test code = 429) 49 % % Lymphs (test code = 430) 38 % % Monos (test code = 431) 6 % % Eos (test code = 432) 7 % % Baso (test code = 437) 1 % # Neutros (test code = 670) 4.11 1.56- 6.13 K/L # Lymphs (test code = 414) 3.21 1.18- 3.74 K/L # Monos (test code = 415) 0.49 0.24- 0.36 K/L H # Eos (test code = 416) 0.55 0.04- 0.36 K/L H # Baso (test code = 417) 0.07 0.01- 0.08 K/L Immature Granulocytes-Relative 0 % 0-1 (test code = 2801) Lab Interpretation (test code = Abnormal 66508-5) [facility] W/PLT COUNT & AUTO [id number] 20:29:00 Test Item Value Reference Range Interpretation Comments WHITE BLOOD CELL COUNT (BEAKER) 8.5 K/ L 3.5-10.5 (test code = 775) RED BLOOD CELL COUNT (BEAKER) 4.66 M/ L 3.93-5.22 (test code = 761) HEMOGLOBIN (BEAKER) (test code = 13.7 GM/DL 11.2-15.7 410) HEMATOCRIT (BEAKER) (test code = 43.4 % 34.1-44.9 411) MEAN CORPUSCULAR VOLUME (BEAKER) 93.1 fL 79.4-94.8 (test code = 753) MEAN CORPUSCULAR HEMOGLOBIN 29.4 pg 25.6-32.2 (BEAKER) (test code = 751) MEAN CORPUSCULAR HEMOGLOBIN CONC 31.6 GM/DL 32.2-35.5 L (BEAKER) (test code = 752) RED CELL DISTRIBUTION WIDTH 14.5 % 11.7-14.4 H (BEAKER) (test code = 412) PLATELET COUNT (BEAKER) (test 261 K/CU MM 150-450 code = 756) MEAN PLATELET VOLUME (BEAKER) 11.1 fL 9.4-12.3 (test code = 754) NUCLEATED RED BLOOD CELLS 0 /100 WBC 0-0 (BEAKER) (test code = 413) NEUTROPHILS RELATIVE PERCENT 49 % (BEAKER) (test code = 429) LYMPHOCYTES RELATIVE PERCENT 38 % (BEAKER) (test code = 430) MONOCYTES RELATIVE PERCENT 6 % (BEAKER) (test code = 431) EOSINOPHILS RELATIVE PERCENT 7 % (BEAKER) (test code = 432) BASOPHILS RELATIVE PERCENT 1 % (BEAKER) (test code = 437) NEUTROPHILS ABSOLUTE COUNT 4.11 K/ L 1.56-6.13 (BEAKER) (test code = 670) LYMPHOCYTES ABSOLUTE COUNT 3.21 K/ L 1.18-3.74 (BEAKER) (test code = 414) MONOCYTES ABSOLUTE COUNT (BEAKER) 0.49 K/ L 0.24-0.36 H (test code = 415) EOSINOPHILS ABSOLUTE COUNT 0.55 K/ L 0.04-0.36 H (BEAKER) (test code = 416) BASOPHILS ABSOLUTE COUNT (BEAKER) 0.07 K/ L 0.01-0.08 (test code = 417) IMMATURE GRANULOCYTES-RELATIVE 0 % 0-1 PERCENT (BEAKER) (test code = 2801) [[facility]] URINALYSIS, [id number] 16:02:01 Test Item Value Reference Range Interpretation Comments UA Turbidity; Abnormal (test code Marked Clear A = 16419-2) UA Spec Grav (test code = 5810-7) 1.024 <=1.030 UA pH (test code = 5803-2) 5.0 5.0-8.0 UA Protein (test code = 67568-2) Negative Negative UA Glucose (test code = 77011-7) Negative Negative UA Ketones (test code = 97214-6) Negative Negative UA Bili (test code = 5770-3) Negative Negative UA Blood; Abnormal (test code = Small Negative A 5794-3) UA Nitrite (test code = 5802-4) Negative Negative UA Leuk Est; Abnormal (test code = Large Negative A 5799-2) UA RBC; Above High Threshold (test 3 {/HPF} 0-2 code = 62823-3) UA WBC; Above High Threshold (test 35 {/HPF} 0-5 code = 57090-1) UA Bacteria (test code = 70001-2) Occasional None Seen UA Mucus; Abnormal (test code = Many None Seen A 8247-9) UA Sq Epi; Abnormal (test code = Many Few A 61017-5) Urine Calcium Oxalate Crystal Occasional None Seen (test code = 5774-5) UA Color (test code = 5778-6) Yellow UROBILINOGEN (test code = 67666-4) <=1.0 0.1-1.0 [facility]] CULTURE, URINE, [id number] 16:02:01 Test Item Value Reference Range Interpretation Comments FINAL REPORT (test <10,000 CFU/mL code = FINAL REPORT) Enterococcus Species [facility]] URINALYSIS, [id number] 16:00:01 Test Item Value Reference Range Interpretation Comments UA Turbidity (test code = 84157-7) Clear Clear UA Spec Grav (test code = 5810-7) 1.010 <=1.030 UA pH (test code = 5803-2) 7.0 5.0-8.0 UA Protein (test code = 38698-4) Negative Negative UA Glucose (test code = 65767-8) Negative Negative UA Ketones (test code = 22357-9) Negative Negative UA Bili (test code = 5770-3) Negative Negative UA Blood; Abnormal (test code = Small Negative A 5794-3) UA Nitrite (test code = 5802-4) Negative Negative UA Leuk Est (test code = 5799-2) Negative Negative UA RBC (test code = 80295-8) <1 0-2 UA WBC (test code = 84364-5) <1 0-5 UA Bacteria (test code = 83933-6) Occasional None Seen UA Sq Epi (test code = 22218-1) Few Few UA Color (test code = 5778-6) Ltyellow UROBILINOGEN (test code = 19879-5) <=1.0 0.1-1.0 [facility]] CULTURE, URINE, [id number] 16:00:01 Test Item Value Reference Range Interpretation Comments ORGANISM (test code = Enterobacter aerogenes 699-9) FINAL REPORT (test 50,000 - 100,000 CFU/mL code = FINAL REPORT) Enterobacter aerogenes [facility][H] [id number] 16:00:01 Test Item Value Reference Range Interpretation Comments ORGANISM (test code = Enterobacter 699-9) aerogenes Amikacin (test code = - S Amikacin) Cefazolin (test code - R = Cefazolin) Ceftriaxone (test - S code = Ceftriaxone) Ciprofloxacin (test - S code = Ciprofloxacin) Cefepime (test code = - S Cefepime) Gentamicin (test code - S = Gentamicin) Levofloxacin (test - S code = Levofloxacin) Nitrofurantoin (test - R code = Nitrofurantoin) Piperacillin/Tazobact - S am (test code = Piperacillin/Tazobact am) Trimethoprim/Sulfamet - S hoxazole (test code = Trimethoprim/Sulfamet hoxazole) Tobramycin (test code - S = Tobramycin) Meropenem (test code - S = Meropenem) Tetracycline (test SEE NOTES S S= Suscep tible, code = Tetracycline) R= Resi stant, I= Intermediate, N/A= Not Applicable [facility]] CBC (INCLUDES DIFF/PLT)2018-05-07 09:22:01 Test Item Value Reference Range Interpretation Comments WBC (test code = 6690-2) 8.7 {K/CMM} 3.7-10.4 RBC; Below Low Threshold (test 3.92 {M/CMM} 4.20-5.40 code = 789-8) Hgb (test code = 718-7) 12.2 g/dl 12.0-16.0 Hct (test code = 60907-9) 36.7 % 36.0-48.0 MCV (test code = 787-2) 93.6 fL 80.0-98.0 MCH (test code = 785-6) 31.0 pg 27.0-31.0 MCHC (test code = 786-4) 33.1 g/dl 32.0-36.0 RDW; Above High Threshold (test 15.3 % 11.5-14.5 code = 788-0) Platelet; Below Low Threshold 129 {K/CMM} 133-450 (test code = 90303-3) Mean Platelet Volume; Above High 12.1 fL 7.4-10.4 Threshold (test code = 21876-2) [facility]] [id number] 09:22:01 Test Item Value Reference Range Interpretation Comments Segmented Neutrophils (test code 67.1 % 45.0-75.0 = 34357-7) Monocytes (test code = 23245-7) 7.3 % 2.0-12.0 Lymphocytes (test code = 66220-2) 23.7 % 20.0-40.0 Eosinophils (test code = 56467-6) 1.7 % 0.0-4.0 Basophils (test code = 706-2) 0.2 % 0.0-1.0 Segs-Bands # (test code = 5.9 {K/CMM} 1.5-8.1 78622-2) Lymphocytes # (test code = 2.1 {K/CMM} 1.0-5.5 17744-3) Monocytes # (test code = 72509-7) 0.6 {K/CMM} 0.0-0.8 Eosinophils # (test code = 0.1 {K/CMM} 0.0-0.5 63558-8) [facility]] CMP [id number] 09:22:01 Test Item Value Reference Range Interpretation Comments Sodium Level 139 {mEq/l} 135-145 (test code = 2951-2) Potassium Level 3.8 {mEq/l} 3.5-5.1 (test code = 2823-3) Chloride Level 109 {mEq/l} 95-109 (test code = 2075-0) Carbon Dioxide; 20 {mEq/l} 24-32 Below Low Threshold (test code = 8-9) AGAP (test code = 13.8 {mEq/l} 10.0-20.0 48323-8) Glucose Lvl; 65 mg/dl 70-99 Adult reference range Below Low values reflect the Threshold (test clinical forrest delinesof the code = 2345-7) [employer]. Creatinine Lvl 0.70 mg/dl 0.50-1.40 (test code = 2160-0) Blood Urea 14 mg/dl 7-22 Nitrogen (test code = 3094-0) BUN/Creatinine 20 6-25 Ratio (test code = 3097-3) Total Protein; 5.3 g/dl 6.4-8.4 Below Low Threshold (test code = 2885-2) Albumin Lvl; 2.4 g/dl 3.5-5.0 Below Low Threshold (test code = 1751-7) Globulin (test 2.9 g/dl 2.7-4.2 code = 70604-5) A/G Ratio (test 0.8 0.7-1.6 code = 1759-0) Calcium Level 8.8 mg/dl 8.5-10.5 Total (test code = 65491-1) ALT (test code = 16 u/l 0-65 1743-4) AST (test code = 19 u/l 0-37 71272-2) Bili Total (test 0.2 mg/dl 0.2-1.3 code = 1975-2) Alk Phos (test 112 u/l 39-136 code = 1783-0) eGFR (test code = 121 The eGFR i s calculated 62073-7) {ML/MIN/1.7} using the CKD-E PI formula. In mos t young, healthyindividu als the eGFR will be >9 0 mL/min/1.73m2. The eGFR declines with a ge. AneGFR of 60-89 may be normal in some population s, particularly th e elderly, forwhom the CKD -EPI formula has not been extensively cony idated. Use of the eGFR isnot recommended in the following populations:Ind ividuals with unstable c reatinine concentrations, including patient s and those with seri ous co-morbid conditions.Lisa ents with extremes in mus hakeem mass or diet.The deanna a above are obtained fr om the National Kidney Disease Education Progr am(NKDEP) which emile lorenz recommends that when the eGFR is used in patientswith ex tremes of body mass index for purposes of rory g dosing, the eGFR should be multiplied by t he estimated BMI. [facility][QH] PROTEIN, TOTAL W/CREAT, RANDOM URINE 2018-05-07 09:22:01 Test Item Value Reference Range Interpretation Comments U Creatinine (test 56.50 mg/dl No establ ished code = 2161-8) reference ran ges. Urine Protein Level 19.7 mg/dl No estab lished (test code = 2888-6) referen ce ranges. U Prot/Creat (test 0.35 code = 2890-2) [facility][O] Urine Dipstick (In Office)2018-05-07 08:10:00 Test Item Value Reference Range Interpretation Comments LEUKOCYTES (test code = small A LEUKOCYTES) NITRITE; Normal (test code = neg N 62914-0) UROBILINOGEN; Normal (test code = 0.1 N 30328-9) PROTEIN; Normal (test code = neg N 32104-1) pH (test code = pH) 7.0 N URINE BLOOD; Abnormal (test code trace-lysed A = 43368-5) SPECIFIC GRAVITY; Normal (test 1.020 N code = 2965-2) KETONES; Normal (test code = neg N 35094-0) BILIRUBIN; Normal (test code = neg N 24917-2) GLUCOSE; Normal (test code = neg N 1547-9) [facility][O] Urine Dipstick (In Office)2018-04-23 10:39:00 Test Item Value Reference Range Interpretation Comments LEUKOCYTES (test code = trace A LEUKOCYTES) NITRITE; Normal (test code = neg N 53616-4) UROBILINOGEN; Normal (test code = 0.2 N 00779-2) PROTEIN; Normal (test code = neg N 96937-5) pH (test code = pH) 6.0 N URINE BLOOD; Abnormal (test code trace-lysed A = 97832-7) SPECIFIC GRAVITY; Normal (test 1.025 N code = 2965-2) KETONES; Normal (test code = neg N 39302-2) BILIRUBIN; Normal (test code = neg N 18282-8) GLUCOSE; Normal (test code = neg N 1547-9) [facility][] HIV AB, HIV 1/2, EIA, WITH [id number] 10:24:01 Test Item Value Reference Range Interpretation Comments HIV Ag/Ab 4th Gen Negative Negative HIV test r esults should be (test code = considered posi tive only 87808-7) when both the s creening andthe confirma tory tests are positive. A negative confirmatory te st in patientswith a positive screening test does not exclude HIV inf ection. If clincallywarran jeronimo, an HIV RNA quantitativ e test should be order ed. [facility]] URINALYSIS, [id number] 13:50:01 Test Item Value Reference Range Interpretation Comments UA Turbidity (test code = 59041-0) Clear Clear UA Spec Grav (test code = 5810-7) 1.010 <=1.030 UA pH (test code = 5803-2) 6.0 5.0-8.0 UA Protein (test code = 21399-6) Negative Negative UA Glucose (test code = 88527-5) Negative Negative UA Ketones (test code = 53969-4) Negative Negative UA Bili (test code = 5770-3) Negative Negative UA Blood; Abnormal (test code = Small Negative A 5794-3) UA Nitrite (test code = 5802-4) Negative Negative UA Leuk Est; Abnormal (test code = Large Negative A 5799-2) UA RBC (test code = 68227-5) 1 {/HPF} 0-2 UA WBC (test code = 90840-0) 3 {/HPF} 0-5 UA Bacteria (test code = 76649-0) Occasional None Seen UA Mucus (test code = 8247-9) Few None Seen UA Sq Epi (test code = 73048-3) Few Few UA Color (test code = 5778-6) Ltyellow UROBILINOGEN (test code = 43429-6) <=1.0 0.1-1.0 [facility]] CULTURE, URINE, [id number] 13:50:01 Test Item Value Reference Range Interpretation Comments FINAL REPORT (test code = FINAL No Growth REPORT) [facility][O] Urine Dipstick (In Office)2018-04-09 08:50:00 Test Item Value Reference Range Interpretation Comments LEUKOCYTES (test code = LEUKOCYTES) small A NITRITE; Normal (test code = 00994-5) neg N UROBILINOGEN; Normal (test code = 0.2 N 54273-7) PROTEIN; Normal (test code = 90264-0) neg N pH (test code = pH) 6.5 N URINE BLOOD; Normal (test code = neg N 49469-3) SPECIFIC GRAVITY; Normal (test code = 1.015 N 2965-2) KETONES; Normal (test code = 28135-2) neg N BILIRUBIN; Normal (test code = 69653-7) neg N GLUCOSE; Normal (test code = 1547-9) neg N [facility][O] Urine Dipstick (In Office)2018-04-09 08:32:00 Test Item Value Reference Range Interpretation Comments LEUKOCYTES (test code = LEUKOCYTES) small A NITRITE; Normal (test code = 94240-4) neg N UROBILINOGEN; Normal (test code = 0.2 N 36350-2) PROTEIN; Normal (test code = 71743-5) neg N pH (test code = pH) 6.5 N URINE BLOOD; Normal (test code = neg N 53276-9) SPECIFIC GRAVITY; Normal (test code = 1.015 N 2965-2) KETONES; Normal (test code = 09531-2) neg N BILIRUBIN; Normal (test code = 19670-2) neg N GLUCOSE; Normal (test code = 1547-9) neg N [facility][O] Urine Dipstick (In Office)2018-03-26 09:26:00 Test Item Value Reference Range Interpretation Comments LEUKOCYTES (test code = LEUKOCYTES) Trace A NITRITE; Normal (test code = Negative N 58824-4) UROBILINOGEN; Normal (test code = 0.2 N 75116-3) PROTEIN; Normal (test code = Negative N 95892-7) pH (test code = pH) 7.0 A URINE BLOOD; Normal (test code = Negative N 78261-6) SPECIFIC GRAVITY; Normal (test code 1.015 N = 2965-2) KETONES; Normal (test code = Negative N 71908-6) BILIRUBIN; Normal (test code = Negative N 59115-8) GLUCOSE; Normal (test code = 1547-9) Negative N COLOR URINE; Normal (test code = yellow N 5778-6) APPEARANCE; Normal (test code = clear N 5767-9) [facility]] [id number] 10:28:01 Test Item Value Reference Range Interpretation Comments ALT (test code = 1743-4) 15 u/l 0-65 [facility]] [id number] 10:28:01 Test Item Value Reference Range Interpretation Comments AST (test code = 99354-5) 13 u/l 0-37 [facility]] [id number] 10:28:01 Test Item Value Reference Range Interpretation Comments Amylase Level (test code = 1798-8) 47 u/l 25-115 [facility]] [id number] 10:28:01 Test Item Value Reference Range Interpretation Comments Lipase Level (test code = 3040-3) 177 u/l 73-393 [facility]] URINALYSIS, [id number] 10:28:01 Test Item Value Reference Range Interpretation Comments UA Turbidity; Abnormal (test code Marked Clear A = 99762-4) UA Spec Grav (test code = 5810-7) 1.009 <=1.030 UA pH (test code = 5803-2) 7.0 5.0-8.0 UA Protein (test code = 38411-9) Negative Negative UA Glucose (test code = 75702-5) Negative Negative UA Ketones (test code = 28542-4) Negative Negative UA Bili (test code = 5770-3) Negative Negative UA Blood (test code = 5794-3) Negative Negative UA Nitrite (test code = 5802-4) Negative Negative UA Leuk Est; Abnormal (test code = Large Negative A 5799-2) UA WBC; Above High Threshold (test 7 {/HPF} 0-5 code = 89890-3) UA Bacteria (test code = 60576-1) Occasional None Seen Urine Amorphous Crystals (test Occasional None Seen code = 73160-4) UA Sq Epi; Abnormal (test code = Many Few A 96830-5) UA Color (test code = 5778-6) Ltyellow UROBILINOGEN (test code = 95424-1) <=1.0 0.1-1.0 [facility]] CULTURE, URINE, [id number] 10:28:01 Test Item Value Reference Range Interpretation Comments FINAL REPORT (test 10,000 - 50,000 CFU/mL code = FINAL Group B Streptococcus , No REPORT) susceptibility performedsince these organisms are predictably susceptible to penicillin. If patient ispenicillin allergic or susceptibility testing for additional antibiotics isclinically warranted please call the laboratory. [facility][O] Urine Dipstick (In Office)2018-03-19 09:45:00 Test Item Value Reference Range Interpretation Comments LEUKOCYTES (test code = LEUKOCYTES) small A NITRITE; Normal (test code = 71869-4) neg N UROBILINOGEN; Normal (test code = 0.2 N 00062-6) PROTEIN; Normal (test code = 43041-2) neg N pH (test code = pH) 7.0 N URINE BLOOD; Normal (test code = neg N 41063-1) SPECIFIC GRAVITY; Normal (test code = 1.015 N 2965-2) KETONES; Normal (test code = 80409-6) neg N BILIRUBIN; Normal (test code = 70198-8) neg N GLUCOSE; Normal (test code = 1547-9) neg N [facility]] GLUCOSE, GESTATIONAL SCREEN (50G)-130 CUTOFF 2018-03-12 10:46:01 Test Item Value Reference Range Interpretation Comments Glucose Challenge (test code = 100.0 mg/dl <=140.0 1504-0) [facility]] CBC (INCLUDES DIFF/PLT)2018-03-12 10:46:01 Test Item Value Reference Range Interpretation Comments WBC (test code = 6690-2) 10.2 {K/CMM} 3.7-10.4 RBC; Below Low Threshold (test 3.82 {M/CMM} 4.20-5.40 code = 789-8) Hgb; Below Low Threshold (test 11.8 g/dl 12.0-16.0 code = 718-7) Hct; Below Low Threshold (test 35.7 % 36.0-48.0 code = 89738-8) MCV (test code = 787-2) 93.3 fL 80.0-98.0 MCH (test code = 785-6) 30.9 pg 27.0-31.0 MCHC (test code = 786-4) 33.1 g/dl 32.0-36.0 RDW; Above High Threshold (test 15.1 % 11.5-14.5 code = 788-0) Platelet (test code = 41067-3) 195 {K/CMM} 133-450 Mean Platelet Volume (test code 10.2 fL 7.4-10.4 = 48074-2) [facility]] [id number] 10:46:01 Test Item Value Reference Range Interpretation Comments Segmented Neutrophils (test code 67.7 % 45.0-75.0 = 53120-1) Monocytes (test code = 52177-3) 6.8 % 2.0-12.0 Lymphocytes (test code = 74181-6) 23.0 % 20.0-40.0 Eosinophils (test code = 85837-6) 2.2 % 0.0-4.0 Basophils (test code = 706-2) 0.3 % 0.0-1.0 Segs-Bands # (test code = 6.9 {K/CMM} 1.5-8.1 92358-4) Lymphocytes # (test code = 2.3 {K/CMM} 1.0-5.5 31404-6) Monocytes # (test code = 49815-8) 0.7 {K/CMM} 0.0-0.8 Eosinophils # (test code = 0.2 {K/CMM} 0.0-0.5 33779-8) [facility]] URINALYSIS, [id number] 10:46:01 Test Item Value Reference Range Interpretation Comments UA Turbidity; Abnormal (test code Slight Clear A = 92038-3) UA Spec Grav (test code = 5810-7) 1.010 <=1.030 UA pH (test code = 5803-2) 7.0 5.0-8.0 UA Protein (test code = 03989-4) Negative Negative UA Glucose (test code = 98814-4) Negative Negative UA Ketones (test code = 52006-7) Negative Negative UA Bili (test code = 5770-3) Negative Negative UA Blood (test code = 5794-3) Negative Negative UA Nitrite (test code = 5802-4) Negative Negative UA Leuk Est; Abnormal (test code = Large Negative A 5799-2) UA RBC (test code = 00173-0) 2 {/HPF} 0-2 UA WBC; Above High Threshold (test 12 {/HPF} 0-5 code = 72084-8) UA Bacteria (test code = 20444-4) Occasional None Seen UA Mucus (test code = 8247-9) Few None Seen UA Sq Epi; Abnormal (test code = Many Few A 19885-7) UA Color (test code = 5778-6) Ltyellow UROBILINOGEN (test code = 49881-8) <=1.0 0.1-1.0 [facility]] CULTURE, URINE, [id number] 10:46:01 Test Item Value Reference Range Interpretation Comments FINAL REPORT (test 10,000 - 50,000 CFU/mL code = FINAL REPORT) Group B Streptococcus No susceptibility performed sincethese organisms are predictably susceptible to penicillin. If patient ispenicillin allergic or susceptibility testing for additional antibiotics isclinically warranted please call the laboratory. Amend Final (test 10,000 - 50,000 CFU/mL code = Amend Final) Group B Streptococcus ORGANISM (test code Group B Streptococcus = 699-9) [facility][H] [id number] 10:46:01 Test Item Value Reference Range Interpretation Comments ORGANISM (test code Group B = 699-9) Streptococcus Levofloxacin (test .38 S code = Levofloxacin) Clindamycin (test .125 S code = Clindamycin) Erythromycin (test 4 R S= Suscep tible, code = R= Resistant, I = Erythromycin) Intermediate, N/A= Not Applicable [facility][O] Urine Dipstick (In Office)2018-03-12 09:23:00 Test Item Value Reference Range Interpretation Comments LEUKOCYTES (test code = LEUKOCYTES) small A NITRITE; Normal (test code = 85132-6) neg N UROBILINOGEN; Normal (test code = 0.2 N 95471-7) PROTEIN; Normal (test code = 70756-3) neg N pH (test code = pH) 7.5 N URINE BLOOD; Normal (test code = neg N 70042-7) SPECIFIC GRAVITY; Normal (test code = 1.020 N 2965-2) KETONES; Normal (test code = 98494-6) \\neg N BILIRUBIN; Normal (test code = 54791-4) neg N GLUCOSE; Normal (test code = 1547-9) neg N [facility]] CBC (INCLUDES DIFF/PLT)2018-02-12 09:45:01 Test Item Value Reference Range Interpretation Comments WBC (test code = 6690-2) 10.2 {K/CMM} 3.7-10.4 RBC; Below Low Threshold (test 3.72 {M/CMM} 4.20-5.40 code = 789-8) Hgb; Below Low Threshold (test 11.5 g/dl 12.0-16.0 code = 718-7) Hct; Below Low Threshold (test 33.5 % 36.0-48.0 code = 25923-8) MCV (test code = 787-2) 90.0 fL 80.0-98.0 MCH (test code = 785-6) 30.8 pg 27.0-31.0 MCHC (test code = 786-4) 34.2 g/dl 32.0-36.0 RDW; Above High Threshold (test 14.8 % 11.5-14.5 code = 788-0) Platelet (test code = 04348-9) 187 {K/CMM} 133-450 Mean Platelet Volume (test code 10.3 fL 7.4-10.4 = 28650-6) [facility]] [id number] 09:45:01 Test Item Value Reference Range Interpretation Comments Segmented Neutrophils (test code 63.9 % 45.0-75.0 = 70828-7) Monocytes (test code = 13929-2) 6.9 % 2.0-12.0 Lymphocytes (test code = 54272-1) 25.9 % 20.0-40.0 Eosinophils (test code = 19644-2) 3.0 % 0.0-4.0 Basophils (test code = 706-2) 0.3 % 0.0-1.0 Segs-Bands # (test code = 6.5 {K/CMM} 1.5-8.1 39217-7) Lymphocytes # (test code = 2.6 {K/CMM} 1.0-5.5 05028-7) Monocytes # (test code = 57265-2) 0.7 {K/CMM} 0.0-0.8 Eosinophils # (test code = 0.3 {K/CMM} 0.0-0.5 71249-6) [facility]] [id number] 09:45:01 Test Item Value Reference Range Interpretation Comments Amylase Level (test code = 1798-8) 47 u/l 25-115 [facility]] CMP [id number] 09:45:01 Test Item Value Reference Range Interpretation Comments Sodium Level 141 {mEq/l} 135-145 (test code = 2951-2) Potassium Level; 3.4 {mEq/l} 3.5-5.1 Below Low Threshold (test code = 2823-3) Chloride Level; 112 {mEq/l} 95-109 Above High Threshold (test code = 5-0) Carbon Dioxide; 21 {mEq/l} 24-32 Below Low Threshold (test code = 2027-9) AGAP (test code = 11.4 {mEq/l} 10.0-20.0 34087-4) Glucose Lvl (test 73 mg/dl 70-99 Adult refe rence range code = 2345-7) values reflec t the clinical guidel inesof the [place] [employer] es [employer]. Creatinine Lvl 0.60 mg/dl 0.50-1.40 (test code = 2160-0) Blood Urea 8 mg/dl 7-22 Nitrogen (test code = 3094-0) BUN/Creatinine 13 6-25 Ratio (test code = 3097-3) Total Protein; 6.0 g/dl 6.4-8.4 Below Low Threshold (test code = 2885-2) Albumin Lvl; 2.7 g/dl 3.5-5.0 Below Low Threshold (test code = 1751-7) Globulin (test 3.3 g/dl 2.7-4.2 code = 86951-6) A/G Ratio (test 0.8 0.7-1.6 code = 1759-0) Calcium Level 8.1 mg/dl 8.5-10.5 Total; Below Low Threshold (test code = 58226-7) ALT (test code = 16 u/l 0-65 3-4) AST (test code = 14 u/l 0-37 98708-1) Bili Total; Below 0.1 mg/dl 0.2-1.3 Low Threshold (test code = 1975-2) Alk Phos (test 60 u/l 39-136 code = 1783-0) eGFR (test code = 127 The eGFR i s calculated 72090-7) {ML/MIN/1.7} using the CKD-E PI formula. In mos t young, healthyindividu als the eGFR will be >9 0 mL/min/1.73m2. The eGFR declines with a ge. AneGFR of 60-89 may be normal in some population s, particularly th e elderly, forwhom the CKD -EPI formula has not been extensively cony idated. Use of the eGFR isnot recommended in the following populations:Ind ividuals with unstable c reatinine concentrations, including patient s and those with seri ous co-morbid conditions.Lisa ents with extremes in mus hakeem mass or diet.The deanna a above are obtained fr om the National Kidney Disease Education Progr am(NKDEP) which emile lorenz recommends that when the eGFR is used in patientswith ex tremes of body mass index for purposes of rory g dosing, the eGFR should be multiplied by t he estimated BMI. [facility]] [id number] 09:45:01 Test Item Value Reference Range Interpretation Comments Lipase Level (test code = 3040-3) 185 u/l 73-393 [facility]] URINALYSIS, [id number] 09:45:01 Test Item Value Reference Range Interpretation Comments UA Turbidity (test code = 52315-0) Clear Clear UA Spec Grav (test code = 5810-7) 1.008 <=1.030 UA pH (test code = 5803-2) 7.0 5.0-8.0 UA Protein (test code = 31829-2) Negative Negative UA Glucose (test code = 12626-8) Negative Negative UA Ketones (test code = 48612-8) Negative Negative UA Bili (test code = 5770-3) Negative Negative UA Blood (test code = 5794-3) Negative Negative UA Nitrite (test code = 5802-4) Negative Negative UA Leuk Est; Abnormal (test code = Moderate Negative A 5799-2) UA RBC (test code = 70981-7) 1 {/HPF} 0-2 UA WBC (test code = 27197-5) <1 0-5 UA Sq Epi (test code = 90441-6) Occasional Few UA Color (test code = 5778-6) Ltyellow UROBILINOGEN (test code = 57398-4) <=1.0 0.1-1.0 [facility]] CULTURE, URINE, [id number] 09:45:01 Test Item Value Reference Range Interpretation Comments FINAL REPORT (test 10,000 - 50,000 CFU/mL code = FINAL Group B Streptococcus No REPORT) susceptibility performed sincethese organisms are predictably susceptible to penicillin. If patient ispenicillin allergic or susceptibility testing for additional antibiotics isclinically warranted please call the laboratory. [facility]] [id number] 09:40:01 Test Item Value Reference Range Interpretation Comments AST (test code = Cancel Reason: System 71399-6) Cancel [facility]] [id number] 09:40:01 Test Item Value Reference Range Interpretation Comments ALT (test code = Cancel Reason: System 1743-4) Cancel [facility][] Urine Dipstick (In Office)2018-02-12 08:53:00 Test Item Value Reference Range Interpretation Comments LEUKOCYTES (test code = LEUKOCYTES) trace N NITRITE; Normal (test code = 88057-5) neg N UROBILINOGEN; Normal (test code = 0.2 N 34468-2) PROTEIN; Normal (test code = 81530-3) neg N pH (test code = pH) 7.5 A URINE BLOOD; Normal (test code = neg N 15156-9) SPECIFIC GRAVITY; Normal (test code = 1.010 N 2965-2) KETONES; Normal (test code = 59297-5) neg N BILIRUBIN; Normal (test code = 44127-2) neg N GLUCOSE; Normal (test code = 1547-9) neg N [facility]] URINALYSIS, [id number] 15:23:01 Test Item Value Reference Range Interpretation Comments UA Turbidity; Abnormal (test code Marked Clear A = 42496-3) UA Spec Grav (test code = 2965-2) 1.016 <=1.030 UA pH (test code = 2756-5) 7.0 5.0-8.0 UA Protein (test code = 57935-9) Negative Negative UA Glucose (test code = 2349-9) Negative Negative UA Ketones (test code = 83391-0) Negative Negative UA Bili (test code = 64824-9) Negative Negative UA Blood (test code = 798-9) Negative Negative UA Nitrite (test code = 35793-5) Negative Negative UA Leuk Est; Abnormal (test code = Trace Negative A 18282-2) UA RBC (test code = 89114-0) 1 {/HPF} 0-2 UA WBC (test code = 39141-4) 3 {/HPF} 0-5 UA Bacteria (test code = 630-4) Occasional None Seen UA Sq Epi; Abnormal (test code = Moderate Few A 06067-7) UA Color (test code = 43238-7) Yellow UROBILINOGEN (test code = 95704-9) <=1.0 0.1-1.0 UA Spec Grav (test code = 5810-7) 1.016 <=1.030 UA pH (test code = 5803-2) 7.0 5.0-8.0 UA Glucose (test code = 27117-4) Negative Negative UA Bili (test code = 5770-3) Negative Negative UA Blood (test code = 5794-3) Negative Negative UA Nitrite (test code = 5802-4) Negative Negative UA Leuk Est; Abnormal (test code = Trace Negative A 5799-2) UA RBC (test code = 54755-0) 1 {/HPF} 0-2 UA WBC (test code = 86271-1) 3 {/HPF} 0-5 UA Bacteria (test code = 38384-4) Occasional None Seen UA Sq Epi; Abnormal (test code = Moderate Few A 21140-4) UA Color (test code = 5778-6) Yellow UROBILINOGEN (test code = 12055-6) <=1.0 0.1-1.0 [facility]] CULTURE, URINE, [id number] 15:23:01 Test Item Value Reference Range Interpretation Comments ORGANISM (test code = Enterococcus Species 699-9) FINAL REPORT (test 10,000 - 50,000 CFU/mL code = FINAL REPORT) Enterococcus Species [facility][H] [id number] 15:23:01 Test Item Value Reference Range Interpretation Comments ORGANISM (test code = Enterococcus 699-9) Species Ampicillin (test code - S = Ampicillin) Levofloxacin (test - S code = Levofloxacin) Nitrofurantoin (test - S code = Nitrofurantoin) Tetracycline (test - R code = Tetracycline) Vancomycin (test code SEE NOTES S S= Ingris ceptible, = Vancomycin) R= Resistant, I= Intermediate, N/A= Not Applicable [facility][O] Urine Dipstick (In Office)2018-01-15 09:52:00 Test Item Value Reference Range Interpretation Comments LEUKOCYTES (test code = LEUKOCYTES) trace NITRITE; Normal (test code = 39201-2) neg N UROBILINOGEN; Normal (test code = 0.2 N 56010-4) PROTEIN; Normal (test code = 35745-1) neg N pH (test code = pH) 7.0 N URINE BLOOD; Normal (test code = neg N 41851-8) SPECIFIC GRAVITY; Normal (test code = 1.020 N 2965-2) KETONES; Normal (test code = 46011-0) neg N BILIRUBIN; Normal (test code = 41355-8) neg N GLUCOSE; Normal (test code = 1547-9) neg N UROBILINOGEN; Normal (test code = 0.2 N 92631-8) [facility]] CULTURE, URINE, [id number] 17:21:01 Test Item Value Reference Range Interpretation Comments CULTURE, URINE, Cancel Reason: Unable ROUTINE (test code = To Obtain Specimen CULTURE, URINE, ROUTINE) [facility][O] Urine Dipstick (In Office)2018-01-08 10:17:00 Test Item Value Reference Range Interpretation Comments LEUKOCYTES (test code = LEUKOCYTES) trace A NITRITE; Normal (test code = 06743-3) neg N UROBILINOGEN; Normal (test code = 0.2 N 08318-6) PROTEIN; Normal (test code = 85291-2) neg N pH (test code = pH) 6.5 N URINE BLOOD; Normal (test code = neg N 86656-2) SPECIFIC GRAVITY; Normal (test code = 1.020 N 2965-2) KETONES; Normal (test code = 69455-0) neg N BILIRUBIN; Normal (test code = 23476-5) neg N GLUCOSE; Normal (test code = 1547-9) neg N [facility]] CBC (INCLUDES DIFF/PLT)2017-12-18 10:32:01 Test Item Value Reference Range Interpretation Comments WBC (test code = WBC) 7.2 {K/CMM} 3.7-10.4 RBC (test code = RBC) 4.06 {M/CMM} 4.20-5.40 Hgb; Below Low Threshold (test 11.8 g/dl 12.0-16.0 code = 01604-2) Hct (test code = 4544-3) 36.6 % 36.0-48.0 MCV (test code = MCV) 90.3 fL 80.0-98.0 MCH (test code = MCH) 29.1 pg 27.0-31.0 MCHC (test code = MCHC) 32.2 g/dl 32.0-36.0 RDW (test code = RDW) 15.8 % 11.5-14.5 Platelet (test code = 777-3) 227 {K/CMM} 133-450 Mean Platelet Volume (test code 9.7 fL 7.4-10.4 = Mean Platelet Volume) WBC (test code = 6690-2) 7.2 {K/CMM} 3.7-10.4 RBC; Below Low Threshold (test 4.06 {M/CMM} 4.20-5.40 code = 789-8) MCV (test code = 787-2) 90.3 fL 80.0-98.0 MCH (test code = 785-6) 29.1 pg 27.0-31.0 MCHC (test code = 786-4) 32.2 g/dl 32.0-36.0 RDW; Above High Threshold (test 15.8 % 11.5-14.5 code = 788-0) Mean Platelet Volume (test code 9.7 fL 7.4-10.4 = 43528-9) [facility]] [id number] 10:32:01 Test Item Value Reference Range Interpretation Comments Segmented Neutrophils (test code 60.2 % 45.0-75.0 = 43978-1) Monocytes # (test code = 42682-7) 0.6 {K/CMM} 0.0-0.8 Lymphocytes (test code = 27.5 % 20.0-40.0 Lymphocytes) Eosinophils # (test code = 0.3 {K/CMM} 0.0-0.5 77496-2) Basophils (test code = 71559-8) 0.4 % 0.0-1.0 Segs-Bands # (test code = 4.3 {K/CMM} 1.5-8.1 61893-1) Lymphocytes # (test code = 2.0 {K/CMM} 1.0-5.5 66877-2) Lymphocytes (test code = 14457-0) 27.5 % 20.0-40.0 [facility]] URINALYSIS, [id number] 10:32:01 Test Item Value Reference Range Interpretation Comments UA Color (test code = 37054-3) Yellow UA Turbidity (test code = 38318-0) Clear Clear UA Spec Grav (test code = 2965-2) 1.016 <=1.030 UA pH (test code = 2756-5) 6.0 5.0-8.0 UA Protein (test code = 35920-5) Negative Negative UA Glucose (test code = 2349-9) Negative Negative UA Ketones; Abnormal (test code = Trace Negative A 65847-1) UA Bili (test code = 59931-6) Negative Negative UA Blood (test code = 798-9) Negative Negative UROBILINOGEN (test code = 24844-0) <=1.0 0.1-1.0 UA Nitrite (test code = 02270-0) Negative Negative UA Leuk Est (test code = 27691-1) Negative Negative UA RBC (test code = 73285-1) <1 0-2 UA WBC (test code = 67069-5) 2 {/HPF} 0-5 UA Bacteria (test code = 630-4) Occasional None Seen UA Mucus (test code = 73870-2) Few None Seen UA Sq Epi (test code = 41219-0) Occasional Few [facility]] CULTURE, URINE, [id number] 10:32:01 Test Item Value Reference Range Interpretation Comments FINAL REPORT (test code = FINAL No Growth REPORT) [facility][H] Alpha Fetoprotein (Only) Maternal Screen 2017-12-18 10:32:01 Test Item Value Reference Interpretation Comments Range Results Report (Maternal Screen) (test code = Results (Maternal Screen)) Test Results *Screen (Maternal Negative* Screen) (test code = Test Results (Maternal Screen)) Gest Age on 16.3 {WEEKS} Collection Date (test code = Gest Age on Collection Date) Gest Age Base On JAMIE 06/02/2018R ecalculations (test code = are not recomme nded when Gest Age Base gestational da tingby LMP On) and ultrasound are within 10 days. Maternal Age at 25.5 {yr} JAMIE (test code = Maternal Age at JAMIE) Maternal Race Other (test code = Maternal Race) Maternal Weight 137 {lb} (test code = Maternal Weight) Insulin-Dependen No t Diabetic (test code = Insulin-Dependen t Diabetic) Multiple Gest No (test code = Multiple Gest) Alpha 29.2 ng/ml Fetoprotein Maternal (test code = Alpha Fetoprotein Maternal) Multiple of 0.81 Median AFP (test code = 84484-0) Risk for NTD 49808 (OBS) (test code = Risk for NTD (OBS)) Maternal Screen Comment Interpretati on: Screen Interp (test NegativeThis re sult is code = Maternal screen negat kenya for Screen Interp) OSB. The AFP MoMcalculated is based on the gestational age provided. M S-AFPcan identify up to 80% of open neural tu be defects.Closed neural tube defects and gunnar e open defects may not bedetected by this test. T his test does not screen for fetalDown Syndr ome or Trisomy 18. If screening for Down Syndro meor Trisomy 18 is desired, contact [facility] to discuss availab le options. The AmericanCol lege of Obstetricians a nd Gynecologists recommendsamnio centesis be offered to wome n age 35 and older. Comment Comment Araceli barnes, PhD, (Maternal Scrn) FACMGDirecto r, Biochemical (test code = and Molecular Comment GeneticsReferen linh: (Maternal Scrn)) Available U callie Request.Multipl es Of Median Cutoffs For AFP ElevationsSingl eton 2.5 Black 2.8IDD 2.0 Twins 4.5 Abbr eviation DefinitionsIDD - Insulin Dep DiabetesOSB R - Open Spina Bifida Ri skFor further inquiri es contact [facility] at [phone]. Performed At: [facility] [id number] Ion Rosas [facility], [place] [id number] anni Gordillo MD Ph :[phone] Insulin N Dependent? (test code = Insulin Dependent?) Gest Ager Weeks? 16 (test code = Gest Ager Weeks?) Gest Age Days 2 (test code = Gest Age Days) Gest Age Date of Calculation (YYYYMMDD) (test code = Gest Age Date of Calculation (YYYYMMDD)) Gest Age Method Ultrasound of Calculation (test code = Gest Age Method of Calculation) Date of LMP (test code = Date of LMP) Est Due Date (test code = Est Due Date) Number of 1 Fetuses (test code = Number of Fetuses) Other N Indications? (test code = Other Indications?) [facility][O] Urine Dipstick (In Office)2017-12-18 08:22:00 Test Item Value Reference Range Interpretation Comments LEUKOCYTES (test code = LEUKOCYTES) neg N NITRITE; Normal (test code = 70126-3) neg N UROBILINOGEN; Normal (test code = 0.2 N 10617-1) PROTEIN; Normal (test code = 15864-6) neg N pH (test code = pH) 6.5 N URINE BLOOD; Normal (test code = neg N 13269-2) SPECIFIC GRAVITY; Normal (test code = 1.020 N 2965-2) KETONES; Abnormal (test code = 24521-9) trace A BILIRUBIN; Normal (test code = 31621-9) neg N GLUCOSE; Normal (test code = 1547-9) neg N [facility][QL] CMP [id number] 11:32:01 Test Item Value Reference Range Interpretation Comments Sodium Level 140 {mEq/l} 135-145 (test code = Sodium Level) Potassium Level 3.5 {mEq/l} 3.5-5.1 (test code = Potassium Level) Chloride Level 112 {mEq/l} 95-109 (test code = Chloride Level) Carbon Dioxide 19 {mEq/l} 24-32 (test code = Carbon Dioxide) AGAP (test code = 12.5 {mEq/l} 10.0-20.0 AGAP) Glucose Lvl (test 66 mg/dl 70-99 Adult refe rence range code = Glucose values reflec t the Lvl) clinical guidel inesof the [place] Diabet es Association. Creatinine Lvl 0.60 mg/dl 0.50-1.40 (test code = Creatinine Lvl) Blood Urea 10 mg/dl 7-22 Nitrogen (test code = Blood Urea Nitrogen) BUN/Creatinine 17 6-25 Ratio (test code = BUN/Creatinine Ratio) Total Protein 6.9 g/dl 6.4-8.4 (test code = 20661-9) Albumin Lvl; 3.3 g/dl 3.5-5.0 Below Low Threshold (test code = 1751-7) Globulin (test 3.6 g/dl 2.7-4.2 code = Globulin) A/G Ratio (test 0.9 0.7-1.6 code = A/G Ratio) Calcium Level 8.6 mg/dl 8.5-10.5 Total (test code = Calcium Level Total) ALT (test code = 20 u/l 0-65 1742-6) AST (test code = 16 u/l 0-37 1916-6) Alk Phos (test 53 u/l 39-136 code = 1783-0) Bili Total; Below 0.1 mg/dl 0.2-1.3 Low Threshold (test code = 57398-0) eGFR (test code = 127 The eGFR i s calculated eGFR) {ML/MIN/1.7} using the CKD-E PI formula. In mos t young, healthyindividu als the eGFR will be >9 0 mL/min/1.73m2. The eGFR declines with a ge. AneGFR of 60-89 may be normal in some population s, particularly th e elderly, forwhom the CKD -EPI formula has not been extensively cony idated. Use of the eGFR isnot recommended in the following populations:Ind ividuals with unstable c reatinine concentrations, including patient s and those with seri ous co-morbid conditions.Lisa ents with extremes in mus hakeem mass or diet.The deanna a above are obtained fr om the National Kidney Disease Education Progr am(NKDEP) which emile lorenz recommends that when the eGFR is used in patientswith ex tremes of body mass index for purposes of rory g dosing, the eGFR should be multiplied by t he estimated BMI. [facility][QH] PROTEIN, TOTAL W/CREAT, RANDOM URINE 2017-11-20 11:32:01 Test Item Value Reference Range Interpretation Comments U Creatinine (test 67.30 mg/dl No establ ished code = U Creatinine) referen ce ranges. Urine Protein Level 12.0 mg/dl No estab lished (test code = 2888-6) referen ce ranges. U Prot/Creat (test 0.18 code = 2890-2) [facility][LH] GC/CT by Amp Det (APTIMA)2017-11-20 11:32:01 Test Item Value Reference Range Interpretation Comments Source APTIMA Urine (test code = Source APTIMA) N gonorrhea by Amp Negative Negative The APTIM A assay is a Det (APTIMA) (test target am plification code = 31944-9) nucleic acid probe test utilizingtarget capture for the qualitative detection and differentia tion of ribosomalRNA fr om Neisseria gonorrhoeae to aid in the diagnosis of di sease fromsymptomatic and asymptomatic in dividuals using the [employer] ER System.This ass ay utilizes FDA cleared IVD reagents. Performance liss racteristics havebeen verifi ed by the [facility] with in [facility].The [facility] r[facility] is authorized unde r the Clinical LaboratoryImpro vement Amendments of 1 988 (CLIA-88) to pe rform high complexity test ing. C trachomatis by Negative Negative The APTIMA assay is a Amp Det (APTIMA) target ampl ification (test code = nucleic acid pr obe test 75399-5) utilizingtarget capture for the qualitative detection and differentia tion of ribosomalRNA fr om Chlamydia trachomatis to aid in the diagnosis of di sease fromsymptomatic and asymptomatic in dividuals using the [employer] ER System.This ass ay utilizes FDA cleared IVD reagents. Performance liss racteristics havebeen verifi ed by the [facility] with in [facility].The [facility] r[facility] is authorized unde r the Clinical LaboratoryImpro vement Amendments of 1 988 (CLIA-88) to pe rform high complexity test ing. [facility][O] Urine Dipstick (In Office)2017-11-20 09:27:00 Test Item Value Reference Range Interpretation Comments LEUKOCYTES (test code = LEUKOCYTES) small A NITRITE; Normal (test code = 12217-7) neg N UROBILINOGEN; Normal (test code = 0.2 N 89541-7) PROTEIN; Normal (test code = 03027-1) neg N pH (test code = pH) 6.5 N URINE BLOOD; Normal (test code = neg N 01542-3) SPECIFIC GRAVITY; Normal (test code = 1.020 N 2965-2) KETONES; Normal (test code = 84209-8) neg N BILIRUBIN; Normal (test code = 41646-6) neg N GLUCOSE; Normal (test code = 1547-9) neg N [facility]] URINALYSIS, [id number] 16:46:01 Test Item Value Reference Range Interpretation Comments UA Turbidity (test code = 70120-9) Clear Clear UA Spec Grav (test code = 2965-2) 1.010 <=1.030 UA pH (test code = 2756-5) 6.0 5.0-8.0 UA Protein (test code = 02471-7) Negative Negative UA Glucose (test code = 2349-9) Negative Negative UA Ketones (test code = 74033-3) Negative Negative UA Bili (test code = 11240-4) Negative Negative UA Blood (test code = 798-9) Negative Negative UA Nitrite (test code = 03180-8) Negative Negative UA Leuk Est; Abnormal (test code = Moderate Negative A 85019-7) UA RBC (test code = 92235-9) 1 {/HPF} 0-2 UA WBC (test code = 38265-5) 1 {/HPF} 0-5 UA Bacteria (test code = 630-4) Occasional None Seen UA Mucus (test code = 56617-3) Few None Seen UA Sq Epi (test code = 21165-9) Occasional Few UA Color (test code = 98155-5) Ltyellow UROBILINOGEN (test code = 70715-5) <=1.0 0.1-1.0 [facility]] CULTURE, URINE, [id number] 16:46:01 Test Item Value Reference Range Interpretation Comments FINAL REPORT (test code <10,000 CFU/mL Skin = FINAL REPORT) Radha [facility]] HEPATIC FUNCTION [id number] 15:30:01 Test Item Value Reference Range Interpretation Comments HEPATIC FUNCTION PANEL Cancel Reason: (test code = HEPATIC Duplicate Order FUNCTION PANEL) [facility]] CBC (INCLUDES DIFF/PLT)2017-10-12 15:30:01 Test Item Value Reference Range Interpretation Comments WBC (test code = WBC) 7.6 {K/CMM} 3.7-10.4 RBC (test code = RBC) 4.39 {M/CMM} 4.20-5.40 Hgb (test code = 52886-8) 12.7 g/dl 12.0-16.0 Hct (test code = 4544-3) 38.5 % 36.0-48.0 MCV (test code = MCV) 87.9 fL 80.0-98.0 MCH (test code = MCH) 29.0 pg 27.0-31.0 MCHC (test code = MCHC) 33.0 g/dl 32.0-36.0 RDW (test code = RDW) 14.1 % 11.5-14.5 Platelet (test code = 777-3) 247 {K/CMM} 133-450 Mean Platelet Volume (test code 10.4 fL 7.4-10.4 = Mean Platelet Volume) [facility][] Obstetrics Panel (includes CBCw/Diff,RPR, HbsAg,RubIgG,Type and Screen)2017-10-12 15:30:01 Test Item Value Reference Range Interpretation Comments Segs (test code = 60.2 % 45.0-75.0 57865-8) Monocytes # (test 0.6 {K/CMM} 0.0-0.8 code = 05679-7) Lymphocytes (test 28.1 % 20.0-40.0 code = Lymphocytes) Eosinophils (test 3.3 % 0.0-4.0 code = Eosinophils) Basophils (test code 0.3 % 0.0-1.0 = 71021-7) Segs-Bands # (test 4.7 {K/CMM} 1.5-8.1 code = 49874-8) Lymphocytes # (test 2.2 {K/CMM} 1.0-5.5 code = 57905-2) Eosinophils # (test 0.3 {K/CMM} 0.0-0.5 code = 72608-5) WBC (test code = 7.8 {K/CMM} 3.7-10.4 6690-2) RBC (test code = 4.50 {M/CMM} 4.20-5.40 789-8) Hgb (test code = 13.1 g/dl 12.0-16.0 717-9) Hct (test code = 39.7 % 36.0-48.0 50044-3) MCV (test code = 88.2 fL 80.0-98.0 787-2) MCH (test code = 29.0 pg 27.0-31.0 44622-5) MCHC (test code = 32.9 g/dl 32.0-36.0 786-4) RDW (test code = 13.7 % 11.5-14.5 788-0) Platelet (test code = 266 {K/CMM} 133-450 777-3) MPV; Above High 10.7 fL 7.4-10.4 Threshold (test code = 33191-9) Rubella IgG (test 129.8 {IU/ml} >=10.0 Reference Range: code = 15001-1) Immune >= 10 IU/mL Hep Bs Ag (test code Negative Negative = 5195-3) ABORH (test code = A NEG 882-1) AB Screen (test code Negative = 890-4) RPR (test code = Non Reactive Non Reactive 39483-9) [facility][H] HIV 4th Gen w/ [id number] 15:30:01 Test Item Value Reference Range Interpretation Comments HIV Ag/Ab 4th Gen (test code = HIV Negative Negative Ag/Ab 4th Gen) [facility]] BILIRUBIN, [id number] 15:30:01 Test Item Value Reference Range Interpretation Comments Bilirubin Direct (test code = 85888-5) <0.1 0.0-0.3 [facility]] CMP [id number] 15:30:01 Test Item Value Reference Range Interpretation Comments Sodium Level 137 {mEq/l} 135-145 (test code = Sodium Level) Potassium Level 3.4 {mEq/l} 3.5-5.1 (test code = Potassium Level) Chloride Level 109 {mEq/l} 95-109 (test code = Chloride Level) Carbon Dioxide 16 {mEq/l} 24-32 (test code = Carbon Dioxide) AGAP (test code = 15.4 {mEq/l} 10.0-20.0 AGAP) Glucose Lvl (test 73 mg/dl 70-99 Adult refe rence range code = Glucose values reflec t the Lvl) clinical guidel inesof the [place] Diabet es Association. Creatinine Lvl 0.60 mg/dl 0.50-1.40 (test code = Creatinine Lvl) Blood Urea 8 mg/dl 7-22 Nitrogen (test code = Blood Urea Nitrogen) BUN/Creatinine 13 6-25 Ratio (test code = BUN/Creatinine Ratio) Total Protein 7.0 g/dl 6.4-8.4 (test code = 87754-5) Albumin Lvl (test 3.8 g/dl 3.5-5.0 code = 1751-7) Globulin (test 3.2 g/dl 2.7-4.2 code = Globulin) A/G Ratio (test 1.2 0.7-1.6 code = A/G Ratio) Calcium Level 8.7 mg/dl 8.5-10.5 Total (test code = Calcium Level Total) ALT (test code = 18 u/l 0-65 1742-6) AST (test code = 21 u/l 0-37 1916-6) Bili Total (test 0.4 mg/dl 0.2-1.3 code = 20805-9) Alk Phos (test 55 u/l 39-136 code = 1783-0) eGFR (test code = 128 The eGFR i s calculated eGFR) {ML/MIN/1.7} using the CKD-E PI formula. In mos t young, healthyindividu als the eGFR will be >9 0 mL/min/1.73m2. The eGFR declines with a ge. AneGFR of 60-89 may be normal in some population s, particularly th e elderly, forwhom the CKD -EPI formula has not been extensively cony idated. Use of the eGFR isnot recommended in the following populations:Ind ividuals with unstable c reatinine concentrations, including patient s and those with seri ous co-morbid conditions.Lisa ents with extremes in mus hakeem mass or diet.The deanna a above are obtained fr om the National Kidney Disease Education Progr am(NKDEP) which emile lorenz recommends that when the eGFR is used in patientswith ex tremes of body mass index for purposes of rory g dosing, the eGFR should be multiplied by t he estimated BMI. [facility]] [id number] 15:30:01 Test Item Value Reference Range Interpretation Comments Lactate Dehydrogenase; Above High 249 u/l 98-192 Threshold (test code = 00421-9) [facility]] URIC [id number] 15:30:01 Test Item Value Reference Range Interpretation Comments Uric Acid (test code = 3086-6) 2.5 mg/dl 2.5-7.0 [facility]] VITAMIN [id number] 15:30:01 Test Item Value Reference Range Interpretation Comments Vitamin B12 Level (test code = 551 pg/ml 254-1320 Vitamin B12 Level) [facility]] URINALYSIS, [id number] 15:30:01 Test Item Value Reference Range Interpretation Comments UA Turbidity (test code = 49002-2) Clear Clear UA Spec Grav (test code = 2965-2) 1.004 <=1.030 UA pH (test code = 2756-5) 6.0 5.0-8.0 UA Protein (test code = 87848-0) Negative Negative UA Glucose (test code = 2349-9) Negative Negative UA Ketones (test code = 35594-4) Negative Negative UA Bili (test code = 13357-8) Negative Negative UA Blood; Abnormal (test code = Small Negative A 798-9) UA Nitrite (test code = 61953-1) Negative Negative UA Leuk Est; Abnormal (test code = Large Negative A 92029-2) UA RBC (test code = 26158-9) 1 {/HPF} 0-2 UA WBC (test code = 72921-4) 5 {/HPF} 0-5 UA Bacteria (test code = 630-4) Occasional None Seen UA Sq Epi (test code = 09715-5) Occasional Few UA Color (test code = 29958-9) Ltyellow UROBILINOGEN (test code = 57149-8) <=1.0 0.1-1.0 [facility][Q] PROTEIN, TOTAL W/CREAT, RANDOM URINE 2017-10-12 15:30:01 Test Item Value Reference Range Interpretation Comments U Creatinine (test 25.50 mg/dl No establ ished code = U Creatinine) referen ce ranges. Urine Protein Level <5.0 No estab lished (test code = 2888-6) referen ce ranges. U Prot/Creat (test <0.20 code = 2890-2) [facility][H] Hemoglobin Electrophoresis and Interpretation 2017-10-12 15:30:01 Test Item Value Reference Range Interpretation Comments Hgb A % (test code = Hgb 97.4 % 95.8-97.8 A %) Hgb A2 % (test code = 2.6 % 2.2-3.2 Hgb A2 %) Hgb F % (test code = 0.0 % 0.0-1.0 10883-8) Hgb S % (test code = Hgb 0.0 % 0.0-0.0 S %) Hgb C % (test code = Hgb 0.0 % 0.0-0.0 C %) Hemoglobin SEE NOTES No abnormal Electrophoresis hemoglobins are Interpretation (test detecte d; normal code = 24191-1) hemoglobin electrophoresis alma rn.The [facility] medical record has been reviewed f or relevant histor y. I have personally reviewed the te st results and con cur with the [facility] preta tion.CPT 56430-VMMumiigs gonzalo Signature Raymundo Mccullough MD 09/26 12:13 PM [facility]] CULTURE, URINE, [id number] 15:30:01 Test Item Value Reference Range Interpretation Comments ORGANISM (test code = Enterococcus Species 699-9) FINAL REPORT (test 10,000 - 50,000 CFU/mL code = FINAL REPORT) Enterococcus Species [facility][H] [id number] 15:30:01 Test Item Value Reference Range Interpretation Comments ORGANISM (test code = Enterococcus 699-9) Species Ampicillin (test code - S = Ampicillin) Levofloxacin (test - S code = Levofloxacin) Nitrofurantoin (test - S code = Nitrofurantoin) Tetracycline (test - R code = Tetracycline) Vancomycin (test code SEE NOTES S S= Ingris ceptible, = Vancomycin) R= Resistant, I= Intermediate, N/A= Not Applicable [facility][H] Creatine [id number] 15:30:01 Test Item Value Reference Range Interpretation Comments Creatine Lvl 0.2 mg/dl 0.1-1.0 This test was d eveloped and its (test code = performance Creatine Lvl) characteristic sdetermined by [facility]. It has not been cleared orappro sheila by the Food and Drug Administration. Performed At: [facility] [id number] [place], [place] [id number] k Giorgio Hubbard MD Ph:[phone] [facility][H] Cystic Fibrosis [id number] 15:30:01 Test Item Value Reference Range Interpretation Comments CF Result Comment: RESULTS: Negati ve for 32 (test code = mutations CF Result) analyzedINTERPR ETATION:This individual is n egative for the mutations chavez zed.This negative result may need further interpr etationdepending on the clinical indication. This result red ucesbut does not eliminate the r isk to be a CF carrier.COMMENT S:The detection rate varies wit h ethnicity and is listedbelow. The presence of an undetecte d mutation in theCF gene corey ot be ruled out. In the absence offamily history, the re maining risk that a person w itha negative result could arguello ve at least one CF mutationis l isted in the table. If ther e is a family historyof CF, t hese risk figures do not apply. As detailedinforma tion regarding this individual 's familyhistory would permit a more accurate assessment ofth is individual's risk to be a ca rrier of cysticfibrosis, please contact [facility] [phone] for a revised report.Mutation Detection Detection rates are based on mutationRates a madison Ethnic frequencies in patients affected withGr oups cystic fibrosi s. Among individuals with an atypica l or mild presentation (e.g. congenita l absence of the vas deferens, pancr eatitis) detection rates may vary from those provided here: Carrier risk reduction when no family hist ory DetectionEthnic ity RateAshkenazi 11/20 to 97%JewishCaucas quentin 11/19 to 90%(non-Hispani c)-Americ an to 69% 46 to 73% to 55%This interp retation is based on the cl inical and familyrelations hip information provided and th e currentundersta nding of the molecular libby ics of this condition.MUTAT IONS ANALYZED:G85E V520F Q4717O 2183AA to KH774U G542X J8267N 4890bllHE962P S549N 394delTT 2789+5G to KV574O S5 49R 621+1G to T 3120+1G to BS558A G551D 711+1G to T 9365wlvYE708Z R553X 1078delT 3849+10kbC to JFxswaD257 R5 60T 1717-1G to A 3876delA ZpgdiQ177 F5804Y 1898+1 G to A 3905insTMETHODS /LIMITATIONS:DNA is isolated fro m the sample and tested for the 32 CFmutations on the [employer] ([place]).Regio ns of the CFTR gene are amplif ied enzymatically a ndsubjected to a solution-phase multiplex allele-specific primer extension with subsequent hybridization to a beadarray and fluorescence detection. Leeroy ymorphisms F508C,I506V and I507V are included in thi s panel to rule outfalse positi ve oykxkT172 homozygotes. R eflex testing of5T is include d in the panel for R117H inter pretation.False positive or neg ative results may occur for r easonsthat include genetic variants, blood transfusions, b onemarrow transplantation , erroneous representation offamily relationships o r contamination of a samp lewith maternal cells.REFERENCE S:1. Updates on Carrier Screeni ng for Cystic Fibrosis. (2011 ) Am J Ob Gynecol 117(4): 1028-88527. Lane et al. (2004) Libby Med 6:387-913. Poncho nelson et al. (2002) Libby Me d 4:379-3914. Preconception a nd carrier screeni ng for cystic fibrosis: (2001 )ACOG.ACMG publicationResu lts Released By: Ap Walker , Ph.D. TechnicalDirect or Report Released By: Honorio Walker, Ph.D.Crm Solution Architect CF Interp Comment The assay provi gilmer information (test code = intended to be used for CF Interp) carrierscreenin g in adults of reproductive ag e, as an aid in newbornscreenin g, and as a confirmatory te st for another medicallyestabl ished diagnosis in newborns and children. The test is notindi cated for use in diagnosti c testing, pre-implantatio nscreening, or for any stand-a lone diagnostic purposes withou tconfirmation by another medical ly established diagnostic prod uctor procedure.Perfo rmed At: [facility] [id number] [place] [address]358Pepkowivanessa Aguilar MD Ph:[phone] rformed At: [facility] [id number] [place], [place] [id number] anni Gordillo MD Ph:[phone] [facility][LH] TSH+Free [id number] 15:30:01 Test Item Value Reference Range Interpretation Comments TSH; Above High Threshold 6.660 {uIU/ml} 0.360-3.740 (test code = 36052-6) T4 Free (test code = T4 Free) 1.04 ng/dl 0.76-1.46 [facility][H] SMA [id number] 15:30:01 Test Item Value Reference Interpretation Comments Range SMA Genetic Not Couselor (test code applicable = SMA Genetic Couselor) SMA Speciman ID Not (test code = SMA applicable Speciman ID) Source SMA (test Comment Peripheral Blood code = Source SMA) SMA Speciman Comment 3 - Lavender 5 ml round Received (test code bottom t ube(s) = SMA Speciman Received) SMA Clinical Data Comment Not Provid ed (test code = SMA Clinical Data) SMA Results (test Comment SMN1 copy number: 2 code = SMA Results) (Reduced Carrier Risk) SMA Interpretations Note This ind ividual has an (test code = SMA SMN1 copy n umber of two. Interpretations) This result reduces but does not elimin ate the risk to be a ca rrier ofSMA. Informa tion regarding clini tamica indication may providea more detailed interpretation. SMA Comments (test Note Spinal mu scular atrophy code = SMA (SMA) is an aut osomal Comments) recessivediseas e of variable age of onset and severity caused bymutations (mo st often deletions or ge ne conversions) in thesurvival mot or neuron (SMN1) gene. M olecular testingassesses the number of copies of th e SMN1 gene. Individu alswith one copy of the SMN 1 gene are predicted to be carriersof SMA. Individua ls with two or more copies have a reducedrisk to be carriers. (Aff ected individuals hav e 0 copies ofthe SMN1 gene .) This copy number tashi lysis cannot detectin dividuals who are carrier s of SMA as a result of eit her 2(or very rarely 3) copies of the SMN1 gene o n one chromosomeand t he absence of the SMN1 gen e on the other chromosom e orsmall intragenic muta tions within the SMN1 gene. Thisanalysis al so will not detect germline mosaicism ormutations in genes other than SMN1. Add itionally, de novomutation s have been reported in franny roximately 2% of SMApatien ts. SMA Carrier Note Carrier Frequen cy and Risk Detection Rate Reductions fo r Individuals (test code = SMA withNo Fami ly History of Carrier Detection SMA Rate) R educed Reduced Carrier Carrier Prior Risk for Risk for Detection Carrier 2 copy 3 copyE thnicity rate(1) Risk(1) result resul tCaucasian 94.8% 1:47 1:834 1:5,6 00Ashkenazi Latter-Day 90.5% 1:67 1:611 1:5, 400Asian 93.3% 1:59 1:806 1:5,600Hispanic 90.0% 1:68 1:579 1:5,400Afric an [place]ian 70.5% 1:7 2 1:130 1:4,200Asia n 90.2% 1: 52 1:443 1:5,4 00 SMA Note METHOD/LIMITATI ONS: Method/Limitations Specimen DNA is isolated (test code = SMA and amplifi edby real-time Method/Limitations) polymera se chain reaction (PCR) for exon 7 ofthe SMN1 gene and t he internal standard refere nce genes. Amathematical a lgorithm is used to calcula te and report [id number] numbers of 0, 1, 2 and 3. Based upon this analysis, anupper limit of 3 repr esents the highest degree of accuracyin repo rting SMN1 copy number wit h statistical confidence.Sequ encing of the primer and probe binding sites i sperformed on all sa mples and samples with on e copy ofSMN1 by real- time PCR to rule out the pr esence of sequencevariant s which could interfere with analysis andinterpretati on. False positive or neg ative results mayoccu r for reasons that in clude genetic variant s, bloodtransfusio ns, bone marrow transpla ntation, erroneousrepres entation of family relation ships or contamination o f afetal sample with mat ernal cells. SMA References Note REFERENCES: 1 . Blake (test code = SMA EA, Javan N , Casiano H, et References) al.Spring-ethnic c arrier screening and p renatal diagnosis forsp inal muscular atroph y: clinical laboratory anal ysis of>72,400 speci mens. Eur J Hum [place]by 2012; 20:27-32. 2. Sandip et al. Technical stand ards and guidelines for spinalmuscular atrophy testing. Libby Med 2011; 13(7): 686-694. SMA Disclaimer Note The test was developed and (test code = SMA its perform ance Disclaimer) characteristics have been determined by [employer].The laborat ory is regulated under the Clinical LaboratoryImpro vement Amendments of 1 988 (CLIA) as qualified to perform high complexity clinical testing. This t est must beused in conju nction with clinical assess ment, whenavailable. [employer] is a b usiness unit of[employer] , a wholly-ownedsub sidiary of [employer]. SMA Electronically Comment Mya elias, Ph.D., Signed by (test FACMG,Perfor med At: EGLMA code = SMA [facility] [address]igned by) [address] [facility] NICK schmidt [id number] o Bernice PhD Ph:[phone] 01 [facility][H] [facility] [id number] 15:29:01 Test Item Value Reference Range Interpretation Comments [facility] (test COMMENT Test Orde red: 179275 code = [facility]) 25-Hydr oxyvitamin D LCMS D2+M982-[id number] , Vitamin D 17 [L ] ng/mL ESRe ference Range:All Ages: Target levels 30 - 84272-Barfklt, Vitamin D-2 7.5 ng/mL ES25 -Hydroxy, Vitamin D-3 9.6 ng/mL ESPerformed At: [facility] [place], [place] [id number] k Giorgio Hubbard MD Ph:[phone] rformed At: ES [id number] [place], [place] [id number] tanya Aguilar MD Ph:[phone] [facility]
[2020-09-26] MEDS ORDERED: HYDROMORPHONE HCL 1 MG/ML INJ ONE (00:30)
[2020-09-26] MEDS ORDERED: ONDANSETRON 4 MG/2 ML VIAL ONE (00:31)
[2020-09-26] MEDS ORDERED: NA CHLORIDE 0.9% 1,000 ML ONE (00:31)
[2020-09-26 01:09] LABS: Absolute Lymphocytes (CBC) 2.6 K/uL (0.7-4.9); Basophils % 1.2 % (0-1.3); Hematocrit 37.5 % (36.0-45.0); Lymphocytes % 44.8 % (15.3-44.8); MPV 10.2 fL (7.6-11.3)
[2020-09-26 01:17] LABS: ALT/SGPT 13 U/L (12-78); AST/SGOT 15 U/L (15-37); Albumin 3.5 g/dL (3.4-5.0); Alkaline Phosphatase 46 U/L (45-117); BUN Blood Urea Nitrogen 17 mg/dL (7-18); Bicarbonate 24 mmol/L (21-32); Bilirubin Direct < 0.1 mg/dL (0-0.2); Bilirubin Total 0.2 mg/dL (0.2-1.0); Glucose Level 79 mg/dL (74-106); Lipase 315 U/L (73-393); Potassium 3.7 mmol/L (3.5-5.1); Protein, Total 6.5 g/dL (6.4-8.2); Sodium Level 142 mmol/L (136-145)
[2020-09-26 02:04] LABS: Urine Mucus 1+ /HPF (NONE SEEN); Urine Urothelial Cells <5 /HPF (NONE SEEN)
[2020-09-26 02:05] LABS: Urine Bacteria 20-50 /HPF (<20)
[2020-09-26] MEDS ORDERED: PROMETHAZINE INJ 25 MG/ML AMP ONE (02:57)
--- NOTE | 2020-09-26 04:22 | EDPHYS ---
Physician Documentation [facility] Name: Elizabeth Pascal Age: 29 yrs Sex: Female : 1990 Arrival Date: 09/25/2020 Time: 23:21 Bed 15 Private MD: ED Physician Alexandra Landry HPI: 09/26 01:32 This 29 yrs old Female presents to ER via Ambulatory with complaints of BLOOD ma2 IN URINE, Constipation, Abdominal Pain, Back Pain. 02:04 This 29 yrs old Female presents to ER via Ambulatory with complaints of BLOOD ma2 IN URINE, Constipation, Abdominal Pain, Back Pain. 02:04 This 29 yrs old Female presents to ER via Ambulatory with complaints of BLOOD ma2 IN URINE, Constipation, Abdominal Pain, Back Pain. 02:04 This 29 yrs old Female presents to ER via Ambulatory with complaints of BLOOD ma2 IN URINE, Constipation, Abdominal Pain, Back Pain. 02:04 Onset: The symptoms/episode began/occurred gradually, 1 day(s) ago. Associated signs ma2 and symptoms: Pertinent negatives: chest pain, fever, incontinence, tingling. Severity of symptoms: At their worst the symptoms were moderate, in the emergency department the symptoms are unchanged. The patient has not experienced similar symptoms in the past. left flank pain and hematuria no dysuria or fequency . 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 - Social history:: Smoking status: Patient reports the use of cigarette tobacco products, smokes one-half pack cigarettes per day. - Family history:: not pertinent. ROS: 09/26 02:04 Constitutional: Negative for fever, chills, and weight loss. ma2 All other systems are negative. Exam: 02:04 Constitutional: This is a well developed, well nourished patient who is awake, alert, ma2 and in no acute distress. Neck: Trachea midline, no thyromegaly or masses palpated, and no cervical lymphadenopathy. Supple, full range of motion without nuchal rigidity, or vertebral point tenderness. No Meningismus. Chest/axilla: Normal chest wall appearance and motion. Nontender with no deformity. No lesions are appreciated. Cardiovascular: Regular rate and rhythm with a normal S1 and S2. No gallops, murmurs, or rubs. Normal PMI, no JVD. No pulse deficits. Respiratory: Lungs have equal breath sounds bilaterally, clear to auscultation and percussion. No rales, rhonchi or wheezes noted. No increased work of breathing, no retractions or nasal flaring. Abdomen/GI: Soft, non-tender, with normal bowel sounds. No distension or tympany. No guarding or rebound. No evidence of tenderness throughout. Back: No spinal tenderness. No costovertebral tenderness. Full range of motion. Skin: Warm, dry with normal turgor. Normal color with no rashes, no lesions, and no evidence of cellulitis. MS/ Extremity: Pulses equal, no cyanosis. Neurovascular intact. Full, normal range of motion. Neuro: Awake and alert, GCS 15, oriented to person, place, time, and situation. Cranial nerves II-XII grossly intact. Motor strength 5/5 in all extremities. Sensory grossly intact. Cerebellar exam normal. Normal gait. Vital Signs: 09/25 23:24 BP 120 / 84; Pulse 67; Resp 18; Temp 98.2; Pulse Ox 100% on R/A; Weight 63.5 kg (R); aj1 Height 5 ft. 3 in. (160.02 cm) (R); Pain 7/10; 09/26 01:45 BP 95 / 81; Pulse 80; Resp 16; Pulse Ox 98% on R/A; jb4 02:45 BP 121 / 91; Pulse 60; Resp 16; Pulse Ox 99% on R/A; jb4 09/25 23:24 Body Mass Index 24.80 (63.50 kg, 160.02 cm) aj1 MDM: 02:04 Differential diagnosis: Pyelonephritis Scoliosis sprain, Ureterolithiasis. ma2 02:22 Data reviewed: vital signs, nurses notes. Counseling: I had a detailed discussion with [facility] the patient and/or guardian regarding: the historical points, exam findings, and any diagnostic results supporting the discharge/admit diagnosis, the presence of at least one elevated blood pressure reading (>120/80) during this emergency department visit, the need for outpatient follow up. Response to treatment: the patient's symptoms have markedly improved after treatment. 02:25 Patient medically screened. [facility] 09/25 23:48 Order name: IV Saline Lock; Complete Time: 01:02 [facility] 09/25 23:48 Order name: NPO; Complete Time: 00:05 [facility] 09/25 23:48 Order name: Urine Dipstick-Ancillary (obtain specimen); Complete Time: : [facility] Administered Medications: 00:50 Drug: Zofran (Ondansetron) 4 mg Route: IVP; Site: right antecubital; jb4 00:52 Drug: NS 0.9% 1000 ml Route: IV; Rate: 1000 ml; Site: right antecubital; jb4 00:52 Drug: Dilaudid 1 mg {Note: Rass score 0.} Route: IVP; Site: right antecubital; jb4 Disposition: 09/26/20 02:25 Discharged to Home. Impression: Hematuria, unspecified. - Condition is Stable. - Discharge Instructions: Hematuria, Adult. - Prescriptions for Flomax 0.4 mg Oral Capsule, Sust. Release 24 hr - take 1 capsule by ORAL route once daily 1/2 hour following the same meal each day; 30 capsule. Diclofenac Sodium 75 mg Oral Tablet Sustained Release - take 1 tablet by ORAL route 2 times per day; 30 tablet. cefpodoxime 100 mg Oral Tablet - take 1 tablet by ORAL route every 12 hours for 10 days take with food; 20 tablet. - Medication Reconciliation Form, Thank You Letter, Antibiotic Education, Prescription Opioid Use form. - Work release form (09/26/20 03:16). jb4 - Follow up: Private Physician; When: Tomorrow; Reason: Continuance of care. Follow up: Christiano Escalona MD; When: Today; Reason: Continuance of care. Signatures: Nikole Bravo RN RN aj1 Vikash George RN RN jb4 Alexandra Landry MD MD ma2 Corrections: (The following items were deleted from the chart) 03:02 02:25 09/26/2020 02:25 Discharged to Home. Impression: Hematuria, unspecified. aj1 Condition is Stable. Prescriptions for Flomax 0.4 mg Oral Capsule, Sust. Release 24 hr - take 1 capsule by ORAL route once daily 1/2 hour following the same meal each day; 30 capsule, Diclofenac Sodium 75 mg Oral Tablet Sustained Release - take 1 tablet by ORAL route 2 times per day; 30 tablet. and Forms are Medication Reconciliation Form, Thank You Letter, Antibiotic Education, Prescription Opioid Use. Follow up: Private Physician; When: Tomorrow; Reason: Continuance of care. Follow up: Christiano Escalona; When: Today; Reason: Continuance of care. ma2
--- NOTE | 2020-09-26 04:22 | ER ---
Nurse's Notes [facility] Name: Elizabeth Pascal Age: 29 yrs Sex: Female : 1990 Arrival Date: 09/25/2020 Time: 23:21 Bed 15 Private MD: Diagnosis: Hematuria, unspecified Presentation: 09/25 23:24 Chief complaint: Patient states: "For about 7 days I've been urinating blood, I decided aj1 to go to the Urgent Care because I started to have pain in my back and in the front here (points to lower abdomen). I've had in the past UTI's since I was very small and I've had kidney infections, but they did the urine test and they said that there was no UTI, but there was blood in the urine. I've been vomiting and feeling nausea. They thought it was a kidney stone, so they did an X-Ray, but they said there was so much constipation on the X-Ray he couldn't see the much in the kidney area, but thought I might have a kidney stone. He gave me a prescription for pain medication and I took that at 8, but its already wearing off. I've also had a lot of ovarian cysts in the past, so I'm not sure what this could be" Patient denies fever. Coronavirus screen: Client denies travel out of the [place] in the last 14 days. At this time, the client does not indicate any symptoms associated with coronavirus-19. Ebola Screen: Patient denies travel to an Ebola-affected area in the 21 days before illness onset. Initial Sepsis Screen: Does the patient meet any 2 criteria? No. Patient's initial sepsis screen is negative. Does the patient have a suspected source of infection? No. Patient's initial sepsis screen is negative. Risk Assessment: Do you want to hurt yourself or someone else? Patient reports no desire to harm self or others. Onset of symptoms was August 2020. 23:24 Method Of Arrival: Ambulatory aj1 23:24 Acuity: DEBRA 3 aj1 Triage Assessment: 23:32 General: Appears in no apparent distress. uncomfortable, Behavior is calm, cooperative, aj1 appropriate for age. Pain: Complains of pain in left low back and left lower quadrant Pain does not radiate. Neuro: Level of Consciousness is awake, alert, obeys commands, Oriented to person, place, time, situation. Cardiovascular: Patient's skin is warm and dry. Respiratory: Airway is patent Respiratory effort is even, unlabored, Respiratory pattern is regular, symmetrical. GI: Reports lower abdominal pain, constipation, nausea, vomiting. : Reports blood in urine. Derm: Skin is pink, warm \\T\\ dry. normal. Musculoskeletal: Circulation, motion, and sensation intact. 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 - Social history:: Smoking status: Patient reports the use of cigarette tobacco products, smokes one-half pack cigarettes per day. - Family history:: not pertinent. Screenin:45 Abuse screen: Denies threats or abuse. Nutritional screening: No deficits noted. jb4 Tuberculosis screening: No symptoms or risk factors identified. Fall Risk None identified. Assessment: 23:45 General: Appears in no apparent distress. uncomfortable, Behavior is calm, cooperative, jb4 appropriate for age. Pain: Complains of pain in abdomen Pain radiates to low back area Pain currently is 7 out of 10 on a pain scale. Neuro: Level of Consciousness is awake, alert, obeys commands, Oriented to person, place, time, situation. Cardiovascular: Patient's skin is warm and dry. Respiratory: Airway is patent Respiratory effort is even, unlabored, Respiratory pattern is regular, symmetrical. GI: Abdomen is flat, non-distended, Bowel sounds present X 4 quads. Abd is soft X 4 quads Abd is non tender in right upper quadrant, left upper quadrant and right lower quadrant Abdomen is tender to palpation in left lower quadrant. : Urine is cloudy, Reports pain in lower back with urination. EENT: No signs and/or symptoms were reported regarding the EENT system. Derm: Skin is intact, Skin is pink, warm \\T\\ dry. Musculoskeletal: Circulation, motion, and sensation intact. Range of motion: intact in all extremities. 09/26 01:00 Reassessment: Patient appears in no apparent distress at this time. Patient and/or jb4 family updated on plan of care and expected duration. Pain level reassessed. Patient is alert, oriented x 3, equal unlabored respirations, skin warm/dry/pink. 02:00 Reassessment: Patient appears in no apparent distress at this time. Patient and/or jb4 family updated on plan of care and expected duration. Pain level reassessed. Patient is alert, oriented x 3, equal unlabored respirations, skin warm/dry/pink. 03:00 Reassessment: Patient appears in no apparent distress at this time. Patient and/or jb4 family updated on plan of care and expected duration. Pain level reassessed. Patient is alert, oriented x 3, equal unlabored respirations, skin warm/dry/pink. Vital Signs: 09/25 23:24 BP 120 / 84; Pulse 67; Resp 18; Temp 98.2; Pulse Ox 100% on R/A; Weight 63.5 kg (R); aj1 Height 5 ft. 3 in. (160.02 cm) (R); Pain 7/10; 09/26 01:45 BP 95 / 81; Pulse 80; Resp 16; Pulse Ox 98% on R/A; jb4 02:45 BP 121 / 91; Pulse 60; Resp 16; Pulse Ox 99% on R/A; jb4 09/25 23:24 Body Mass Index 24.80 (63.50 kg, 160.02 cm) aj1 ED Course: 09/25 23:21 Patient arrived in ED. cf2 23:32 Triage completed. aj1 23:32 Arm band placed on Patient placed in an exam room. aj1 23:40 Alexandra Landry MD is Attending Physician. ma2 23:45 Patient has correct armband on for positive identification. Placed in gown. Bed in low jb4 position. Call light in reach. Side rails up X 1. Pulse ox on. NIBP on. 09/26 00:04 Vikash George RN is Primary Nurse. jb4 00:45 Initial lab(s) drawn, by la, sent to lab. Urine collected: clean catch specimen, jb4 cloudy, katie colored. Inserted saline lock: 20 gauge in right antecubital area, using aseptic technique. Blood collected. 02:24 Christiano Escalona MD is Referral Physician. ma2 03:00 No provider procedures requiring assistance completed. IV discontinued, intact, jb4 bleeding controlled, No redness/swelling at site. Pressure dressing applied. Administered Medications: 00:50 Drug: Zofran (Ondansetron) 4 mg Route: IVP; Site: right antecubital; jb4 00:52 Drug: NS 0.9% 1000 ml Route: IV; Rate: 1000 ml; Site: right antecubital; jb4 00:52 Drug: Dilaudid 1 mg {Note: Rass score 0.} Route: IVP; Site: right antecubital; jb4 Outcome: 02:25 Discharge ordered by MD. ma2 03:00 Discharged to home via wheelchair, with family. jb4 03:00 Condition: stable 03:00 Discharge instructions given to patient, Instructed on discharge instructions, follow up and referral plans. medication usage, Demonstrated understanding of instructions, follow-up care, medications, Prescriptions given X 3. 03:02 Patient left the ED. aj1 Addendum: 09/30/2020 09:47 Addendum: Culture Results: Positive urine culture. Bacteria is resistant to, has s s intermediate sensitivity, or is not tested against prescribed antibiotics. Report given to FABRICE for further evaluation and then to major general for follow up with patient. Phone call Attempt #1 Attempted to call patient for follow up. NOMAN Leal recommends, "F/u with patient's condition. If no improvement/ resolution of UTI/hematuria then prescribe the following: Macrobid 100 mg 1 tab PO BID x 10 days #20.". Signatures: Nikole Bravo RN RN aj1 Yuridia Scherer RN RN ss Bryson, James, RN RN jb4 Aelxandra Landry MD MD ma2 Alexandrea Hutchinson 2 Corrections: (The following items were deleted from the chart) 09/26 03:09 12 23:45 GI: Abdomen is flat, non-distended, jb4 jb4
--- NOTE | 2020-09-26 12:23 | RAD REPORT ---
EXAM DESCRIPTION: CT ABDOMEN PELVIS WITHOUT IV CONTRAST CLINICAL HISTORY: ABD PAIN TECHNIQUE: Contiguous axial images obtained through the abdomen and pelvis without IV contrast. Jake nal and sagittal reformatted images were provided. This exam was performed according to our departmental dose-optimization program, which includes autom ated exposure control, adjustment of the mA and/or kV according to patient size and/or use of iterati ve reconstruction technique. COMPARISON: 09/21/2018 FINDINGS: Lung bases: Clear Liver: Grossly unremarkable Gallbladder and biliary system: Prior cholecystectomy. Pancreas: Grossly unremarkable Spleen: Grossly unremarkable Adrenals: Unremarkable Kidneys: No calculi. No hydronephrosis. Bowel: Moderate stool throughout the large bowel. No obstruction. No appreciable mucosal thickening. Appendix: Pericecal suture material suggestive of prior appendectomy. No findings to suggest acute ap pendicitis. Urinary bladder: Unremarkable Reproductive: 3.5 cm left ovarian cyst. The uterus is unremarkable as visualized. Lymph nodes: No pathologically enlarged lymph nodes. Peritoneum: No focal fluid collection. No free air. Vessels: No abdominal aortic aneurysm. Abdominal wall: Rectus muscle diastases. Small widemouthed fat-containing periumbilical hernia, mildl y increased in size. Bones: Unremarkable IMPRESSION: 1. No renal, ureteral or bladder calculi. No evidence for renal obstruction. 2. Moderate stool. No bowel obstruction. 3. 3.5 cm probably benign left ovarian cyst. Recommend follow-up pelvic US in 6-12 weeks. Referen ce: J Am Ghassan Radiol 2013;10:675-681 4. Other findings as above. 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 The interpreting r adiologist is fully responsible for the content of the report.
== END 2020-09-26 03:02 | disposition home or self-care (01) ==
LOC: ER 23:15
DX: R31.9 Hematuria, unspecified (principal); E03.9 Hypothyroidism, unspecified; F17.210 Nicotine dependence, cigarettes, uncomplicated; Z88.0 Allergy status to penicillin; Z88.1 Allergy status to other antibiotic agents; Z88.2 Allergy status to sulfonamides; Z88.3 Allergy status to other anti-infective agents
CPT/HCPCS: 36415; 74176; 76377; 80048; 80076; 81015; 83690; 85025; 87077; 87086; 87088; 87186; 96374; 96375; 99284; J1170; J2405; J2550; J7030

== ENCOUNTER 2020-12-21 19:08 | Emergency (ER) | payer OTHER, SELFPAY ==
--- OUTSIDE RECORDS SUMMARY | 2020-12-21 19:20 | XMS REPORT | Continuity of Care Document ---
:1990 Author Organization [facility] t Address [address] [place] [address] Care Team Providers Name Role Phone Mita PAVON Primary Care Physician Deepika PAVON Attending Clinician Gerson BOURGEOIS Attending Clinician Unavailable Cristin Hogue MD Attending Clinician CRISTIN HOGUE Attending Clinician Unavailable Bonnie PAVON Attending Clinician ASH ALLISON Attending Clinician Unavailable CRYSTAL Attending Clinician Unavailable SHARP Attending Clinician Unavailable MISTY Attending Clinician Unavailable MATERNAL Attending Clinician Unavailable BELLAIRE Attending Clinician Unavailable BELLAIRE Attending Clinician Unavailable CASTILLO Attending Clinician Unavailable BELLE Attending Clinician Unavailable BELLAIRE Attending Clinician Unavailable CANCER Attending Clinician Unavailable GARETT Attending Clinician Unavailable BELLAIRE Attending Clinician Unavailable Payers Payer Name Policy Type Policy Effective Date Expiration Date Sour ce Number AETNAAETNA PPO [id number] 2019 [facility] 00:00:00 Restorationist [id number] 2019-[facility] AETNA - MGD [id number] [address] 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 status status epilepticu epilepticu s s Seizure Seizure Disease Active 2015-10 Elise disorder disorder 0-04 Method i 00:00: st 00 Seizure Seizure Disease Active 2015-10 Elise 0-04 Methodi 00:00: st 00 Epilepsy Epilepsy [...] Dysuria Problem Active Univers HL7.CCDAR2 [facility] [place] [facility] Urinary Urinary Problem Active Univers tract tract HL7.CCDAR2 [place] [facility] Menorrhagi Menorrhagi Problem Active U nivers a a HL7.CCDAR2 [facility] [place] [facility] Vaginitis Vaginitis Problem Active Uni [...] for for HL7.CCDAR2 ity of routine routine [place] gynec[facility]i gynecologi Ph ysici tamica tamica ans examinatio examinatio n with n with Papanicola Papanicola ou smear ou smear of cervix of cervix Constipati Constipati Problem Active U nivers on on HL7.CCDAR2 [facility] [place] [facility] Hypothyroi Hypothyroi Problem Active U nivers dism dism HL7.CCDAR2 [facility] [place] [facility] Supervisio Supervisio Problem Active U nivers n of n of HL7.CCDAR2 ity of normal normal [place] Phys ici ans Uterine Uterine Problem Active Univers scar from scar from HL7.CCDAR2 ity of previous previous [place] [facility] i delivery, delivery, ans antepartum antepartum Blood Blood Problem Active Univers type, Rh type, Rh HL7.CCDAR2 it y of negative negative [place] [facility] History of History of Problem Active U nivers severe severe HL7.CCDAR2 ity of pre-eclamp pre-[place]amp [place] [facility] ans Antepartum Antepartum Problem Active U nivers hemorrhage hemorrhage HL7.CCDAR2 ity of of early of early [place] Phys ici ans High-risk High-risk Problem Active [...] Memor ia During 15:01:23 l Urination Pain [place] (Dysuria) During Urination (Dysuria) Active 4 [facility] Urethritis Problem Active 2013-12-30 M emoria 15:01:23 l [place] Urethritis Active 12/30/2013 [facility] Urinary Problem Active 2013-12-30 [place] shyanne Tract 15:01:23 l Infection Urinary Herm [place] Infection Active 4 [facility] Hypothyroi Problem Active 2013-12-30 M emoria dism 15:01:23 l [place] Hypothyroi dism Active 4 [facility] Allergies, Adverse Reactions, Alerts Allergy Allergy Status Severity Reaction(s) Onset Inactive Treating Comm ents Source Name Type Date Date Clinician Amoxicil Drug Active Hives 2020-[address] [facility] [address] [facility]ally Allergy 11-13 [facility] - 00:[facility]: Medical 00 [place] Sulfamet Drug Active Anaphylaxis 2020-[address] hoxazole Allergy 11-13 [facility] - -Trimeth 00:00: Medical oprim 00 [place] Gentamic Drug Active Anaphylaxis 2020-[address] in Allergy 11-13 [facility] - 00:00: Medical 00 [place] Levoflox Drug Active Hives 2020-[address] acin Allergy 11-13 [facility] - 00:[facility]: Medical 00 Center Sulfa Drug Active Anaphylaxis 2020-0 [facility] t (Sulfona Allergy 11-13 [facility] - mide 00:00: Medical Antibiot 00 Center ics) levoflox DA Active [place] [facility] acin 2-16 Clear 00:00: Drew 00 [facility] ciproflo DA Active [place] [facility] xacin 2-16 [facility] 00:00: Hosp[facility] 00 [facility] [place] Penicill DA Active [place] [facility] ins 2-16 Clear 00:00: Drew 00 [facility] Sulfa DA Active [place] [facility] (Sulfona 2-16 Clear mide 00:00: [facility] hoxazole 2-16 Clear 00:00: Drew 00 [facility] trimetho DA Active [facility] prim 2-16 Clear 00:00: Drew 00 [facility] Trimetho Propensi Active [place] prim ty to 2-16 Methodi adverse 00:00: st reaction 00 s to drug amoxicil DA Active [place] [facility] cally 2-16 Clear 00:00: Drew 00 [facility] gentamic DA Active [facility] in 2-16 Clear 00:00: Drew 00 [facility] Sulfamet Propensi Active Anaphylaxis 2017 [place] hoxazole ty to 8-10 Methodi -Trimeth adverse 00:00: st oprim reaction 00 s to drug Gentamic Propensi Active Anaphylaxis [place] in ty to 8 Methodi adverse 00:00: st reaction 00 s to drug Penicill Propensi Active Hives, Rash 2015-10 [place] ins ty to 08 Methodi adverse 00:00: st reaction 00 s to drug Sulfasal Propensi Active Hives 2015- [place] azine ty to 12-03 Methodi adverse 00:00: st reaction 00 s [...] Hives 2015-10 [place] cally ty to 004 Methodi adverse 00:00: st reaction 00 s to drug Sulfa Propensi Active Hives, Rash Marcus ston (Sulfona ty to 11-22 Methodi mide adverse 00:00: st Antibiot reaction 00 ics) s to drug Cipro drug Active [facility] Levaquin drug Active Univers allergy [facility] [place] [facility] Penicill drug Active Univers ins allergy [facility] [place] [facility] Sulfa drug Active Univers Drugs allergy [facility] [place] [facility] Sulfa Sulfa Active [facility] Drugs Drugs l [place] Amoxicil Amoxicil Active Memori a cally TABS cally TABS l [place] Family History Family Member Diagnosis Comments Start Date Stop Date Source Unknown Family Family history of Family History University of Member hypertension [place] [facility] ians Unknown Family Family history of Family History University of Member diabetes mellitus [place] [facility] Unknown Family Family history of Family History University of Member malignant neoplasm [place] [facility] of ovary Unknown Family Family history of Family History University of Member thyroid disease [place] [facility] Unknown Family Family history of Family History University of Member malignant neoplasm [place] [facility] of breast Father Family history of Univers ity of seizure disorder [place] [facility] Natural father Hypertension [place] Restorationist Natural father Seizures [place] Restorationist Natural mother No Known Problems Marcus dusty Restorationist Social History Social Habit Start Date Stop Date Quantity Comments Source History SDOH [facility] B[facility] Medical Netta ter Sex Assigned At [facility] Tobacco use and 2019-12-19 2019-12-19 Never used [place] exposure 00:00:00 00:00:00 Restorationist History SDOH [address] [facility] - Alcohol Frequency 00:00:00 00:00:00 [facility] 2019 2019 [facility]00:00 non-drinker of Medical Ce nter alcohol (finding) Alcohol Comment 2016-07-29 2016-07-29 occasional [place] 00:00:00 00:00:00 Restorationist Social History 2013-12-30 2013-12-30 [facility] 15:01:23 15:01:23 Smoking Status Start Date Stop Date Source Never smoker [facility] Current every day smoker 2019 00:00:00 [facility] Medications Ordered Filled Start Stop Current Ordering Indication Dosage Frequency Signature Comments Components Source Medication Medication Date Date Medication? Clinician (SIG) Name Name folic acid Yes TAKE 2 [place] (FOLVITE) 1 2-11 TABLETS(2 Met hodi MG tablet 00:00: MG) BY 00 MOUTH DAILY perampanel 2019-2019- No Take 1 tab Elise (FYCOMPA) 2 2-05 08-05 at night Met hodi mg tablet 00:00: 23:[address] tablet 00 :00 weeks, then 2 tabs at night for 2 weeks, then 3 tabs at night for rest of therapy. cholestyram 2019-2020- No 1{packe Take [address] ine 1-20 01-19 t} packet by Elise - (QUESTRAN) 00:00: 23:59 mouth 2 Med ical 4 gram PwPk 00 :00 (two) Center packet times daily with breakfast and dinner. folic acid Yes 1mg QD Take [address] (FOLVITE) 1 1-19 by mouth Luke s - MG tablet 19:56: daily. Medica l 02 Center topiramate Yes 250mg Q.5D Take [address] (TOPAMAX) 1-19 mg by Luayaan - 200 MG 19:56: mouth 2 Medical tablet 02 (two) Center times daily. levothyroxi 0 Yes 112ug Take [address] ne 1-19 mcg by [employer] - (SYNTHROID, 19:56: mouth Medic al LEVOTHROID) 02 Every Center 112 MCG morning on tablet an empty stomach. cefpodoxime Yes 200mg Q.5D Take [address] (VANTIN) 1-19 mg by [facility] - 200 MG 19:56: mouth 2 Medical tablet 02 (two) Center times daily. topiramate 2018-10 Yes 200mg Q.5D Take 1 [...] [place] (FOLVITE) 1 7-15 TABLETS BY Nh thodi MG tablet 00:00: MOUTH st 00 EVERY DAY topiramate Yes TAKE 1 [place] (TOPAMAX) 7-15 TABLET BY Metho di 50 MG 00:00: MOUTH st tablet 00 TWICE DAILY Cefpodoxime Cefpodoxime Yes DORIS 1 Q0.5D TAKE 1 Univers Proxetil Proxetil 8-16 [facility] N.P. TABLET ity of 200 MG Oral 200 MG Oral 00:00: TWICE [place] Tablet Tablet 00 DAILY Physici ans Butalbital- Butalbital- 2017- Yes DORIS 1 Q8H TAKE 1 Univers APAP-Caffei APAP-Caffei 8-06 [facility]. CAPSULE ity of ne ne 00:00: Every 8 [place] 50-300-40 50-300-40 00 hours PRN Physici MG Oral MG Oral headache ans Capsule Capsule Macrobid Macrobid Yes Unive rs 100 MG Oral 100 MG Oral 7-13 i ty of Capsule Capsule 00:00: [place] [facility]ici ans Keflex 500 Keflex 500 Yes U nivers MG Oral MG Oral 6- ity of Capsule Capsule 00:00: [place] Physici [...] 2016-10 Yes TK 1 T [facility]31 QAM ON AN Methodi (SYNTHROID, [...] ity o f Tablet Tablet 00:00: M.D. Physici ans Topamax 200 Topamax 200 2015-10 Yes NANI Q0.5D TAKE 1 Univers MG Oral MG Oral 0-26 GARETT N.P. TABLET i ty of Tablet Tablet 00:00: TWICE [place] 00 DAILY. Physici ans Topamax 50 Topamax 50 2015- Yes NANI TAKE 1 Univers MG Oral MG Oral 0-26 GARETT N.P. TABLET BY ity of Tablet Tablet 00:00: MOUTH [place] 00 TWICE Physici DAILY ans Levothyroxi 2012- Yes ; Start Mem oria ne Sodium 2-12 Date: l 88 MCG Oral 06:00: 12/07/2012 [place] Tablet 00 ; End Date: (Active) Uribel 118 Yes ; Start Bentley shyanne MG Oral 2 Date: l Capsule 06:00: 12/18/2011 Herm chioma 00 ; End Date: (Active) Topamax 50 Yes ; Start Bentley shyanne MG Oral 12-18 Date: l Tablet 06:00: 12/18/2011 Mery nn 00 (Active) Levothyroxi Yes ; Start Mem oria ne Sodium 2- Date: l 75 MCG Oral 06:00: 12/18/2011 [place] Tablet 00 (Active) Immunizations Ordered Filled Immunization Date Status Comments [facility] e Immunization Name Name Tdap (Adacel) 2018-03-12 Completed University 00:00:00 [place] [employer] ns HPV (Gardasil) 2016-08-20 Completed [facility] 15:00:00 [place] [employer] ns Vital Signs Vital Name Observation Time Observation Value Comments Source Systolic blood 2019-12-28 99 mm[Hg] [facility] - pressure 08:48:00 [facility] Diastolic blood 2019-12-28 58 mm[Hg] [facility] - pressure 08:48:00 [facility] Heart rate 2019-12-28 63 /min [facility] - 08:48:00 [facility] Body temperature 2019-12-[address] [facility] - 08:48:00 [facility] Respiratory rate 2019-12-28 19 /min [facility] - 08:48:00 [facility] Body weight 2019-12-[address] [facility] - 08:48:00 [facility] BMI 2019-12-28 23.13 kg/m2 [facility] - 08:48:00 [facility] Oxygen saturation 2019-12-28 100 /min [facility] - in Arterial blood 08:48:00 Medical nter by Pulse oximetry BP Systolic 2018-06-29 100 mm[Hg] University of 13:14:00 [place] [facility] BP Diastolic 2018-06-29 69 mm[Hg] University of 13:14:00 [place] [facility] Height 2018-06-29 64 [in_us] University of 13:14:00 [place] [facility] Weight 2018-06-29 143 [lb_av] University of 13:14:00 [place] [facility] Body Mass Index 2018-06-29 24.55 kg/m2 University o f Calculated 13:14:00 [place] [facility] s Temperature 2018-06-29 98.4 [degF] University of 13:14:00 [place] [facility] Heart Rate 2018-06-29 60 /min University of 13:14:00 [place] [facility] O2 SAT 2018-06-29 99 % University of 13:14:00 [place] [facility] BP Systolic 2018-05-31 [...] Physician s Heart Rate 2018-04-23 76 /min University of 10:30:00 [place] [facility] s O2 SAT [...] [place] [facility] Temperature 2018-04-09 98.2 [degF] [facility] 08:30:00 [place] [facility] Heart Rate 2018-04-09 76 /min [facility] 08:30:00 [place] [facility] O2 SAT 2018-04-09 98 % [facility] 08:30:00 [place] [facility] BP Systolic 2018-03-26 103 mm[Hg] Location: [facility]; [facility] 08:30:00 Position: [place] [facility] s Sitting BP Diastolic 2018-03-26 73 mm[Hg] Location: [facility] 08:30:00 Position: [place] [facility] s Sitting Height 2018-03-26 64 [in_us] [facility] 08:30:00 [place] [facility] Weight 2018-03-26 152.25 [lb_av] [facility] 08:30:00 [place] [facility] Body Mass Index 2018-03-26 26.13 kg/m2 University o f Calculated 08:30:00 [place] [facility] s Temperature 2018-03-26 97.9 [degF] Method: Oral University 08:30:00 [place] [facility] Heart Rate 2018-03-26 67 /min [facility] 08:30:00 [place] [facility] BP Systolic 2018-03-19 107 mm[Hg] [facility] 09:06:00 [place] [facility] BP Diastolic 2018-03-19 75 mm[Hg] [facility] :06:00 [place] [facility] s Height 2018-03-19 64 [in_us] [facility] of 09:06:00 [place] [facility] s Weight 2018-03-19 150 [lb_av] [facility] of 09:06:00 [place] [facility] Body Mass Index 2018-03-19 25.75 kg/m2 University o f Calculated 09:06:00 [place] [facility] s Temperature 2018-03-19 98.6 [degF] [facility] :06:00 [place] [facility] Heart Rate 2018-03-19 80 /min [facility] :06:00 [place] [facility] O2 SAT 2018-03-19 98 % [facility] 09:06:00 [place] [facility] BP Systolic 2018-03-12 104 mm[Hg] [facility] 09:35:00 [place] [facility] BP Diastolic 2018-03-12 70 mm[Hg] [facility] :35:00 [place] [facility] Height 2018-03-12 64 [in_us] University of 09:35:00 [place] [facility] s Weight 2018-03-12 149 [lb_av] University of 09:35:00 [place] [facility] Body Mass Index 2018-03-12 25.58 kg/m2 University o f Calculated 09:35:00 [place] [facility] s Temperature 2018-03-12 98.4 [degF] University of 09:35:00 [place] [facility] Heart Rate 2018-03-12 84 /min University of 09:35:00 [place] [facility] O2 SAT 2018-03-12 98 % University of 09:35:00 [place] [facility] BP Systolic 2018-02-12 114 mm[Hg] University of 08:50:00 [place] [facility] BP Diastolic 2018-02-12 80 mm[Hg] University of 08:50:00 [place] [facility] Height 2018-02-12 64 [in_us] University of 08:50:00 [place] [facility] Weight 2018-02-12 146 [lb_av] [facility] of 08:50:00 [place] [facility] s Body Mass [...] s Weight 2018-01-15 140.375 [lb_av] University o f 10:14:00 [place] [facility] Body Mass Index [...] [place] [facility] Weight 2017-11-20 132 [lb_av] University of 08:53:00 [place] [facility] Body Mass Index 2017-11-20 22.66 kg/m2 University o f Calculated 08:53:00 [place] [facility] Temperature 2017-11-20 99.1 [degF] University of 08:53:00 [place] [facility] Heart Rate 2017-11-20 75 /min University of 08:53:00 [place] [facility] O2 SAT 2017-11-20 99 % University of 08:53:00 [place] [facility] BP Systolic 2017-10-23 118 mm[Hg] University of 12:53:00 [place] [facility] BP Diastolic 2017-10-23 77 mm[Hg] University of 12:53:00 [place] [facility] Weight 2017-10-23 128 [lb_av] University 12:53:00 [place] [facility] BP Systolic 2017-10-12 115 mm[Hg] [facility] 14:17:00 [place] [facility] BP Diastolic 2017-10-12 81 mm[Hg] [facility] 14:17:00 [place] [facility] Weight 2017-10-12 129 [lb_av] [facility] 14:17:00 [place] [facility] Height 2017-10-12 64 [in_us] [facility] :17:00 [place] [facility] Body Mass Index 2017-10-12 22.14 kg/m2 University o f Calculated 14:17:00 [place] [facility] Temperature 2017-10-12 98.9 [degF] [facility] 14:17:00 [place] [facility] Heart Rate 2017-10-12 66 /min [facility] :17:00 [place] [facility] s Procedures Procedure Date / Time Performing Clinician Source Performed CORTISOL 2019-12-28 10:47:00 [facility] CORTISOL 2019-12-28 10:15:00 [facility] ACTH 2019-12-28 09:43[facility] 2019-12-28 09:43:00 [facility] [QLH] CULTURE, URINE, 2018-06-29 00:00:00 [facility] ROUTINE Physicians [QL] URINALYSIS, COMPLETE 2018-06-29 00:00[facility] CULTURE, URINE, 2018-05-31 00:00:00 [facility] ROUTINE Physicians [QL] URINALYSIS, COMPLETE 2018-05-31 00:00:00 U [facility] Physicians [QH] PROTEIN, TOTAL 2018-05-07 00:00:00 [facility] W/CREAT, RANDOM URINE Physicians [QL] CBC (INCLUDES 2018-05-07 00:00:00 [facility] DIFF/PLT) Physicians [QLH] CMP W/EGFR 2018-05-07 00:00:00 [facility] [place] [facility] Physicians [QH] HIV AB, HIV 1/2, EIA, 2018-04-23 00:00:00 U [facility] WITH REFLEXES Physicians [QLH] CULTURE, URINE, 2018-04-09 00:00:00 Univer sity [facility] ROUTINE Physicians [QL] URINALYSIS, COMPLETE 2018-04-09 00:00:00 U [facility] Physicians EKG w/Rhythm Strip 2018-03-19 00:00:00 [facility] Physicians [QL] CULTURE, URINE, 2018-03-19 00:00:00 Univ sity [place] [facility] ROUTINE Physicians [QL] URINALYSIS, COMPLETE 2018-03-19 00:00:00 U [facility] Physicians [QLH] AMYLASE 2018-03-19 00:00:00 University o [facility] Physicians [QLH] LIPASE 2018-03-19 00:00:00 University o f [place] [facility]icians [QLH] ALT 2018-03-19 00:00:00 [facility] Physicians [QLH] AST 2018-03-19 00:00:00 Emerson o [facility] Physicians [QL] CBC (INCLUDES 2018-03-12 00:00:00 Universi ty [place] [facility] DIFF/PLT) Physicians [QL] GLUCOSE, GESTATIONAL 2018-03-12 00:00:00 U [facility] SCREEN ([id number] CUTOFF Physicia ns [QL] URINALYSIS, COMPLETE 2018-03-12 00:00:00 U [facility] Physicians [QL] CULTURE, URINE, 2018-03-12 00:00[facility]00 [facility]] CULTURE, URINE, 2018-02-12 [facility]:00[facility]] URINALYSIS, COMPLETE 2018-02-12 00:00:00 U [facility] Physicians [QLH] LIPASE 2018-02-12 00:00:00 University o [facility] Physicians [QLH] AMYLASE 2018-02-12 00:00:00 Emerson o [facility] Physicians [QLH] CMP W/EGFR 2018-02-12 00:00:00 [facility] Physicians [QL] CBC (INCLUDES 2018-02-12 00:00:00 Universi ty [facility] DIFF/PLT) Physicians US Abdomen RUQ [id number] 2018-02-12 00:00:00 Univers ity [facility] Physicians [QLH] CULTURE, URINE, 2018-01-15 00:00:00 [facility] ROUTINE Physicians [QLH] URINALYSIS, COMPLETE 2018-01-15 00:00:00 U [facility] Physicians [QL] CULTURE, URINE, 2018-01-08 00:00:00 [facility] ROUTINE Physicians [QL] URINALYSIS, COMPLETE 2018-01-08 00:00:00 U [facility] Physicians [QLH] CULTURE, URINE, 2017-12-18 00:00:00 [facility] ROUTINE Physicians [QL] URINALYSIS, COMPLETE 2017-12-18 00:00:00 U [facility] Physicians [QLH] CBC (INCLUDES 2017-12-18 00:00:00 [facility] DIFF/PLT) Physicians [Q] MATERNAL SERUM AFP 2017-12-18 00:00:00 [facility] Physicians [QLH] CMP W/EGFR 2017-11-20 00:00:00 [facility] Physicians [LH] GC/CT by Amp Det 2017-11-20 00:00:00 [facility] (APTIMA) Physicians [QH] PROTEIN, TOTAL 2017-11-20 00:00:00 [facility] W/CREAT, RANDOM URINE Physicians [QL] CULTURE, URINE, 2017-10-23 00:00:00 [facility] ROUTINE Physicians [QL] URINALYSIS, COMPLETE 2017-10-23 00:00:00 U [facility] Physicians [H] Obstetrics Panel 2017-10-12 00:00:00 [facility] (includes CBCw/Diff,RPR, Physici ans HbsAg,RubIgG,Type and Screen) [H] Hemoglobin 2017-10-12 00:00:00 [facility] o f [place] [facility] Interpretation [LH] TSH+Free T4 2017-10-12 00:00:00 [facility] Physicians [QLH] CMP W/EGFR 2017-10-12 00:00:00 [facility] Physicians [Q] SMA CARRIER SCREEN 2017-10-12 00:00:00 [facility] Physicians [QLH] CYSTIC FIBROSIS 2017-10-12 00:00:00 [facility] SCREEN Physicians [QLH] CULTURE, URINE, 2017-10-12 00:00:00 [facility] ROUTINE Physicians [QLH] URINALYSIS, COMPLETE 2017-10-12 00:00:00 U [facility] Physicians [Q] HIV AB, HIV 1/2, EIA, 2017-10-12 00:00:[address] [facility] WITH REFLEXES Physicians [L] Creatine, Serum 2017-10-12 00:00:00 [facility] Physicians [QLH] LD 2017-10-12 00:00:00 [facility] Physicians [QLH] URIC ACID 2017-10-12 00:00:00 [facility] Physicians [QLH] CBC (INCLUDES 2017-10-12 00:00:00 [facility] DIFF/PLT) Physicians [L] Hepatic Function Panel 2017-10-12 00:00:00 U [facility] (6) Physicians [QH] PROTEIN, TOTAL 2017-10-12 00:00:00 [facility] W/CREAT, RANDOM URINE Physicians [QLH] VITAMIN B12 2017-10-12 00:00:00 [facility] Physicians [L] Vitamin D, 25-Hydroxy, 2017-10-12 00:00:00 U [facility] Total - [employer] Physicians [QH] HIV AB, HIV 1/2, EIA, 2017-10-12 00:00:00 U [facility] WITH REFLEXES Physicians History of Appendectomy [facility] Physicians History of [facility] section Physicians History of Cholecystectomy [facility] Physicians Plan of Care Planned Activity Planned Date Details Comments Source Future Scheduled 2020-06-26 INFLUENZA VACCINE (#1) [facility] Test 00:00:00 [code = INFLUENZA Medical Ce nter VACCINE (#1)] Future Scheduled 2020-05-26 INFLUENZA VACCINE [place] [facility] Test 00:00:00 [code = INFLUENZA VACCINE] Future Scheduled 2013-12-30 Plan of Care [code = Mem orial [place] Test 15:01:23 55800-7] Future Scheduled [address] [facility] - Test 00:00:00 malignant neoplasm of Medica l Center cervix (procedure) [code = 966830337] Future Scheduled 2013 Screening for Elise Me [facility]odist Test 00:00:00 malignant neoplasm of cervix (procedure) [code = 297251698] Future Scheduled 2012-12-11 Plan of Care [code = Mem orial [place] Test 19:00:39 74254-2] Future Scheduled 2012-12-08 Plan of Care [code = Mem orial [place] Test 00:02:23 99264-3] Future Scheduled 2012-12-01 Plan of Care [code = Mem orial [place] Test 18:33:27 66432-5] Future Scheduled [address] [facility] [facility] - Test 00:00:00 (procedure) [code = [facility] [facility] [id number]] Future Scheduled 2010 Hepatitis C screening [place] [facility] 00:00:00 (procedure) [code = 671799172] Future Scheduled 2008 COVID-19 VACCINE (1 of [place] [facility] 00:00:00 2) [code = COVID-19 VACCINE (1 of 2)] Future Scheduled [address] [facility] - Test 00:00:00 0-64 YRS (1 of 1 - Medical C enter PPSV23) [code = PNEUMOCOCCAL VACCINE 0-64 YRS (1 of 1 - PPSV23)] Encounters Start End Encounter Admission Attending Care Care Encounter Source Date/Time Date/Time Type Type Clinicians Facility Department ID 2019-12-19 2019-12-19 Outpatient [facility] [id number] 00:00:00 00:00:00 SHANNAN [address] 2019-12-13 2019-12-13 Office Pankaj Nicole [facility] [id number] 12:33:03 13:31:03 Visit AMBULATOR 350.1.13.21 Y [id number] 2018-07-09 2018-07-09 Appointmen ANUJA ROJAS [id number] Univers 13:15:00 13:15:00 t; MOON ROJAS Women's ricardo Hung MUSTAFA [place] Veronica Persaud Physici ans 2018-07-09 2018-07-09 AppointANUJA Zelaya [id number] Univers 11:30:00 11:30:00 t; DORIS PUGH i ty of NOMAN GEORGE [place] 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 2018-06-29 2018-06-29 Appointmen ANUJA PUGH [id number] Univers 13:00:00 13:00:00 t; DORIS PUGH, Women's i ty of [facility] [place] [facility] 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 2018-06-22 2018-06-22 Appointmen ANUJA JAY [id number] Univers 14:00:00 14:00:00 t; Hung BOWMAN Women's ity of [facility] Hung BWOMAN Physi ci ans 2018-05-31 2018-05-31 Appointmen ANUJA PUGH [id number] Univers 14:00:00 14:00:00 t; DORIS PUGH, Women's i ty of [facility] 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 2018-05-25 2018-05-25 Appointmen ANUJA PUGH [id number] Univers 09:30:00 09:30:00 t; DORIS PUGH, Women's i ty of [facility] [place] [facility] 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 2018-05-25 2018-05-25 Appointmen ANUJA PUGH [id number] Univers 09:00:00 09:00:00 t; DORIS PUGH, Women's i ty of [facility] [place] [facility] 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 2018-05-21 2018-05-21 Appointmen ANUJA PUGH [id number] Univers 09:00:00 09:00:00 t; DORIS PUGH, i ty of [facility] 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 2018-05-21 2018-05-21 Appointmen ANUJA JAY Chai [id number] Univers 09:00:00 09:00:00 t; Hung BOWMAN Women's ity of [facility] Hung BOWMAN Physi ci ans 2018-05-14 2018-05-14 Appointmen CAROL, ANUJA UTP [id number] Univers 07:15:00 07:15:00 t; PHYSICIAN ity of [place], [place] PHYSICIAN Physic i ans 2018-05-07 2018-05-07 Appointmen ANUJA JAY [place] [id number] Univers 08:30:00 08:30:00 t; Hung BOWMAN Women's ity of [facility] Hung BOWMAN Physi ci ans 2018-05-07 2018-05-07 Appointenzo DOLL [facility] UTP [id number] Univers 08:00:00 08:00:00 t; [facility]OM[facility]ici ans 2018-04-30 2018-04-30 Appointenzo DOLL [facility] Putnam [id number] Univers 08:30:00 08:30:00 t; USROOM1 Women's ity [place] [address] Physici ans 2018-04-23 2018-04-23 Appointenzo JAY [facility] Tow Operator [id number] Univers 11:00:00 11:00:00 t; Hung BOWMAN ity [facility] Veronica BOWMAN M.D. Physi ci ans 2018-04-23 2018-04-23 Appointenzo [facility] [id number] Univers 10:30:00 10:30:00 t; USROOM1 [facility] Physici ans 2018-04-23 2018-04-23 [facility]enzo [facility] [place] [id number] 798 Univers 08:30:00 08:30:00 t; Hung BOWMAN Women's ity of [facility][note 3] Veronica BOWMAN M.D. Physi ci ans 2018-04-16 2018-04-16 Narayan [facility] [id number] Univers 08:30:00 08:30:00 t; USROOM1 ity of [place], [place] USROOM1 Physici ans 2018-04-15 2018-04-15 Narayan [facility] [id number] Univers 08:30:00 08:30:00 t; USROOM1 ity of [place], [place] USROOM1 Physici ans 2018-04-09 2018-04-09 Appointenzo JAY [facility] Putnam [id number] Univers 08:30:00 08:30:00 t; Hung BOWMAN Women's ity of [facility][note 3] Veronica BOWMAN M.D. Physi ci ans 2018-04-09 2018-04-09 Appointenzo [facility] UTP [id number] Univers 08:00:00 08:00:00 t; USROOM1 ity [place], [place] USROOM1 Physici ans 2018-03-30 2018-03-30 AppointANUJA Zelaya [id number] Univers 09:30:00 09:30:00 t; DORIS PUGH, Women's i ty of [facility] Physici ans 2018-03-26 2018-03-26 AppointANUJA Peterson UTP [id number] 172 Univers 10:00:00 10:00:00 t; EKG ity of [place], [place] EKG Physici ans 2018-03-26 2018-03-26 AppointANUJA Bello [id number] Univers 08:00:00 08:00:00 t; Jessi RANDLE's anamariay fermin CASTILLO M.D. [facility] Alla RANDLE M.D. ans 2018-03-19 2018-03-19 AppointANUJA Zelaya [id number] Univers 09:00:00 09:00:00 t; DORIS PUGH Women's i ty of [facility] Physici ans 2018-03-12 2018-03-12 Appointmen ANUJA JAY [id number] Univers 10:30:00 10:30:00 t; Hung BOWMAN Women's ity of [facility] Hung BOWMAN Physi ci ans 2018-03-12 2018-03-12 AppointANUJA Zelaya [id number] Univers 10:30:00 10:30:00 t; DORIS PUGH, i ty of [facility] Physici ans 2018-03-12 2018-03-12 AppointANUJA Peterson UTP [id number] Univers 10:00:00 10:00:00 t; USROOM2 ity of [place], [place] [facility] Physici ans 2018-02-26 2018-02-26 AppointANUJA Bello [id number] Univers 08:00:00 08:00:00 t; Fatmiah RANDLEs anamariay fermin CASTILLO M.D. [facility] Alla RANDLE M.D. 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 2018-01-15 2018-01-15 Appointmen ANUJA DOLL [id number] Univers 09:45:00 09:45:00 t; USROOM2 [facility] Physici ans 2018-01-08 2018-01-08 Appointmen MISTY [facility] Tow Operator [id number] Univers 11:00:00 11:00:00 t; Hung BOWMAN ity of [place], [place] Hung BOWMAN Physi ci ans 2018-01-08 2018-01-08 AppointANUJA Peterson [facility] [id number] Univers 09:00:00 09:00:00 t; USROOM1 ity of [place], [place] USROOM1 Physici ans 2017-12-18 2017-12-18 AppointANUJA Peterson [facility] [id number] Univers 09:45:00 09:45:00 t; USROOM2 ity of [place], [place] USROOM2 Physici ans 2017-12-18 2017-12-18 AppointANUJA Zelaya [id number] Univers 08:30:00 08:30:00 t; DORIS PUGH, Women's i ty of DORIS, [facility] 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 2017-11-20 2017-11-20 Appointmen ANUJA JAYaire [id number] Univers 10:00:00 10:00:00 t; Hung BOWMAN Women's ity of [facility] Hung BOWMAN Physi ci ans 2017-11-20 2017-11-20 Appointenzo DOLL [facility] UTP [id number] Univers 09:30:00 09:30:00 t; USROOM2 ity of [place], [place] USROOM2 Physici ans 2017-11-20 2017-11-20 AppointANUJA Peterson [facility] [id number] Univers 09:00:00 09:00:00 t; GENETIC ity of [place], [place] GENETIC Physici ans 2017-10-23 2017-10-23 Appointmen CRYSTAL, [facility] [id number] Univers 11:30:00 11:30:00 t; MOON ROJAS, Women's ity Hung [facility] ans 2017-10-23 2017-10-23 Appointenzo DOLL, [facility] [id number] 715 Univers 11:15:00 11:15:00 t; USROOM2 ity of [place], [place] USROOM2 Physici ans 2017-10-12 2017-10-12 Appointenzo ROJAS, [facility] [id number] Univers 14:45:00 14:45:00 t; MOON ROJAS, Jessi's ity Hung MUSTAFA [facility] Hung Physici ans 2017-10-12 2017-10-12 Appointenzo DOLL, [facility] [id number] Univers 14:15:00 14:15:00 t; USROOM2 ity of [place], [place] USROOM2 Physici ans 2017-08-10 2017-08-10 [facility] CAN[facility]ER, [facility] [id number] Univers 09:00:00 09:00:00 t; CANCER, [facility] of [facility] Physici ans 2017-06-26 2017-06-26 Appointenzo ROJAS, [facility] UTP [id number] Univers 08:30:00 08:30:00 t; MOON ROJAS, ity Hung [facility] ans 2016-08-20 2016-08-20 Appointmen GARETT, [facility] UTP [id number] Univers 11:20:00 11:20:00 t; NANI BAJWA NP i ty of NOMAN CARDOZA [place] Physici ans 2016-05-09 2016-05-09 Appointmen CHAI, [facility] UTP [id number] 193 Univers 08:30:00 08:30:00 t; USROOM2 ity of [place], [place] USROOM2 Physici ans 2016-05-05 2016-05-05 Appointmen CHAI, [facility] UTP [id number] 188 Univers 08:30:00 08:30:00 t; USROOM2 ity of [place], [place] USROOM2 Physici ans 2016-05-02 2016-05-02 Appointenzo DOLL, UTP UTP [id number] 175 Univers 08:30:00 08:30:00 t; USROOM2 ity of [place], [place] USROOM2 Physici ans 2016-04-29 2016-04-29 Appointenzo DOLL, UTP UTP [id number] Univers 10:00:00 10:00:00 t; USROOM2 ity of [place], [place] USROOM2 Physici ans 2016-04-25 2016-04-25 Appointenzo DOLL, UTP UTP [id number] Univers 10:00:00 10:00:00 t; USROOM3 ity of [place], [place] USROOM3 Physici ans 2016-04-21 2016-04-21 Appointenzo DOLL, UTP UTP [id number] 131 Univers 09:00:00 09:00:00 t; USROOM3 ity of [place], [place] [facility] Physici ans 2016-04-16 2016-04-16 Appointenzo DOLL, UTP UTP [id number] Univers 15:30:00 15:30:00 t; USROOM3 ity of [place], [place] USROOM3 Physici ans 2016-04-14 2016-04-14 Appointenzo DOLL, UTP UTP [id number] 124 Univers 15:30:00 15:30:00 t; USROOM3 ity of [place], [place] USROOM3 Physici ans 2016-04-10 2016-04-10 Appointenzo DOLL, UTP UTP [id number] 226 Univers 11:00:00 11:00:00 t; GENETIC ity of [place], [place] GENETIC Physici ans 2016-04-10 2016-04-10 [facility] CHAI, UTP UTP [id number] 797 Univers 10:30:00 10:30:00 t; USROOM2 ity of [place], [place] USROOM2 Physici ans 2016-03-20 2016-03-20 Appointmen CHAI, UTP UTP [id number] 978 Univers 09:15:00 09:15:00 t; USROOM2 ity of [place], [place] USROOM2 Physici ans 2016-03-06 2016-03-06 [facility] GARETT, [facility] UTP [id number] Univers 16:40:00 16:40:00 t; NANI BAJWA NP i ty of NOMAN CARDOZA [place] Physici ans 2016-02-25 2016-02-25 [facility] CHAI [facility] [id number] 206 Univers 14:45:00 14:45:00 t; USROOM2 ity of Veronica DOLL USROOM2 Physici ans 2013-12-30 2013-12-30 Outpatient 3 3 [id number] 09:01:23 09:01:23 2012-12-11 2012-12-11 Outpatient 3 3 [id number] 13:00:55 13:00:39 2012-12-07 2012-12-07 Outpatient 3 3 [id number] 18:02:40 18:02:23 2012-12-01 2012-12-01 Outpatient 3 3 [id number] 12:33:44 12:33:27 Results Test Description Test Time Test Comments Results Result [facility] e Comments - CT ABD PELVIS 2020-05-07 Patient Name: W/CONT 05:45:00 SHIVAM PASCAL Unit No: [id number] EXAMS: CPT CODE: [id number] CT ABD PELVIS W/CONT 00216 STUDY: - CT ABD PELVIS W/CONT 05/07/2020 3:20 AM Ordering Physician: Dallas Elliott MD Patient Name: SHIVAM PASCAL MR: [id number] : 1990; Age: 29 years y/o Female [...] iterative reconstruction technique IV CONTRAST: [address] Radiation Dose DLP: 346.39 mGy-cm CT [...] lymph nodes without lymphadenopathy or mass. [facility] NAME: SHIVAM PASCAL Radiology Department PHYS: Dallas Wang [address] : 1990 AGE: 29 SEX: [place] [address] LOC: DashaERS PHONE #: [phone] EXAM DATE: 05/07/2020 STATUS: REG ER FAX #: [phone] RAD NO: Page 1 Signed Report 1 Patient Name: SHIVAM PASCAL Unit No: [id number] EXAMS: CPT CODE: [id number] CT ABD PELVIS W/CONT 57384 <Continued> VASCULAR: Abdominal Aorta: Normal caliber abdominal [...] or suspicious focal osseous lesion. IMPRESSION: [facility] NAME: SHIVAM PASCAL Radiology Department PHYS: DANICADallas Wood [address] : 1990 AGE: 29 SEX: F [place], [place] [address] LOC: DashaERS PHONE #: [phone] EXAM DATE: 05/07/2020 STATUS: REG ER FAX #: [phone] RAD NO: Page 2 Signed Report 1 Patient Name: SHIVAM PASCAL Unit No: [id number] EXAMS: CPT CODE: [id number] CT ABD PELVIS W/CONT 50869 <Continued> Mild to moderate constipation. Small low-attenuation free pelvic fluid likely related to cyst rupture given scattered small follicles and cysts in both ovaries, greater on the left. Status post cholecystectomy and appendectomy. SL: TPAINTER-H at 0545 Reported and signed by: Bhupendra Gilliam MD CC: Technologist: LUZ CHIRINOS, CT, RT CTDI: 7.11 DLP: 346.39 Trnscrbd D/ (0545) t.[id number].[id number] [facility] NAME: SHIVAM PASCAL Radiology Department PHYS: SHANE ElliottDallas Sin [address] : 1990 AGE: 29 SEX: [place] [address] LOC: DashaERS PHONE #: [phone] EXAM DATE: 05/07/2020 STATUS: REG ER FAX #: [phone] RAD NO: Page 3 Signed Report 1 Patient Name: SHIVAM PASCAL Unit No: [id number] EXAMS: CPT CODE: [id number] CT ABD PELVIS W/CONT 53035 <Continued> Orig Print D/T: S: 05/07/2020 (0549) [facility] NAME: SHIVAM PASCAL Radiology Department PHYS: Jean Pierre Wangrob Sin [address] : 1990 AGE: 29 SEX: [place] [address] LOC: DashaERS PHONE #: [phone] EXAM DATE: 05/07/2020 STATUS: REG ER FAX #: [phone] RAD NO: Page 4 Signed Report 1 - US TRANSVAGINAL 2020-05-07 Patient Name: W/PELVIS 04:42:00 SHIVAM PASCAL Unit No: [id number] EXAMS: CPT CODE: [id number] US TRANSVAGINAL W/PELVIS 49170 STUDY: - US TRANSVAGINAL W/PELVIS, - US PELVIS COMPLETE, - DUP AB/PEL/SC/LTD 05/07/2020 3:49 AM Ordering Physician: Dallas Elliott MD Patient Name: SHIVAM PASCAL MR: [id number] : 1990; Age: 29 years y/o Female [...] The neutral stripe measuring 4 mm. [facility] NAME: SHIVAM PASCAL Radiology Department PHYS: Dallas Wang [address] : 1990 AGE: 29 SEX: F [place], [place] [address] LOC: F.ERS PHONE #: [phone] EXAM DATE: 05/07/2020 STATUS: REG ER FAX #: [phone] RAD NO: Page 1 Signed Report (CONTINUED) Patient Name: SHIVAM PASCAL Unit No: [id number] EXAMS: CPT CODE: [id number] US TRANSVAGINAL W/PELVIS 58493 <Continued> RIGHT OVARY AND ADNEXA: General: Normal [...] CC: Technologist: Maria Ines Whitley RDMS Probe: [id number] Trnscrbd D/ (044) t.TP6 Orig Print D/T: S: 05/07/2020 (044) [facility] NAME: SHIVAM PASCAL Radiology Department PHYS: SOPHYMarkDallas Headley [address] : 1990 AGE: 29 SEX: [place] [address] LOC: DashaERS PHONE #: [phone] EXAM DATE: 05/07/2020 STATUS: REG ER FAX #: [phone] RAD NO: Page 2 Signed Report Patient Name: SHIVAM PASCAL Unit No: [id number] EXAMS: CPT CODE: [id number] US TRANSVAGINAL W/PELVIS 98390 <Continued> [facility] NAME: SHIVAM PASCAL Radiology Department PHYS: DANICAStephanie Rivera EarlDallas [address] : 1990 AGE: 29 SEX: [place] [address] LOC: .ERS PHONE #: [phone] EXAM DATE: 05/07/2020 STATUS: REG ER FAX #: [phone] RAD NO: Page 3 Signed Report - DUP AB/PEL/SC/LTD 2020-05-07 Patient Name: 04:42:00 SHIVAM PASCAL Unit No: [id number] EXAMS: CPT CODE: [id number] DUP AB/PEL/SC/LTD 75155 STUDY: - US TRANSVAGINAL W/PELVIS, - US PELVIS COMPLETE, - DUP AB/PEL/SC/LTD 05/07/2020 3:49 AM Ordering Physician: Dallas Elliott MD Patient Name: SHIVAM PASCAL MR: [id number] : 1990; Age: 29 years y/o Female [...] The neutral stripe measuring 4 mm. [facility] NAME: SHIVAM PASCAL Radiology Department PHYS: 02 - Dallas Elliott [address] : 1990 AGE: 29 SEX: F [place], [place] [address] LOC: HOLLEY PHONE #: [phone] EXAM DATE: 05/07/2020 STATUS: REG ER FAX #: [phone] RAD NO: Page 1 Signed Report (CONTINUED) Patient Name: SHIVAM PASCAL Unit No: [id number] EXAMS: CPT CODE: [id number] DUP AB/PEL/SC/LTD 36340 <Continued> RIGHT OVARY AND ADNEXA: General: Normal [...] Ines Whitley RDMS Probe: Trnscrbd D/ (0442) FinnTP6 Orig Print D/T: S: 05/07/2020 (0446) [facility] NAME: SHIVAM PASCAL Radiology Department PHYS: Dallas Wang [address] : 1990 AGE: 29 SEX: [place], [place] [address] LOC: HOLLEY PHONE #: [phone] EXAM DATE: 05/07/2020 STATUS: REG ER FAX #: [phone] RAD NO: Page 2 Signed Report Patient Name: SHIVAM PASCAL Unit No: [id number] EXAMS: CPT CODE: [id number] DUP AB/PEL/SC/LTD 63600 <Continued> [facility] NAME: SHIVAM PASCAL Radiology Department PHYS: SOPHYMarkStephanie - EarlDallas Sin [address] : 1990 AGE: 29 SEX: F [place], [place] [address] LOC: HOLLEY PHONE #: [phone] EXAM DATE: 05/07/2020 STATUS: REG ER FAX #: [phone] RAD NO: Page 3 Signed Report - US PELVIS 2020-05-07 Patient Name: COMPLETE 04:42:00 SHIVAM PASCAL Unit No: [id number] EXAMS: CPT CODE: [id number] US PELVIS COMPLETE 16291 STUDY: - US TRANSVAGINAL W/PELVIS, - US PELVIS COMPLETE, - DUP AB/PEL/SC/LTD 05/07/2020 3:49 AM Ordering Physician: Dallas Elliott MD Patient Name: SHIVAM PASCAL MR: [id number] : 1990; Age: 29 years y/o Female [...] The neutral stripe measuring 4 mm. [facility] NAME: SHIVAM PASCAL Radiology Department PHYS: Dallas Wang [address] : 1990 AGE: 29 SEX: [place] [address] LOC: DashaERS PHONE #: [phone] EXAM DATE: 05/07/2020 STATUS: REG ER FAX #: [phone] RAD NO: Page 1 Signed Report (CONTINUED) Patient Name: SHIVAM PASCAL Unit No: [id number] EXAMS: CPT CODE: [id number] US PELVIS COMPLETE 62986 <Continued> RIGHT OVARY AND ADNEXA: General: Normal [...] Maria Ines Whitley RDMS Probe: Trnscrbd D/ (441) FinnTP6 Orig Print D/T: S: 05/07/2020 (044) [facility] NAME: SHIVAM PASCAL Radiology Department PHYS: DANICADallas Wood [address] : 1990 AGE: 29 SEX: [place] [address] LOC: HOLLEY PHONE #: [phone] EXAM DATE: 05/07/2020 STATUS: REG ER FAX #: [phone] RAD NO: Page 2 Signed Report Patient Name: SHIVAM PASCAL Unit No: [id number] EXAMS: CPT CODE: [id number] US PELVIS COMPLETE 78254 <Continued> [facility] NAME: SHIVAM PASCAL Radiology Department PHYS: Dallas Wang [address] : 1990 AGE: 29 SEX: [place], [place] [address] LOC: HOLLEY PHONE #: [phone] EXAM DATE: 05/07/2020 STATUS: REG ER FAX #: [phone] RAD NO: Page 3 Signed Report COMPREHENSIVE [...] code = ALKP) 59 units/L 46-116 N [id number] 04:04:00 Test Item Value Reference Range Interpretation Comments LIPASE (test code = LIP) 235 units/L 73-393 N CBC W/AUTO [id number] 03:45:00 Test Item Value Reference Range Interpretation [...] = PLTMR) UA RFLX MICR CULT IF [id number] 03:45:00 Test Item Value Reference Range Interpretation [...] [facility] PAGE 1 RUN TIME: 1738 Specimen Inquiry RUN USER: INTERFACE PATIENT: SHIVAM PASCAL LOC: ASAD U #: [id number] AGE/SX: 29/F ROOM: RE04/25/20REG DR: Priscilla Callaway MD : [birth year] BED: DIS: STATUS: [facility] TLOC: SPEC #: [id number] RECD: 04/25/20 STATUS: MARY ARAMBULA #: [id number] SHOLA: 04/25/20- [facility] DR: Priscilla Callaway MD ENTERED: 04/25/20 SP TYPE: [facility] DR: ORDERED: LEVEL II SURGIC CODES: [id number] - FALLOPIAN TUBE PROCEDURES: LEVEL II SURGIC (Incomplete) TISSUES: FALLOPIAN TUBE, NOS - BILATERAL FALLOPIAN TUBES CLINICAL HISTORY 29 year old, desires sterilization (wpd) FINAL DIAGNOSIS Fallopian tubes, bilateral segmental resection: - histologic (complete lumens demonstrated) CPT Code: 14840 cds/wpd GROSS DESCRIPTION ANATOMIC SOURCE OF TISSUE (per Requisition): Bilateral fallopian tubesThe specimen is received in a formalin-filled container, labeled with the patient's name and designated "bilateral fallopian tubes". The specimen consists of two segments of fallopian tube with fimbriae measuring 3.5 x 0.7 and 4.0 x 1.0 cm. Sectioning reveals pinpoint lumens. Hot Frame Tender sections are submitted labeled A1 and A2. cornelia 04/25/20 Signed Anshul Gutiérrez Lázaro 04/26/20 1050 END OF REPORT Novel Coronavirus 2019 [id number] 14:01:00 Test Item Value Reference Range Interpretation Comments [facility] Negative code = COVNONPUI) Novel Coronavirus 2019 [id number] 14:00:00 Test Item Value Reference Range Interpretation Comments Novel Coronavirus 2019 Inhouse (test Negative Negative code = COVNONPUI) URINALYSIS [id number] 16:16:00 Test Item Value Reference Range Interpretation [...] NONE SEEN URINE SAMPLE: CLEAN CATCHUR HCG [id number] 16:16:00 Test Item Value Reference Range Interpretation [...] later and tested. URINE SAMPLE: CLEAN CATCHURINALYSIS [id number] 16:01:00 Test Item Value Reference Range Interpretation [...] NONE SEEN URINE SAMPLE: CLEAN CATCHUR HCG [id number] 16:01:00 Test Item Value Reference Range Interpretation Comments UR HCG QUAL (test code = HCGQLU) URINE SAMPLE: CLEAN CATCHCBC W/AUTO [id number] 15:50:00 Test Item Value Reference Range Interpretation [...] REQUIRED (test NORMAL NORMAL code = PLTMR) [id number] 21:31:00 Test Item Value Reference Range Interpretation Comments ACTH (test 8 pg/mL 6-50 Reference rang e code = applies only to the ) specimens colle cted between 7am-10a m. NALDO (test code Performing Lab EZ = NALDO) [facility] [address] [place] [address] Andrea Young MD, PhD, ESTEFANÍA [facility] 12:26:00 Test Item Value Reference Range Interpretation Comments Cortisol, Total (test code 22.6 ug/dL 3.7-19.4 H = 2755) NALDO (test code = NALDO) Data Analytics Architect ID - NTP Lab Interpretation (test Abnormal code = 20959-9) [facility] 12:26:00 Test Item Value Reference Range Interpretation Comments CORTISOL, TOTAL (BEAKER) (test 22.6 ug/dL 3.7-19.4 H code = 2755) Data Analytics Architect ID - [id number] 12:26:00 Test Item Value Reference Range Interpretation Comments CORTISOL, TOTAL (BEAKER) (test code 5.5 ug/dL 3.7-19.4 = 2755) Data Analytics Architect ID - [id number] 12:25:00 Test Item Value Reference Range Interpretation Comments CORTISOL, TOTAL (BEAKER) (test 21.3 ug/dL 3.7-19.4 H code = 2755) Data Analytics Architect ID - NTPBLOOD GAS, [id number] 01:03:00 Test Item Value Reference Range Interpretation [...] (test code = 1819) 21.0 % CT, [id number] 00:31:00Reason for exam:->ABDOMINAL PAINIs the patient ?->NoWhat [...] the abdomen or pelvis. Signed: Minerva Perez [facility] Verified Date/Time: 11/14/2019 00:31:04 Electronicallysigned by: MINERVA PEREZ MD on 11/14/2019 12:31 AMBASIC METABOLIC PANEL 2019-11-14 00:05:00 Test Item Value Reference Range Interpretation [...] 1092) DATA TO CALCULA TE ESTIMATED GFR. Data Analytics Architect ID - PIAYA [id number] 22:05:00 Test Item Value Reference Range Interpretation [...] exclusion of thrombosis is within 95-100% range. COMPREHENSIVE METABOLIC [id number] 21:01:00 Test Item Value Reference Range Interpretation [...] 1092) DATA TO CALCULA TE ESTIMATED GFR. Data Analytics Architect ID - KENNURINALYSIS W/ REFLEX URINE [id number] 21:00:00 Test Item Value Reference Range Interpretation [...] = 516) SOURCE(BEAKER) (test code = 2795) Data Analytics Architect ID - [auto]Data Analytics Architect ID - [id number] 20:49:00 Test Item Value Reference Range Interpretation Comments MAGNESIUM (BEAKER) 2.1 mg/dL 1.6-2.6 Specimen slightly (test code = 627) hemolyzed Data Analytics Architect ID - [id number] 20:49:00 Test Item Value Reference Range Interpretation Comments PHOSPHORUS (BEAKER) 3.8 mg/dL 2.3-4.7 Specimen slightly (test code = 604) hemolyzed Data Analytics Architect ID - [id number] 20:49:00 Test Item Value Reference Range Interpretation Comments LIPASE (BEAKER) (test code = 749) 41 U/L 8-78 Data Analytics Architect ID - KENNPREGNANCY SCREEN, [id number] 20:34:00 Test Item Value Reference Range Interpretation Comments TEST URINE (BEAKER) (test Negative code = 583) CBC W/PLT COUNT & AUTO [id number] 20:29:00 Test Item Value Reference Range Interpretation [...] 0-1 PERCENT (BEAKER) (test code = 2801) [[facility]] URINALYSIS, [id number] 16:02:01 Test Item Value Reference Range Interpretation Comments UA Turbidity; Abnormal (test code Marked Clear A = 17246-2) UA Spec Grav (test code = 5810-7) 1.024 <=1.030 UA pH (test code = 5803-2) 5.0 5.0-8.0 UA Protein (test code = 88772-7) Negative Negative UA Glucose (test code = 28395-9) Negative Negative UA Ketones (test code = 99307-6) Negative Negative UA Bili (test code = 5770-3) Negative Negative UA Blood; Abnormal (test code = Small Negative A 5794-3) UA Nitrite (test code = 5802-4) Negative Negative UA Leuk Est; Abnormal (test code = Large Negative A 5799-2) UA RBC; Above High Threshold (test 3 {/HPF} 0-2 code = 18359-1) UA WBC; Above High Threshold (test 35 {/HPF} 0-5 code = 09950-2) UA Bacteria (test code = 78347-2) Occasional None Seen UA Mucus; Abnormal (test code = Many None Seen A 8247-9) UA Sq Epi; Abnormal (test code = Many Few A 59656-3) Urine Calcium Oxalate Crystal Occasional None Seen (test code = 5774-5) UA Color (test code = 5778-6) Yellow UROBILINOGEN (test code = 27708-4) <=1.0 0.1-1.0 [facility]] CULTURE, URINE, [id number] 16:02:01 Test Item Value Reference Range Interpretation Comments FINAL REPORT (test <10,000 CFU/mL code = FINAL REPORT) Enterococcus Species [facility]] URINALYSIS, [id number] 16:00:01 Test Item Value Reference Range Interpretation Comments UA Turbidity (test code = 39361-7) Clear Clear UA Spec Grav (test code = 5810-7) 1.010 <=1.030 UA pH (test code = 5803-2) 7.0 5.0-8.0 UA Protein (test code = 66911-3) Negative Negative UA Glucose (test code = 91481-2) Negative Negative UA Ketones (test code = 02394-4) Negative Negative UA Bili (test code = 5770-3) Negative Negative UA Blood; Abnormal (test code = Small Negative A 5794-3) UA Nitrite (test code = 5802-4) Negative Negative UA Leuk Est (test code = 5799-2) Negative Negative UA RBC (test code = 90960-8) <1 0-2 UA WBC (test code = 44925-5) <1 0-5 UA Bacteria (test code = 16881-8) Occasional None Seen UA Sq Epi (test code = 48089-0) Few Few UA Color (test code = 5778-6) Ltyellow UROBILINOGEN (test code = 17575-4) <=1.0 0.1-1.0 [facility]] CULTURE, URINE, [id number] 16:00:01 Test Item Value Reference Range Interpretation Comments ORGANISM (test code = Enterobacter aerogenes 699-9) FINAL REPORT (test 50,000 - 100,000 CFU/mL code = FINAL REPORT) Enterobacter aerogenes [facility][] [id number] 16:00:01 Test Item Value Reference Range Interpretation [...] Resi stant, I= Intermediate, N/A= Not Applicable [facility]] CBC (INCLUDES DIFF/PLT)2018-05-07 09:22:01 Test Item Value Reference Range Interpretation Comments WBC (test code = 6690-2) 8.7 {K/CMM} 3.7-10.4 RBC; Below Low Threshold (test 3.92 {M/CMM} 4.20-5.40 code = 789-8) Hgb (test code = 718-7) 12.2 g/dl 12.0-16.0 Hct (test code = 33877-4) 36.7 % 36.0-48.0 MCV (test code = 787-2) 93.6 fL 80.0-98.0 MCH (test code = 785-6) 31.0 pg 27.0-31.0 MCHC (test code = 786-4) 33.1 g/dl 32.0-36.0 RDW; Above High Threshold (test 15.3 % 11.5-14.5 code = 788-0) Platelet; Below Low Threshold 129 {K/CMM} 133-450 (test code = 98030-5) Mean Platelet Volume; Above High 12.1 fL 7.4-10.4 Threshold (test code = 92373-9) [facility]] [id number] 09:22:01 Test Item Value Reference Range Interpretation Comments Segmented Neutrophils (test code 67.1 % 45.0-75.0 = 26673-6) Monocytes (test code = 78253-0) 7.3 % 2.0-12.0 Lymphocytes (test code = 50568-0) 23.7 % 20.0-40.0 Eosinophils (test code = 23624-1) 1.7 % 0.0-4.0 Basophils (test code = 706-2) 0.2 % 0.0-1.0 Segs-Bands # (test code = 5.9 {K/CMM} 1.5-8.1 93187-5) Lymphocytes # (test code = 2.1 {K/CMM} 1.0-5.5 38758-3) Monocytes # (test code = 54045-4) 0.6 {K/CMM} 0.0-0.8 Eosinophils # (test code = 0.1 {K/CMM} 0.0-0.5 95352-3) [facility]] CMP [id number] 09:22:01 Test Item Value Reference Range Interpretation Comments Sodium Level 139 {mEq/l} 135-145 (test code = 2951-2) Potassium Level 3.8 {mEq/l} 3.5-5.1 (test code = 2823-3) Chloride Level 109 {mEq/l} 95-109 (test code = 2075-0) Carbon Dioxide; 20 {mEq/l} 24-32 Below Low Threshold (test code = 2027-9) AGAP (test code = 13.8 {mEq/l} 10.0-20.0 84908-0) Glucose Lvl; 65 mg/dl 70-99 Adult reference range Below Low values reflect the Threshold (test clinical forrest delinesof the code = 2345-7) [employer] etes [employer]. Creatinine Lvl 0.70 mg/dl 0.50-1.40 (test code = 2160-0) Blood Urea 14 mg/dl 7-22 Nitrogen (test code = 3094-0) BUN/Creatinine 20 6-25 Ratio (test code = 3097-3) Total Protein; 5.3 g/dl 6.4-8.4 Below Low Threshold (test code = 2885-2) Albumin Lvl; 2.4 g/dl 3.5-5.0 Below Low Threshold (test code = 1751-7) Globulin (test 2.9 g/dl 2.7-4.2 code = 79189-6) A/G Ratio (test 0.8 0.7-1.6 code = 1759-0) Calcium Level 8.8 mg/dl 8.5-10.5 Total (test code = 83813-2) ALT (test code = 16 u/l 0-65 1743-4) AST (test code = 19 u/l 0-37 91125-7) Bili Total (test 0.2 mg/dl 0.2-1.3 code = 1975-2) Alk Phos (test 112 u/l 39-136 code = 1783-0) eGFR (test code = 121 The eGFR i s calculated 04854-3) {ML/MIN/1.7} using the CKD-E PI formula. In [...] be multiplied by t he estimated BMI. [facility]] PROTEIN, TOTAL W/CREAT, RANDOM URINE 2018-05-07 09:22:01 Test Item Value Reference Range Interpretation Comments U Creatinine (test 56.50 mg/dl No establ ished code = 2161-8) reference ran ges. Urine Protein Level 19.7 mg/dl No estab lished (test code = 2888-6) referen ce ranges. U Prot/Creat (test 0.35 code = 2890-2) [facility][O] Urine Dipstick (In Office)2018-05-07 08:10:00 Test Item Value Reference Range Interpretation Comments LEUKOCYTES (test code = small A LEUKOCYTES) NITRITE; Normal (test code = neg N 62639-1) UROBILINOGEN; Normal (test code = 0.1 N 02713-4) PROTEIN; Normal (test code = neg N 34541-4) pH (test code = pH) 7.0 N URINE BLOOD; Abnormal (test code trace-lysed A = 44093-4) SPECIFIC GRAVITY; Normal (test 1.020 N code = 2965-2) KETONES; Normal (test code = neg N 84242-7) BILIRUBIN; Normal (test code = neg N 82254-3) GLUCOSE; Normal (test code = neg N 1547-9) [facility][O] Urine Dipstick (In Office)2018-04-23 10:39:00 Test Item Value Reference Range Interpretation Comments LEUKOCYTES (test code = trace A LEUKOCYTES) NITRITE; Normal (test code = neg N 98051-9) UROBILINOGEN; Normal (test code = 0.2 N 54468-9) PROTEIN; Normal (test code = neg N 22164-6) pH (test code = pH) 6.0 N URINE BLOOD; Abnormal (test code trace-lysed A = 48826-1) SPECIFIC GRAVITY; Normal (test 1.025 N code = 2965-2) KETONES; Normal (test code = neg N 43128-7) BILIRUBIN; Normal (test code = neg N 35194-0) GLUCOSE; Normal (test code = neg N 1547-9) [facility][] HIV AB, HIV 1/2, EIA, WITH [id number] 10:24:01 Test Item Value Reference Range Interpretation Comments HIV Ag/Ab 4th Gen Negative Negative HIV test r esults should be (test code = considered posi tive only 17713-3) when both the s creening andthe confirma tory tests are positive. A negative confirmatory te st in patientswith a positive screening test does not exclude HIV inf ection. If clincallywarran jeronimo, an HIV RNA quantitativ e test should be order ed. [facility]] URINALYSIS, [id number] 13:50:01 Test Item Value Reference Range Interpretation Comments UA Turbidity (test code = 26706-2) Clear Clear UA Spec Grav (test code = 5810-7) 1.010 <=1.030 UA pH (test code = 5803-2) 6.0 5.0-8.0 UA Protein (test code = 34664-5) Negative Negative UA Glucose (test code = 53762-5) Negative Negative UA Ketones (test code = 36562-7) Negative Negative UA Bili (test code = 5770-3) Negative Negative UA Blood; Abnormal (test code = Small Negative A 5794-3) UA Nitrite (test code = 5802-4) Negative Negative UA Leuk Est; Abnormal (test code = Large Negative A 5799-2) UA RBC (test code = 37696-4) 1 {/HPF} 0-2 UA WBC (test code = 49958-5) 3 {/HPF} 0-5 UA Bacteria (test code = 01553-9) Occasional None Seen UA Mucus (test code = 8247-9) Few None Seen UA Sq Epi (test code = 78726-8) Few Few UA Color (test code = 5778-6) Ltyellow UROBILINOGEN (test code = 93057-4) <=1.0 0.1-1.0 [facility]] CULTURE, URINE, [id number] 13:50:01 Test Item Value Reference Range Interpretation Comments FINAL REPORT (test code = FINAL No Growth REPORT) [facility][O] Urine Dipstick (In Office)2018-04-09 08:50:00 Test Item Value Reference Range Interpretation Comments LEUKOCYTES (test code = LEUKOCYTES) small A NITRITE; Normal (test code = 11248-7) neg N UROBILINOGEN; Normal (test code = 0.2 N 87594-4) PROTEIN; Normal (test code = 54554-4) neg N pH (test code = pH) 6.5 N URINE BLOOD; Normal (test code = neg N 63002-9) SPECIFIC GRAVITY; Normal (test code = 1.015 N 2965-2) KETONES; Normal (test code = 50939-4) neg N BILIRUBIN; Normal (test code = 91424-0) neg N GLUCOSE; Normal (test code = 1547-9) neg N [facility]] Urine Dipstick (In Office)2018-04-09 08:32:00 Test Item Value Reference Range Interpretation Comments LEUKOCYTES (test code = LEUKOCYTES) small A NITRITE; Normal (test code = 46092-6) neg N UROBILINOGEN; Normal (test code = 0.2 N 74266-9) PROTEIN; Normal (test code = 98313-1) neg N pH (test code = pH) 6.5 N URINE BLOOD; Normal (test code = neg N 29140-6) SPECIFIC GRAVITY; Normal (test code = 1.015 N 2965-2) KETONES; Normal (test code = 41026-3) neg N BILIRUBIN; Normal (test code = 88802-9) neg N GLUCOSE; Normal (test code = 1547-9) neg N [facility]] Urine Dipstick (In Office)2018-03-26 09:26:00 Test Item Value Reference Range Interpretation Comments LEUKOCYTES (test code = LEUKOCYTES) Trace A NITRITE; Normal (test code = Negative N 72937-0) UROBILINOGEN; Normal (test code = 0.2 N 74296-0) PROTEIN; Normal (test code = Negative N 77186-5) pH (test code = pH) 7.0 A URINE BLOOD; Normal (test code = Negative N 57973-7) SPECIFIC GRAVITY; Normal (test code 1.015 N = 2965-2) KETONES; Normal (test code = Negative N 07888-9) BILIRUBIN; Normal (test code = Negative N 57118-9) GLUCOSE; Normal (test code = 1547-9) Negative N COLOR URINE; Normal (test code = yellow N 5778-6) APPEARANCE; Normal (test code = clear N 5767-9) [facility]] [id number] 10:28:01 Test Item Value Reference Range Interpretation Comments ALT (test code = 1743-4) 15 u/l 0-65 [facility]] [id number] 10:28:01 Test Item Value Reference Range Interpretation Comments AST (test code = 92508-7) 13 u/l 0-37 [facility]] [id number] 10:28:01 Test Item Value Reference Range Interpretation Comments Amylase Level (test code = 1798-8) 47 u/l 25-115 [facility]] [id number] 10:28:01 Test Item Value Reference Range Interpretation Comments Lipase Level (test code = 3040-3) 177 u/l 73-393 [facility]] URINALYSIS, [id number] 10:28:01 Test Item Value Reference Range Interpretation Comments UA Turbidity; Abnormal (test code Marked Clear A = 96779-2) UA Spec Grav (test code = 5810-7) 1.009 <=1.030 UA pH (test code = 5803-2) 7.0 5.0-8.0 UA Protein (test code = 58545-3) Negative Negative UA Glucose (test code = 53576-0) Negative Negative UA Ketones (test code = 71292-0) Negative Negative UA Bili (test code = 5770-3) Negative Negative UA Blood (test code = 5794-3) Negative Negative UA Nitrite (test code = 5802-4) Negative Negative UA Leuk Est; Abnormal (test code = Large Negative A 5799-2) UA WBC; Above High Threshold (test 7 {/HPF} 0-5 code = 63106-4) UA Bacteria (test code = 99600-7) Occasional None Seen Urine Amorphous Crystals (test Occasional None Seen code = 90205-4) UA Sq Epi; Abnormal (test code = Many Few A 03024-4) UA Color (test code = 5778-6) Ltyellow UROBILINOGEN (test code = 56926-4) <=1.0 0.1-1.0 [facility]] CULTURE, URINE, [id number] 10:28:01 Test Item Value Reference Range Interpretation Comments FINAL REPORT (test 10,000 - 50,000 CFU/mL code = FINAL Group B Streptococcus , No REPORT) susceptibility performedsince these organisms are predictably susceptible to penicillin. If patient ispenicillin allergic or susceptibility testing for additional antibiotics isclinically warranted please call the laboratory. [facility]] Urine Dipstick (In Office)2018-03-19 09:45:00 Test Item Value Reference Range Interpretation Comments LEUKOCYTES (test code = LEUKOCYTES) small A NITRITE; Normal (test code = 26248-5) neg N UROBILINOGEN; Normal (test code = 0.2 N 59934-4) PROTEIN; Normal (test code = 88114-6) neg N pH (test code = pH) 7.0 N URINE BLOOD; Normal (test code = neg N 32526-5) SPECIFIC GRAVITY; Normal (test code = 1.015 N 2965-2) KETONES; Normal (test code = 19935-6) neg N BILIRUBIN; Normal (test code = 24030-5) neg N GLUCOSE; Normal (test code = 1547-9) neg N [facility]] GLUCOSE, GESTATIONAL SCREEN (50G)-130 CUTOFF 2018-03-12 10:46:01 Test Item Value Reference Range Interpretation Comments Glucose Challenge (test code = 100.0 mg/dl <=140.0 1504-0) [facility]] CBC (INCLUDES DIFF/PLT)2018-03-12 10:46:01 Test Item Value Reference Range Interpretation Comments WBC (test code = 6690-2) 10.2 {K/CMM} 3.7-10.4 RBC; Below Low Threshold (test 3.82 {M/CMM} 4.20-5.40 code = 789-8) Hgb; Below Low Threshold (test 11.8 g/dl 12.0-16.0 code = 718-7) Hct; Below Low Threshold (test 35.7 % 36.0-48.0 code = 66001-5) MCV (test code = 787-2) 93.3 fL 80.0-98.0 MCH (test code = 785-6) 30.9 pg 27.0-31.0 MCHC (test code = 786-4) 33.1 g/dl 32.0-36.0 RDW; Above High Threshold (test 15.1 % 11.5-14.5 code = 788-0) Platelet (test code = 97716-9) 195 {K/CMM} 133-450 Mean Platelet Volume (test code 10.2 fL 7.4-10.4 = 79051-1) [facility]] [id number] 10:46:01 Test Item Value Reference Range Interpretation Comments Segmented Neutrophils (test code 67.7 % 45.0-75.0 = 29780-8) Monocytes (test code = 24820-6) 6.8 % 2.0-12.0 Lymphocytes (test code = 63525-7) 23.0 % 20.0-40.0 Eosinophils (test code = 33721-6) 2.2 % 0.0-4.0 Basophils (test code = 706-2) 0.3 % 0.0-1.0 Segs-Bands # (test code = 6.9 {K/CMM} 1.5-8.1 23229-8) Lymphocytes # (test code = 2.3 {K/CMM} 1.0-5.5 08552-4) Monocytes # (test code = 56859-0) 0.7 {K/CMM} 0.0-0.8 Eosinophils # (test code = 0.2 {K/CMM} 0.0-0.5 45747-1) [facility]] URINALYSIS, [id number] 10:46:01 Test Item Value Reference Range Interpretation Comments UA Turbidity; Abnormal (test code Slight Clear A = 62555-2) UA Spec Grav (test code = 5810-7) 1.010 <=1.030 UA pH (test code = 5803-2) 7.0 5.0-8.0 UA Protein (test code = 49476-3) Negative Negative UA Glucose (test code = 29657-9) Negative Negative UA Ketones (test code = 80134-1) Negative Negative UA Bili (test code = 5770-3) Negative Negative UA Blood (test code = 5794-3) Negative Negative UA Nitrite (test code = 5802-4) Negative Negative UA Leuk Est; Abnormal (test code = Large Negative A 5799-2) UA RBC (test code = 33599-5) 2 {/HPF} 0-2 UA WBC; Above High Threshold (test 12 {/HPF} 0-5 code = 65374-7) UA Bacteria (test code = 53336-5) Occasional None Seen UA Mucus (test code = 8247-9) Few None Seen UA Sq Epi; Abnormal (test code = Many Few A 21953-4) UA Color (test code = 5778-6) Ltyellow UROBILINOGEN (test code = 53048-6) <=1.0 0.1-1.0 [facility]] CULTURE, URINE, [id number] 10:46:01 Test Item Value Reference Range Interpretation [...] (test code Group B Streptococcus = 699-9) [facility][H] [id number] 10:46:01 Test Item Value Reference Range Interpretation Comments ORGANISM (test code Group B = 699-9) Streptococcus Levofloxacin (test .38 S code = Levofloxacin) Clindamycin (test .125 S code = Clindamycin) Erythromycin (test 4 R S= Suscep tible, code = R= Resistant, I = Erythromycin) Intermediate, N/A= Not Applicable [facility][O] Urine Dipstick (In Office)2018-03-12 09:23:00 Test Item Value Reference Range Interpretation Comments LEUKOCYTES (test code = LEUKOCYTES) small A NITRITE; Normal (test code = 68499-7) neg N UROBILINOGEN; Normal (test code = 0.2 N 03786-3) PROTEIN; Normal (test code = 23503-7) neg N pH (test code = pH) 7.5 N URINE BLOOD; Normal (test code = neg N 70281-1) SPECIFIC GRAVITY; Normal (test code = 1.020 N 2965-2) KETONES; Normal (test code = 62960-0) \\neg N BILIRUBIN; Normal (test code = 88274-1) neg N GLUCOSE; Normal (test code = 1547-9) neg N [facility]] CBC (INCLUDES DIFF/PLT)2018-02-12 09:45:01 Test Item Value Reference Range Interpretation Comments WBC (test code = 6690-2) 10.2 {K/CMM} 3.7-10.4 RBC; Below Low Threshold (test 3.72 {M/CMM} 4.20-5.40 code = 789-8) Hgb; Below Low Threshold (test 11.5 g/dl 12.0-16.0 code = 718-7) Hct; Below Low Threshold (test 33.5 % 36.0-48.0 code = 96834-3) MCV (test code = 787-2) 90.0 fL 80.0-98.0 MCH (test code = 785-6) 30.8 pg 27.0-31.0 MCHC (test code = 786-4) 34.2 g/dl 32.0-36.0 RDW; Above High Threshold (test 14.8 % 11.5-14.5 code = 788-0) Platelet (test code = 41878-0) 187 {K/CMM} 133-450 Mean Platelet Volume (test code 10.3 fL 7.4-10.4 = 69741-0) [facility]] [id number] 09:45:01 Test Item Value Reference Range Interpretation Comments Segmented Neutrophils (test code 63.9 % 45.0-75.0 = 08926-7) Monocytes (test code = 17344-7) 6.9 % 2.0-12.0 Lymphocytes (test code = 82516-2) 25.9 % 20.0-40.0 Eosinophils (test code = 88444-0) 3.0 % 0.0-4.0 Basophils (test code = 706-2) 0.3 % 0.0-1.0 Segs-Bands # (test code = 6.5 {K/CMM} 1.5-8.1 23904-8) Lymphocytes # (test code = 2.6 {K/CMM} 1.0-5.5 86276-1) Monocytes # (test code = 84329-9) 0.7 {K/CMM} 0.0-0.8 Eosinophils # (test code = 0.3 {K/CMM} 0.0-0.5 28162-9) [facility]] [id number] 09:45:01 Test Item Value Reference Range Interpretation Comments Amylase Level (test code = 1798-8) 47 u/l 25-115 [facility]] CMP [id number] 09:45:01 Test Item Value Reference Range Interpretation Comments Sodium Level 141 {mEq/l} 135-145 (test code = 2951-2) Potassium Level; 3.4 {mEq/l} 3.5-5.1 Below Low Threshold (test code = 2823-3) Chloride Level; 112 {mEq/l} 95-109 Above High Threshold (test code = 2075-0) Carbon Dioxide; 21 {mEq/l} 24-32 Below Low Threshold (test code = 8-9) AGAP (test code = 11.4 {mEq/l} 10.0-20.0 18951-9) Glucose Lvl (test 73 mg/dl 70-99 Adult refe rence range code = 2345-7) values reflec t the clinical guidel inesof the Prydeinig Diabet es Association. Creatinine Lvl 0.60 mg/dl 0.50-1.40 (test code = 2160-0) Blood Urea 8 mg/dl 7-22 Nitrogen (test code = 3094-0) BUN/Creatinine 13 6-25 Ratio (test code = 3097-3) Total Protein; 6.0 g/dl 6.4-8.4 Below Low Threshold (test code = 2885-2) Albumin Lvl; 2.7 g/dl 3.5-5.0 Below Low Threshold (test code = 1751-7) Globulin (test 3.3 g/dl 2.7-4.2 code = 22455-8) A/G Ratio (test 0.8 0.7-1.6 code = 1759-0) Calcium Level 8.1 mg/dl 8.5-10.5 Total; Below Low Threshold (test code = 03872-6) ALT (test code = 16 u/l 0-65 1743-4) AST (test code = 14 u/l 0-37 38948-3) Bili Total; Below 0.1 mg/dl 0.2-1.3 Low Threshold (test code = 1975-2) Alk Phos (test 60 u/l 39-136 code = 1783-0) eGFR (test code = 127 The eGFR i s calculated 37146-4) {ML/MIN/1.7} using the CKD-E PI formula. In [...] National Kidney Disease Education Progr am(NKDEP) which additiona lly recommends that when the eGFR is used in patientswith ex tremes of body mass index for purposes of rory g dosing, the eGFR should be multiplied by t he estimated BMI. [facility]] [id number] 09:45:01 Test Item Value Reference Range Interpretation Comments Lipase Level (test code = 3040-3) 185 u/l 73-393 [facility]] URINALYSIS, [id number] 09:45:01 Test Item Value Reference Range Interpretation Comments UA Turbidity (test code = 25610-9) Clear Clear UA Spec Grav (test code = 5810-7) 1.008 <=1.030 UA pH (test code = 5803-2) 7.0 5.0-8.0 UA Protein (test code = 33543-5) Negative Negative UA Glucose (test code = 91465-5) Negative Negative UA Ketones (test code = 30064-7) Negative Negative UA Bili (test code = 5770-3) Negative Negative UA Blood (test code = 5794-3) Negative Negative UA Nitrite (test code = 5802-4) Negative Negative UA Leuk Est; Abnormal (test code = Moderate Negative A 5799-2) UA RBC (test code = 76896-1) 1 {/HPF} 0-2 UA WBC (test code = 01408-0) <1 0-5 UA Sq Epi (test code = 27654-1) Occasional Few UA Color (test code = 5778-6) Ltyellow UROBILINOGEN (test code = 58393-8) <=1.0 0.1-1.0 [facility]] CULTURE, URINE, [id number] 09:45:01 Test Item Value Reference Range Interpretation Comments FINAL REPORT (test 10,000 - 50,000 CFU/mL code = FINAL Group B Streptococcus No REPORT) susceptibility performed sincethese organisms are predictably susceptible to penicillin. If patient ispenicillin allergic or susceptibility testing for additional antibiotics isclinically warranted please call the laboratory. [facility]] [id number] 09:40:01 Test Item Value Reference Range Interpretation Comments AST (test code = Cancel Reason: System 04527-1) Cancel [facility]] [id number] 09:40:01 Test Item Value Reference Range Interpretation Comments ALT (test code = Cancel Reason: System 1743-4) Cancel [facility][O] Urine Dipstick (In Office)2018-02-12 08:53:00 Test Item Value Reference Range Interpretation Comments LEUKOCYTES (test code = LEUKOCYTES) trace N NITRITE; Normal (test code = 47350-4) neg N UROBILINOGEN; Normal (test code = 0.2 N 16688-6) PROTEIN; Normal (test code = 21132-9) neg N pH (test code = pH) 7.5 A URINE BLOOD; Normal (test code = neg N 72861-5) SPECIFIC GRAVITY; Normal (test code = 1.010 N 2965-2) KETONES; Normal (test code = 83947-4) neg N BILIRUBIN; Normal (test code = 48470-7) neg N GLUCOSE; Normal (test code = 1547-9) neg N [facility]] URINALYSIS, [id number] 15:23:01 Test Item Value Reference Range Interpretation Comments UA Turbidity; Abnormal (test code Marked Clear A = 13224-5) UA Spec Grav (test code = 2965-2) 1.016 <=1.030 UA pH (test code = 2756-5) 7.0 5.0-8.0 UA Protein (test code = 38256-2) Negative Negative UA Glucose (test code = 2349-9) Negative Negative UA Ketones (test code = 23730-1) Negative Negative UA Bili (test code = 65659-1) Negative Negative UA Blood (test code = 798-9) Negative Negative UA Nitrite (test code = 93260-4) Negative Negative UA Leuk Est; Abnormal (test code = Trace Negative A 10932-0) UA RBC (test code = 70256-2) 1 {/HPF} 0-2 UA WBC (test code = 60630-8) 3 {/HPF} 0-5 UA Bacteria (test code = 630-4) Occasional None Seen UA Sq Epi; Abnormal (test code = Moderate Few A 35637-0) UA Color (test code = 52023-0) Yellow UROBILINOGEN (test code = 91370-7) <=1.0 0.1-1.0 UA Spec Grav (test code = 5810-7) 1.016 <=1.030 UA pH (test code = 5803-2) 7.0 5.0-8.0 UA Glucose (test code = 12361-2) Negative Negative UA Bili (test code = 5770-3) Negative Negative UA Blood (test code = 5794-3) Negative Negative UA Nitrite (test code = 5802-4) Negative Negative UA Leuk Est; Abnormal (test code = Trace Negative A 5799-2) UA RBC (test code = 65436-5) 1 {/HPF} 0-2 UA WBC (test code = 60325-9) 3 {/HPF} 0-5 UA Bacteria (test code = 72024-8) Occasional None Seen UA Sq Epi; Abnormal (test code = Moderate Few A 53194-2) UA Color (test code = 5778-6) Yellow UROBILINOGEN (test code = 79548-0) <=1.0 0.1-1.0 [facility]] CULTURE, URINE, [id number] 15:23:01 Test Item Value Reference Range Interpretation Comments ORGANISM (test code = Enterococcus Species 699-9) FINAL REPORT (test 10,000 - 50,000 CFU/mL code = FINAL REPORT) Enterococcus Species [facility][H] [id number] 15:23:01 Test Item Value Reference Range Interpretation Comments ORGANISM (test code = Enterococcus 699-9) Species Ampicillin (test code - S = Ampicillin) Levofloxacin (test - S code = Levofloxacin) Nitrofurantoin (test - S code = Nitrofurantoin) Tetracycline (test - R code = Tetracycline) Vancomycin (test code SEE NOTES S S= Ingris ceptible, = Vancomycin) R= Resistant, I= Intermediate, N/A= Not Applicable [facility][O] Urine Dipstick (In Office)2018-01-15 09:52:00 Test Item Value Reference Range Interpretation Comments LEUKOCYTES (test code = LEUKOCYTES) trace NITRITE; Normal (test code = 23673-5) neg N UROBILINOGEN; Normal (test code = 0.2 N 77899-6) PROTEIN; Normal (test code = 09825-7) neg N pH (test code = pH) 7.0 N URINE BLOOD; Normal (test code = neg N 00922-9) SPECIFIC GRAVITY; Normal (test code = 1.020 N 2965-2) KETONES; Normal (test code = 85320-7) neg N BILIRUBIN; Normal (test code = 83281-5) neg N GLUCOSE; Normal (test code = 1547-9) neg N UROBILINOGEN; Normal (test code = 0.2 N 21762-8) [facility]] CULTURE, URINE, [id number] 17:21:01 Test Item Value Reference Range Interpretation Comments CULTURE, URINE, Cancel Reason: Unable ROUTINE (test code = To Obtain Specimen CULTURE, URINE, ROUTINE) [facility][] Urine Dipstick (In Office)2018-01-08 10:17:00 Test Item Value Reference Range Interpretation Comments LEUKOCYTES (test code = LEUKOCYTES) trace A NITRITE; Normal (test code = 35110-4) neg N UROBILINOGEN; Normal (test code = 0.2 N 46663-2) PROTEIN; Normal (test code = 15795-7) neg N pH (test code = pH) 6.5 N URINE BLOOD; Normal (test code = neg N 35272-1) SPECIFIC GRAVITY; Normal (test code = 1.020 N 2965-2) KETONES; Normal (test code = 57580-6) neg N BILIRUBIN; Normal (test code = 52319-4) neg N GLUCOSE; Normal (test code = 1547-9) neg N [facility]] CBC (INCLUDES DIFF/PLT)2017-12-18 10:32:01 Test Item Value Reference Range Interpretation Comments WBC (test code = WBC) 7.2 {K/CMM} 3.7-10.4 RBC (test code = RBC) 4.06 {M/CMM} 4.20-5.40 Hgb; Below Low Threshold (test 11.8 g/dl 12.0-16.0 code = 40449-9) Hct (test code = 4544-3) 36.6 % [...] Volume (test code 9.7 fL 7.4-10.4 = 15261-3) [facility]] [id number] 10:32:01 Test Item Value Reference Range Interpretation Comments Segmented Neutrophils (test code 60.2 % 45.0-75.0 = 14289-2) Monocytes # (test code = 86936-5) 0.6 {K/CMM} 0.0-0.8 Lymphocytes (test code = 27.5 % 20.0-40.0 Lymphocytes) Eosinophils # (test code = 0.3 {K/CMM} 0.0-0.5 33807-5) Basophils (test code = 02984-0) 0.4 % 0.0-1.0 Segs-Bands # (test code = 4.3 {K/CMM} 1.5-8.1 21985-5) Lymphocytes # (test code = 2.0 {K/CMM} 1.0-5.5 60244-2) Lymphocytes (test code = 45353-8) 27.5 % 20.0-40.0 [facility]] URINALYSIS, [id number] 10:32:01 Test Item Value Reference Range Interpretation Comments UA Color (test code = 45888-0) Yellow UA Turbidity (test code = 19404-3) Clear Clear UA Spec Grav (test code = 2965-2) 1.016 <=1.030 UA pH (test code = 2756-5) 6.0 5.0-8.0 UA Protein (test code = 95224-4) Negative Negative UA Glucose (test code = 2349-9) Negative Negative UA Ketones; Abnormal (test code = Trace Negative A 76585-1) UA Bili (test code = 02161-5) Negative Negative UA Blood (test code = 798-9) Negative Negative UROBILINOGEN (test code = 14699-4) <=1.0 0.1-1.0 UA Nitrite (test code = 68664-1) Negative Negative UA Leuk Est (test code = 50396-9) Negative Negative UA RBC (test code = 42091-2) <1 0-2 UA WBC (test code = 92196-8) 2 {/HPF} 0-5 UA Bacteria (test code = 630-4) Occasional None Seen UA Mucus (test code = 31206-7) Few None Seen UA Sq Epi (test code = 19184-4) Occasional Few [facility]] CULTURE, URINE, [id number] 10:32:01 Test Item Value Reference Range Interpretation Comments FINAL REPORT (test code = FINAL No Growth REPORT) [facility][H] Alpha Fetoprotein (Only) Maternal Screen [...] of 0.81 Median AFP (test code = 83912-4) Risk for NTD 32661 (OBS) (test code = Risk for NTD [...] further inquiri es contact [facility] at [phone]. Performed At: [facility] [id number] [place], [place] [id number] anni Gordillo MD Ph :[phone] Insulin N Dependent? (test code = Insulin [...] N Indications? (test code = Other Indications?) [facility][O] Urine Dipstick (In Office)2017-12-18 08:22:00 Test Item Value Reference Range Interpretation Comments LEUKOCYTES (test code = LEUKOCYTES) neg N NITRITE; Normal (test code = 51218-5) neg N UROBILINOGEN; Normal (test code = 0.2 N 67344-1) PROTEIN; Normal (test code = 00044-3) neg N pH (test code = pH) 6.5 N URINE BLOOD; Normal (test code = neg N 13663-6) SPECIFIC GRAVITY; Normal (test code = 1.020 N 2965-2) KETONES; Abnormal (test code = 78866-0) trace A BILIRUBIN; Normal (test code = 11449-0) neg N GLUCOSE; Normal (test code = 1547-9) neg N [facility][H] CMP [id number] 11:32:01 Test Item Value Reference Range Interpretation [...] t the Lvl) clinical guidel inesof the Prydeinig Diabet es Association. Creatinine Lvl 0.60 mg/dl 0.50-1.40 (test code = Creatinine Lvl) Blood Urea 10 mg/dl 7-22 Nitrogen (test code = Blood Urea Nitrogen) BUN/Creatinine 17 6-25 Ratio (test code = BUN/Creatinine Ratio) Total Protein 6.9 g/dl 6.4-8.4 (test code = 07868-2) Albumin Lvl; 3.3 g/dl 3.5-5.0 Below Low [...] mg/dl 0.2-1.3 Low Threshold (test code = 32885-5) eGFR (test code = 127 The eGFR [...] multiplied by t he estimated BMI. [facility][QH] PROTEIN, TOTAL W/CREAT, RANDOM URINE 2017-11-20 11:32:01 Test Item Value Reference Range Interpretation Comments U Creatinine (test 67.30 mg/dl No establ ished code = U Creatinine) referen ce ranges. Urine Protein Level 12.0 mg/dl No estab lished (test code = 2888-6) referen ce ranges. U Prot/Creat (test 0.18 code = 2890-2) [facility][LH] GC/CT by Amp Det (APTIMA)2017-11-20 11:32:01 Test Item Value Reference Range Interpretation Comments Source APTIMA Urine (test code = Source APTIMA) N gonorrhea by Amp Negative Negative The APTIM A assay is a Det (APTIMA) (test target am plification code = 90008-7) nucleic acid probe test utilizingtarget capture for the qualitative detection and differentia tion of ribosomalRNA fr om Neisseria gonorrhoeae to aid in the diagnosis of di sease fromsymptomatic and asymptomatic in dividuals using the PANTH ER System.This ass ay utilizes FDA cleared IVD reagents. Performance liss racteristics havebeen verifi ed by the [employer] [facility] with in [facility].The [facility] ecular Diagnostic Labo ratory is authorized unde r the Clinical LaboratoryImpro vement Amendments of 1 988 (CLIA-88) to pe rform high complexity test ing. C trachomatis by Negative Negative The APTIMA assay is a Amp Det (APTIMA) target ampl ification (test code = nucleic acid pr obe test 92565-7) utilizingtarget capture for the qualitative detection and differentia tion of ribosomalRNA fr om Chlamydia trachomatis to aid in the diagnosis of di sease fromsymptomatic and asymptomatic in dividuals using the Men[employer] ER System.This ass ay utilizes FDA cleared IVD reagents. Performance liss racteristics havebeen verifi ed by the [facility] [facility] with in [facility].The [employer] Diagnostic Labo ratory is authorized unde r the Clinical LaboratoryImpro vement Amendments of 1 988 (CLIA-88) to pe rform high complexity test ing. [facility][O] Urine Dipstick (In Office)2017-11-20 09:27:00 Test Item Value Reference Range Interpretation Comments LEUKOCYTES (test code = LEUKOCYTES) small A NITRITE; Normal (test code = 32754-7) neg N UROBILINOGEN; Normal (test code = 0.2 N 14629-8) PROTEIN; Normal (test code = 25187-9) neg N pH (test code = pH) 6.5 N URINE BLOOD; Normal (test code = neg N 59099-7) SPECIFIC GRAVITY; Normal (test code = 1.020 N 2965-2) KETONES; Normal (test code = 29286-1) neg N BILIRUBIN; Normal (test code = 38312-0) neg N GLUCOSE; Normal (test code = 1547-9) neg N [facility]] URINALYSIS, [id number] 16:46:01 Test Item Value Reference Range Interpretation Comments UA Turbidity (test code = 94973-3) Clear Clear UA Spec Grav (test code = 2965-2) 1.010 <=1.030 UA pH (test code = 2756-5) 6.0 5.0-8.0 UA Protein (test code = 17926-7) Negative Negative UA Glucose (test code = 2349-9) Negative Negative UA Ketones (test code = 34741-7) Negative Negative UA Bili (test code = 32979-5) Negative Negative UA Blood (test code = 798-9) Negative Negative UA Nitrite (test code = 95282-2) Negative Negative UA Leuk Est; Abnormal (test code = Moderate Negative A 14983-0) UA RBC (test code = 40025-1) 1 {/HPF} 0-2 UA WBC (test code = 63222-3) 1 {/HPF} 0-5 UA Bacteria (test code = 630-4) Occasional None Seen UA Mucus (test code = 04104-5) Few None Seen UA Sq Epi (test code = 82035-5) Occasional Few UA Color (test code = 27536-0) Ltyellow UROBILINOGEN (test code = 19307-2) <=1.0 0.1-1.0 [facility] CULTURE, URINE, [id number] 16:46:01 Test Item Value Reference Range Interpretation Comments FINAL REPORT (test code <10,000 CFU/mL Skin = FINAL REPORT) [facility]] HEPATIC FUNCTION [id number] 15:30:01 Test Item Value Reference Range Interpretation Comments HEPATIC FUNCTION PANEL Cancel Reason: (test code = HEPATIC Duplicate Order FUNCTION PANEL) [facility]] CBC (INCLUDES DIFF/PLT)2017-10-12 15:30:01 Test Item Value Reference Range Interpretation Comments WBC (test code = WBC) 7.6 {K/CMM} 3.7-10.4 RBC (test code = RBC) 4.39 {M/CMM} 4.20-5.40 Hgb (test code = 11911-1) 12.7 g/dl 12.0-16.0 Hct (test code = 4544-3) 38.5 % 36.0-48.0 MCV (test code = MCV) 87.9 fL 80.0-98.0 MCH (test code = MCH) 29.0 pg 27.0-31.0 MCHC (test code = MCHC) 33.0 g/dl 32.0-36.0 RDW (test code = RDW) 14.1 % 11.5-14.5 Platelet (test code = 777-3) 247 {K/CMM} 133-450 Mean Platelet Volume (test code 10.4 fL 7.4-10.4 = Mean Platelet Volume) [facility][H] Obstetrics Panel (includes CBCw/Diff,RPR, HbsAg,RubIgG,Type and Screen)2017-10-12 15:30:01 Test Item Value Reference Range Interpretation Comments Segs (test code = 60.2 % 45.0-75.0 88656-2) Monocytes # (test 0.6 {K/CMM} 0.0-0.8 code = 21712-5) Lymphocytes (test 28.1 % 20.0-40.0 code = Lymphocytes) Eosinophils (test 3.3 % 0.0-4.0 code = Eosinophils) Basophils (test code 0.3 % 0.0-1.0 = 26667-3) Segs-Bands # (test 4.7 {K/CMM} 1.5-8.1 code = 57641-2) Lymphocytes # (test 2.2 {K/CMM} 1.0-5.5 code = 86065-3) Eosinophils # (test 0.3 {K/CMM} 0.0-0.5 code = 13196-9) WBC (test code = 7.8 {K/CMM} 3.7-10.4 6690-2) RBC (test code = 4.50 {M/CMM} 4.20-5.40 789-8) Hgb (test code = 13.1 g/dl 12.0-16.0 717-9) Hct (test code = 39.7 % 36.0-48.0 66117-1) MCV (test code = 88.2 fL 80.0-98.0 787-2) MCH (test code = 29.0 pg 27.0-31.0 81945-7) MCHC (test code = 32.9 g/dl 32.0-36.0 786-4) RDW (test code = 13.7 % 11.5-14.5 788-0) Platelet (test code = 266 {K/CMM} 133-450 777-3) MPV; Above High 10.7 fL 7.4-10.4 Threshold (test code = 50712-1) Rubella IgG (test 129.8 {IU/ml} >=10.0 Reference Range: code = 19675-7) Immune >= 10 IU/mL Hep Bs Ag (test code Negative Negative = 5195-3) ABORH (test code = A NEG 882-1) AB Screen (test code Negative = 890-4) RPR (test code = Non Reactive Non Reactive 62470-9) [facility][H] HIV 4th Gen w/ [id number] 15:30:01 Test Item Value Reference Range Interpretation Comments HIV Ag/Ab 4th Gen (test code = HIV Negative Negative Ag/Ab 4th Gen) [facility]] BILIRUBIN, [id number] 15:30:01 Test Item Value Reference Range Interpretation Comments Bilirubin Direct (test code = 07356-2) <0.1 0.0-0.3 [facility]] CMP [id number] 15:30:01 Test Item Value Reference Range Interpretation [...] t the Lvl) clinical guidel inesof the Prydeinig Diabet es Association. Creatinine Lvl 0.60 mg/dl 0.50-1.40 (test code = Creatinine Lvl) Blood Urea 8 mg/dl 7-22 Nitrogen (test code = Blood Urea Nitrogen) BUN/Creatinine 13 6-25 Ratio (test code = BUN/Creatinine Ratio) Total Protein 7.0 g/dl 6.4-8.4 (test code = 19526-4) Albumin Lvl (test 3.8 g/dl 3.5-5.0 code = 1751-7) Globulin (test 3.2 g/dl 2.7-4.2 code = Globulin) A/G Ratio (test 1.2 0.7-1.6 code = A/G Ratio) Calcium Level 8.7 mg/dl 8.5-10.5 Total (test code = Calcium Level Total) ALT (test code = 18 u/l 0-65 1742-6) AST (test code = 21 u/l 0-37 1916-6) Bili Total (test 0.4 mg/dl 0.2-1.3 code = 94369-5) Alk Phos (test 55 u/l 39-136 code [...] National Kidney Disease Education Progr am(NKDEP) which additiona caitliny recommends that when the eGFR is used in patientswith ex tremes of body mass index for purposes of rory g dosing, the eGFR should be multiplied by t he estimated BMI. [facility]] [id number] 15:30:01 Test Item Value Reference Range Interpretation Comments Lactate Dehydrogenase; Above High 249 u/l 98-192 Threshold (test code = 27380-1) [facility]] URIC [id number] 15:30:01 Test Item Value Reference Range Interpretation Comments Uric Acid (test code = 3086-6) 2.5 mg/dl 2.5-7.0 [facility]] VITAMIN [id number] 15:30:01 Test Item Value Reference Range Interpretation Comments Vitamin B12 Level (test code = 551 pg/ml 254-1320 Vitamin B12 Level) [facility]] URINALYSIS, [id number] 15:30:01 Test Item Value Reference Range Interpretation Comments UA Turbidity (test code = 91200-0) Clear Clear UA Spec Grav (test code = 2965-2) 1.004 <=1.030 UA pH (test code = 2756-5) 6.0 5.0-8.0 UA Protein (test code = 04955-6) Negative Negative UA Glucose (test code = 2349-9) Negative Negative UA Ketones (test code = 63397-3) Negative Negative UA Bili (test code = 41641-8) Negative Negative UA Blood; Abnormal (test code = Small Negative A 798-9) UA Nitrite (test code = 93038-9) Negative Negative UA Leuk Est; Abnormal (test code = Large Negative A 06361-8) UA RBC (test code = 54557-1) 1 {/HPF} 0-2 UA WBC (test code = 26052-0) 5 {/HPF} 0-5 UA Bacteria (test code = 630-4) Occasional None Seen UA Sq Epi (test code = 70681-6) Occasional Few UA Color (test code = 84628-1) Ltyellow UROBILINOGEN (test code = 99229-4) <=1.0 0.1-1.0 [facility][] PROTEIN, TOTAL W/CREAT, RANDOM URINE 2017-10-12 15:30:01 Test Item Value Reference Range Interpretation Comments U Creatinine (test 25.50 mg/dl No establ ished code = U Creatinine) referen ce ranges. Urine Protein Level <5.0 No estab lished (test code = 2888-6) referen ce ranges. U Prot/Creat (test <0.20 code = 2890-2) [facility][H] Hemoglobin Electrophoresis and Interpretation 2017-10-12 15:30:01 Test Item Value Reference Range Interpretation Comments Hgb A % (test code = Hgb 97.4 % 95.8-97.8 A %) Hgb A2 % (test code = 2.6 % 2.2-3.2 Hgb A2 %) Hgb F % (test code = 0.0 % 0.0-1.0 94284-5) Hgb S % (test code = Hgb 0.0 % 0.0-0.0 S %) Hgb C % (test code = Hgb 0.0 % 0.0-0.0 C %) Hemoglobin SEE NOTES No abnormal Electrophoresis hemoglobins are Interpretation (test detecte d; normal code = 27169-4) hemoglobin electrophoresis alma rn.The electron ic medical record has been reviewed f or relevant histor y. I have personally reviewed the te st results and con cur with the resident'shama bobo.CPT 20786-JXNoravfa gonzalo Signature Raymundo Mccullough MD 09/26 12:13 PM [facility]] CULTURE, URINE, [id number] 15:30:01 Test Item Value Reference Range Interpretation Comments ORGANISM (test code = Enterococcus Species 699-9) FINAL REPORT (test 10,000 - 50,000 CFU/mL code = FINAL REPORT) Enterococcus Species [facility][H] [id number] 15:30:01 Test Item Value Reference Range Interpretation Comments ORGANISM (test code = Enterococcus 699-9) Species Ampicillin (test code - S = Ampicillin) Levofloxacin (test - S code = Levofloxacin) Nitrofurantoin (test - S code = Nitrofurantoin) Tetracycline (test - R code = Tetracycline) Vancomycin (test code SEE NOTES S S= Ingris ceptible, = Vancomycin) R= Resistant, I= Intermediate, N/A= Not Applicable [facility][H] Creatine [id number] 15:30:01 Test Item Value Reference Range Interpretation Comments Creatine Lvl 0.2 mg/dl 0.1-1.0 This test was d eveloped and its (test code = performance Creatine Lvl) characteristic sdetermined by [facility]. It has not been cleared orappro sheila by the Food and Drug Administration. Performed At: [facility] [address] [place], [place] [id number] jina Hubbard MD Ph:[phone] [facility][H] Cystic Fibrosis [id number] 15:30:01 Test Item Value Reference Range Interpretation [...] a ca rrier of cysticfibrosis, please contact [facility] [phone] for a revised report.Mutation Detection Detection rates [...] ics of this condition.MUTAT IONS ANALYZED:G85E V520F A9886H 2183AA to KE109X G542X F8981G 8930awmDZ832J S549N 394delTT 2789+5G to RC466Q S5 49R 621+1G to T 3120+1G to RF808G G551D 711+1G to T 6219lvaQL042C R553X 1078delT 3849+10kbC to WOwnnfM759 R5 60T 1717-1G to A 3876delA JdzhpO130 S5889G 1898+1 G to A 3905insTMETHODS /LIMITATIONS:DNA is isolated fro m the sample and tested for the 32 CFmutations on the [employer]ucin[employer] Array Platform ([email or web address]).Regio ns of the CFTR gene are amplif ied enzymatically a ndsubjected to a solution-phase multiplex allele-specific primer extension with subsequent hybridization to a beadarray and fluorescence detection. Leeroy ymorphisms F508C,I506V and I507V are included in thi s panel to rule outfalse positi ve fcmcfU038 homozygotes. R eflex testing of5T is include d in the panel for R117H inter pretation.False positive or neg ative results may occur for r easonsthat include genetic variants, blood transfusions, b onemarrow transplantation , erroneous representation offamily relationships o r contamination of a samp lewith maternal cells.REFERENCE S:1. Updates on Carrier Screeni ng for Cystic Fibrosis. (2011 ) Am J Ob Gynecol 117(4): 1028-84854. Lane et al. (2004) Lib[place] Med 6:387-913. Poncho nelson et al. (2002) Lib[place] Me d 4:379-3914. Preconception a nd carrier screeni ng for cystic fibrosis: (2001 )ACOG.ACMG publicationResu lts Released By: Ap Walker , Ph.D. TechnicalDirect or Report Released By: Honorio Walker, Ph.D.Motor Coach Driver CF Interp Comment The assay provi gilmer [...] procedure.Perfo rmed At: [facility] [id number] [place] [address] 5358Pepkowivanessa Aguilar MD Ph:[phone] rformed At: [facility] [id number] [place], [place] [id number] anni Gordillo MD Ph:[phone] [facility][LH] TSH+Free [id number] 15:30:01 Test Item Value Reference Range Interpretation Comments TSH; Above High Threshold 6.660 {uIU/ml} 0.360-3.740 (test code = 89356-4) T4 Free (test code = T4 Free) 1.04 ng/dl 0.76-1.46 [facility][H] SMA [id number] 15:30:01 Test Item Value Reference Interpretation Comments [...] resul tCaucasian 94.8% 1:47 1:834 1:5,6 00Ashkenazi Buddhism 90.5% 1:67 1:611 1:5, 400Asian 93.3% 1:59 1:806 1:5,600Hispanic 90.0% 1:68 1:579 1:5,400Afric an Prydeinig 70.5% 1:7 2 1:130 1:4,200Asia n 90.2% 1: 52 1:443 1:5,4 00 SMA Note METHOD/LIMITATI ONS: Method/Limitations Specimen DNA is isolated (test code = SMA and amplifi edby real-time Method/Limitations) polymera se chain reaction (PCR) for exon 7 ofthe SMN1 gene and t he internal standard refere nce genes. Amathematical a lgorithm is used to calcula te and report KUP4ayhw numbers of 0, 1, 2 and 3. [...] f afetal sample with mat ernal cells. [facility] References Note REFERENCES: 1 . Blake (test code = [facility] ELISABET, Javan N , Stephenie H, et References) al.Spring-ethnic c arrier screening and p renatal diagnosis forsp inal muscular atroph y: clinical laboratory anal ysis of>72,400 speci mens. Eur J Hum [place] 2012; 20:27-32. 2. Sandip et al. Technical stand ards and guidelines for spinalmuscular atrophy testing. [place] Med 2011; 13(7): 686-694. [facility] Disclaimer Note The test was developed and (test code = [facility] its perform ance Disclaimer) characteristics have been determined by [facility].The laborat ory is regulated under the Clinical LaboratoryImpro vement Amendments of 1 988 (CLIA) as qualified to perform high complexity clinical testing. This t est must beused in conju nction with clinical assess ment, whenavailable. [facility] is a b usiness unit of[employer] , a wholly-ownedsub sidiary of Laboratory [employer] oration of [employer]. [facility] Electronically Comment Mya elias, Ph.D., Signed by (test FACMG,Perfor med At: [facility] code = [facility] Electron[facility] Laboratories[address] [place], [place] [id number] o Bernice PhD Ph:[phone] [facility][H] [facility] [id number] 15:29:01 Test Item Value Reference Range Interpretation Comments [facility] (test COMMENT Test Orde red: 225314 code = [facility]) 25-Hydr oxyvitamin D LCMS D2+P213-Izlykjg , Vitamin D 17 [L ] ng/mL ESRe ference Range:All Ages: Target levels 30 - 02080-Prltmnv, Vitamin D-2 7.5 ng/mL ES25 -Hydroxy, Vitamin D-3 9.6 ng/mL ESPerformed At: [facility] [address] [id number] k Giorgio Hubbard MD Ph:[phone] rformed At: [facility] [address] [place], [place] [id number] tanya Aguilar MD Ph:[phone] [facility]
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
[2020-12-21 20:08] LABS: Absolute Lymphocytes (CBC) 2.1 K/uL (0.7-4.9); Basophils % 0.5 % (0-1.3); Hematocrit 38.8 % (36.0-45.0); Lymphocytes % 24.3 % (15.3-44.8); MPV 9.9 fL (7.6-11.3); RBC Red Blood Cell Count 4.27 M/uL (3.86-4.86)
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
[2020-12-21 20:24] LABS: BUN Blood Urea Nitrogen 10 mg/dL (7-18); Bicarbonate 18 mmol/L (21-32); Glucose Level 80 mg/dL (74-106); Potassium 3.6 mmol/L (3.5-5.1); Sodium Level 142 mmol/L (136-145)
[2020-12-21 22:02] VITALS: TEMP 98.2
[2020-12-21 22:04] VITALS: BP 122/80; O2SAT 100
== END 2020-12-21 20:42 | disposition home or self-care (01) ==
LOC: ER 19:08
DX: M62.838 Other muscle spasm (principal); V49.49XA Driver injured in collision with other motor vehicles in traffic accident, initial encounter; E03.9 Hypothyroidism, unspecified; F17.210 Nicotine dependence, cigarettes, uncomplicated; Z88.0 Allergy status to penicillin; Z88.1 Allergy status to other antibiotic agents; Z88.2 Allergy status to sulfonamides; Z88.3 Allergy status to other anti-infective agents
CPT/HCPCS: 36415; 70450; 71045; 72125; 80048; 85025; 99284; G0390

== ENCOUNTER 2022-01-08 12:23 | Emergency (ER) | payer SELFPAY ==
--- OUTSIDE RECORDS SUMMARY | 2022-01-08 12:29 | XMS REPORT | Continuity of Care Document ---
:1990 Author Organization [facility] t Address [address] [place] [address] Care Team Providers Name Role Phone Jon Callaway Attending Clinician Unavailable ETHAN WATERS Attending Clinician Unavailable LATRICIA Attending Clinician Unavailable Bonnie PAVON Attending Clinician ASH ALLISON Attending Clinician Unavailable CRYSTAL Attending Clinician Unavailable KEATON Attending Clinician Unavailable MISTY Attending Clinician Unavailable MATERNAL Attending Clinician Unavailable SHARMILA Attending Clinician Unavailable SHARMILA Attending Clinician Unavailable ANNA Attending Clinician Unavailable SHARMILA Attending Clinician Unavailable SHARMILA Attending Clinician Unavailable CANCER Attending Clinician Unavailable GARETT Attending Clinician Unavailable SHARMILA Attending Clinician Unavailable Jon Callaway Admitting Clinician Unavailable Physician, Primary or Family Admitting Clinician Unavailabl e LENO Admitting Clinician Unavailable Payers Payer Name Policy Type Policy Number Effective Date Expiration Date S ource Problems Condition Condition Condition Status Onset Resolution Last Treating Co mments Source Name Details Category Date Date Treatment Clinician Date Urinary Urinary Disease Active 2015-10 [facility] tract tract 2 [facility] infection, infection, 00:00: of site not site not 00 Medici n specified specified e 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 e 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 08 Ghassan ege UTIs UTIs 00:00: of 00 Medicin e History of History of Problem Resolve Univers [...] Univers HL7.CCDAR2 [facility] [place] [facility] Menorrhagi Menorrhagi Problem Active U [...] vers HL7.CCDAR2 [facility] [place] [facility] Seizures Seizures Problem Active Unive rs HL7.CCDAR2 [facility] [place] [facility] Headache [...] for for HL7.CCDAR2 ity of routine routine [place] [facility] gynecologi Ph ysici [place] tam[place] ans [...] n of HL7.CCDAR2 ity of normal normal [place] Phys ici ans Uterine Uterine Problem Active Univers scar from scar from HL7.CCDAR2 ity of previous previous [place] [facility] i delivery, delivery, ans antepartum antepartum Seizure Seizure Problem Active Univers disorder disorder HL7.CCDAR2 it y of in in [place] Phys ici ans Blood Blood Problem Active Univers type, Rh type, Rh HL7.CCDAR2 it y of negative negative [place] [facility] History of History of Problem Active U nivers severe severe HL7.CCDAR2 ity of pre-[place]amp [place]amp [place] [facility] Antepartum Antepartum Problem Active U nivers hemorrhage hemorrhage HL7.CCDAR2 ity of of early of early [place] Phys ici ans High-risk High-risk Problem Active [...] [place] assessment [place] Ph ysici ans Allergies, Adverse Reactions, Alerts Allergy Allergy Status Severity Reaction(s) Onset Inactive Treating Comm ents Source Name Type Date Date Clinician SULFAMET Allergy Active High Anaphylaxis 2020-[address] [facility] [address] [facility]OXAZ[facility]LE 11-13 [facility] -TRIMETH [facility] Medical OPRIM 00 Center GENTAMIC Allergy Active High Anaphylaxis 2020-[address] IN 11-13 [facility] 00 Center LEVOFLOX Allergy Active High Hives 2020-[address] [facility] ACIN 11-13 [facility] Medical 00 Center SULFA Allergy Active High Anaphylaxis 2020-[address] [facility] [address] (SULFONA 11-13 [facility] MIDE 00:00: Medical ANTIBIOT 00 [place] [facility] AMOXICIL Allergy Active Hives 2020-[address] [facility] [address] CALLY 1-19 [facility] - 00:[facility]: Medical [address] [place] [address] Penicill DA Active MO 2018-0 [facility] ins 2-16 Clear 00:00: Drew 00 [facility] Sulfa DA Active MO 2018-0 [facility] (Sulfona 2-16 Clear mide 00:00: Drew Antibiot 00 [facility]) [facility] sulfamet DA Active SV 2018-0 [facility] hoxazole 2-16 Clear 00:00: Drew 00 [facility] trimetho DA Active SV 2018-0 [facility] prim 2-16 Clear 00:00: Drew 00 [facility] amoxicil DA Active MO 2018-0 [facility] cally 2-16 Clear 00:00: Drew 00 [facility] ciproflo DA Active MO 2018-0 [facility] xacin 2-16 [facility] 00:00: Hospita 00 l [facility] ciproflo DA Active MO HIVES AND 2018-0 [facility] xacin RASH 2-16 Woman[facility] 00:00: Hospita 00 l [facility] gentamic DA Active SV 2018-0 [facility] in 2-16 Clear 00:00: Drew 00 [facility] levoflox DA Active MO 2018-0 [facility] acin 2-16 Clear 00:00: Drew 00 [facility] Penicill DA Active MO HIVES 2018-0 [facility] ins 2-16 Clear 00:00: Drew 00 [facility] Sulfa DA Active MO HIVES 2018-0 [facility] (Sulfona 2-16 Clear mide 00:00: Drew Antibiot 00 [facility]) [facility] sulfamet DA Active SV anaphylaxis 2018-0 [facility] hoxazole 2-16 Clear 00:00: Drew 00 [facility] trimetho DA Active SV anaphylaxis 2018-0 [facility] prim 2-16 Clear 00:00: Drew 00 [facility] amoxicil DA Active MO HIVES 2018-0 [facility] cally 2-16 Clear 00:00: Drew 00 [facility] gentamic DA Active SV anaphylaxis 2018-0 [facility] in 2-16 Clear 00:00: Drew 00 [facility] levoflox DA Active MO HIVES 2018-0 [facility] acin 2-16 Clear 00:00: Drew 00 [facility] Trimetho Propensi Active 2018-0 Massimo prim ty to 2-16 [facility] adverse 00:00: of reaction 00 Medicin s to e drug Sulfamet Propensi Active Anaphylaxis [facility] hoxazole ty to 8 [facility] W/Trimet adverse 00:00: of hoprim reaction 00 Medicin s to e drug Sulfamet Propensi Active Other (See Ba [facility]lor hoxazole ty to Comments) 06-01 Colle ge -Trimeth adverse 00:00: of oprim reaction 00 Medicin s to e drug Gentamic Propensi Active Other (See [facility] y[facility] in ty to Comments) 06-01 College adverse 00:00: of reaction 00 Medicin s to e drug Sulfasal Propensi Active Hives 2015-10 [facility] azine ty to 12-03 [facility] adverse 00:00: of reaction 00 Medicin s to e drug Amoxicil Propensi Active Hives 2015-10 [facility] cally ty to 12-03 [facility] adverse 00:00: of reaction 00 Medicin s to e drug Levaquin Propensi Active Hives 2015-10 [facility] ty to 12-03 [facility] adverse 00:00: of reaction 00 Medicin s to e drug Ciproflo Propensi Active Other (See [facility] xacin ty to Comments) 03-11 College adverse 00:00: of reaction 00 Medicin s to e drug Levoflox Propensi Active Other (See [facility] acin ty to Comments) 03-11 College adverse 00:00: of reaction 00 Medicin s to e drug Sulfa Propensi Active Anaphylaxis [facility] Antibiot ty to 11-22 [facility] ics adverse 00:00: of reaction 00 Medicin s to e drug Penicill Propensi Active Other (See [facility]lor ins ty to Comments) 01-14 College adverse 00:00: of reaction 00 Medicin s to e drug Amoxicil drug Active Univers cally TABS allergy [facility] [place] [facility] Bactrim drug Active Univers TABS allergy [facility] of [place] [facility] Cipro drug Active Univers allergy [facility] of [place] [facility] Levaquin drug Active Univers allergy [facility] [place] [facility] Penicill drug Active Univers ins allergy ity of [place] [facility] Sulfa drug Active Univers Drugs allergy ity of [place] [facility] ans Family History Family Member Diagnosis Comments Start Date Stop Date Source Unknown Family Family history of Family History University of Member hypertension [place] [facility] Unknown Family Family history of Family History University of Member diabetes mellitus [place] [facility] Unknown Family Family history of Family History University of Member malignant neoplasm [place] [facility] of ovary Unknown Family Family history of Family History [facility] of Member thyroid disease [place] [facility] Unknown Family Family history of Family History University of Member malignant neoplasm [place] [facility] of breast Father Family history of Univers ity of seizure disorder [place] [facility] Social History Social Habit Start Date Stop Date Quantity Comments Source History of 2011-11-11 Cigarette Smoker [facility] C ollege tobacco use 00:00:00 of Medicine Sex Assigned At [facility] Co llege of Medicine Alcohol intake 2019-11-11 2019-11-11 Current [facility] Col lege 00:00:00 00:00:00 non-drinker of of Medicin e alcohol (finding) Tobacco Comment 2019-11-11 2019-11-11 half a pack a day Justyn castillo [facility] 00:00:00 00:00:00 of Medicine Smoking Status Start Date Stop Date Source Never smoker [facility] Physicians Current every day smoker 2019-11-11 00:00:00 [facility] Medications Ordered Filled Start Stop Current Ordering Indication Dosage Frequency Signature Comments Components Source Medication Medication Date Date Medication? Clinician (SIG) Name Name ondansetron 2020-0 Yes ondansetro [facility] (ZOFRAN-ODT 2-18 n 4 mg Colleg e ) 4 mg 19:02: disintegra of disintegrat 07 ting Medicin ing tablet tablet e topiramate 2020-0 Yes 200mg Take 200 Ba jonathan (TOPAMAX) 2-18 mg by Lohman 200 MG 19:01: mouth two of tablet 23 times Medicin daily. e Cholecalcif 2020-0 Yes Take by Justyn castillo aissatou 2-18 mouth. [facility] (VITAMIN 19:01: of D3) 50 MCG 23 Medicin (1999 [place]) e CAPS levothyroxi 2020-0 Yes 112ug Take 112 [facility] ne 2-18 mcg by [facility] (SYNTHROID) 19:01: mouth of 100 MCG 23 once. 1 Medicin tablet tab once e in the morning acetaminoph 2020-0 Yes 650mg Take 650 [facility] en 2-18 mg by [facility] (TYLENOL) 19:00: mouth of 325 mg 11 every 4 Medicin tablet hours as e needed for Pain. lamotrigine 0 Yes 25 mg = 1 [facility] (LAMICTAL) 2-07 tab, PO, Colle ge 25 MG 00:00: BID, # 60 of tablet 00 tab, 3 Medicin Refill(s), e Pharmacy: [id number] Topiramate 2020- No 200 mg, [place] [facility] 200 MG 2-18 PO, BID, 0 Col lege CS24 00:00: 00:00 Refill(s) of 00 :00 Medicin e topiramate 2020- No 200mg 200 mg. Ba ylor (TOPAMAX) 2-18 College 50 MG 00:00: 00:00 of tablet 00 :00 Medicin e sodium 2020- No 650mg Take 650 [facility] bicarbonate 1-23 02-23 mg by Yunier e 650 MG 00:00: 05:59 mouth. of tablet 00 :00 Medicin e Cefpodoxime Cefpodoxime Yes DORIS 1 Q0.5D TAKE [...] Oral MG Oral headache ans Capsule Capsule Butalbital- Yes butalbital [facility] APAP-Caffei 06 -acetamino Co llege ne 00:00: phen-caffe of 50-300-40 00 ine 50 Medicin MG CAPS mg-300 e mg-40 mg capsule Macrobid Macrobid Yes Unive rs 100 MG Oral 100 MG Oral 7-13 i ty of Capsule Capsule 00:00: [place] 00 Physici ans Keflex 500 Keflex 500 Yes U nivers MG Oral MG Oral 6-01 ity of Capsule Capsule 00:00: 00 Physici ans Sertraline Sertraline Yes DORIS 1 QD TAKE 1 Univers HCl - 50 MG HCl - 50 MG 5-18 [facility]. TABLET ity of Oral Tablet Oral Tablet 00:00: DAILY [place] 00 Physici ans Yes Unive rs 28-0.8 MG 28-0.8 MG 1-26 ity o f Oral Tablet Oral Tablet 00:00: [place] 00 Physici ans Folic Acid Folic Acid 2016-10 Yes MOON QD TAKE 3 Univers 1 MG Oral 1 MG Oral 2-18 CRYSTAL TABLETS ity of Tablet Tablet 00:00: M.D. DAILY [place] [facility] folic acid 2016-10 Yes TAKE 2 [facility] (FOLVITE) 1 2-18 TABLETS(2 Col lege MG tablet 00:00: MG) BY of 00 MOUTH Medicin DAILY e Levoxyl 125 Levoxyl 125 Yes MOON Univers MCG Oral MCG Oral 9-06 CRYSTAL ity o f Tablet Tablet 00:00: M.D. [place] 00 Physici ans Topamax 200 Topamax 200 2015-10 Yes NANI Q0.5D TAKE 1 Univers MG Oral MG Oral 0-26 GARETT N.P. TABLET i ty of Tablet Tablet 00:00: TWICE [place] 00 DAILY. Physici ans Topamax 50 Topamax 50 2015-10 Yes NANI TAKE 1 Univers MG Oral MG Oral 0-26 GARETT N.P. TABLET BY ity of Tablet Tablet 00:00: MOUTH [place] 00 TWICE Physici DAILY ans topiramate Yes 50mg Take 50 mg [facility] (TOPAMAX) 2-23 by mouth. Colle ge 50 MG 00:00: Once in am of tablet 00 and one in Medicin the pm e Immunizations Ordered Filled Immunization Date Status Comments [facility] e Immunization Name Name Influenza Quad-PF 2019-05-26 Completed [facility] 00:00:00 Medicine Tdap (Adacel) 2018-03-12 Completed [facility] 00:00:00 [place] Raj ns Tdap 2018-03-12 Completed [facility] 00:00:00 Medicine Influenza Quad-PF 2017-06-09 Completed [facility] 00:00:00 Medicine HPV (Gardasil) 2016-08-20 Completed [facility] 15:00:00 [place] Raj ns HPV 2016-08-20 Completed [facility] 00:00:00 Medicine Vital Signs Vital Name Observation Time Observation Value Comments Source Systolic blood 2019-12-13 128 mm[Hg] [facility] Colleg e pressure 19:01:00 of Medicine Diastolic blood 2019-12-13 88 mm[Hg] [facility] Colle ge pressure 19:01:00 of Medicine Heart rate 2019-12-13 61 /min [facility] 19:01:00 of Medicine Respiratory rate 2019-12-13 16 /min [facility] Ghassan ege 19:01:00 of Medicine Body height 2019-12-13 160 cm [facility] 19:01:00 of Medicine Body weight 2019-12-13 60.782 kg [facility] 19:01:00 of Medicine BMI 2019-12-13 23.74 kg/m2 [facility] 19:01:00 of Medicine Systolic blood 2019-12-13 128 mm[Hg] [facility] Colleg e pressure 19:01:00 of Medicine Diastolic blood 2019-12-13 88 mm[Hg] [facility] Colle ge pressure 19:01:00 of Medicine Heart rate 2019-12-13 61 /min [facility] 19:01:00 of Medicine Respiratory rate 2019-12-13 16 /min [facility] Ghassan ege 19:01:00 of Medicine Body height 2019-12-13 160 cm [facility] 19:01:00 of Medicine Body weight 2019-12-13 60.782 kg [facility] 19:01:00 of Medicine BMI 2019-12-13 23.74 kg/m2 [facility] 19:01:00 of Medicine BP Systolic 2018-06-29 100 mm[Hg] [facility] 13:14:00 [place] Physician s BP Diastolic 2018-06-29 69 mm[Hg] [facility] 13:14:00 [place] [facility] Height 2018-06-29 64 [in_us] University 13:14:00 [place] [facility] Weight 2018-06-29 143 [lb_av] University 13:14:00 [place] [facility] Body Mass Index 2018-06-29 24.55 kg/m2 University o f Calculated 13:14:00 [place] [facility] Temperature 2018-06-29 98.4 [degF] University 13:14:00 [place] [facility] Heart Rate 2018-06-29 60 /min [facility] 13:14:00 [place] [facility] O2 SAT 2018-06-29 99 % University 13:14:00 [place] [facility] BP Systolic 2018-05-31 [...] [place] [facility] Temperature 2018-04-23 97.1 [degF] [place] of 10:30:00 [place] [facility] Heart Rate 2018-04-23 76 /min [place] of 10:30:00 [place] [facility] O2 SAT [...] s BP Systolic 2018-03-26 103 mm[Hg] Location: [facility] of 08:30:00 Position: [place] [facility] Sitting BP Diastolic 2018-03-26 73 mm[Hg] Location: [facility] of 08:30:00 Position: [place] [facility] Sitting Height 2018-03-26 64 [in_us] [place] of 08:30:00 [place] [facility] Weight 2018-03-26 [...] s BP Diastolic 2018-03-19 75 mm[Hg] University of 09:06:00 [place] [facility] Height 2018-03-19 64 [in_us] University of 09:06:00 [place] [facility] Weight 2018-03-19 150 [lb_av] [place] of 09:06:00 [place] [facility] Body Mass Index 2018-03-19 25.75 kg/m2 University o f Calculated 09:06:00 [place] [facility] Temperature 2018-03-19 98.6 [degF] [facility] 09:06:00 [place] [facility] Heart Rate 2018-03-19 80 /min [facility] 09:06:00 [place] [facility] O2 SAT 2018-03-19 98 % University 09:06:00 [place] [facility] BP Systolic 2018-03-12 104 mm[Hg] University of 09:35:00 [place] [facility] BP Diastolic 2018-03-12 70 mm[Hg] University of 09:35:00 [place] [facility] Height 2018-03-12 64 [in_us] University of 09:35:00 [place] [facility] Weight 2018-03-12 149 [lb_av] University 09:35:00 [place] [facility] Body Mass Index 2018-03-12 25.58 kg/m2 University o f Calculated 09:35:00 [place] [facility] Temperature 2018-03-12 98.4 [degF] University :35:00 [place] [facility] Heart Rate 2018-03-12 84 /min University 09:35:00 [place] [facility] O2 SAT 2018-03-12 98 % University of 09:35:00 [place] [facility] BP Systolic 2018-02-12 114 mm[Hg] University of 08:50:00 [place] [facility] BP Diastolic 2018-02-12 80 mm[Hg] [facility] 08:50:00 [place] [facility] Height 2018-02-12 [...] Mass Index 2018-01-15 24.1 kg/m2 University o Calculated 10:14:00 [place] [facility] Temperature 2018-01-15 [...] Mass Index 2018-01-08 24.2 kg/m2 University o Calculated 10:13:00 [place] [facility] Temperature 2018-01-08 [...] s Temperature 2017-11-20 99.1 [degF] [facility] 08:53:00 [place] [facility] Heart Rate 2017-11-20 [...] Date / Time Performing Clinician Source Performed [QLH] CULTURE, URINE, 2018-06-29 00:[facility]QLH[facility] URINALYSIS, COMPLETE 2018-06-29 00:00[facility] [place] [facility] [QL] CULTURE, URINE, 2018-05-31 00:00[facility] [QLH] URINALYSIS, COMPLETE 2018-05-31 00:00:00 U [facility] Physicians [Q] PROTEIN, TOTAL 2018-05-07 00:00:00 Universi ty [facility] W/CREAT, RANDOM URINE Physicians [QL] CBC (INCLUDES 2018-05-07 00:00:00 [facility] DIFF/PLT) Physicians [QLH] CMP W/EGFR 2018-05-07 00:00:00 [facility] Physicians [QH] HIV AB, HIV 1/2, EIA, 2018-04-23 00:00:00 U [facility] WITH REFLEXES Physicians [QLH] CULTURE, URINE, 2018-04-09 00:00[facility]00 [facility] [QLH] URINALYSIS, COMPLETE 2018-04-09 00:00:00 U [facility] Physicians EKG w/Rhythm Strip 2018-03-19 00:00:00 [facility] Physicians [QL] CULTURE, URINE, 2018-03-19 00:00:00 [facility] [QL] URINALYSIS, COMPLETE 2018-03-19 00:00:00 U [facility] Physicians [QLH] AMYLASE 2018-03-19 00:00:00 [facility] [place] [facility] [QLH] LIPASE 2018-03-19 00:00:00 [facility] [place] [facility] [QLH] ALT 2018-03-19 00:00:00 [facility] [place] [facility] [QLH] AST 2018-03-19 00:00:00 [facility] [place] [facility] [QLH] CBC (INCLUDES 2018-03-12 00:00:00 [facility] DIFF/PLT) Physicians [QLH] GLUCOSE, GESTATIONAL 2018-03-12 00:00:00 U [facility] SCREEN ([id number] CUTOFF Physicia ns [QLH] URINALYSIS, COMPLETE 2018-03-12 00:00[facility] [QLH[facility] CULTURE, URINE, 2018-03-12 00:00:00 Univer sity [facility] ROUTINE Physicians [QLH] CULTURE, URINE, 2018-02-12 00:00[facility] ROUTINE Physicians [QLH] URINALYSIS, COMPLETE 2018-02-12 00:00[facility] [QLH] LIPASE 2018-02-12 00:00:00 [place] [facility] [place] [facility] [QLH] AMYLASE 2018-02-12 00:00:00 [place] [facility] [place] [facility] [QLH] CMP W/EGFR 2018-02-12 00:00:00 [facility] Physicians [QLH] CBC (INCLUDES 2018-02-12 00:00:00 [facility] DIFF/PLT) Physicians [place] Abdomen RUQ [id number] 2018-02-12 00:00:00 [facility] Physicians [QLH] CULTURE, URINE, 2018-01-15 00:00:00 [facility] [QLH] URINALYSIS, COMPLETE 2018-01-15 00:00[facility]00 [facility] [QLH] CULTURE, URINE, 2018-01-08 00:00:00 [facility] [QLH] URINALYSIS, COMPLETE 2018-01-08 00:00[facility] [QLH] CULTURE, URINE, 2017-12-18 00:00:00 [facility] [QL] URINALYSIS, COMPLETE 2017-12-18 00:00:00 U [facility] Physicians [QL] CBC (INCLUDES 2017-12-18 00:00:00 [facility] DIFF/PLT) Physicians [Q] MATERNAL SERUM AFP 2017-12-18 00:00:00 [facility] [place] [facility] [QLH] CMP W/EGFR 2017-11-20 00:00:00 [facility] Physicians [LH] GC/CT by Amp Det 2017-11-20 00:00:00 [facility] (APTIMA) Physicians [QH] PROTEIN, TOTAL 2017-11-20 00:00:00 [facility] W/CREAT, RANDOM URINE Physicians [QLH] CULTURE, URINE, 2017-10-23 00:00:00 [facility] ROUTINE Physicians [QLH] URINALYSIS, COMPLETE 2017-10-23 00:00:00 U [facility] Physicians [H] Obstetrics Panel 2017-10-12 00:00:00 [facility] (includes CBCw/Diff,RPR, Physici ans HbsAg,RubIgG,Type and Screen) [H] Hemoglobin 2017-10-12 00:00:00 [facility] Electrophoresis and Physicians Interpretation [LH] TSH+Free T4 2017-10-12 00:00:00 [facility] Physicians [QLH] CMP W/EGFR 2017-10-12 00:00:00 [facility] Physicians [Q] SMA CARRIER SCREEN 2017-10-12 00:00:00 [facility] Physicians [QLH] CYSTIC FIBROSIS 2017-10-12 00:00:00 [facility] SCREEN Physicians [QLH] CULTURE, URINE, 2017-10-12 00:00:00 [facility] ROUTINE Physicians [QLH] URINALYSIS, COMPLETE 2017-10-12 00:00:00 U [facility] Physicians [Q] HIV AB, HIV 1/2, EIA, 2017-10-12 00:00:00 [facility] WITH REFLEXES Physicians [L] Creatine, Serum 2017-10-12 00:00:00 [facility] Physicians [QLH] LD 2017-10-12 00:00:00 [facility] Physicians [QLH] URIC ACID 2017-10-12 00:00:00 [facility] Physicians [QLH] CBC (INCLUDES 2017-10-12 00:00:00 [facility] DIFF/PLT) Physicians [L] Hepatic Function Panel 2017-10-12 00:00:00 U [facility] (6) Physicians [QH] PROTEIN, TOTAL 2017-10-12 00:00:00 [facility] W/CREAT, RANDOM URINE Physicians [QLH] VITAMIN B12 2017-10-12 00:00:00 [facility] Physicians [L] Vitamin D, 25-Hydroxy, 2017-10-12 00:00:00 U [facility] Total - [employer] Physicians [QH] HIV AB, HIV 1/2, EIA, 2017-10-12 00:00:00 U [facility] WITH REFLEXES Physicians History of Appendectomy [facility] Physicians History of [facility] [place] [facility] Physicians [facility] Physicians Plan of Care Planned Activity Planned Date Details Comments Source Future Scheduled Test HIV SCREENING [code = [facility] HIV SCREENING] Medicine Future Scheduled Test CERVICAL CANCER [facility] SCREENING 3 YEAR Medicine FOLLOW UP [code = CERVICAL CANCER SCREENING 5 YEAR FOLLOW UP] Future Scheduled Test TETANUS SHOT (ADULT) [facility] [code = TETANUS SHOT Medicin e (ADULT)] Encounters Start End Encounter Admission Attending Care Care Encounter Source Date/Time Date/Time Type Type Clinicians Facility Department ID 2020-05-07 Inpatient [facility] RAFAELA [id number] [facility] 03:02:00 [id number] [facility] [place] 2020-04-25 Inpatient EL Faro, [facility] DAYS [id number] [facility] 10:00:00 Priscilla [facility] [place] 2020-04-11 Inpatient EL Jaceko, [facility] OUTD [id number] [facility] 09:30:00 Priscilla [id number] [facility] [place] 2020-04-22 2020-04-22 Outpatient Faro, [facility] LABO [id number] [facility] 17:22:00 17:22:00 Priscilla [id number] [facility] 2020-04-22 2020-04-22 Outpatient Faro, [facility] OUTD [id number] [facility] 10:00:00 10:00:00 Priscilla [id number] [facility] [place] 2020-02-01 2020-02-01 Outpatient Faro, [facility] OUTD [id number] [facility] 08:00:00 08:00:00 Priscilla [id number] [facility] [place] 2020-01-31 2020-01-31 Outpatient Faro, [facility] OUTD [id number] [facility] 12:00:00 12:00:00 Priscilla [facility] [place] 2019-12-28 2019-12-28 Outpatient [facility] [id number] [facility] 00:00:00 00:00:00 [id number] 2019-12-27 2019-12-27 Outpatient EL [facility] [id number] [facility] 00:00:00 00:00:00 2019-12-27 2019-12-27 Outpatient [facility]H [facility] [id number] [facility] 00:00:00 00:00:00 [id number] 2019-12-19 2019-12-19 Outpatient LATRICIA, [facility] [id number] 00:00:00 00:00:00 SHANNAN [address] 2019-12-13 2019-12-13 Office Pankaj Nicole [id number] 12:33:03 13:31:03 Visit AMBULATOR [id number] 2019-12-13 2019-12-13 Office Pankaj Nicole [id number] [facility] 12:33:03 13:31:03 Visit AMBULATOR 350.1.13.21 College Y 0.2.7.2.686 of [phone] [facility] 305 e 2018-07-09 2018-07-09 Appointmen ANUJA ROJAS [id number] Univers 13:15:00 13:15:00 t; MOON ROJAS Women's ity of Hung MUSTAFA [place] [facility] Physici ans 2018-07-09 2018-07-09 Appointmen ANUJA PUGH [id number] Univers 11:30:00 11:30:00 t; DORIS PUGH i ty of [facility] Physici ans 2018-06-29 2018-06-29 Appointmen ANUJA PUGH [id number] Univers 13:00:00 13:00:00 t; DORIS PUGH Women's i ty of [facility] Physici ans 2018-06-22 2018-06-22 Appointmen ANUJA JAY [id number] Univers 14:00:00 14:00:00 t; Hung BOWMAN Women's ity of [facility] Hung BOWMAN Physi ci ans 2018-05-31 2018-05-31 Appointmen ANUJA PUGH [id number] Univers 14:00:00 14:00:00 t; DORIS PUGH Women's i ty of [facility] MEDICAL SERVICE TECHNICIAN Physici ans 2018-05-25 2018-05-25 Appointmen ANUJA PUGH [id number] Univers 09:30:00 09:30:00 t; DORIS PUGH, [facility] MED[facility] SERVICE TECHNICIAN Physici ans 2018-05-25 2018-05-25 Appointmen ANUJA PUGH [id number] Univers 09:00:00 09:00:00 t; DORIS PUGH, Women's i ty of [facility] MEDICAL SERVICE TECHNICIAN Physici ans 2018-05-21 2018-05-21 Appointmen ANUJA PUGH [facility] [id number] Univers 09:00:00 09:00:00 t; DORIS PUGH, i ty of [facility] MEDICAL SERVICE TECHNICIAN Physici ans 2018-05-21 2018-05-21 Appointmen ANUJA JAYaire [id number] Univers 09:00:00 09:00:00 t; Hung BOWMAN Women's ity of [facility] Hung BOWMAN Physi ci ans 2018-05-14 2018-05-14 Appointmen MATERNAL, [facility] [id number] Univers 07:15:00 07:15:00 t; PHYSICIAN ity of [place], [place] PHYSICIAN Physic i ans 2018-05-07 2018-05-07 Appointmen ANUJA JAYaire [id number] Univers 08:30:00 08:30:00 t; Hung BOWMAN Women's ity of [facility] Hung BOWMAN Physi ci ans 2018-05-07 2018-05-07 Appointmen SHARMILA [facility] [id number] Univers 08:00:00 08:00:00 t; USROOM1 ity of [place], [place] USROOM1 Physici ans 2018-04-30 2018-04-30 Appointmen ANUJA DOLL [place] [id number] Univers 08:30:00 08:30:00 t; 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 [id number] Univers 11:00:00 11:00:00 t; Hung BOWMAN ity of [place], [place] Hung BOWMAN Physi ci ans 2018-04-23 2018-04-23 AppointANUJA Peterson UTP [id number] 761 Univers 10:30:00 10:30:00 t; USROOM1 ity of [place], [place] USROOM1 Physici ans 2018-04-23 2018-04-23 AppointANUJA Maynard [id number] Univers 08:30:00 08:30:00 t; Hung BOWMAN Women's ity of [facility] Hung BOWMAN Physi ci ans 2018-04-16 2018-04-16 AppointANUJA Peterson UTP [id number] 613 Univers 08:30:00 08:30:00 t; USROOM1 [facility] [place] [place] [facility]ici ans 2018-04-15 2018-04-15 Appointenzo DOLL [facility] UTP [id number] Univers 08:30:00 08:30:00 t; USROOM1 ity of [place], [place] USROOM1 Physici ans 2018-04-09 2018-04-09 Appointmen ANUJA JAY [id number] Univers 08:30:00 08:30:00 t; Hung BOWMAN Women's ity of [facility] Hung BOWMAN Physi ci ans 2018-04-09 2018-04-09 Appointenzo DOLL, [facility] UTP [id number] 550 Univers 08:00:00 08:00:00 t; USROOM1 ity of [place], [place] USROOM1 Physici ans 2018-03-30 2018-03-30 Appointmen ANUJA PUGHaire [id number] Univers 09:30:00 09:30:00 t; DORIS PUGH Women's i ty of DORIS, [facility] MEDICAL SERVICE TECHNICIAN Physici ans 2018-03-26 2018-03-26 Appointenzo DOLL, [facility] UTP [id number] 172 Univers 10:00:00 10:00:00 t; EKG ity of [place], [place] EKG Physici ans 2018-03-26 2018-03-26 Appointmen CASTILLO, ANUJA Westaire [id number] Univers 08:00:00 08:00:00 t; RAZIA Women's ity of Hung CASTILLO [facility] RANDLE M.D. ans 2018-03-19 2018-03-19 Appointmen ANUJA PUGH [id number] Univers 09:00:00 09:00:00 t; DORIS PUGH, [facility] 2018-03-12 2018-03-12 Appointmen ANUJA JAY [id number] Univers 10:30:00 10:30:00 t; Hung BOWMAN Women's ity of [facility] Hung BOWMAN Physi ci ans 2018-03-12 2018-03-12 Appointmen ANUJA PUGH [id number] Univers 10:30:00 10:30:00 t; DORIS PUGH, i ty of [facility] Physici ans 2018-03-12 2018-03-12 Appointmen ANUJA DOLL [id number] Univers 10:00:00 10:00:00 t; USROOM2 ity of [place] [address] Physici ans 2018-02-26 2018-02-26 Appointmen CASTILLOANUJA BAILON [id number] Univers 08:00:00 08:00:00 t; Jessi RANDLE's anamariay of Hung CASTILLO [facility] RANDLE M.D. ans 2018-02-12 2018-02-12 Appointmen ANUJA PUGH [id number] Univers 08:30:00 08:30:00 t; DORIS PUGH, [facility] 2018-01-15 2018-01-15 Appointmen ANUJA PUGH [id number] Univers 10:30:00 10:30:00 t; DORIS PUGH, [facility] 2018-01-15 2018-01-15 Appointmen ANUJA DOLL [id number] Univers 09:45:00 09:45:00 t; USROOM2 Women's ity of [place] [address] Physici ans 2018-01-08 2018-01-08 Appointmen MISTYANUJA General Cargo Clerk [id number] Univers 11:00:00 11:00:00 t; Hung BOWMAN ity of [place], [place] Hung BOWMAN Physi ci ans 2018-01-08 2018-01-08 Appointenzo DOLL, [facility] UTP [id number] Univers 09:00:00 09:00:00 t; USROOM1 ity of [place], [place] USROOM1 Physici ans 2017-12-18 2017-12-18 Appointenzo DOLL [facility] UTP [id number] Univers 09:45:00 09:45:00 t; USROOM2 ity of [place], [place] USROOM2 Physici ans 2017-12-18 2017-12-18 Appointmen ANUJA PUGH [place] [id number] Univers 08:30:00 08:30:00 t; DORIS PUGH Women's i ty [facility] MEDICAL SERVICE TECHNICIAN Physici ans 2017-11-20 2017-11-20 AppointANUJA Maynardaire [id number] Univers 10:00:00 10:00:00 t; Hung BOWMAN Women's ity of [facility] Hung BOWMAN Physi ci ans 2017-11-20 2017-11-20 Appointenzo DOLL, [facility] UTP [id number] Univers 09:30:00 09:30:00 t; USROOM2 ity of [place], [place] USROOM2 Physici ans 2017-11-20 2017-11-20 Appointenzo DOLL, [facility] UTP [id number] Univers 09:00:00 09:00:00 t; GENETIC ity of [place], [place] GENETIC Physici ans 2017-10-23 2017-10-23 Appointmen CRYSTALANUJA [place] [id number] Univers 11:30:00 11:30:00 t; MOON ROJAS Women's ity of Hung MUSTAFA [facility] Physici ans 2017-10-23 2017-10-23 Appointenzo DOLL, [facility] UTP [id number] 715 Univers 11:15:00 11:15:00 t; USROOM2 ity of [place], [place] USROOM2 Physici ans 2017-10-12 2017-10-12 Appointmen CRYSTALANUJAaire [id number] Univers 14:45:00 14:45:00 t; CRYSTAL, MOON, Women's ity of [place] [facility] ans 2017-10-12 2017-10-12 Appointmen SHARMILA, UTP UTP [id number] 029 Univers 14:15:00 14:15:00 t; [facility] 2017-08-10 2017-08-10 Appointenzo CANCER, UTP UTP [id number] Univers 09:00:00 09:00:00 t; CANCER, UTPB ity of [facility] [place] Physici ans 2017-06-26 2017-06-26 Appointmen CRYSTAL, UTP UTP [id number] Univers 08:30:00 08:30:00 t; MOON ROJAS, ity Hung MUSTAFA [facility] Physici ans 2016-08-20 2016-08-20 Appointmen GARETT, UTP UTP [id number] Univers 11:20:00 11:20:00 t; NANI BAJWA NP i ty of NOMAN CARDOZA [place] Physici ans 2016-05-09 [facility] SHARMILA, UTP UTP [id number] 193 Univers 08:30:00 08:30:00 t; USROOM2 ity of [place], [place] USROOM2 Physici ans 2016-05-05 2016-05-05 Appointenzo DOLL, UTP UTP [id number] Univers 08:30:00 08:30:00 t; USROOM2 ity of [place], [place] USROOM2 Physici ans 2016-05-02 2016-05-[facility] SHARMILA, UTP UTP [id number] 175 Univers 08:30:00 08:30:00 t; USROOM2 ity of [place], [place] USROOM2 Physici ans 2016-04-29 2016-04-[facility] SHARMILA, UTP UTP [id number] 167 Univers 10:00:00 10:00:00 t; USROOM2 ity of [place], [place] USROOM2 Physici ans 2016-04-25 2016-04-25 Appointenzo SHARMILA, UTP UTP [id number] 148 Univers 10:00:00 10:00:00 t; USROOM3 [facility] of [place] [place] [facility] Physici ans 2016-04-21 2016-04-21 Appointenzo DOLL, UTP UTP [id number] 131 Univers 09:00:00 09:00:00 t; USROOM3 ity of [place], [place] USROOM3 Physici ans 2016-04-16 2016-04-16 Appointenzo DOLL, [facility] UTP 66098 110 Univers 15:30:00 15:30:00 t; USROOM3 ity of [place], [place] USROOM3 Physici ans 2016-04-14 2016-04-14 Appointenzo DOLL, [facility] [id number] 124 Univers 15:30:00 15:30:00 t; USROOM3 ity of [place], [place] USROOM3 Physici ans 2016-04-10 2016-04-10 Appointenzo DOLL, [facility] UTP [id number] 226 Univers 11:00:00 11:00:00 t; GENETIC ity of [place], [place] GENETIC Physici ans 2016-04-10 2016-04-10 Narayan DOLL, [facility] UTP [id number] 797 Univers 10:30:00 10:30:00 t; USROOM2 ity of [place], [place] USROOM2 Physici ans 2016-03-20 2016-03-20 Narayan DOLL, [facility] [id number] Univers 09:15:00 09:15:00 t; USROOM2 ity of [place], [place] USROOM2 Physici ans 2016-03-06 2016-03-06 Narayan BAJWA, [facility] UTP [id number] Univers 16:40:00 16:40:00 t; NANI BAJWA NP i ty of NOMAN CARDOZA [place] Physici ans 2016-02-25 2016-02-25 Appointenzo DOLL, [facility] UTP [id number] 206 Univers 14:45:00 14:45:00 t; USROOM2 ity of [place], [place] USROOM2 Physici ans Results Test Description Test Time Test Comments Results Result [facility] e Comments - CT ABD PELVIS 2020-05-07 Patient Name: W/CONT 05:45:00 SHIVAM OBRIEN Unit No: [id number] EXAMS: CPT CODE: [id number] CT ABD PELVIS W/CONT 17168 STUDY: - CT ABD PELVIS W/CONT 05/07/2020 3:20 AM Ordering Physician: Dallas Elliott MD Patient Name: SHIVAM OBRIEN MR: [id number] : 1990; Age: 29 years y/o Female [...] iterative reconstruction technique IV CONTRAST: [id number] Radiation Dose DLP: 346.39 mGy-cm CT [...] lymph nodes without lymphadenopathy or mass. [facility] NAME: SHIVAM OBRIEN Radiology Department PHYS: Dallas Wang [address] : 1990 AGE: 29 SEX: F [place], [place] [address] LOC: [place] PHONE #: [phone] EXAM DATE: 05/07/2020 STATUS: [facility] ER FAX #: [phone] RAD NO: Page 1 Signed Report 1 Patient Name: SHIVAM OBRIEN Unit No: [id number] EXAMS: CPT CODE: [id number] CT ABD PELVIS W/CONT 10090 <Continued> VASCULAR: Abdominal Aorta: Normal caliber abdominal [...] or suspicious focal osseous lesion. IMPRESSION: [facility] NAME: SHIVAM OBRIEN Radiology Department PHYS: COSMODallas Ndiaye [address] : 1990 AGE: 29 SEX: F [place] [address] LOC: HaydeeERS PHONE #: [phone] EXAM DATE: 05/07/2020 STATUS: REG ER FAX #: [phone] RAD NO: Page 2 Signed Report 1 Patient Name: SHIVAM OBRIEN Unit No: [id number] EXAMS: CPT CODE: [id number] CT ABD PELVIS W/CONT 75580 <Continued> Mild to moderate constipation. Small low-attenuation free pelvic fluid likely related to cyst rupture given scattered small follicles and cysts in both ovaries, greater on the left. Status post cholecystectomy and appendectomy. SL: TPAINTER-H at 0545 Reported and signed by: Bhupendra Gilliam MD CC: Technologist: FOSTER SIMMONS, RT CTDI: 7.11 DLP: 346.39 Trnscrbd D/ (0545) [id number].[email or web address] [facility] NAME: SHIVAM OBRIEN Radiology Department PHYS: COSMODallas Ndiaye [address] : 1990 AGE: 29 SEX: F [place] [address] LOC: HaydeeERS PHONE #: [phone] EXAM DATE: 05/07/2020 STATUS: REG ER FAX #: [phone] RAD NO: Page 3 Signed Report 1 Patient Name: SHIVAM OBRIEN Unit No: [id number] EXAMS: CPT CODE: [id number] CT ABD PELVIS W/CONT 60942 <Continued> Orig Print D/T: S: 05/07/2020 (0549) [facility] NAME: SHIVAM OBRIEN Radiology Department PHYS: SOPHYMarkStephanie ElliottDallas Sin [address] : 1990 AGE: 29 SEX: F [place], [place] [address] LOC: DashaERS PHONE #: [phone] EXAM DATE: 05/07/2020 STATUS: REG ER FAX #: [phone] RAD NO: Page 4 Signed Report 1 - US TRANSVAGINAL 2020-05-07 Patient Name: W/PELVIS 04:42:00 SHIVAM OBRIEN Unit No: [id number] EXAMS: CPT CODE: [id number] US TRANSVAGINAL W/PELVIS 30296 STUDY: - US TRANSVAGINAL W/PELVIS, - US PELVIS COMPLETE, - DUP AB/PEL/SC/LTD 05/07/2020 3:49 AM Ordering Physician: Dallas Elliott MD Patient Name: SHIVAM OBRIEN MR: [id number] : 1990; Age: 29 years y/o Female [...] The neutral stripe measuring 4 mm. [facility] NAME: SHIVAM OBRIEN Radiology Department PHYS: Dallas Wang [address] : 1990 AGE: 29 SEX: F [place], [place] [address] LOC: [place] PHONE #: [phone] EXAM DATE: 05/07/2020 STATUS: REG ER FAX #: [phone] RAD NO: Page 1 Signed Report (CONTINUED) Patient Name: SHIVAM OBRIEN Unit No: [id number] EXAMS: CPT CODE: [id number] US TRANSVAGINAL W/PELVIS 95759 <Continued> RIGHT OVARY AND ADNEXA: General: Normal [...] CC: Technologist: Maria Ines Whitley RDMS Probe: [id number] Trnscrbd D/ (441) FinnTP6 Orig Print D/T: S: 05/07/2020 (445) [facility] NAME: SHIVAM OBRIEN Radiology Department PHYS: Dallas Wang [address] : 1990 AGE: 29 SEX: F [place], [place] [address] LOC: DashaERS PHONE #: [phone] EXAM DATE: 05/07/2020 STATUS: REG ER FAX #: [phone] RAD NO: Page 2 Signed Report Patient Name: SHIVAM OBRIEN Unit No: [id number] EXAMS: CPT CODE: [id number] US TRANSVAGINAL W/PELVIS 09840 <Continued> [facility] NAME: SHIVAM OBRIEN Radiology Department PHYS: Dallas Wang [address] : 1990 AGE: 29 SEX: F [place], [place] [address] LOC: [place] PHONE #: [phone] EXAM DATE: 05/07/2020 STATUS: REG ER FAX #: [phone] RAD NO: Page 3 Signed Report - DUP AB/PEL/SC/LTD 2020-05-07 Patient Name: 04:42:00 SHIVAM OBRIEN Unit No: [id number] EXAMS: CPT CODE: [id number] DUP AB/PEL/SC/LTD 89768 STUDY: - US TRANSVAGINAL W/PELVIS, - US PELVIS COMPLETE, - DUP AB/PEL/SC/LTD 05/07/2020 3:49 AM Ordering Physician: Dallas Elliott MD Patient Name: SHIVAM OBRIEN MR: [id number] : 1990; Age: 29 years y/o Female [...] The neutral stripe measuring 4 mm. [facility] NAME: SHIVAM OBRIEN Radiology Department PHYS: Dallas Headley [address] : 1990 AGE: 29 SEX: F [place], [place] [address] LOC: [place] PHONE #: [phone] EXAM DATE: 05/07/2020 STATUS: REG ER FAX #: [phone] RAD NO: Page 1 Signed Report (CONTINUED) Patient Name: SHIVAM OBRIEN Unit No: [id number] EXAMS: CPT CODE: [id number] [facility] AB/PEL/SC/LTD 53345 <Continued> RIGHT OVARY AND ADNEXA: General: Normal [...] FinnTP6 Orig Print D/T: S: 05/07/2020 (0446) [facility] NAME: SHIVAM OBRIEN Radiology Department PHYS: COSMOMATTHEW ElliottDallas Sin [address] : 1990 AGE: 29 SEX: F [place] [address] LOC: DashaERS PHONE #: [phone] EXAM DATE: 05/07/2020 STATUS: REG ER FAX #: [phone] RAD NO: Page 2 Signed Report Patient Name: SHVIAM OBRIEN Unit No: [id number] EXAMS: CPT CODE: [id number] DUP AB/PEL/SC/LTD 51643 <Continued> [facility] NAME: SHIVAM OBRIEN Radiology Department PHYS: SOPHYEl Miguel ElliottDallas Sin [address] : 1990 AGE: 29 SEX: F [place] [address] LOC: DashaERS PHONE #: [phone] EXAM DATE: 05/07/2020 STATUS: REG ER FAX #: [phone] RAD NO: Page 3 Signed Report - US PELVIS 2020-05-07 Patient Name: COMPLETE 04:42:00 SHIVAM OBRIEN Unit No: [id number] EXAMS: CPT CODE: [id number] US PELVIS COMPLETE 25672 STUDY: - US TRANSVAGINAL W/PELVIS, - US PELVIS COMPLETE, - DUP AB/PEL/SC/LTD 05/07/2020 3:49 AM Ordering Physician: Dallas Elliott MD Patient Name: SHIVAM OBRIEN MR: [id number] : 1990; Age: 29 years y/o Female [...] The neutral stripe measuring 4 mm. [facility] NAME: SHIVAM OBRIEN Radiology Department PHYS: Dallas Wang [address] : 1990 AGE: 29 SEX: F [place], [place] [address] LOC: DashaERS PHONE #: [phone] EXAM DATE: 05/07/2020 STATUS: REG ER FAX #: [phone] RAD NO: Page 1 Signed Report (CONTINUED) Patient Name: SHIVAM OBRIEN Unit No: [id number] EXAMS: CPT CODE: [id number] US PELVIS COMPLETE 82345 <Continued> RIGHT OVARY AND ADNEXA: General: Normal [...] Ines Whitley RDMS Probe: Trnscrbd D/ (0442) [email or web address] Orig Print D/T: S: 05/07/2020 (0446) [facility] NAME: SHIVAM OBRIEN Radiology Department PHYS: SHANE ElliottDallas [address] : 1990 AGE: 29 SEX: F [place] [address] LOC: DashaERS PHONE #: [phone] EXAM DATE: 05/07/2020 STATUS: REG ER FAX #: [phone] RAD NO: Page 2 Signed Report Patient Name: SHIVAM OBRIEN Unit No: [id number] EXAMS: CPT CODE: [id number] US PELVIS COMPLETE 02219 <Continued> [facility] NAME: SHIVAM OBRIEN Radiology Department PHYS: SHANE ElliottDallas [address] : 1990 AGE: 29 SEX: F [place] [address] LOC: DashaERS PHONE #: [phone] EXAM DATE: 05/07/2020 STATUS: REG ER FAX #: [phone] RAD NO: Page 3 Signed Report COMPREHENSIVE [...] code = ALKP) 59 units/L 46-116 N [id number] 04:04:00 Test Item Value Reference Range Interpretation Comments LIPASE (test code = LIP) 235 units/L 73-393 N CBC W/AUTO [id number] 03:45:00 Test Item Value Reference Range Interpretation [...] = PLTMR) UA RFLX MICR CULT IF [id number] 03:45:00 Test Item Value Reference Range Interpretation [...] [facility] PAGE 1 RUN TIME: 1737 Specimen Inquiry RUN USER: INTERFACE PATIENT: SHIVAM OBRIEN LOC: DashaDSU U #: [id number] AGE/SX: 29/F ROOM: RE04/25/20REG DR: Priscilla Callaway MD : [birth year] BED: DIS: STATUS: SANJEEV FLORIAN TLOC: SPEC #: [id number] RECD: 04/25/20 STATUS: MARY ARAMBULA #: [id number] GHASSAN: 04/25/20- SUBM DR: Priscilla Callaway MD ENTERED: 04/25/20 SP TYPE: FALLST CAESAR DR: ORDERED: LEVEL II SURGIC CODES: [id number] - FALLOPIAN TUBE PROCEDURES: LEVEL II SURGIC (Incomplete) TISSUES: FALLOPIAN TUBE, NOS - BILATERAL FALLOPIAN TUBES CLINICAL HISTORY 29 year old, desires sterilization (wpd) FINAL DIAGNOSIS Fallopian tubes, bilateral segmental resection: - histologic (complete lumens demonstrated) CPT Code: 60408 cds/wpd GROSS DESCRIPTION ANATOMIC SOURCE OF TISSUE (per Requisition): Bilateral fallopian tubesThe specimen is received in a formalin-filled container, labeled with the patient's name and designated "bilateral fallopian tubes". The specimen consists of two segments of fallopian tube with fimbriae measuring 3.5 x 0.7 and 4.0 x 1.0 cm. Sectioning reveals pinpoint lumens. Clothes Shaker sections are submitted labeled A1 and A2. cornelia 04/25/20 Signed Anshul Gutiérrez 04/26/20 1050 END OF REPORT Novel Coronavirus 2018 [id number] 14:01:00 Test Item Value Reference Range Interpretation Comments Novel Coronavirus 2018 Inhouse (test Negative Negative code = COVNONPUI) Novel Coronavirus 2019 [id number] 14:00:00 Test Item Value Reference Range Interpretation Comments Novel Coronavirus 2018 Inhouse (test Negative Negative code = COVNONPUI) URINALYSIS [id number] 16:16:00 Test Item Value Reference Range Interpretation [...] NONE SEEN URINE SAMPLE: CLEAN CATCHUR HCG [id number] 16:16:00 Test Item Value Reference Range Interpretation [...] later and tested. URINE SAMPLE: CLEAN CATCHURINALYSIS [id number] 16:01:00 Test Item Value Reference Range Interpretation [...] NONE SEEN URINE SAMPLE: CLEAN CATCHUR HCG [id number] 16:01:00 Test Item Value Reference Range Interpretation Comments UR HCG QUAL (test code = HCGQLU) URINE SAMPLE: CLEAN CATCHCBC W/AUTO [id number] 15:50:00 Test Item Value Reference Range Interpretation [...] REQUIRED (test NORMAL NORMAL code = PLTMR) [id number] 12:26:00 Test Item Value Reference Range Interpretation Comments CORTISOL, TOTAL (BEAKER) (test 22.6 ug/dL 3.7-19.4 H code = 2755) Ingredient Handler ID - [id number] 12:26:00 Test Item Value Reference Range Interpretation Comments CORTISOL, TOTAL (BEAKER) (test code 5.5 ug/dL 3.7-19.4 = 2755) Ingredient Handler ID - [id number] 12:25:00 Test Item Value Reference Range Interpretation Comments CORTISOL, TOTAL (BEAKER) (test 21.3 ug/dL 3.7-19.4 H code = 2755) Ingredient Handler ID - NTPBLOOD GAS, [id number] 01:03:00 Test Item Value Reference Range Interpretation [...] (test code = 1819) 21.0 % CT, [id number] 00:31:00Reason for exam:->ABDOMINAL PAINIs the patient ?->NoWhat [...] the abdomen or pelvis. Signed: Minerva Perez [facility] Verified Date/Time: 11/14/2019 00:31:04 Electronicallysigned by: MINERVA [...] 1092) DATA TO CALCULA TE ESTIMATED GFR. Ingredient Handler ID - PIAYA [id number] 22:05:00 Test Item Value Reference Range Interpretation [...] thrombosis is within 95-100% range. COMPREHENSIVE METABOLIC [id number] 21:01:00 Test Item Value Reference Range Interpretation [...] 1092) DATA TO CALCULA TE ESTIMATED GFR. Ingredient Handler ID - KENNURINALYSIS W/ REFLEX URINE [id number] 21:00:00 Test Item Value Reference Range Interpretation [...] = 516) SOURCE(BEAKER) (test code = 2795) Ingredient Handler ID - [auto]Ingredient Handler ID - [id number] 20:49:00 Test Item Value Reference Range Interpretation Comments MAGNESIUM (BEAKER) 2.1 mg/dL 1.6-2.6 Specimen slightly (test code = 627) hemolyzed Ingredient Handler ID - [id number] 20:49:00 Test Item Value Reference Range Interpretation Comments PHOSPHORUS (BEAKER) 3.8 mg/dL 2.3-4.7 Specimen slightly (test code = 604) hemolyzed Ingredient Handler ID - [id number] 20:49:00 Test Item Value Reference Range Interpretation Comments LIPASE (BEAKER) (test code = 749) 41 U/L 8-78 Ingredient Handler ID - KENNPREGNANCY SCREEN, [id number] 20:34:00 Test Item Value Reference Range Interpretation Comments TEST URINE (BEAKER) (test Negative code = 583) CBC W/PLT COUNT & AUTO [id number] 20:29:00 Test Item Value Reference Range Interpretation [...] 0-1 PERCENT (BEAKER) (test code = 2801) [[facility]] URINALYSIS, [id number] 16:02:01 Test Item Value Reference Range Interpretation Comments UA Turbidity; Abnormal (test code Marked Clear A = 60569-4) UA Spec Grav (test code = 5810-7) 1.024 <=1.030 UA pH (test code = 5803-2) 5.0 5.0-8.0 UA Protein (test code = 71249-0) Negative Negative UA Glucose (test code = 34765-3) Negative Negative UA Ketones (test code = 56708-7) Negative Negative UA Bili (test code = 5770-3) Negative Negative UA Blood; Abnormal (test code = Small Negative A 5794-3) UA Nitrite (test code = 5802-4) Negative Negative UA Leuk Est; Abnormal (test code = Large Negative A 5799-2) UA RBC; Above High Threshold (test 3 {/HPF} 0-2 code = 22749-7) UA WBC; Above High Threshold (test 35 {/HPF} 0-5 code = 89298-4) UA Bacteria (test code = 96377-2) Occasional None Seen UA Mucus; Abnormal (test code = Many None Seen A 8247-9) UA Sq Epi; Abnormal (test code = Many Few A 00509-4) Urine Calcium Oxalate Crystal Occasional None Seen (test code = 5774-5) UA Color (test code = 5778-6) Yellow UROBILINOGEN (test code = 78332-9) <=1.0 0.1-1.0 [facility]] CULTURE, URINE, [id number] 16:02:01 Test Item Value Reference Range Interpretation Comments FINAL REPORT (test <10,000 CFU/mL code = FINAL REPORT) Enterococcus Species [facility]] URINALYSIS, [id number] 16:00:01 Test Item Value Reference Range Interpretation Comments UA Turbidity (test code = 93405-4) Clear Clear UA Spec Grav (test code = 5810-7) 1.010 <=1.030 UA pH (test code = 5803-2) 7.0 5.0-8.0 UA Protein (test code = 33198-4) Negative Negative UA Glucose (test code = 38929-9) Negative Negative UA Ketones (test code = 45916-7) Negative Negative UA Bili (test code = 5770-3) Negative Negative UA Blood; Abnormal (test code = Small Negative A 5794-3) UA Nitrite (test code = 5802-4) Negative Negative UA Leuk Est (test code = 5799-2) Negative Negative UA RBC (test code = 12615-6) <1 0-2 UA WBC (test code = 12572-7) <1 0-5 UA Bacteria (test code = 87197-9) Occasional None Seen UA Sq Epi (test code = 38957-9) Few Few UA Color (test code = 5778-6) Ltyellow UROBILINOGEN (test code = 55446-7) <=1.0 0.1-1.0 [facility]] CULTURE, URINE, [id number] 16:00:01 Test Item Value Reference Range Interpretation Comments ORGANISM (test code = Enterobacter aerogenes 699-9) FINAL REPORT (test 50,000 - 100,000 CFU/mL code = FINAL REPORT) Enterobacter aerogenes [facility][] [id number] 16:00:01 Test Item Value Reference Range Interpretation [...] Resi stant, I= Intermediate, N/A= Not Applicable [facility]] CBC (INCLUDES DIFF/PLT)2018-05-07 09:22:01 Test Item Value Reference Range Interpretation Comments WBC (test code = 6690-2) 8.7 {K/CMM} 3.7-10.4 RBC; Below Low Threshold (test 3.92 {M/CMM} 4.20-5.40 code = 789-8) Hgb (test code = 718-7) 12.2 g/dl 12.0-16.0 Hct (test code = 51607-8) 36.7 % 36.0-48.0 MCV (test code = 787-2) 93.6 fL 80.0-98.0 MCH (test code = 785-6) 31.0 pg 27.0-31.0 MCHC (test code = 786-4) 33.1 g/dl 32.0-36.0 RDW; Above High Threshold (test 15.3 % 11.5-14.5 code = 788-0) Platelet; Below Low Threshold 129 {K/CMM} 133-450 (test code = 03131-6) Mean Platelet Volume; Above High 12.1 fL 7.4-10.4 Threshold (test code = 08914-8) [facility]] [id number] 09:22:01 Test Item Value Reference Range Interpretation Comments Segmented Neutrophils (test code 67.1 % 45.0-75.0 = 29677-3) Monocytes (test code = 66687-7) 7.3 % 2.0-12.0 Lymphocytes (test code = 20924-8) 23.7 % 20.0-40.0 Eosinophils (test code = 89305-8) 1.7 % 0.0-4.0 Basophils (test code = 706-2) 0.2 % 0.0-1.0 Segs-Bands # (test code = 5.9 {K/CMM} 1.5-8.1 33215-5) Lymphocytes # (test code = 2.1 {K/CMM} 1.0-5.5 65444-1) Monocytes # (test code = 14495-0) 0.6 {K/CMM} 0.0-0.8 Eosinophils # (test code = 0.1 {K/CMM} 0.0-0.5 30122-6) [facility]] CMP [id number] 09:22:01 Test Item Value Reference Range Interpretation Comments Sodium Level 139 {mEq/l} 135-145 (test code = 2951-2) Potassium Level 3.8 {mEq/l} 3.5-5.1 (test code = 2823-3) Chloride Level 109 {mEq/l} 95-109 (test code = 2075-0) Carbon Dioxide; 20 {mEq/l} 24-32 Below Low Threshold (test code = 2027-9) AGAP (test code = 13.8 {mEq/l} 10.0-20.0 51625-2) Glucose Lvl; 65 mg/dl 70-99 Adult reference range Below Low values reflect the Threshold (test clinical forrest delinesof the code = 2345-7) [place] [employer]. Creatinine Lvl 0.70 mg/dl 0.50-1.40 (test code = 2160-0) Blood Urea 14 mg/dl 7-22 Nitrogen (test code = 3094-0) BUN/Creatinine 20 6-25 Ratio (test code = 3097-3) Total Protein; 5.3 g/dl 6.4-8.4 Below Low Threshold (test code = 2885-2) Albumin Lvl; 2.4 g/dl 3.5-5.0 Below Low Threshold (test code = 1751-7) Globulin (test 2.9 g/dl 2.7-4.2 code = 13825-7) A/G Ratio (test 0.8 0.7-1.6 code = 1759-0) Calcium Level 8.8 mg/dl 8.5-10.5 Total (test code = 28076-3) ALT (test code = 16 u/l 0-65 1743-4) AST (test code = 19 u/l 0-37 84484-2) Bili Total (test 0.2 mg/dl 0.2-1.3 code = 1975-2) Alk Phos (test 112 u/l 39-136 code = 1783-0) eGFR (test code = 121 The eGFR i s calculated 26392-2) {ML/MIN/1.7} using the CKD-E PI formula. In [...] be multiplied by t he estimated BMI. [facility]] PROTEIN, TOTAL W/CREAT, RANDOM URINE 2018-05-07 09:22:01 Test Item Value Reference Range Interpretation Comments U Creatinine (test 56.50 mg/dl No establ ished code = 2161-8) reference ran ges. Urine Protein Level 19.7 mg/dl No estab lished (test code = 2888-6) referen ce ranges. U Prot/Creat (test 0.35 code = 2890-2) [facility][O] Urine Dipstick (In Office)2018-05-07 08:10:00 Test Item Value Reference Range Interpretation Comments LEUKOCYTES (test code = small A LEUKOCYTES) NITRITE; Normal (test code = neg N 86033-9) UROBILINOGEN; Normal (test code = 0.1 N 46852-2) PROTEIN; Normal (test code = neg N 63053-0) pH (test code = pH) 7.0 N URINE BLOOD; Abnormal (test code trace-lysed A = 58579-1) SPECIFIC GRAVITY; Normal (test 1.020 N code = 2965-2) KETONES; Normal (test code = neg N 65966-1) BILIRUBIN; Normal (test code = neg N 12332-1) GLUCOSE; Normal (test code = neg N 1547-9) [facility][O] Urine Dipstick (In Office)2018-04-23 10:39:00 Test Item Value Reference Range Interpretation Comments LEUKOCYTES (test code = trace A LEUKOCYTES) NITRITE; Normal (test code = neg N 74751-7) UROBILINOGEN; Normal (test code = 0.2 N 92485-7) PROTEIN; Normal (test code = neg N 59612-7) pH (test code = pH) 6.0 N URINE BLOOD; Abnormal (test code trace-lysed A = 73722-5) SPECIFIC GRAVITY; Normal (test 1.025 N code = 2965-2) KETONES; Normal (test code = neg N 92237-1) BILIRUBIN; Normal (test code = neg N 66655-8) GLUCOSE; Normal (test code = neg N 1547-9) [facility][] HIV AB, HIV 1/2, EIA, WITH [id number] 10:24:01 Test Item Value Reference Range Interpretation Comments HIV Ag/Ab 4th Gen Negative Negative HIV test r esults should be (test code = considered posi tive only 14603-3) when both the s creening andthe confirma tory tests are positive. A negative confirmatory te st in patientswith a positive screening test does not exclude HIV inf ection. If clincallywarran jeronimo, an HIV RNA quantitativ e test should be order ed. [facility]] URINALYSIS, [id number] 13:50:01 Test Item Value Reference Range Interpretation Comments UA Turbidity (test code = 09552-7) Clear Clear UA Spec Grav (test code = 5810-7) 1.010 <=1.030 UA pH (test code = 5803-2) 6.0 5.0-8.0 UA Protein (test code = 74356-8) Negative Negative UA Glucose (test code = 77892-9) Negative Negative UA Ketones (test code = 28601-0) Negative Negative UA Bili (test code = 5770-3) Negative Negative UA Blood; Abnormal (test code = Small Negative A 5794-3) UA Nitrite (test code = 5802-4) Negative Negative UA Leuk Est; Abnormal (test code = Large Negative A 5799-2) UA RBC (test code = 46972-8) 1 {/HPF} 0-2 UA WBC (test code = 55209-3) 3 {/HPF} 0-5 UA Bacteria (test code = 46080-1) Occasional None Seen UA Mucus (test code = 8247-9) Few None Seen UA Sq Epi (test code = 10285-2) Few Few UA Color (test code = 5778-6) Ltyellow UROBILINOGEN (test code = 45561-8) <=1.0 0.1-1.0 [facility]] CULTURE, URINE, [id number] 13:50:01 Test Item Value Reference Range Interpretation Comments FINAL REPORT (test code = FINAL No Growth REPORT) [facility][O] Urine Dipstick (In Office)2018-04-09 08:50:00 Test Item Value Reference Range Interpretation Comments LEUKOCYTES (test code = LEUKOCYTES) small A NITRITE; Normal (test code = 39195-0) neg N UROBILINOGEN; Normal (test code = 0.2 N 95183-7) PROTEIN; Normal (test code = 52321-6) neg N pH (test code = pH) 6.5 N URINE BLOOD; Normal (test code = neg N 60423-6) SPECIFIC GRAVITY; Normal (test code = 1.015 N 2965-2) KETONES; Normal (test code = 46484-2) neg N BILIRUBIN; Normal (test code = 23423-4) neg N GLUCOSE; Normal (test code = 1547-9) neg N [facility][O] Urine Dipstick (In Office)2018-04-09 08:32:00 Test Item Value Reference Range Interpretation Comments LEUKOCYTES (test code = LEUKOCYTES) small A NITRITE; Normal (test code = 49850-1) neg N UROBILINOGEN; Normal (test code = 0.2 N 08971-4) PROTEIN; Normal (test code = 58103-5) neg N pH (test code = pH) 6.5 N URINE BLOOD; Normal (test code = neg N 65053-8) SPECIFIC GRAVITY; Normal (test code = 1.015 N 2965-2) KETONES; Normal (test code = 95285-7) neg N BILIRUBIN; Normal (test code = 13768-1) neg N GLUCOSE; Normal (test code = 1547-9) neg N [facility][O] Urine Dipstick (In Office)2018-03-26 09:26:00 Test Item Value Reference Range Interpretation Comments LEUKOCYTES (test code = LEUKOCYTES) Trace A NITRITE; Normal (test code = Negative N 45054-7) UROBILINOGEN; Normal (test code = 0.2 N 01672-9) PROTEIN; Normal (test code = Negative N 79635-3) pH (test code = pH) 7.0 A URINE BLOOD; Normal (test code = Negative N 74829-6) SPECIFIC GRAVITY; Normal (test code 1.015 N = 2965-2) KETONES; Normal (test code = Negative N 15900-5) BILIRUBIN; Normal (test code = Negative N 33215-7) GLUCOSE; Normal (test code = 1547-9) Negative N COLOR URINE; Normal (test code = yellow N 5778-6) APPEARANCE; Normal (test code = clear N 5767-9) [facility]] [id number] 10:28:01 Test Item Value Reference Range Interpretation Comments ALT (test code = 1743-4) 15 u/l 0-65 [facility]] [id number] 10:28:01 Test Item Value Reference Range Interpretation Comments AST (test code = 16380-2) 13 u/l 0-37 [facility]] [id number] 10:28:01 Test Item Value Reference Range Interpretation Comments Amylase Level (test code = 1798-8) 47 u/l 25-115 [facility]] [id number] 10:28:01 Test Item Value Reference Range Interpretation Comments Lipase Level (test code = 3040-3) 177 u/l 73-393 [facility]] URINALYSIS, [id number] 10:28:01 Test Item Value Reference Range Interpretation Comments UA Turbidity; Abnormal (test code Marked Clear A = 68032-6) UA Spec Grav (test code = 5810-7) 1.009 <=1.030 UA pH (test code = 5803-2) 7.0 5.0-8.0 UA Protein (test code = 53467-7) Negative Negative UA Glucose (test code = 96702-6) Negative Negative UA Ketones (test code = 35511-1) Negative Negative UA Bili (test code = 5770-3) Negative Negative UA Blood (test code = 5794-3) Negative Negative UA Nitrite (test code = 5802-4) Negative Negative UA Leuk Est; Abnormal (test code = Large Negative A 5799-2) UA WBC; Above High Threshold (test 7 {/HPF} 0-5 code = 68352-3) UA Bacteria (test code = 42925-5) Occasional None Seen Urine Amorphous Crystals (test Occasional None Seen code = 13532-3) UA Sq Epi; Abnormal (test code = Many Few A 66293-4) UA Color (test code = 5778-6) Ltyellow UROBILINOGEN (test code = 11989-1) <=1.0 0.1-1.0 [facility]] CULTURE, URINE, [id number] 10:28:01 Test Item Value Reference Range Interpretation Comments FINAL REPORT (test 10,000 - 50,000 CFU/mL code = FINAL Group B Streptococcus , No REPORT) susceptibility performedsince these organisms are predictably susceptible to penicillin. If patient ispenicillin allergic or susceptibility testing for additional antibiotics isclinically warranted please call the laboratory. [facility][O] Urine Dipstick (In Office)2018-03-19 09:45:00 Test Item Value Reference Range Interpretation Comments LEUKOCYTES (test code = LEUKOCYTES) small A NITRITE; Normal (test code = 13589-9) neg N UROBILINOGEN; Normal (test code = 0.2 N 99093-0) PROTEIN; Normal (test code = 42355-8) neg N pH (test code = pH) 7.0 N URINE BLOOD; Normal (test code = neg N 84665-4) SPECIFIC GRAVITY; Normal (test code = 1.015 N 2965-2) KETONES; Normal (test code = 04072-1) neg N BILIRUBIN; Normal (test code = 84967-7) neg N GLUCOSE; Normal (test code = 1547-9) neg N [facility]] GLUCOSE, GESTATIONAL SCREEN (50G)-130 CUTOFF 2018-03-12 10:46:01 Test Item Value Reference Range Interpretation Comments Glucose Challenge (test code = 100.0 mg/dl <=140.0 1504-0) [facility]] CBC (INCLUDES DIFF/PLT)2018-03-12 10:46:01 Test Item Value Reference Range Interpretation Comments WBC (test code = 6690-2) 10.2 {K/CMM} 3.7-10.4 RBC; Below Low Threshold (test 3.82 {M/CMM} 4.20-5.40 code = 789-8) Hgb; Below Low Threshold (test 11.8 g/dl 12.0-16.0 code = 718-7) Hct; Below Low Threshold (test 35.7 % 36.0-48.0 code = 02604-0) MCV (test code = 787-2) 93.3 fL 80.0-98.0 MCH (test code = 785-6) 30.9 pg 27.0-31.0 MCHC (test code = 786-4) 33.1 g/dl 32.0-36.0 RDW; Above High Threshold (test 15.1 % 11.5-14.5 code = 788-0) Platelet (test code = 56304-3) 195 {K/CMM} 133-450 Mean Platelet Volume (test code 10.2 fL 7.4-10.4 = 16380-4) [facility]] [id number] 10:46:01 Test Item Value Reference Range Interpretation Comments Segmented Neutrophils (test code 67.7 % 45.0-75.0 = 24852-2) Monocytes (test code = 39217-4) 6.8 % 2.0-12.0 Lymphocytes (test code = 62021-9) 23.0 % 20.0-40.0 Eosinophils (test code = 77880-9) 2.2 % 0.0-4.0 Basophils (test code = 706-2) 0.3 % 0.0-1.0 Segs-Bands # (test code = 6.9 {K/CMM} 1.5-8.1 83960-9) Lymphocytes # (test code = 2.3 {K/CMM} 1.0-5.5 84766-3) Monocytes # (test code = 96645-8) 0.7 {K/CMM} 0.0-0.8 Eosinophils # (test code = 0.2 {K/CMM} 0.0-0.5 04831-4) [facility]] URINALYSIS, [id number] 10:46:01 Test Item Value Reference Range Interpretation Comments UA Turbidity; Abnormal (test code Slight Clear A = 21212-0) UA Spec Grav (test code = 5810-7) 1.010 <=1.030 UA pH (test code = 5803-2) 7.0 5.0-8.0 UA Protein (test code = 58261-9) Negative Negative UA Glucose (test code = 00998-2) Negative Negative UA Ketones (test code = 02696-0) Negative Negative UA Bili (test code = 5770-3) Negative Negative UA Blood (test code = 5794-3) Negative Negative UA Nitrite (test code = 5802-4) Negative Negative UA Leuk Est; Abnormal (test code = Large Negative A 5799-2) UA RBC (test code = 64840-9) 2 {/HPF} 0-2 UA WBC; Above High Threshold (test 12 {/HPF} 0-5 code = 80864-1) UA Bacteria (test code = 92170-3) Occasional None Seen UA Mucus (test code = 8247-9) Few None Seen UA Sq Epi; Abnormal (test code = Many Few A 42537-6) UA Color (test code = 5778-6) Ltyellow UROBILINOGEN (test code = 15696-0) <=1.0 0.1-1.0 [facility]] CULTURE, URINE, [id number] 10:46:01 Test Item Value Reference Range Interpretation [...] (test code Group B Streptococcus = 699-9) [facility][H] [id number] 10:46:01 Test Item Value Reference Range Interpretation Comments ORGANISM (test code Group B = 699-9) Streptococcus Levofloxacin (test .38 S code = Levofloxacin) Clindamycin (test .125 S code = Clindamycin) Erythromycin (test 4 R S= Suscep tible, code = R= Resistant, I = Erythromycin) Intermediate, N/A= Not Applicable [facility][O] Urine Dipstick (In Office)2018-03-12 09:23:00 Test Item Value Reference Range Interpretation Comments LEUKOCYTES (test code = LEUKOCYTES) small A NITRITE; Normal (test code = 04649-4) neg N UROBILINOGEN; Normal (test code = 0.2 N 73738-5) PROTEIN; Normal (test code = 89175-8) neg N pH (test code = pH) 7.5 N URINE BLOOD; Normal (test code = neg N 46138-9) SPECIFIC GRAVITY; Normal (test code = 1.020 N 2965-2) KETONES; Normal (test code = 74626-2) \\neg N BILIRUBIN; Normal (test code = 65770-9) neg N GLUCOSE; Normal (test code = 1547-9) neg N [facility]] CBC (INCLUDES DIFF/PLT)2018-02-12 09:45:01 Test Item Value Reference Range Interpretation Comments WBC (test code = 6690-2) 10.2 {K/CMM} 3.7-10.4 RBC; Below Low Threshold (test 3.72 {M/CMM} 4.20-5.40 code = 789-8) Hgb; Below Low Threshold (test 11.5 g/dl 12.0-16.0 code = 718-7) Hct; Below Low Threshold (test 33.5 % 36.0-48.0 code = 48266-9) MCV (test code = 787-2) 90.0 fL 80.0-98.0 MCH (test code = 785-6) 30.8 pg 27.0-31.0 MCHC (test code = 786-4) 34.2 g/dl 32.0-36.0 RDW; Above High Threshold (test 14.8 % 11.5-14.5 code = 788-0) Platelet (test code = 92971-0) 187 {K/CMM} 133-450 Mean Platelet Volume (test code 10.3 fL 7.4-10.4 = 87682-4) [facility]] [id number] 09:45:01 Test Item Value Reference Range Interpretation Comments Segmented Neutrophils (test code 63.9 % 45.0-75.0 = 99765-5) Monocytes (test code = 46626-0) 6.9 % 2.0-12.0 Lymphocytes (test code = 07439-5) 25.9 % 20.0-40.0 Eosinophils (test code = 40676-2) 3.0 % 0.0-4.0 Basophils (test code = 706-2) 0.3 % 0.0-1.0 Segs-Bands # (test code = 6.5 {K/CMM} 1.5-8.1 84394-9) Lymphocytes # (test code = 2.6 {K/CMM} 1.0-5.5 15325-7) Monocytes # (test code = 51292-6) 0.7 {K/CMM} 0.0-0.8 Eosinophils # (test code = 0.3 {K/CMM} 0.0-0.5 11502-9) [facility]] [id number] 09:45:01 Test Item Value Reference Range Interpretation Comments Amylase Level (test code = 1798-8) 47 u/l 25-115 [facility]] CMP [id number] 09:45:01 Test Item Value Reference Range Interpretation Comments Sodium Level 141 {mEq/l} 135-145 (test code = 2951-2) Potassium Level; 3.4 {mEq/l} 3.5-5.1 Below Low Threshold (test code = 2823-3) Chloride Level; 112 {mEq/l} 95-109 Above High Threshold (test code = 2075-0) Carbon Dioxide; 21 {mEq/l} 24-32 Below Low Threshold (test code = 8-9) AGAP (test code = 11.4 {mEq/l} 10.0-20.0 47558-2) Glucose Lvl (test 73 mg/dl 70-99 Adult refe rence range code = 2345-7) values reflec t the clinical guidel inesof the [place] [employer] es [employer]. Creatinine Lvl 0.60 mg/dl 0.50-1.40 (test code = 2160-0) Blood Urea 8 mg/dl 7-22 Nitrogen (test code = 3094-0) BUN/Creatinine 13 6-25 Ratio (test code = 3097-3) Total Protein; 6.0 g/dl 6.4-8.4 Below Low Threshold (test code = 2885-2) Albumin Lvl; 2.7 g/dl 3.5-5.0 Below Low Threshold (test code = 1751-7) Globulin (test 3.3 g/dl 2.7-4.2 code = 71760-5) A/G Ratio (test 0.8 0.7-1.6 code = 1759-0) Calcium Level 8.1 mg/dl 8.5-10.5 Total; Below Low Threshold (test code = 85176-6) ALT (test code = 16 u/l 0-65 1743-4) AST (test code = 14 u/l 0-37 85226-7) Bili Total; Below 0.1 mg/dl 0.2-1.3 Low Threshold (test code = 1975-2) Alk Phos (test 60 u/l 39-136 code = 1783-0) eGFR (test code = 127 The eGFR i s calculated 08897-3) {ML/MIN/1.7} using the CKD-E PI formula. In [...] fr om the National Kid[employer] Disease Education [facility] am(NKDEP) which emile lorenz recommends that when the eGFR is used in patientswith ex tremes of body mass index for purposes of rory g dosing, the eGFR should be multiplied by t he estimated BMI. [facility]] [id number] 09:45:01 Test Item Value Reference Range Interpretation Comments Lipase Level (test code = 3040-3) 185 u/l 73-393 [facility]] URINALYSIS, [id number] 09:45:01 Test Item Value Reference Range Interpretation Comments UA Turbidity (test code = 87909-8) Clear Clear UA Spec Grav (test code = 5810-7) 1.008 <=1.030 UA pH (test code = 5803-2) 7.0 5.0-8.0 UA Protein (test code = 79511-0) Negative Negative UA Glucose (test code = 83815-9) Negative Negative UA Ketones (test code = 19940-3) Negative Negative UA Bili (test code = 5770-3) Negative Negative UA Blood (test code = 5794-3) Negative Negative UA Nitrite (test code = 5802-4) Negative Negative UA Leuk Est; Abnormal (test code = Moderate Negative A 5799-2) UA RBC (test code = 41521-8) 1 {/HPF} 0-2 UA WBC (test code = 96480-3) <1 0-5 UA Sq Epi (test code = 68913-9) Occasional Few UA Color (test code = 5778-6) Ltyellow UROBILINOGEN (test code = 45201-1) <=1.0 0.1-1.0 [facility]] CULTURE, URINE, [id number] 09:45:01 Test Item Value Reference Range Interpretation Comments FINAL REPORT (test 10,000 - 50,000 CFU/mL code = FINAL Group B Streptococcus No REPORT) susceptibility performed sincethese organisms are predictably susceptible to penicillin. If patient ispenicillin allergic or susceptibility testing for additional antibiotics isclinically warranted please call the laboratory. [facility]] [id number] 09:40:01 Test Item Value Reference Range Interpretation Comments AST (test code = Cancel Reason: System 78059-1) Cancel [facility]] [id number] 09:40:01 Test Item Value Reference Range Interpretation Comments ALT (test code = Cancel Reason: System 1743-4) Cancel [facility][O] Urine Dipstick (In Office)2018-02-12 08:53:00 Test Item Value Reference Range Interpretation Comments LEUKOCYTES (test code = LEUKOCYTES) trace N NITRITE; Normal (test code = 10749-6) neg N UROBILINOGEN; Normal (test code = 0.2 N 36322-6) PROTEIN; Normal (test code = 72297-5) neg N pH (test code = pH) 7.5 A URINE BLOOD; Normal (test code = neg N 71262-4) SPECIFIC GRAVITY; Normal (test code = 1.010 N 2965-2) KETONES; Normal (test code = 00006-3) neg N BILIRUBIN; Normal (test code = 94143-6) neg N GLUCOSE; Normal (test code = 1547-9) neg N [facility]] URINALYSIS, [id number] 15:23:01 Test Item Value Reference Range Interpretation Comments UA Turbidity; Abnormal (test code Marked Clear A = 87380-9) UA Spec Grav (test code = 2965-2) 1.016 <=1.030 UA pH (test code = 2756-5) 7.0 5.0-8.0 UA Protein (test code = 35019-3) Negative Negative UA Glucose (test code = 2349-9) Negative Negative UA Ketones (test code = 79981-2) Negative Negative UA Bili (test code = 17684-3) Negative Negative UA Blood (test code = 798-9) Negative Negative UA Nitrite (test code = 76793-8) Negative Negative UA Leuk Est; Abnormal (test code = Trace Negative A 45319-1) UA RBC (test code = 89584-8) 1 {/HPF} 0-2 UA WBC (test code = 74584-2) 3 {/HPF} 0-5 UA Bacteria (test code = 630-4) Occasional None Seen UA Sq Epi; Abnormal (test code = Moderate Few A 99691-9) UA Color (test code = 88461-9) Yellow UROBILINOGEN (test code = 21428-1) <=1.0 0.1-1.0 UA Spec Grav (test code = 5810-7) 1.016 <=1.030 UA pH (test code = 5803-2) 7.0 5.0-8.0 UA Glucose (test code = 06359-2) Negative Negative UA Bili (test code = 5770-3) Negative Negative UA Blood (test code = 5794-3) Negative Negative UA Nitrite (test code = 5802-4) Negative Negative UA Leuk Est; Abnormal (test code = Trace Negative A 5799-2) UA RBC (test code = 36914-1) 1 {/HPF} 0-2 UA WBC (test code = 80494-2) 3 {/HPF} 0-5 UA Bacteria (test code = 80419-1) Occasional None Seen UA Sq Epi; Abnormal (test code = Moderate Few A 42411-2) UA Color (test code = 5778-6) Yellow UROBILINOGEN (test code = 59373-0) <=1.0 0.1-1.0 [facility][H] CULTURE, URINE, [id number] 15:23:01 Test Item Value Reference Range Interpretation Comments ORGANISM (test code = Enterococcus Species 699-9) FINAL REPORT (test 10,000 - 50,000 CFU/mL code = FINAL REPORT) Enterococcus Species [facility][H] [id number] 15:23:01 Test Item Value Reference Range Interpretation Comments ORGANISM (test code = Enterococcus 699-9) Species Ampicillin (test code - S = Ampicillin) Levofloxacin (test - S code = Levofloxacin) Nitrofurantoin (test - S code = Nitrofurantoin) Tetracycline (test - R code = Tetracycline) Vancomycin (test code SEE NOTES S S= Ingris ceptible, = Vancomycin) R= Resistant, I= Intermediate, N/A= Not Applicable [facility][O] Urine Dipstick (In Office)2018-01-15 09:52:00 Test Item Value Reference Range Interpretation Comments LEUKOCYTES (test code = LEUKOCYTES) trace NITRITE; Normal (test code = 86583-6) neg N UROBILINOGEN; Normal (test code = 0.2 N 52915-0) PROTEIN; Normal (test code = 23641-9) neg N pH (test code = pH) 7.0 N URINE BLOOD; Normal (test code = neg N 21957-8) SPECIFIC GRAVITY; Normal (test code = 1.020 N 2965-2) KETONES; Normal (test code = 87379-1) neg N BILIRUBIN; Normal (test code = 14339-8) neg N GLUCOSE; Normal (test code = 1547-9) neg N UROBILINOGEN; Normal (test code = 0.2 N 52307-7) [facility][SELECT [facility]] CULTURE, URINE, [id number] 17:21:01 Test Item Value Reference Range Interpretation Comments CULTURE, URINE, Cancel Reason: Unable ROUTINE (test code = To Obtain Specimen CULTURE, URINE, ROUTINE) [facility][] Urine Dipstick (In Office)2018-01-08 10:17:00 Test Item Value Reference Range Interpretation Comments LEUKOCYTES (test code = LEUKOCYTES) trace A NITRITE; Normal (test code = 84237-1) neg N UROBILINOGEN; Normal (test code = 0.2 N 80774-9) PROTEIN; Normal (test code = 73670-5) neg N pH (test code = pH) 6.5 N URINE BLOOD; Normal (test code = neg N 53973-7) SPECIFIC GRAVITY; Normal (test code = 1.020 N 2965-2) KETONES; Normal (test code = 59060-3) neg N BILIRUBIN; Normal (test code = 65745-0) neg N GLUCOSE; Normal (test code = 1547-9) neg N [facility]] CBC (INCLUDES DIFF/PLT)2017-12-18 10:32:01 Test Item Value Reference Range Interpretation Comments WBC (test code = WBC) 7.2 {K/CMM} 3.7-10.4 RBC (test code = RBC) 4.06 {M/CMM} 4.20-5.40 Hgb; Below Low Threshold (test 11.8 g/dl 12.0-16.0 code = 79219-4) Hct (test code = 4544-3) 36.6 % [...] Volume (test code 9.7 fL 7.4-10.4 = 58930-8) [facility]] [id number] 10:32:01 Test Item Value Reference Range Interpretation Comments Segmented Neutrophils (test code 60.2 % 45.0-75.0 = 81283-9) Monocytes # (test code = 05881-2) 0.6 {K/CMM} 0.0-0.8 Lymphocytes (test code = 27.5 % 20.0-40.0 Lymphocytes) Eosinophils # (test code = 0.3 {K/CMM} 0.0-0.5 04668-1) Basophils (test code = 92874-4) 0.4 % 0.0-1.0 Segs-Bands # (test code = 4.3 {K/CMM} 1.5-8.1 57884-4) Lymphocytes # (test code = 2.0 {K/CMM} 1.0-5.5 68613-4) Lymphocytes (test code = 57719-6) 27.5 % 20.0-40.0 [facility]] URINALYSIS, [id number] 10:32:01 Test Item Value Reference Range Interpretation Comments UA Color (test code = 57755-7) Yellow UA Turbidity (test code = 49053-2) Clear Clear UA Spec Grav (test code = 2965-2) 1.016 <=1.030 UA pH (test code = 2756-5) 6.0 5.0-8.0 UA Protein (test code = 28326-0) Negative Negative UA Glucose (test code = 2349-9) Negative Negative UA Ketones; Abnormal (test code = Trace Negative A 27931-1) UA Bili (test code = 91671-7) Negative Negative UA Blood (test code = 798-9) Negative Negative UROBILINOGEN (test code = 61430-9) <=1.0 0.1-1.0 UA Nitrite (test code = 07396-1) Negative Negative UA Leuk Est (test code = 04989-9) Negative Negative UA RBC (test code = 91760-8) <1 0-2 UA WBC (test code = 55743-3) 2 {/HPF} 0-5 UA Bacteria (test code = 630-4) Occasional None Seen UA Mucus (test code = 21654-6) Few None Seen UA Sq Epi (test code = 76429-1) Occasional Few [facility]] CULTURE, URINE, [id number] 10:32:01 Test Item Value Reference Range Interpretation Comments FINAL REPORT (test code = FINAL No Growth REPORT) [facility][H] Alpha Fetoprotein (Only) Maternal Screen [...] of 0.81 Median AFP (test code = 83632-9) Risk for NTD 19605 (OBS) (test code = Risk for NTD [...] further inquiri es contact [facility] at [phone]. Performed At: [facility] MHH7747 MASS-[facility]IVE [facility], [place] [id number] Gordillo MD Ph :[phone] Insulin N Dependent? (test code = Insulin [...] N Indications? (test code = Other Indications?) [facility][O] Urine Dipstick (In Office)2017-12-18 08:22:00 Test Item Value Reference Range Interpretation Comments LEUKOCYTES (test code = LEUKOCYTES) neg N NITRITE; Normal (test code = 01071-1) neg N UROBILINOGEN; Normal (test code = 0.2 N 30875-3) PROTEIN; Normal (test code = 13812-7) neg N pH (test code = pH) 6.5 N URINE BLOOD; Normal (test code = neg N 35984-8) SPECIFIC GRAVITY; Normal (test code = 1.020 N 2965-2) KETONES; Abnormal (test code = 54228-7) trace A BILIRUBIN; Normal (test code = 41320-0) neg N GLUCOSE; Normal (test code = 1547-9) neg N [facility]] CMP [id number] 11:32:01 Test Item Value Reference Range Interpretation [...] t the Lvl) clinical guidel inesof the [place] Diabet es Association. Creatinine Lvl 0.60 mg/dl 0.50-1.40 (test code = Creatinine Lvl) Blood Urea 10 mg/dl 7-22 Nitrogen (test code = Blood Urea Nitrogen) BUN/Creatinine 17 6-25 Ratio (test code = BUN/Creatinine Ratio) Total Protein 6.9 g/dl 6.4-8.4 (test code = 55754-6) Albumin Lvl; 3.3 g/dl 3.5-5.0 Below Low [...] mg/dl 0.2-1.3 Low Threshold (test code = 73646-6) eGFR (test code = 127 The eGFR [...] be multiplied by t he estimated BMI. [facility][QH] PROTEIN, TOTAL W/CREAT, RANDOM URINE 2017-11-20 11:32:01 Test Item Value Reference Range Interpretation Comments U Creatinine (test 67.30 mg/dl No establ ished code = U Creatinine) referen ce ranges. Urine Protein Level 12.0 mg/dl No estab lished (test code = 2888-6) referen ce ranges. U Prot/Creat (test 0.18 code = 2890-2) [facility][] GC/CT by Amp Det (APTIMA)2017-11-20 11:32:01 Test Item Value Reference Range Interpretation Comments Source APTIMA Urine (test code = Source APTIMA) N gonorrhea by Amp Negative Negative The APTIM A assay is a Det (APTIMA) (test target am plification code = 99330-8) nucleic acid probe test utilizingtarget capture for the qualitative detection and differentia tion of ribosomalRNA fr om Neisseria gonorrhoeae to aid in the diagnosis of di sease fromsymptomatic and asymptomatic in dividuals using the PANTH ER System.This ass ay utilizes FDA cleared IVD reagents. Performance liss racteristics havebeen verifi ed by the [facility] with in [facility].The SolveDirect Service Managementular Diagnostic Labo ratory is authorized unde r the Clinical LaboratoryImpro vement Amendments of 1 988 (CLIA-88) to pe rform high complexity test ing. C trachomatis by Negative Negative The APTIMA assay is a Amp Det (APTIMA) target ampl ification (test code = nucleic acid pr obe test 61533-7) utilizingtarget capture for the qualitative detection and differentia tion of ribosomalRNA fr om Chlamydia trachomatis to aid in the diagnosis of di sease fromsymptomatic and asymptomatic in dividuals using the Karmasphere ER System.This ass ay utilizes FDA cleared IVD reagents. Performance liss racteristics havebeen verifi ed by the [facility] with in [facility].The Superbly Diagnostic Labo ratory is authorized unde r the Clinical LaboratoryImpro vement Amendments of 1 988 (CLIA-88) to pe rform high complexity test ing. [facility][O] Urine Dipstick (In Office)2017-11-20 09:27:00 Test Item Value Reference Range Interpretation Comments LEUKOCYTES (test code = LEUKOCYTES) small A NITRITE; Normal (test code = 61533-8) neg N UROBILINOGEN; Normal (test code = 0.2 N 34461-2) PROTEIN; Normal (test code = 48740-5) neg N pH (test code = pH) 6.5 N URINE BLOOD; Normal (test code = neg N 15423-0) SPECIFIC GRAVITY; Normal (test code = 1.020 N 2965-2) KETONES; Normal (test code = 78166-8) neg N BILIRUBIN; Normal (test code = 07162-2) neg N GLUCOSE; Normal (test code = 1547-9) neg N [facility]] URINALYSIS, [id number] 16:46:01 Test Item Value Reference Range Interpretation Comments UA Turbidity (test code = 49012-0) Clear Clear UA Spec Grav (test code = 2965-2) 1.010 <=1.030 UA pH (test code = 2756-5) 6.0 5.0-8.0 UA Protein (test code = 52661-1) Negative Negative UA Glucose (test code = 2349-9) Negative Negative UA Ketones (test code = 92329-6) Negative Negative UA Bili (test code = 51970-7) Negative Negative UA Blood (test code = 798-9) Negative Negative UA Nitrite (test code = 52295-6) Negative Negative UA Leuk Est; Abnormal (test code = Moderate Negative A 92251-3) UA RBC (test code = 88371-6) 1 {/HPF} 0-2 UA WBC (test code = 71190-8) 1 {/HPF} 0-5 UA Bacteria (test code = 630-4) Occasional None Seen UA Mucus (test code = 80225-3) Few None Seen UA Sq Epi (test code = 85542-1) Occasional Few UA Color (test code = 25047-0) Ltyellow UROBILINOGEN (test code = 98794-4) <=1.0 0.1-1.0 [facility]] CULTURE, URINE, [id number] 16:46:01 Test Item Value Reference Range Interpretation Comments FINAL REPORT (test code <10,000 CFU/mL Skin = FINAL REPORT) Rad[facility]] HEPATIC FUNCTION [id number] 15:30:01 Test Item Value Reference Range Interpretation Comments HEPATIC FUNCTION PANEL Cancel Reason: (test code = HEPATIC Duplicate Order FUNCTION PANEL) [facility]] CBC (INCLUDES DIFF/PLT)2017-10-12 15:30:01 Test Item Value Reference Range Interpretation Comments WBC (test code = WBC) 7.6 {K/CMM} 3.7-10.4 RBC (test code = RBC) 4.39 {M/CMM} 4.20-5.40 Hgb (test code = 64331-9) 12.7 g/dl 12.0-16.0 Hct (test code = 4544-3) 38.5 % 36.0-48.0 MCV (test code = MCV) 87.9 fL 80.0-98.0 MCH (test code = MCH) 29.0 pg 27.0-31.0 MCHC (test code = MCHC) 33.0 g/dl 32.0-36.0 RDW (test code = RDW) 14.1 % 11.5-14.5 Platelet (test code = 777-3) 247 {K/CMM} 133-450 Mean Platelet Volume (test code 10.4 fL 7.4-10.4 = Mean Platelet Volume) [facility][H] Obstetrics Panel (includes CBCw/Diff,RPR, HbsAg,RubIgG,Type and Screen)2017-10-12 15:30:01 Test Item Value Reference Range Interpretation Comments Segs (test code = 60.2 % 45.0-75.0 35641-2) Monocytes # (test 0.6 {K/CMM} 0.0-0.8 code = 55893-9) Lymphocytes (test 28.1 % 20.0-40.0 code = Lymphocytes) Eosinophils (test 3.3 % 0.0-4.0 code = Eosinophils) Basophils (test code 0.3 % 0.0-1.0 = 68423-9) Segs-Bands # (test 4.7 {K/CMM} 1.5-8.1 code = 81850-1) Lymphocytes # (test 2.2 {K/CMM} 1.0-5.5 code = 87014-0) Eosinophils # (test 0.3 {K/CMM} 0.0-0.5 code = 80960-7) WBC (test code = 7.8 {K/CMM} 3.7-10.4 6690-2) RBC (test code = 4.50 {M/CMM} 4.20-5.40 789-8) Hgb (test code = 13.1 g/dl 12.0-16.0 717-9) Hct (test code = 39.7 % 36.0-48.0 03667-0) MCV (test code = 88.2 fL 80.0-98.0 787-2) MCH (test code = 29.0 pg 27.0-31.0 43745-5) MCHC (test code = 32.9 g/dl 32.0-36.0 786-4) RDW (test code = 13.7 % 11.5-14.5 788-0) Platelet (test code = 266 {K/CMM} 133-450 777-3) MPV; Above High 10.7 fL 7.4-10.4 Threshold (test code = 24261-9) Rubella IgG (test 129.8 {IU/ml} >=10.0 Reference Range: code = 49240-6) Immune >= 10 IU/mL Hep Bs Ag (test code Negative Negative = 5195-3) ABORH (test code = A NEG 882-1) AB Screen (test code Negative = 890-4) RPR (test code = Non Reactive Non Reactive 17975-7) [facility][H] HIV 4th Gen w/ [id number] 15:30:01 Test Item Value Reference Range Interpretation Comments HIV Ag/Ab 4th Gen (test code = HIV Negative Negative Ag/Ab 4th Gen) [facility]] BILIRUBIN, [id number] 15:30:01 Test Item Value Reference Range Interpretation Comments Bilirubin Direct (test code = 80958-4) <0.1 0.0-0.3 [facility]] CMP [id number] 15:30:01 Test Item Value Reference Range Interpretation [...] t the Lvl) clinical guidel inesof the [place] Diabet es Association. Creatinine Lvl 0.60 mg/dl 0.50-1.40 (test code = Creatinine Lvl) Blood Urea 8 mg/dl 7-22 Nitrogen (test code = Blood Urea Nitrogen) BUN/Creatinine 13 6-25 Ratio (test code = BUN/Creatinine Ratio) Total Protein 7.0 g/dl 6.4-8.4 (test code = 80347-7) Albumin Lvl (test 3.8 g/dl 3.5-5.0 code = 1751-7) Globulin (test 3.2 g/dl 2.7-4.2 code = Globulin) A/G Ratio (test 1.2 0.7-1.6 code = A/G Ratio) Calcium Level 8.7 mg/dl 8.5-10.5 Total (test code = Calcium Level Total) ALT (test code = 18 u/l 0-65 1742-6) AST (test code = 21 u/l 0-37 1916-6) Bili Total (test 0.4 mg/dl 0.2-1.3 code = 62556-4) Alk Phos (test 55 u/l 39-136 code [...] be multiplied by t he estimated BMI. [facility]] [id number] 15:30:01 Test Item Value Reference Range Interpretation Comments Lactate Dehydrogenase; Above High 249 u/l 98-192 Threshold (test code = 64081-4) [facility]] URIC [id number] 15:30:01 Test Item Value Reference Range Interpretation Comments Uric Acid (test code = 3086-6) 2.5 mg/dl 2.5-7.0 [facility]] VITAMIN [id number] 15:30:01 Test Item Value Reference Range Interpretation Comments Vitamin B12 Level (test code = 551 pg/ml 254-1320 Vitamin B12 Level) [facility]] URINALYSIS, [id number] 15:30:01 Test Item Value Reference Range Interpretation Comments UA Turbidity (test code = 72621-4) Clear Clear UA Spec Grav (test code = 2965-2) 1.004 <=1.030 UA pH (test code = 2756-5) 6.0 5.0-8.0 UA Protein (test code = 57788-0) Negative Negative UA Glucose (test code = 2349-9) Negative Negative UA Ketones (test code = 95865-8) Negative Negative UA Bili (test code = 63283-5) Negative Negative UA Blood; Abnormal (test code = Small Negative A 798-9) UA Nitrite (test code = 40252-1) Negative Negative UA Leuk Est; Abnormal (test code = Large Negative A 47776-3) UA RBC (test code = 62657-0) 1 {/HPF} 0-2 UA WBC (test code = 52302-2) 5 {/HPF} 0-5 UA Bacteria (test code = 630-4) Occasional None Seen UA Sq Epi (test code = 58819-6) Occasional Few UA Color (test code = 07516-8) Ltyellow UROBILINOGEN (test code = 36828-3) <=1.0 0.1-1.0 [facility][] PROTEIN, TOTAL W/CREAT, RANDOM URINE 2017-10-12 15:30:01 Test Item Value Reference Range Interpretation Comments U Creatinine (test 25.50 mg/dl No establ ished code = U Creatinine) referen ce ranges. Urine Protein Level <5.0 No estab lished (test code = 2888-6) referen ce ranges. U Prot/Creat (test <0.20 code = 2890-2) [facility][H] Hemoglobin Electrophoresis and Interpretation 2017-10-12 15:30:01 Test Item Value Reference Range Interpretation Comments Hgb A % (test code = Hgb 97.4 % 95.8-97.8 A %) Hgb A2 % (test code = 2.6 % 2.2-3.2 Hgb A2 %) Hgb F % (test code = 0.0 % 0.0-1.0 65464-2) Hgb S % (test code = Hgb 0.0 % 0.0-0.0 S %) Hgb C % (test code = Hgb 0.0 % 0.0-0.0 C %) Hemoglobin SEE NOTES No abnormal Electrophoresis hemoglobins are Interpretation (test detecte d; normal code = 02092-3) hemoglobin electrophoresis alma wagner.The electron ic medical record has been reviewed f or relevant histor y. I have personally reviewed the te st results and con cur with the resident'shama preta tion.CPT 08711-ANAooscry gonzalo Signature [facility] ale Mccullough MD 09/26 12:13 PM [facility][QLH] CULTURE, URINE, [id number] 15:30:01 Test Item Value Reference Range Interpretation Comments ORGANISM (test code = Enterococcus Species 699-9) FINAL REPORT (test 10,000 - 50,000 CFU/mL code = FINAL REPORT) Enterococcus Species [facility][H] [id number] 15:30:01 Test Item Value Reference Range Interpretation Comments ORGANISM (test code = Enterococcus 699-9) Species Ampicillin (test code - S = Ampicillin) Levofloxacin (test - S code = Levofloxacin) Nitrofurantoin (test - S code = Nitrofurantoin) Tetracycline (test - R code = Tetracycline) Vancomycin (test code SEE NOTES S S= Ingris ceptible, = Vancomycin) R= Resistant, I= Intermediate, N/A= Not Applicable [facility][H] Creatine [id number] 15:30:01 Test Item Value Reference Range Interpretation Comments Creatine Lvl 0.2 mg/dl 0.1-1.0 This test was d eveloped and its (test code = performance Creatine Lvl) characteristic sdetermined by [facility]. It has not been cleared orappro sheila by the Food and Drug Administration. Performed At: [facility] [address] [place], [place] [address]Dtmprp k Giorgio Hubbard MD Ph:[phone] [facility][H] Cystic Fibrosis [id number] 15:30:01 Test Item Value Reference Range Interpretation [...] a ca rrier of cysticfibrosis, please contact [facility] [phone] for a revised report.Mutation Detection Detection rates [...] 11/19 to 90%(non-Hispani c)-Americ an to 69% to 73% to 55%This interp retation is based on the cl inical and familyrelations hip information provided and th e currentundersta nding of the molecular libby ics of this condition.MUTAT IONS ANALYZED:G85E V520F L8618J 2183AA to GK230I G542X E7456N 4601lyfGW930N S549N 394delTT 2789+5G to KY886O S5 49R 621+1G to T 3120+1G to JA820D G551D 711+1G to T 8126cwhJP401K R553X 1078delT 3849+10kbC to XAwjlhU524 R5 60T 1717-1G to A 3876delA UsqscN131 H5626F 1898+1 G to A 3905insTMETHODS /LIMITATIONS:DNA is isolated fro m the sample and tested for the 32 CFmutations on the [employer] Array Platform ([employer]).Regio ns of the CFTR gene are amplif ied enzymatically a ndsubjected to a solution-phase multiplex allele-specific primer extension with subsequent hybridization to a beadarray and fluorescence detection. Leeroy ymorphisms F508C,I506V and I507V are included in thi s panel to rule outfalse positi ve gvkevN270 homozygotes. R eflex testing of5T is include d in the panel for R117H inter pretation.False positive or neg ative results may occur for r easonsthat include genetic variants, blood transfusions, b onemarrow transplantation , erroneous representation offamily relationships o r contamination of a samp lewith maternal cells.REFERENCE S:1. Updates on Carrier Screeni ng for Cystic Fibrosis. (2011 ) Am J Ob Gynecol 117(4): 1028-61428. Lane et al. (2004) Libby Med 6:387-913. Poncho nelson et al. (2002) Libby Me d 4:379-3914. Preconception a nd carrier screeni ng for cystic fibrosis: (2001 )ACOG.ACMG publicationResu lts Released By: Ap Walker , Ph.D. TechnicalDirect or Report Released By: To bob Walker, Ph.D.Enlisted Aircrew/Aerial Observer/Gunner CF Interp Comment The assay provi gilmer [...] procedure.Perfo rmed At: [facility] [address] [place] [address]Pepkowivanessa Tavares Aguilar MD Ph:[phone] rformed At: [facility] [id number] [facility], [place] [id number] anni Gordillo MD Ph:[phone] [facility][LH] TSH+Free [id number] 15:30:01 Test Item Value Reference Range Interpretation Comments TSH; Above High Threshold 6.660 {uIU/ml} 0.360-3.740 (test code = 85752-5) T4 Free (test code = T4 Free) 1.04 ng/dl 0.76-1.46 [facility][H] SMA [id number] 15:30:01 Test Item Value Reference Interpretation Comments [...] de novomutation s have been reported in frnany roximately 2% of SMApatien ts. SMA Carrier Note Carrier Frequen cy and Risk Detection Rate Reductions fo r Individuals (test code = SMA withNo Fami ly History of Carrier Detection SMA Rate) R educed Reduced Carrier Carrier Prior Risk for Risk for Detection Carrier 2 copy 3 copyE thnicity rate(1) Risk(1) result resul tCaucasian 94.8% 1:47 1:834 1:5,6 00Ashkenazi Cheondoism 90.5% 1:67 1:611 1:5, 400Asian 93.3% 1:59 1:806 1:5,600Hispanic 90.0% 1:68 1:579 1:5,400Afric an Lithuanian 70.5% 1:7 2 1:130 1:4,200Asia n [place] Citizen 90.2% 1: 52 1:443 1:5,4 00 SMA Note METHOD/LIMITATI ONS: Method/Limitations Specimen DNA is isolated (test code = SMA and amplifi edby real-time Method/Limitations) polymera se chain reaction (PCR) for exon 7 ofthe SMN1 gene and t he internal standard refere nce genes. Amathematical a lgorithm is used to calcula te and report LUL0gphw numbers of 0, 1, 2 and 3. [...] f afetal sample with mat ernal cells. [facility] References Note REFERENCES: 1 . Blake (test code = [facility] ELISABET, Javan N , Stephenie H, et References) al.Spring-ethnic c arrier screening and p renatal diagnosis forsp inal muscular atroph y: clinical laboratory anal ysis of>72,400 speci mens. Eur J Hum [place] 2012; 20:27-32. 2. Sandip et al. Technical stand ards and guidelines for spinalmuscular atrophy testing. [place] Med 2011; 13(7): 686-694. [facility] Disclaimer Note The test was developed and (test code = [facility] its perform ance Disclaimer) characteristics have been determined by 25eight.The laborat ory is regulated under the Clinical LaboratoryImpro vement Amendments of 1 988 (CLIA) as qualified to perform high complexity clinical testing. This t est must beused in conju nction with clinical assess ment, whenavailable. un[facility] is a b [facility] of[employer] , a wholly-ownedsub sidiary of Laboratory [employer] oration of [employer]. [facility] Electronically Comment Mya elias, Ph.D., Signed by (test FACMG,Perfor med At: [facility] code = [facility] Signed by) Alai [place], [place] [id number] o Bernice PhD Ph:[phone] [facility][H] [facility] [id number] 15:29:01 Test Item Value Reference Range Interpretation Comments [facility] (test COMMENT Test Orde red: 796696 code = [facility]) 25-Hydr oxyvitamin D LCMS D2+X125-Ohwheid , Vitamin D 17 [L ] ng/mL ESRe ference Range:All Ages: Target levels 30 - 93049-Avgnaud, Vitamin D-2 7.5 ng/mL ES25 -Hydroxy, Vitamin D-3 9.6 ng/mL ESPerformed At: [facility] [place], [place] [id number] k Giorgio Hubbard MD Ph:[phone] rformed At: [facility] [address] [place], [place] [id number] tanya Aguilar MD Ph:[phone] [facility]
[2022-01-08 12:55] LABS: Urine Blood Trace-intact (Negative); Urine Glucose Negative (Negative); Urine Protein Negative (Negative); Urine Specific Gravity 1.015 (1.005-1.030); Urine pH 7.5 (5.0-7.0)
[2022-01-08 13:35] LABS: Absolute Lymphocytes (CBC) 1.7 K/uL (0.7-4.9); Hematocrit 38.7 % (36.0-45.0); Lymphocytes % 23.1 % (15.3-44.8); MPV 9.6 fL (7.6-11.3); RBC Red Blood Cell Count 4.24 M/uL (3.86-4.86)
[2022-01-08 13:53] LABS: Potassium 3.3 mmol/L (3.5-5.1)
--- NOTE | 2022-01-08 14:42 | RAD REPORT ---
EXAM DESCRIPTION: US - Transvaginal Study Probe - 01/08/2022 2:28 pm CLINICAL HISTORY: Pelvic pain COMPARISON: 2017 FINDINGS: The uterus measures 7 x 4 x 5 centimeters. . A fibroid is not seen. Endometrial stripe ivrgilio sures 1 centimeter The ovaries are normal in size and echotexture. Normal blood flow. The right left at adnexa are unremarkable. Small amount of free fluid IMPRESSION: Small amount of free fluid is nonspecific
--- NOTE | 2022-01-08 15:32 | ER ---
Nurse's Notes [facility] Name: Elizabeth Pascal Age: 31 yrs Sex: Female : 1990 Arrival Date: 01/08/2022 Time: 12:26 Bed 20 Private MD: Diagnosis: pelvic pain;UTI/ Urinary tract infection, site not specified;Hypokalemia Presentation: 01/08 12:39 Chief complaint: Patient states: "eight days ago I started having vaginal pain and ag7 bleeding that started 01/05". Coronavirus screen: Client denies travel out of the [place] in the last 14 days. At this time, the client does not indicate any symptoms associated with coronavirus-19. Ebola Screen: No symptoms or risks identified at this time. Initial Sepsis Screen: Does the patient meet any 2 criteria? No. Patient's initial sepsis screen is negative. Does the patient have a suspected source of infection? No. Patient's initial sepsis screen is negative. Risk Assessment: Do you want to hurt yourself or someone else? Patient reports no desire to harm self or others. Onset of symptoms was December 31, 2021. 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 Flu vaccine is up to date. - Social history:: Smoking status: Patient reports the use of cigarette tobacco products, smokes one-half pack cigarettes per day. Screenin:19 Abuse screen: Denies threats or abuse. Denies injuries from another. Nutritional ww screening: No deficits noted. Tuberculosis screening: No symptoms or risk factors identified. Fall Risk None identified. Assessment: 13:19 General: Appears in no apparent distress. Behavior is calm, cooperative. Pain: ww Complains of pain in vaginal opening. Neuro: Level of Consciousness is awake, alert, obeys commands, Oriented to person, place, time, situation, Moves all extremities. Gait is steady, Speech is normal. Cardiovascular: Capillary refill < 3 seconds Patient's skin is warm and dry. Respiratory: Airway is patent Respiratory effort is even, unlabored, Respiratory pattern is regular, symmetrical. GI: No signs and/or symptoms were reported involving the gastrointestinal system. Abdomen is non-distended, Abdomen is tender to palpation in suprapubic area. : Urine is clear, Reports vaginal bleeding that is spotty, vaginal pain. EENT: No signs and/or symptoms were reported regarding the EENT system. Derm: No signs and/or symptoms reported regarding the dermatologic system. Skin is intact, is healthy with good turgor, Skin is pink, warm \\T\\ dry. 14:20 Reassessment: Patient in ultrasound.. ww Vital Signs: 12:39 BP 120 / 82; Pulse 81; Resp 20 S; Temp 99.2(O); Pulse Ox 100% on R/A; Height 5 ft. 2 ag7 in. (157.48 cm) (R); Pain 7/10; 13:15 BP 112 / 75; Pulse 74; Resp 18; Pulse Ox 100% on R/A; ww 15:49 BP 113 / 72; Pulse 71; Resp 18; Pulse Ox 99% on R/A; lr4 ED Course: 12:26 Patient arrived in ED. mr 12:30 Jean Sheets DO is Attending Physician. ms3 12:42 Venice Dewey, RN is Primary Nurse. ww 12:43 Triage completed. ag7 12:44 Arm band placed on left wrist. ag7 12:56 Urine --Ancillary (enter results) Sent. ww 13:19 Patient has correct armband on for positive identification. Placed in gown. Bed in low ww position. Call light in reach. Side rails up X 1. Adult w/ patient. Pulse ox on. NIBP on. 13:19 Inserted saline lock: 20 gauge in right antecubital area, using aseptic technique. ww Blood collected. 13:19 Assist provider with pelvic exam: Set up pelvic tray. Performed by Jean Sheets DO ww Patient tolerated well. 14:27 Transvaginal Study Probe In Process Unspecified. EDMS 15:30 Hamlet Rodriguez MD is Referral Physician. ms3 15:49 IV discontinued, intact, bleeding controlled, No redness/swelling at site. Pressure lr4 dressing applied. Administered Medications: No medications were administered Outcome: 15:31 Discharge ordered by . ms3 15:48 Discharged to home ambulatory. lr4 15:48 Condition: good 15:48 Discharge instructions given to patient. 15:52 Patient left the ED. lr4 Signatures: Dispatcher [employer] EDFL Margarette Terry KortneyJean, DO DO ms3 Venice Dewey, RN RN ww Cassie Haines RN RN lr4 Nikole Bay, NO RN ag7
--- NOTE | 2022-01-08 15:32 | EDPHYS ---
Physician Documentation [facility] Name: Elizabeth Pascal Age: 31 yrs Sex: Female : 1990 Arrival Date: 01/08/2022 Time: 12:26 Bed 20 Private MD: ED Physician Jean Sheets HPI: 01/08 12:37 This 31 yrs old Female presents to ER via Unassigned with complaints of ms3 Vaginal Bleeding, Vaginal Pain. 12:37 The patient presents with vaginal bleeding that is spotting. Onset: The ms3 symptoms/episode began/occurred 8 day(s) ago. Modifying factors: The symptoms are alleviated by elevating her feet, the symptoms are aggravated by sitting. Associated signs and symptoms: Pertinent negatives: nausea, vaginal discharge, vomiting. Severity of symptoms: At their worst the symptoms were moderate, in the emergency department the symptoms are unchanged. 11-year-old female with past medical history of seizures and hypothyroid presents for vaginal pain and spotting patient states vaginal pain began 8 days prior to arrival and she noticed spotting on Thursday. Patient states her vaginal pain is a 7/10 and described as sharp. Patient states the pain is better when putting her feet up. Patient states the pain is worse when sitting. Patient denies fevers, chills, dysuria.. 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 Flu vaccine is up to date. - Social history:: Smoking status: Patient reports the use of cigarette tobacco products, smokes one-half pack cigarettes per day. ROS: 12:37 Constitutional: Negative for fever, and chills. Eyes: Negative for injury, pain, ms3 redness, and discharge, ENT: Negative for injury, pain, and discharge, Neck: Negative for injury, pain, and swelling, Cardiovascular: Negative for chest pain, and palpitations. Respiratory: Negative for shortness of breath, cough, wheezing, and pleuritic chest pain, Abdomen/GI: Negative for abdominal pain, nausea, vomiting, diarrhea, and constipation, Back: Negative for injury and pain, MS/Extremity: Negative for injury and deformity, Skin: Negative for injury, rash, and discoloration, Neuro: Negative for headache, weakness, numbness, tingling. 12:37 : Positive for pelvic pain, vaginal bleeding, Negative for urinary symptoms, urinary frequency, hematuria, difficulty urinating, bladder incontinence, foul smelling urine. Exam: 12:37 Constitutional: This is a well developed, well nourished patient who is awake, alert, ms3 and in no acute distress. Head/Face: Normocephalic, atraumatic. Eyes: Pupils equal round and reactive to light, extra-ocular motions intact. Lids and lashes normal. Conjunctiva and sclera are non-icteric and not injected. Periorbital areas with no swelling, redness, or edema. Neck: Trachea midline, no cervical lymphadenopathy. Supple, full range of motion without nuchal rigidity, or vertebral point tenderness. No Meningismus. Chest/axilla: Normal chest wall appearance and motion. Nontender with no deformity. Cardiovascular: Regular rate and rhythm with a normal S1 and S2. No gallops, murmurs, or rubs. Normal PMI, no JVD. No pulse deficits. Respiratory: Lungs have equal breath sounds bilaterally, clear to auscultation and percussion. No rales, rhonchi or wheezes noted. No increased work of breathing, no retractions or nasal flaring. Abdomen/GI: Soft, non-tender, with normal bowel sounds. No distension or tympany. No guarding or rebound. No evidence of tenderness throughout. Skin: Warm, dry with normal turgor. Normal color with no rashes, no lesions, and no evidence of cellulitis. MS/ Extremity: Pulses equal, no cyanosis. Neurovascular intact. Full, normal range of motion. Neuro: Awake and alert, GCS 15, oriented to person, place, time, and situation. Cranial nerves II-XII grossly intact. Motor strength 5/5 in all extremities. Sensory grossly intact. Cerebellar exam normal. Normal gait. Vital Signs: 12:39 BP 120 / 82; Pulse 81; Resp 20 S; Temp 99.2(O); Pulse Ox 100% on R/A; Height 5 ft. 2 ag7 in. (157.48 cm) (R); Pain 7/10; 13:15 BP 112 / 75; Pulse 74; Resp 18; Pulse Ox 100% on R/A; ww 15:49 BP 113 / 72; Pulse 71; Resp 18; Pulse Ox 99% on R/A; lr4 MDM: 13:03 Patient medically screened. ms3 15:32 Differential diagnosis: ovarian cyst, urinary tract infection, Ovarian torsion. Data ms3 reviewed: vital signs, nurses notes, lab test result(s), radiologic studies. Counseling: I had a detailed discussion with the patient and/or guardian regarding: the historical points, exam findings, and any diagnostic results supporting the discharge/admit diagnosis, lab results, radiology results, the need for outpatient follow up, to return to the emergency department if symptoms worsen or persist or if there are any questions or concerns that arise at home. ED course: Discussed labs, ultrasound, physical exam findings with patient. Patient to follow-up with Dr. Rodriguez in 2 to 3 days. Patient understands and agrees with plan. All questions were answered. Return precautions discussed include worsening symptoms, or any other concerns. On reevaluation patient is improved, no apparent distress, nontoxic, ambulatory in emergency department. Patient given prescription for Macrobid.. 01/08 12:55 Order name: Urine Dipstick-Ancillary; Complete Time: 15:28 EDMA 01/08 12:55 Order name: Urine --Ancillary (enter results) bd 01/08 12:56 Order name: Urine --Ancillary [facility] 01/08 13:06 Order name: Basic Metabolic Panel; Complete Time: 15:28 wa3 01/08 13:06 Order name: CBC with Diff; Complete Time: 15:28 wa3 01/08 12:37 Order name: Urine Test (obtain specimen); Complete Time: 12:56 wa3 01/08 12:37 Order name: Urine Dipstick-Ancillary (obtain specimen); Complete Time: 12:56 wa3 01/08 13:06 Order name: IV Saline Lock; Complete Time: 13:23 wa3 01/08 13:06 Order name: Labs collected and sent; Complete Time: 13:23 ms3 01/08 13:06 Order name: NPO; Complete Time: 13:23 ms3 01/08 13:38 Order name: Transvaginal Study Probe; Complete Time: 15:28 EDMS Administered Medications: No medications were administered Disposition Summary: 01/08/22 15:31 Discharge Ordered Location: Home ms3 Condition: Stable ms3 Diagnosis - pelvic pain ms3 - UTI/ Urinary tract infection, site not specified ms3 - Hypokalemia ms3 Followup: ms3 - With: Hamlet Rodriguez MD - When: 2 - 3 days - Reason: Discharge Instructions: - Discharge Summary Sheet ms3 - Pelvic Pain, Female ms3 - Urinary Tract Infection, Adult ms3 Forms: - Medication Reconciliation Form ms3 - Thank You Letter ms3 - Antibiotic Education ms3 - Prescription Opioid Use ms3 Prescriptions: - Macrobid 100 mg Oral Capsule - take 1 capsule by ORAL route every 12 hours for 7 days; 14 capsule; Refills: 0, ms3 Product Selection Permitted Signatures: Dispatcher [employer] EDMS Jean Sheets DO DO ms3 Nikole Bay, RN RN ag7 Corrections: (The following items were deleted from the chart) 13:38 13:07 Pelvis Complete+[email or web address].THU ordered. EDMS EDMS
[2022-01-08 15:59] VITALS: TEMP 99.2
[2022-01-08 16:01] VITALS: BP 113/72; O2SAT 99
[2022-01-08 17:58] LABS: Urine Specific Gravity/Preg 1.015 (1.005-1.030)
== END 2022-01-08 15:52 | disposition home or self-care (01) ==
LOC: ER 12:23
DX: N93.8 Other specified abnormal uterine and vaginal bleeding (principal); E03.9 Hypothyroidism, unspecified; R10.2 Pelvic and perineal pain; N39.0 Urinary tract infection, site not specified; E87.6 Hypokalemia; Z88.1 Allergy status to other antibiotic agents; Z88.0 Allergy status to penicillin
CPT/HCPCS: 36415; 76830; 80048; 81003; 81025; 85025; 99284

== ENCOUNTER 2025-01-20 01:18 | Emergency (ER) | payer SELFPAY ==
[2025-01-20] MEDS ORDERED: DIPHENHYDRAMINE 50 MG/ML VIAL ONE (02:06)
[2025-01-20] MEDS ORDERED: METOCLOPRAMIDE 10 MG/2mL INJ ONE (02:06)
[2025-01-20] MEDS ORDERED: dexAMETHasone 10 MG/ML VIAL ONE (02:06)
[2025-01-20] MEDS ORDERED: NA CHLORIDE 0.9% 1,000 ML ONE (02:07)
[2025-01-20 02:20] LABS: Absolute Eosinophils 0.9 K/uL (0-0.5); Absolute Lymphocytes (CBC) 3.6 K/uL (0.7-4.9); Absolute Monocytes 0.7 K/uL (0.1-1.3); Absolute Neutrophil 4.8 K/uL (1.8-8.0); Basophils % 0.5 % (0-1.3); Hematocrit 35.3 % (36.0-45.0); Hemoglobin 11.6 g/dL (12.0-15.0); MCH 27.1 pg (27.0-35.0); MCHC 32.7 g/dL (32.0-36.0); MCV 82.7 fL (80-100); MPV 9.3 fL (7.6-11.3); Monocytes % 7.3 % (3.3-12.3); Neutrophils % 47.2 % (41.7-73.7); Platelets 326 thou/uL (152-406); RBC Red Blood Cell Count 4.27 M/uL (3.86-4.86); Red Cell Distribution Width 18.8 % (12.1-15.2)
[2025-01-20 02:30] LABS: PT Prothrombin Time 10.4 SECONDS (10-13.0); PTT, Activated Partial Thromb 30.2 SECONDS (27.2-37.4); Protime INR 0.91
[2025-01-20 02:44] LABS: ALT/SGPT 34 U/L (13-56); AST/SGOT 18 U/L (15-37); Albumin 3.3 g/dL (3.4-5.0); Alkaline Phosphatase 89 U/L (45-117); Anion Gap 10.7 mEq/L (5.0-15.0); BUN Blood Urea Nitrogen 17 mg/dL (7-18); Bicarbonate 22 mEq/L (21-32); Bilirubin Total 0.2 mg/dL (0.2-1.0); Globulin 3.3 g/dL (2.3-3.5); Glomerular Filtration Rate 110 ml/min (=/>90); Glucose Level 81 mg/dL (74-106); Potassium 3.7 mEq/L (3.5-5.1); Protein, Total 6.6 g/dL (6.4-8.2); Sodium Level 139 mEq/L (136-145)
[2025-01-20 02:53] LABS: Bilirubin Direct < 0.2 mg/dL (0-0.2)
--- NOTE | 2025-01-20 03:34 | ER ---
Nurse's Notes [facility] Name: Elizabeth Pascal Age: 34 yrs Sex: Female : 1990 Arrival Date: 01/20/2025 Time: 01:18 Bed 7 Private MD: Diagnosis: Other seizures;Headache Presentation: 01/20 01:39 Chief complaint: Patient states: recent seizure medication change with recurrent lg3 seizure activity since thursday. Coronavirus screen: Client denies travel out of the [place] in the last 14 days. At this time, the client does not indicate any symptoms associated with coronavirus-19. Ebola Screen: No symptoms or risks identified at this time. Initial Sepsis Screen: Does the patient meet any 2 criteria? No. Patient's initial sepsis screen is negative. Does the patient have a suspected source of infection? No. Patient's initial sepsis screen is negative. Risk Assessment: Do you want to hurt yourself or someone else? Patient reports no desire to harm self or others. Onset of symptoms is unknown. 01:39 Method Of Arrival: Wheelchair lg3 01:39 Acuity: DEBRA 3 lg3 Triage Assessment: 01:41 General: Appears in no apparent distress. comfortable, Behavior is calm, cooperative. lg3 Pain: Complains of pain in head. EENT: No deficits noted. No signs and/or symptoms were reported regarding the EENT system. Neuro: No deficits noted. [place] Agitation-Sedation Scale (RASS): 0 - Alert and Calm Level of Consciousness is awake, alert, obeys commands, Oriented to person, place, time, situation, Reports headache. Cardiovascular: No deficits noted. Denies chest pain, shortness of breath, Capillary refill < 3 seconds Clubbing of nail beds is absent JVD is absent Patient's skin is warm and dry. Respiratory: No deficits noted. Airway is patent Respiratory effort is even, unlabored, Respiratory pattern is regular, symmetrical, Breath sounds are clear bilaterally. GI: No deficits noted. No signs and/or symptoms were reported involving the gastrointestinal system. : No signs and/or symptoms were reported regarding the genitourinary system. Derm: No deficits noted. No signs and/or symptoms reported regarding the dermatologic system. Skin is intact, is healthy with good turgor, Skin is dry, Skin is normal, Skin temperature is warm. Musculoskeletal: No deficits noted. No signs and/or symptoms reported regarding the musculoskeletal system. Circulation, motion, and sensation intact. Range of motion: intact in all extremities. 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 lg3 Historical: - Allergies: 01:41 Amoxicillin; lg3 01:41 Bactrim; lg3 01:41 Cipro; lg3 01:41 Gentamicin; lg3 01:41 Levofloxacin; lg3 01:41 PENICILLINS; lg3 01:41 Sulfa (Sulfonamide Antibiotics); lg3 - Home Meds: 01:41 Topamax 250 MG Oral tab 1 cap 2 times per day [Active]; aspirin 325 mg oral tablet lg3 daily [Active]; levothyroxine 112 mcg oral tablet [Active]; tizanidine 2 mg oral tablet every 6 hours [Active]; Ferrous Sulfate Oral [Active]; aripiprazole 2 mg oral tablet [Active]; Spironolactone Oral [Active]; clonazepam 0.5 mg Oral tablet 2 times per day [Active]; Fluoxetine 80 mg Oral 2 caps every evening [Active]; Ambien 10 mg oral tablet every day at bedtime [Active]; - PMHx: 01:41 Hypothyroidism; Myocardial infarction; pulmonary fibrosis; Seizures; urethral stricture;lg3 - PSHx: 01:41 Appendectomy; section; Cholecystectomy; lg3 - Immunization history:: Adult Immunizations up to date. - Infectious Disease History:: Denies. - Social history:: Smoking status: Patient reports the use of cigarette tobacco products, smokes one-half pack cigarettes per day, Patient/guardian denies using alcohol, street drugs. Screenin:39 [facility] ED Fall Risk Assessment (Adult) History of falling in the last 3 months, bm8 including since admission Yes- physiologic fall (2 pts) Confusion or Disorientation No (0 pts) Intoxicated or Sedated No (0 pts) Impaired Gait Yes (1 pt) Mobility Assist Device Used Yes (1 pt) Altered Elimination No (0 pt) Score/Fall Risk Level 3 or more points = High Risk Oriented to surroundings, Maintained a safe environment, Educated pt \T\ family on fall prevention, incl call for assistance when getting out of bed, Assessed \T\ reinforced patient's understanding of fall precautions, Hourly rounding (assess needs \T\ fall precautionary measures) done, Used ambulatory aids as needed (educated on \T\ assisted with), Used gait belt as appropriate Implemented a Fall Risk Plan of Care. Abuse screen: Denies threats or abuse. Nutritional screening: No deficits noted. Tuberculosis screening: No symptoms or risk factors identified. Assessment: 01:49 General: see triage assessment. lg3 02:31 Reassessment: Patient appears in no apparent distress at this time. Patient and/or bm8 family updated on plan of care and expected duration. Pain level reassessed. Patient is alert, oriented x 3, equal unlabored respirations, skin warm/dry/pink. Patient states feeling better. Patient states symptoms have improved. 03:43 Reassessment: Patient appears in no apparent distress at this time. Patient and/or lg3 family updated on plan of care and expected duration. Pain level reassessed. Patient is alert, oriented x 3, equal unlabored respirations, skin warm/dry/pink. Patient states feeling better. Patient states symptoms have improved. Vital Signs: 01:39 BP 119 / 82; Pulse 87; Resp 16 S; Temp 97.8(O); Pulse Ox 100% on R/A; Weight 90.72 kg lg3 (R); Height 5 ft. 6 in. (R); 02:31 BP 94 / 73; Pulse 75; Resp 18; Temp 97.8; Pulse Ox 100% ; Pain 5/10; bm8 03:43 BP 117 / 86; Pulse 59; Resp 17 S; Pulse Ox 100% on R/A; lg3 01:39 Body Mass Index 32.28 (90.72 kg, 167.64 cm) lg3 02:31 Pain Scale: Adult bm8 [place] Coma Score: 01:39 Eye Response: spontaneous(4). Motor Response: obeys commands(6). Verbal Response: bm8 oriented(5). Total: 15. 01:41 Eye Response: spontaneous(4). Motor Response: obeys commands(6). Verbal Response: lg3 oriented(5). Total: 15. 02:31 Eye Response: spontaneous(4). Motor Response: obeys commands(6). Verbal Response: bm8 oriented(5). Total: 15. ED Course: 01:22 Patient arrived in ED. jj6 01:24 Vadim Bravo PA is PHCP. cp 01:24 Vadim Quinones MD is Attending Physician. cp 01:27 Blake Hernandez, RN is Primary Nurse. bm8 01:39 Patient has correct armband on for positive identification. Placed in gown. Bed in low bm8 position. Call light in reach. Side rails up X2. Adult w/ patient. Seizure precautions initiated. Client placed on continuous cardiac and pulse oximetry monitoring. NIBP monitoring applied. senior quantity surveyor on. Pulse ox on. NIBP on. Door closed. Noise minimized. Warm blanket given. Pillow given. Verbal reassurance given. Head of bed elevated. 01:39 No provider procedures requiring assistance completed. Initial lab(s) drawn, by va, bm8 sent to lab. Inserted saline lock: 20 gauge in right antecubital area, using aseptic technique. Blood collected. Flushed with 10 mL NS. Patient maintains SpO2 saturation greater than 95% on room air. 01:41 Triage completed. lg3 01:41 Arm band placed on. lg3 01:49 Family accompanied patient. lg3 02:58 CT Head Brain wo Cont In Process Unspecified. EDMS 03:23 Test, Urine Sent. oe 03:23 Urinalysis w/ reflexes Sent. oe 03:23 Urine Drug Screen Sent. oe 03:33 Omega Joel MD is Referral Physician. liss 04:02 IV discontinued, intact, bleeding controlled, No redness/swelling at site. Pressure lg3 dressing applied. Administered Medications: 02:10 Drug: Dexamethasone IVP 10 mg IVP once; (not to exceed 40 mg) Route: IVP; Site: right bm8 antecubital; 02:32 Follow up: Response: No adverse reaction bm8 02:10 Drug: diphenhydrAMINE IVP 25 mg IVP once Route: IVP; Site: right antecubital; bm8 02:32 Follow up: Response: No adverse reaction bm8 02:11 Drug: NS 0.9% IV 1000 ml IV at 1 bolus Per protocol; to be given as a bolus over 60 bm8 minutes Route: IV; Rate: 1 bolus; Site: right antecubital; 02:32 Follow up: Response: No adverse reaction; IV Status: Completed infusion bm8 02:11 Drug: metoCLOPramide IVP 10 mg IVP once; over 1 to 2 minutes Route: IVP; Site: right bm8 antecubital; 02:32 Follow up: Response: No adverse reaction bm8 03:43 Drug: Ketorolac IVP 30 mg IVP once Route: IVP; Site: right antecubital; bm8 03:48 Follow up: Response: No adverse reaction lg3 03:48 Drug: Valproic Acid PO 500 mg PO once Route: PO; lg3 03:48 Follow up: Response: No adverse reaction lg3 03:59 Drug: HYDROcodone-acetaminophen PO 5 mg-325 mg 1 tabs PO once Route: PO; lg3 04:02 Follow up: Response: No adverse reaction lg3 Medication: 01:39 VIS not applicable for this client. bm8 Outcome: 03:33 Discharge ordered by . liss 04:02 Discharged to home ambulatory, with family, lg3 04:02 Condition: stable 04:02 Discharge instructions given to patient, Instructed on discharge instructions, follow up and referral plans. medication usage, Demonstrated understanding of instructions, follow-up care, medications, Prescriptions given X 1, 04:03 Patient left the ED. lg3 Signatures: Dispatcher [employer] EDMS Vadim Quinones MD MD cha Page, Corey, KELI PA Nic Hensley Lacie RN RN lg3 Gail Dugan Brad, RN RN bm8 Corrections: (The following items were deleted from the chart) 01:39 01:39 General: Appears in no apparent distress. comfortable, Behavior is calm, bm8 cooperative, appropriate for age, bm8 01:39 01:39 Pain: bm8 bm8
--- NOTE | 2025-01-20 03:34 | EDPHYS ---
Physician Documentation [facility] Name: Elizabeth Pascal Age: 34 yrs Sex: Female : 1990 Arrival Date: 01/20/2025 Time: 01:18 Bed 7 Private MD: Vadim Gee HPI: 01/20 02:05 This 34 yrs old Female presents to ER via Wheelchair with complaints of cp Seizure, Dizziness, Blurred Vision, Right sided head pain. 02:05 The patient presents with a history of multiple seizures, an unknown number, more cp frequent for past 2 days. 02:05 Character of seizure(s): Motor activity: generalized, shaking all over, blank stare. cp Seizure Hx: Seizure medications: topiramate, known seizure disorder. Associated injury: Head/face: right side head pain. Current symptoms: headache, that is moderate, dizziness, blurry vision. 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, unknown lg3 Historical: - Allergies: 01:41 Amoxicillin; lg3 01:41 Bactrim; lg3 01:41 Cipro; lg3 01:41 Gentamicin; lg3 01:41 Levofloxacin; lg3 01:41 PENICILLINS; lg3 01:41 Sulfa (Sulfonamide Antibiotics); lg3 - Home Meds: 01:41 Topamax 250 MG Oral tab 1 cap 2 times per day [Active]; aspirin 325 mg oral tablet lg3 daily [Active]; levothyroxine 112 mcg oral tablet [Active]; tizanidine 2 mg oral tablet every 6 hours [Active]; Ferrous Sulfate Oral [Active]; aripiprazole 2 mg oral tablet [Active]; Spironolactone Oral [Active]; clonazepam 0.5 mg Oral tablet 2 times per day [Active]; Fluoxetine 80 mg Oral 2 caps every evening [Active]; Ambien 10 mg oral tablet every day at bedtime [Active]; - PMHx: 01:41 Hypothyroidism; Myocardial infarction; pulmonary fibrosis; Seizures; urethral stricture;lg3 - PSHx: 01:41 Appendectomy; section; Cholecystectomy; lg3 - Immunization history:: Adult Immunizations up to date. - Infectious Disease History:: Denies. - Social history:: Smoking status: Patient reports the use of cigarette tobacco products, smokes one-half pack cigarettes per day, Patient/guardian denies using alcohol, street drugs. ROS: 02:10 Constitutional: Negative for body aches, chills, fever, poor PO intake, cp 02:10 Cardiovascular: Negative for chest pain, edema, palpitations, cp 02:10 Respiratory: Negative for cough, shortness of breath, wheezing, 02:10 Abdomen/GI: Negative for abdominal pain, vomiting, diarrhea, constipation, 02:10 Eyes: Positive for blurry vision, Negative for pain, vision loss, cp 02:10 ENT: Negative for drainage from ear(s), ear pain, sore throat, difficulty swallowing, cp difficulty handling secretions, 02:10 Neuro: Positive for dizziness, headache, Negative for altered mental status, speech changes, weakness, active seizure activity, 02:10 All other systems are negative, Exam: 01:40 ECG was reviewed by the Attending Physician. cp 02:15 Constitutional: The patient appears in no acute distress, alert, awake, non-toxic, well cp developed, well nourished, 02:15 Head/Face: Normocephalic, atraumatic. cp 02:15 Eyes: Pupils: equal, round, and reactive to light and accomodation, Extraocular movements: intact throughout, Conjunctiva: normal, no exudate, no injection, Sclera: no appreciated abnormality, Lids and lashes: appear normal, bilaterally, 02:15 ENT: External ear(s): are unremarkable, Nose: is normal, Mouth: Lips: moist, Oral mucosa: moist, Posterior pharynx: Airway: no evidence of obstruction, patent, 02:15 Neck: ROM/movement: is normal, is supple, without pain, no range of motions limitations, no meningismus, no nuchal rigidity, 02:15 Chest/axilla: Inspection: normal, 02:15 Cardiovascular: Rate: normal, Rhythm: regular, 02:15 Respiratory: the patient does not display signs of respiratory distress, Respirations: normal, no use of accessory muscles, no retractions, labored breathing, is not present, Breath sounds: are clear throughout, no decreased breath sounds, 02:15 Abdomen/GI: Exam negative for discomfort, distension, guarding, Inspection: abdomen appears normal, 02:15 Neuro: Orientation: to person, place \T\ time. Mentation: is normal, Cerebellar function: Romberg testing is negative, Motor: moves all fours, strength is normal, Sensation: no obvious gross deficits, Vital Signs: 01:39 BP 119 / 82; Pulse 87; Resp 16 S; Temp 97.8(O); Pulse Ox 100% on R/A; Weight 90.72 kg lg3 (R); Height 5 ft. 6 in. (R); 02:31 BP 94 / 73; Pulse 75; Resp 18; Temp 97.8; Pulse Ox 100% ; Pain 5/10; bm8 03:43 BP 117 / 86; Pulse 59; Resp 17 S; Pulse Ox 100% on R/A; lg3 01:39 Body Mass Index 32.28 (90.72 kg, 167.64 cm) lg3 02:31 Pain Scale: Adult bm8 Dorys Coma Score: 01:39 Eye Response: spontaneous(4). Motor Response: obeys commands(6). Verbal Response: bm8 oriented(5). Total: 15. 01:41 Eye Response: spontaneous(4). Motor Response: obeys commands(6). Verbal Response: lg3 oriented(5). Total: 15. 02:31 Eye Response: spontaneous(4). Motor Response: obeys commands(6). Verbal Response: bm8 oriented(5). Total: 15. MDM: 01:24 Medical Screening Exam initiated cp 03:31 Differential diagnosis: cerebral vascular accident, drug overdose, cardiac arrhythmia, liss seizure. Data reviewed: vital signs, nurses notes, lab test result(s), EKG, radiologic studies. Consideration of Admission/Observation Escalation of care including admission/observation considered. I considered the following discharge prescriptions or medication management in the emergency department Medications were administered in the Emergency Department. See MAR. Independent interpretation of the following test(s) in the Emergency Department EKG: See my EKG interpretation above. Test considered but Not performed: MRI: no mri brain. Care significantly affected by the following chronic conditions: Obesity, hypothyroid, mi, pulmonary fibrosis. 01/20 02:04 Order name: Acetaminophen; Complete Time: 03:05 cp 01/20 02:04 Order name: Basic Metabolic Panel; Complete Time: 03:05 cp 01/20 03:05 Interpretation: Normal except: CL 110. cp 01/20 02:04 Order name: CBC with Diff; Complete Time: 03:05 cp 01/20 03:05 Interpretation: Normal except: HGB 11.6; HCT 35.3; RDW 18.8; EOSINOPHIL % 9.0; EOSA 0.9.cp 01/20 02:04 Order name: ETOH Level; Complete Time: 03:05 cp 01/20 02:04 Order name: Hepatic Function; Complete Time: 03:05 cp 01/20 02:04 Order name: PT-INR; Complete Time: 03:05 cp 01/20 02:04 Order name: Test, Urine cp 01/20 02:04 Order name: Ptt, Activated; Complete Time: 03:05 cp 01/20 02:04 Order name: Salicylate; Complete Time: 03:05 cp 01/20 02:04 Order name: Urinalysis w/ reflexes cp 01/20 02:04 Order name: Urine Drug Screen cp 01/20 02:49 Order name: Test Serum, [place]; Complete Time: 03:05 EDMS 01/20 02:04 Order name: CT Head Brain wo Cont cp 01/20 02:04 Order name: EKG; Complete Time: 02:05 cp 01/20 02:04 Order name: EKG - Nurse/Tech; Complete Time: 02:04 cp 01/20 02:04 Order name: IV Saline Lock; Complete Time: 02:04 cp 01/20 02:04 Order name: Labs collected and sent; Complete Time: 02:04 cp 01/20 02:04 Order name: Suicide Screening ([place]); Complete Time: 02:04 cp EC:40 Rate is 70 beats/min. Rhythm is regular. HI interval is normal. QRS interval is normal. cp QT interval is normal. T waves are Inverted in lead aVR. Interpreted by me. Reviewed by me. Administered Medications: 02:10 Drug: Dexamethasone IVP 10 mg IVP once; (not to exceed 40 mg) Route: IVP; Site: right bm8 antecubital; 02:32 Follow up: Response: No adverse reaction bm8 02:10 Drug: diphenhydrAMINE IVP 25 mg IVP once Route: IVP; Site: right antecubital; bm8 02:32 Follow up: Response: No adverse reaction bm8 02:11 Drug: NS 0.9% IV 1000 ml IV at 1 bolus Per protocol; to be given as a bolus over 60 bm8 minutes Route: IV; Rate: 1 bolus; Site: right antecubital; 02:32 Follow up: Response: No adverse reaction; IV Status: Completed infusion bm8 02:11 Drug: metoCLOPramide IVP 10 mg IVP once; over 1 to 2 minutes Route: IVP; Site: right bm8 antecubital; 02:32 Follow up: Response: No adverse reaction bm8 03:43 Drug: Ketorolac IVP 30 mg IVP once Route: IVP; Site: right antecubital; bm8 03:48 Follow up: Response: No adverse reaction lg3 03:48 Drug: Valproic Acid PO 500 mg PO once Route: PO; lg3 03:48 Follow up: Response: No adverse reaction lg3 03:59 Drug: HYDROcodone-acetaminophen PO 5 mg-325 mg 1 tabs PO once Route: PO; lg3 04:02 Follow up: Response: No adverse reaction lg3 Disposition: 03:31 Co-signature as Attending Physician, Vadim Quinones MD I agree with the assessment and liss plan of care. Disposition Summary: 01/20/25 03:33 Discharge Ordered Notes: Location: Home liss Problem: chronic liss Symptoms: have improved liss Condition: Stable liss Diagnosis - Other seizures liss - Headache liss Followup: cp - With: Omega Joel MD - When: 2 - 3 days - Reason: Recheck today's complaints Discharge Instructions: - General Headache Without Cause liss - Seizure, Adult, [id number]-[id number] liss - Epilepsy, [id number] liss - General Headache Without Cause, [id number]-[id number] liss - Discharge Summary Sheet cp - Seizure, Adult cp Forms: - Medication Reconciliation Form liss - Antibiotic Education liss - Prescription Opioid Use liss - Patient Portal Instructions liss - Leadership Thank You Letter liss Prescriptions: - Depakote 250 mg Oral tablet, delayed release (enteric coated) - take 1 tablet ORAL route every 12 hours; 30 tablet; Refills: 0, Product liss Selection Permitted Signatures: Dispatcher [employer] Vadim Carlin MD MD cha Page, Corey, PA PA cp Able, Lacie, RN RN lg3 Blake Hernandez RN RN bm8 Corrections: (The following items were deleted from the chart) 02:04 02:04 Head Brain Wo Cont+CT.RAD.BRZ ordered. EDMS EDMS 02:05 02:05 ACETAMINOPHEN+C.LAB.BRZ ordered. EDMS EDMS 02:05 02:05 BASIC METABOLIC PANEL+C.LAB.BRZ ordered. EDMS EDMS 02:05 02:05 CBC+H.LAB.BRZ ordered. EDMS EDMS 02:05 02:05 ETHANOL+C.LAB.BRZ ordered. EDMS EDMS 02:05 02:05 HEPATIC FUNCTION+C.LAB.BRZ ordered. EDMS EDMS 02:05 02:05 PROTIME (+INR)+COAG.LAB.BRZ ordered. EDMS EDMS 02:05 02:05 Test, Urine+UC.LAB.BRZ ordered. EDMS EDMS 02:05 02:05 PTT, ACTIVATED+COAG.LAB.BRZ ordered. EDMS EDMS 02:05 02:05 SALICYLATE+C.LAB.BRZ ordered. EDMS EDMS 02:05 02:05 Urinalysis+U.LAB.BRZ ordered. EDMS EDMS 02:05 02:05 URINE DRUG SCREEN+UC.LAB.BRZ ordered. EDMS EDMS
[2025-01-20] MEDS ORDERED: DIVALPROEX DR 500MG TAB PO ONE (03:37)
[2025-01-20] MEDS ORDERED: KETOROLAC 30 MG/ML INJ ONE (03:38)
[2025-01-20 03:53] LABS: Barbiturates NEGATIVE (NEGATIVE); Benzodiazepines NEGATIVE (NEGATIVE); Cocaine NEGATIVE (NEGATIVE); METHAMPHETAM NEGATIVE (NEGATIVE); Methadone NEGATIVE (NEGATIVE); Opiates POSITIVE (NEGATIVE); Phencyclidine NEGATIVE (NEGATIVE); THC Cannibis NEGATIVE (NEGATIVE)
[2025-01-20 03:54] LABS: Specific Gravity 1.012 (1.005-1.030); Sqamous Epithelial <5 /HPF (None Seen); Urine Bacteria <20 /HPF (<20); Urine Bilirubin NEGATIVE (Negative); Urine Blood Negative (Negative); Urine Clarity Clear (Clear); Urine Color Colorless (Yellow); Urine Culture Reflex Order NOT NEEDED; Urine Glucose NEGATIVE (Negative); Urine Ketones NEGATIVE (Negative); Urine Microscopic Reflex YN ORDER UMIC; Urine Nitrite NEGATIVE (Negative); Urine Protein NEGATIVE (Negative); Urine RBC <5 /HPF (None Seen); Urine Urobilinogen Normal (Normal); Urine WBC <5 /HPF (<5)
[2025-01-20] MEDS ORDERED: HYDROCODONE/APAP 5/325 MG TAB ONE (03:58)
[2025-01-20 04:10] VITALS: TEMP 97.8; O2SAT 100
[2025-01-20 04:13] VITALS: BP 117/86
--- NOTE | 2025-01-20 04:18 | RAD REPORT ---
EXAM: CT Head Without Intravenous Contrast CLINICAL HISTORY: The patient is 34 years old and is Female; Headache. TECHNIQUE: Axial computed tomography images of the head/brain without intravenous contrast. Sagit earnestine and coronal reformatted images were created and reviewed. This CT exam was performed using one or more of the following dose reduction techniques: automated exposure control, adjustment of t he mA and/or kV according to patient size, and/or use of iterative reconstruction technique. COMPARISON: CT Head 09/12/2024 - report only. FINDINGS: Brain: Unremarkable. No hemorrhage. No significant white matter disease. No edema. Ventricles: Unremarkable. No ventriculomegaly. Bones/joints: Unremarkable. No acute skull fracture. Soft tissues: Unremarkable. Sinuses: Unremarkable as visualized. No acute sinusitis. Mastoid air cells: No significant mastoid fluid. IMPRESSION: No acute intracranial findings. No hemorrhage. Electronically signed by: Patricia Linda MD 01/20/2025 04:14 AM CDT RP V2 Due to temporary technical issues with the PACS/[employer] reporting system, reports are being jenaro d by the in-house radiologist without review as a courtesy to ensure prompt reporting the interpreting radiologist is fully responsible for the content of the report. Transcribed Date/Time: 01/20/2025 4:18 AM
--- NOTE | 2025-01-23 11:30 | EKG ---
Test Date: 2025-01-20 Test Time: 01:33:05 Teen Counselor: LATOSHA MEASUREMENT RESULTS: Intervals: Rate: 70 CT: 110 QRSD: 74 QT: 408 QTc: 440 [place]: P: 15 CT: 110 QRS: 60 T: 53 INTERPRETIVE STATEMENTS: Sinus rhythm with short CT Otherwise normal ECG Compared to ECG 09/11/2024 20:55:[address] interval now present T-wave abnormality no longer present Possible ischemia no longer present Prolonged QT interval no longer present Electronically Signed On 01-23-25 11:23:14 CDT by Cuco Ohara
== END 2025-01-20 04:03 | disposition home or self-care (01) ==
LOC: ER 01:18
DX: G40.89 Other seizures (principal); R51.9 Headache, unspecified
CPT/HCPCS: 36415; 70450; 80048; 80076; 80143; 80179; 80307; 81001; 81025; 82077; 84703; 85025; 85610; 85730; 93005; 96374; 96375; 99285; J1100; J1200; J2765; J7030